=== PATIENT | female | born 1985 | race African-American/Black ===

== ENCOUNTER 2024-07-03 16:06 | Inpatient (IN) | payer MEDICAID, SELFPAY ==
[2024-07-03] VITALS (8 sets, daily range): BP systolic 110–127; BP diastolic 69–79; PULSE 93–117; RESP 16–24; TEMP 37.4–39.4; O2SAT 96–100; BMI 28.9
--- NOTE | ~2024-07-03 | CT_ITS ---
CLINICAL HISTORY: severe TAPIA CT head without contrast Comparison: None Findings: No intra-axial mass, midline shift, hydrocephalus, or acute hemorrhage. No significant atrophy-like change or white matter disease. There is no sinus or mastoid fluid. The orbits are unremarkable. No skull fracture. IMPRESSION: 1. No acute intracranial findings. This document has been electronically signed by: Sukhi Lehman MD on 07/03/2024 18:02:32
--- NOTE | 2024-07-03 16:41 | ED_ITS ---
HPI - Headache General Chief Complaint: Headache Stated Complaint: headache, fever warm to the touch, Time Seen by Provider: 07/03/24 16:29 Source: patient and EMS Mode of arrival: EMS Limitations: no limitations History of Present Illness ED Provider: Dr. Makenzie Little HPI Narrative: Patient comes to the emergency room complaining of a headache that started 6 days ago. Patient reports subjective fever. Patient also complaining of photophobia, and some neck pain especially on the right side of the neck. Patient has been taking [id number] medications such as Tylenol and Motrin. Patient states it is not helping much. To her knowledge, she has never been diagnosed with migraine headaches. Patient denies any URI or UTI symptoms Related Data Home Medications ?Medication ?Instructions ?Recorded ?Confirmed No Known Home Meds 11/04/22 Allergies Allergy/AdvReac Type Severity Reaction Status Date / Time No Known Allergies Allergy Verified 07/03/24 16:24 Review of Systems 2 Review of Systems: Constitutional : No Weight loss, No Fever, No Chills, No Night Sweats, patient complaining of fatigue and generalized malaise ENT/Mouth : No Hearing loss, No Ear Pain, No Nasal Congestion, No Sinus Pain, No Hoarseness, No sore throat, No Rhinorrhea, No Swallowing Difficulty Eyes: No Eye Pain, No Swelling, No Redness, No Foreign Body, No Discharge, No Vision Changes Cardiovascular : No Chest Pain, No SOB, No Dyspnea on Exertion, No Orthopnea, No Edema, No Palpitations Respiratory : No Cough, No Sputum, No Wheezing, No Smoke Exposure, No Dyspnea Gastrointestinal : No Nausea, No Vomiting, No Diarrhea, No Constipation, No abdominal Pain, No Hematochezia, No Melena Genitourinary : no irregular bleeding, No Dysuria, No Urinary Frequency, No Hematuria, No Urinary Incontinence, No Urgency, No Flank Pain, No Urinary Flow Changes, No Hesitancy Musculoskeletal : No joint pain, No Myalgias, No Joint Swelling Skin : No Skin Lesions, No rash Neuro : No Weakness, No Numbness, No Paresthesias, No Loss of Consciousness, No Dizziness, complaining of a headache for 6 days along with right-sided neck pain Psych : No Anxiety/Panic, No Depression, No SI/HI/AH/VH, No Social Issues, Heme/Lymph: No Bruising, No Bleeding,No Lymphadenopathy Endocrine : No Polyuria, No Polydipsia, No Temperature Intolerance ON LICENSE OF [facility] Social History Social History Patient Tobacco Use Status: Never used Tobacco Smoked in Last 30 Days: No Use of substances other than those prescribed or required for medical reasons: No Advance Directives: No Advance Directives Information Provided: No Physical Exam 2 Vital Signs: Vital Signs: Last Vital Signs Temp 101.3 F H 07/03/24 23:27 Pulse 112 H 07/03/24 23:27 Resp 24 H 07/03/24 23:27 BP 117/71 07/03/24 23:27 Pulse Ox 96 07/03/24 23:27 O2 Del Method Room Air 07/03/24 23:27 BMI result Body Mass Index 28.9 Const: Other: Appearance: Alert. Oriented X3. Patient looks uncomfortable Eyes: Pupils equal, round and reactive to light. ENT: Pharynx normal. Neck: Normal inspection. No lymphadenopathy. Pain to palpation on the right side of the neck posteriorly and lateral aspect of the right side as well. No pain on the left. Patient has full range of motion with flexion and extension CVS: Normal heart rate and rhythm. Pulses normal. Normal S1 and S2 Respiratory: No respiratory distress. Breath sounds normal. No Wheezing. No rales Abdomen: Soft and nontender. No rigidity. No distention. Skin: Skin warm and dry. Normal skin color. Normal skin turgor. Extremities: No lower extremity edema. No Lacerations. No Rash Neuro: Oriented X 3. No motor deficit. No sensory deficit. Moving all extremities. No slurred speech. CN 2 through 12 grossly intact Psych: calm, cooperative, normal affect Course Course Course Narrative: Receiving IV fluids, a dose of morphine, metoclopramide, diphenhydramine and p.o. cyclobenzaprine. All of patient's labs and imaging pending As possible the patient may be experiencing a migraine, however, if patient does not improve with symptomatic relief, may have to do a lumbar puncture to rule out meningitis Medications Administered Discontinued Medications Generic Name Dose Route Start Last Admin Trade Name Freq PRN Reason Stop Dose Admin Acetaminophen 975 mg 07/03/24 21:38 07/03/24 22:29 Acetaminophen 325 Mg Tablet PO 07/03/24 21:39 975 mg ONCE ONE Administration Ceftriaxone Sodium 1 gm 07/03/24 21:45 07/03/24 22:31 Ceftriaxone Sodium 1 Gm Vial IVPUSH 07/03/24 21:46 1 gm ONCE ONE Administration Cyclobenzaprine HCl 10 mg 07/03/24 16:40 07/03/24 17:04 Cyclobenzaprine Hcl 10 Mg Tablet PO 07/03/24 16:41 10 mg ONCE ONE Administration Dexamethasone Sodium Phosphate 6 mg 07/03/24 21:43 07/03/24 22:29 Dexamethasone Sod Phosphate 4 Mg/Ml Vial IVPUSH 07/03/24 21:44 6 mg ONCE ONE Administration Diphenhydramine HCl 25 mg 07/03/24 16:38 07/03/24 17:04 Diphenhydramine Hcl 50 Mg/Ml Vial IVPUSH 07/03/24 16:39 25 mg ONCE ONE Administration Hydromorphone HCl 1 mg 07/03/24 19:26 07/03/24 19:56 Hydromorphone Hcl 1 Mg/Ml Syringe IVPUSH 07/03/24 19:27 1 mg ONCE ONE Administration Protocol Hydromorphone HCl 0.5 mg 07/03/24 23:11 07/03/24 23:29 Hydromorphone Hcl 0.5 Mg/0.5 Ml Syringe IVPUSH 07/03/24 23:12 0.5 mg ONCE ONE Administration Protocol Sodium Chloride 1,000 mls @ 999 mls/hr 07/03/24 16:39 07/03/24 19:57 Ns IVCONT 07/03/24 17:39 Infused .Q1H1M ONE Infusion Vancomycin HCl 2,000 mg in 500 mls @ 250 mls/hr 07/03/24 21:45 07/03/24 23:54 Vancomycin/Ns IV 07/03/24 23:44 250 mls/hr ONCE ONE Administration Sodium Chloride 2,000 mls @ 999 mls/hr 07/03/24 21:48 07/03/24 23:52 Ns IVCONT 07/03/24 23:48 Infused .Q2H1M ONE Infusion Acyclovir Sodium 680 mg/ 113.6 mls @ 113.6 mls/hr 07/03/24 21:49 07/03/24 23:47 Sodium Chloride IV 07/03/24 22:48 Infused ONCE ONE Infusion Metoclopramide HCl 10 mg 07/03/24 16:38 07/03/24 17:08 Metoclopramide Hcl 10 Mg/2 Ml Vial IVPUSH 07/03/24 16:39 10 mg ONCE ONE Administration Morphine Sulfate 2 mg 07/03/24 17:49 07/03/24 17:54 Morphine Sulfate 2 Mg/Ml Cartridge IVPUSH 07/03/24 17:50 2 mg ONCE ONE Administration Protocol Ondansetron HCl 4 mg 07/03/24 19:26 07/03/24 19:56 Ondansetron Hcl 4 Mg/2 Ml Vial IVPUSH 07/03/24 19:27 4 mg ONCE ONE Administration Medical Decision Making Medical Decision Making [facility] Narrative: My interpretation of labs: Patient's hematology shows a hemoglobin of 8.3. We do not have any previous labs for comparison. Patient's chemistry shows no acute findings. CT scan of the head does not show any acute abnormality. with help of [employer] supervisor, I discussed the labs and CT findings with the patient. Patient states that she is still having 10/10 headache. I discussed with the patient that we need to proceed with a lumbar puncture. Patient agrees Also, patient states that she has normal menstrual periods, she has never been told that she has anemia. Patient denies any rectal bleeding or black stool. I discussed with the patient the risks versus benefits of a blood transfusion and the lumbar puncture. Patient is agreeable to proceed with both. Patient has signed both consents, procedural and blood transfusion Patient being given 1 dose of Dilaudid, states she is feeling better. Patient states that the headache significantly decreased PT INR within acceptable limits, serology negative for influenza, COVID or RSV Patient states that she is starting to feel a bit better after a dose of Dilaudid. We were able to obtain CSF fluid. CSF Sent to the lab. I did not obtain an opening pressure. The CSF fluid was draining very slow, drop by drop, unclear if we were going to be able to obtain enough CSF fluid As we were performing the lumbar puncture, I noted that the patient's skin feels warmer than the documented temperature. I asked the nurse to do a rectal temperature after the procedure, patient has a fever of 102. Patient being given more fluids, empirically treated with dexamethasone, ceftriaxone , vancomycin and acyclovir Patient's CSF labs are pending At this time, 22:58, patient's CSF labs returned: hazy, colorless, white blood cell count 149, RBCs 18, neutrophils 99, lymphocytes 1, glucose 54, CSF protein 145.8 Patient likely has viral meningitis. As mentioned above, patient has already been covered with both antibiotics and antiviral. I discussed the patient with Dr. Cintron, patient may admitted Lab Data 07/03/24 17:46 07/03/24 17:46 Labs: Lab Results 07/03/24 07/03/24 07/03/24 Range/Units 17:46 20:11 21:04 WBC 8.6 (4.8-10.8) X10*3/uL RBC 3.34 L (4.20-5.50) X10*6/uL Hgb 8.3 L (12.0-16.0) g/dl Hct 25.3 L (37.0-47.0) % MCV 75.7 L (80.0-98.0) fL MCH 24.9 L (27.0-33.0) pg MCHC 32.8 (31.0-35.0) g/dl RDW 14.8 (11.0-16.0) % Plt Count 118 L (160-400) X10*3/uL MPV 11.6 (9.4-12.3) fL Immature Gran % (Auto) 0.6 H (0.0-0.4) % Neut % (Auto) 81.9 H (45-73) % Lymph % (Auto) 9.6 L (20-40) % [place] % (Auto) 7.7 (2-11) % Eos % (Auto) 0.1 (0-4) % Baso % (Auto) 0.1 (0-2) % Lymph # (Auto) 0.8 L (1.2-4.9) X10*3/uL [place] # (Auto) 0.7 (0.1-1.2) X10*3/uL Eos # (Auto) 0.0 (0.0-0.4) X10*3/uL Baso # (Auto) 0.0 (0.0-0.2) X10*3/uL Abs Immat Gran (auto) 0.05 H (0.00-0.03) X10*3/uL Absolute Neuts (auto) 7.1 (2.0-8.3) x10*3/uL Absolute Nucleated RBC 0.000 (0.0-0.012) X10*3/uL Nucleated RBC % (auto) 0.0 (0.0-0.2) /100WBC PT 18.9 H (10.9-12.4) SEC INR 1.6 H (0.9-1.1) Sodium 139 (135-145) mmol/L Potassium 3.3 (3.3-5.1) mmol/L Chloride 108 (96-108) mmol/L Carbon Dioxide 22 (22-29) mmol/L Anion Gap 12 (12-20) BUN 7 L (9-16) mg/dL Creatinine 0.67 (0.5-1.4) mg/dL Estim Creat Clear Calc 124.7 Estimated GFR > 60 Random Glucose 105 (60-115) mg/dL Lactic Acid (0.5-2.0) mmol/L Calcium 8.0 L (8.4-10.2) mg/dL Total Bilirubin 0.9 (0.0-1.0) mg/dL Direct Bilirubin 0.4 (0.0-0.5) mg/dL AST 32 H (5-31) U/L ALT 29 (0-31) U/L Alkaline Phosphatase 112 (39-117) U/L Total Protein 6.8 (6.5-8.0) g/dL Albumin 2.8 L (3.5-5.0) g/dL CSF Tube Number 4 CSF Volume ML CSF Appearance CSF Color CSF WBC MM*3 CSF RBC MM*3 CSF Neutrophils % CSF Lymphocytes % CSF Appearance (b) CSF Glucose mg/dL CSF Total Protein (15-45) mg/dL CSF C.neoform/gat PCR (Not Detect.) CSF CMV DNA (PCR) (Not Detect.) CSF Enterovirus (PCR) (Not Detect.) CSF E. coli K1 (PCR) (Not Detect.) CSF H. influenzae (PCR) (Not Detect.) CSF HSV I (PCR) (Not Detect.) CSF HSV II (PCR) (Not Detect.) CSF HHV 6 (PCR) (Not Detect.) CSF L.monocytogenes PCR (Not Detect.) CSF N. meningitidis PCR (Not Detect.) CSF Parechovirus (PCR) (Not Detect.) CSF S. agalactiae (PCR) (Not Detect.) CSF S. pneumoniae (PCR) (Not Detect.) CSF VZV (PCR) (Not Detect.) Influenza Type A (PCR) NEGATIVE (Negative) Influenza Type B (PCR) NEGATIVE (Negative) RSV RNA Qual (PCR) NEGATIVE (Negative) SARS-CoV-2 RNA (RT-PCR) NEGATIVE (Negative) Blood Type A Positive Antibody Screen NEGATIVE Crossmatch See Detail 07/03/24 07/03/24 Range/Units 21:04 23:41 WBC (4.8-10.8) X10*3/uL RBC (4.20-5.50) X10*6/uL Hgb (12.0-16.0) g/dl Hct (37.0-47.0) % MCV (80.0-98.0) fL MCH (27.0-33.0) pg MCHC (31.0-35.0) g/dl RDW (11.0-16.0) % Plt Count (160-400) X10*3/uL MPV (9.4-12.3) fL Immature Gran % (Auto) (0.0-0.4) % Neut % (Auto) (45-73) % Lymph % (Auto) (20-40) % [place] % (Auto) (2-11) % Eos % (Auto) (0-4) % Baso % (Auto) (0-2) % Lymph # (Auto) (1.2-4.9) X10*3/uL [place] # (Auto) (0.1-1.2) X10*3/uL Eos # (Auto) (0.0-0.4) X10*3/uL Baso # (Auto) (0.0-0.2) X10*3/uL Abs Immat Gran (auto) (0.00-0.03) X10*3/uL Absolute Neuts (auto) (2.0-8.3) x10*3/uL Absolute Nucleated RBC (0.0-0.012) X10*3/uL Nucleated RBC % (auto) (0.0-0.2) /100WBC PT (10.9-12.4) SEC INR (0.9-1.1) Sodium (135-145) mmol/L Potassium (3.3-5.1) mmol/L Chloride (96-108) mmol/L Carbon Dioxide (22-29) mmol/L Anion Gap (12-20) BUN (9-16) mg/dL Creatinine (0.5-1.4) mg/dL Estim Creat Clear Calc Estimated GFR Random Glucose (60-115) mg/dL Lactic Acid 2.0 (0.5-2.0) mmol/L Calcium (8.4-10.2) mg/dL Total Bilirubin (0.0-1.0) mg/dL Direct Bilirubin (0.0-0.5) mg/dL AST (5-31) U/L ALT (0-31) U/L Alkaline Phosphatase (39-117) U/L Total Protein (6.5-8.0) g/dL Albumin (3.5-5.0) g/dL CSF Tube Number 3 CSF Volume 1.0 ML CSF Appearance HAZY CSF Color COLORLESS CSF WBC 149 H* MM*3 CSF RBC 18 MM*3 CSF Neutrophils 99 % CSF Lymphocytes 1 % CSF Appearance (b) Clear, Colorless CSF Glucose 54 mg/dL CSF Total Protein 145.8 H (15-45) mg/dL CSF C.neoform/gat PCR Not Detected (Not Detect.) CSF CMV DNA (PCR) Not Detected (Not Detect.) CSF Enterovirus (PCR) Not Detected (Not Detect.) CSF E. coli K1 (PCR) Not Detected (Not Detect.) CSF H. influenzae (PCR) Not Detected (Not Detect.) CSF HSV I (PCR) Not Detected (Not Detect.) CSF HSV II (PCR) Not Detected (Not Detect.) CSF HHV 6 (PCR) Not Detected (Not Detect.) CSF L.monocytogenes PCR Not Detected (Not Detect.) CSF N. meningitidis PCR Not Detected (Not Detect.) CSF Parechovirus (PCR) Not Detected (Not Detect.) CSF S. agalactiae (PCR) Not Detected (Not Detect.) CSF S. pneumoniae (PCR) Not Detected (Not Detect.) CSF VZV (PCR) Not Detected (Not Detect.) Influenza Type A (PCR) (Negative) Influenza Type B (PCR) (Negative) RSV RNA Qual (PCR) (Negative) SARS-CoV-2 RNA (RT-PCR) (Negative) Blood Type Antibody Screen Crossmatch Procedures Lumbar Puncture Time Out Performed: Yes Patient Position: upright Skin Prep: Povidone-Iodine 1% Local Anesthetic: lidocaine 1% Amount of anesthesia used (mL): 10 Spinal Needle Gauge: 22G Interspace Used: L4-L5 Fluid Initially Obtained: clear (A bit hazy) Complications: none Critical Care Time Critical Care Time Critical Care Time: Yes Total Critical Care Time: 75 Attestation: I have personally provided critical care time. Time includes review of lab data, radiology results, discussion with consultants, and monitoring for potential decompensation. Intervention performed as documented. Discharge Plan Discharge Prescriptions: No Action No Known Home Meds Print Language: [place]ian Creelvia
[2024-07-03] MEDS: Cyclobenzaprine HCl 10 MG TABLET PO (17:04)
[2024-07-03] MEDS: diphenhydrAMINE HCL 50 MG/ML VIAL 25 MG IVPUSH (17:04)
[2024-07-03] MEDS: 0.9 % Sodium Chloride 1,000 ML 999 ML IVCONT (17:06)
[2024-07-03] MEDS: Metoclopramide HCl 10 MG/2 ML VIAL IVPUSH (17:08)
--- NOTE | 2024-07-03 17:10 | PC.NURSE ---
pt is alert and oriented, skin appropriate for ethnicity, respirations even and unlabored, pt is Stateless Creole speaking, pt states since thursday having this terrible headache, pt denies hx of headaches, denies light and noise sensitivity, denies nausea, vs stable
--- OUTSIDE RECORDS SUMMARY | 2024-07-03 17:39 | XMS_ITS | Clinical Summary ---
Author Organization [employer] Address [address] [place] [address] 7 [place] [address] Care Team Providers Care Level Vial Grinder Name Role Phone Claudia Ferrara CARLA Primary Care Provide r Medications * This document contains information received from the source organization and may not represent a complete record from that organization. Blood Pressure Monitoring (Blood Pressure Kit) kit 1 each Use as directed. 10/06/2022 Active norethindrone (Micronor) 0.35 MG tabletIndication s:Encounter for Nexplanon removal Take 1 tablet (0.35 mg) by mouth Once per day. 28 tablet 11 05/03/2024 Active Active Problems Problem Noted Date Diagnosed Date Language barrier 06/06/2024 Overview (06/06/2024): Patient does not speak Kenyan as a primary language. Certified qual field manager was used for the duration of this visit which requires at least twice the time to assess history, discuss assessment and plan. Those with primary language is other than Kenyan, require additional support and expertise in order to access health care to combat these social determinants of health. This additional expertise, support, attention, and effort required to deliver quality health care must be recognized by our system. Encounter for control 04/27/2024 Encounter for Nexplanon removal 04/27/2024 Overview (04/27/2024): Nexplanon was removed without complications, fully intact, care instructions were given to the patient Elevated blood pressure read ing without diagnosis of hypertension 04/27/2024 Overview (04/27/2024): Blood pressure 156/102 today in office , No symptoms Patient reports no history of HTN (but had PEC in ) Discussed diet modifications with the patient and that she should follow up with her PCP within 3 months Situational stress 03/28/2024 Overview (06/06/2024): 06-06-24 patient also had visit with primary care [facility] 06-02-2024. Patient reports doing overall well, and communicating with mother and father in [place]. Denies any suicidal or homicidal ideations. Overall symptoms have been stable. Counseled on when to seek care sooner for mental health emergency and agreeable. Plan for follow-up in 4 weeks sooner as needed. 03-28-2024 follow-up visit for stress endorsed by patient during well-child check on 02-18-2024 Reports is related to being from father of children. Patient denies feeling depressed No suicidal or homicidal ideations Advised on strategies to help with stress [facility] follow-up in 4 weeks PCP follow-up in 2 months Counseled on when to seek care sooner Assessment & Plan (06/06/2024 10:02 AM EST): You indicate at visit today you are dong well overall, and have no thoughts of hurting, killing yourself or others. We discussed things to do to help decrease stress, such as spending time with family and doing things that bring you day[place], also getting involved with your community can be helpful. Follow all advice that was given by primary care behavioral health at visit 06-02-24 Follow-up with PCP in 1 months as scheduled, sooner as needed. We discussed for any thoughts of hurting, killing yourself or others, to seek immediate medical care by calling 911. Patient expressed understanding agreeable to plan. Assessment & Plan (03/28/2024 9:22 AM EST): You indicate at visit today you are stressed but has no depression, no thoughts of hurting, killing yourself or others. We discussed things to do to help decrease stress, such as spending time with family and doing things that bring you day[place], also getting involved with your community can be helpful. You are also agreeable to a visit with our behavioral health specialist, you will be contacted with appointment date and time. Also follow-up with PCP in 2 months sooner as needed. We discussed for any thoughts of hurting, killing yourself or others, to seek immediate medical care by calling 911. Patient expressed understanding agreeable to plan. History of pre-eclampsia 01/09/2024 Thrombocytopenia 10/09/2022 Overview (01/09/2024): Patient was thrombocytopenic with a platelet count of 80 on 10/06/2022. On admission to the hospital repeat CBC was collected and platelet count was 84. Number cytopenia most likely related to thrombocytopenia of and less likely ITP or help syndrome. Plan to continue monitoring platelet count during hospitalization and at 6-week follow-up. -Repeat CBC Encounters * This document contains information received from the source organization and may not represent a complete record from that organization. Date Type Department Care Team Description 06/06/2024 9:00 AM EST Telemedicine [address] [phone] Claudia Ferrara FNP Situational stress (Primary Dx); Language barrier 05/03/[address] [phone] Ngozi Centeno DO Contraception 05/02/2024 3:40 PM EST Office Visit [address] [phone] Ngozi Centeno, Thrombocytopenia (CMS/HCC) (Primary Dx); Irregular periods; Encounter for Nexplanon removal 04/29/[address] [phone] Claudia Ferrara FNP Headache 04/23/2024 Abstract [facility] [address] [place] [phone] Denice Pizarro CHW 04/11/2024 2:00 PM EST Office Visit [address] [phone] Charito Mccormick PA-C Encounter for Nexplanon removal (Primary Dx); Elevated blood pressure reading without diagnosis of hypertension 04/06/[address] [phone] Claudia Ferrara FNP Vaginal Bleeding from Last 3 Months Immunizations Name Administration Dates Next Due Pfizer Covid-19 Vaccine 12+ lan-sucrose (Bergman Cap) 09/24/2022,06/17/2022,05/20/2022, 0 22 Social History Tobacco Use Types Packs/Day Years Used Date Smoking Tobacco: Never Passive Smoke Exposure: Never Smokeless Tobacco: Never Tobacco Cessation:Counseling Given: Not Answered Alcohol Use Standard Drinks/Week Comments Never 0 (1 standard drink = 0.6 oz pur e alcohol) Housing Stability Answer Date Recorded What is your housing situation today? I have connorfeli garrett 01/27/[address] you li ve. Do you have problems with any of the following? None of the above 01/27/2024 Food Insecurity Answer Date Recorded Within the past 12 months, y ou worried that your food would run out before you got money to buy more: Sometimes True 2023 Within the past 12 months,th e food you bought just didn't last and you didn't have enough money to get more: Sometimes True 05/02/2024 Transportation Answer Date Recorded In the past 12 months, has l ack of transportation kept you from medical appts, meetings, work or from getting things needed for daily living? No 05/02/2024 Utilities Answer Date Recorded In the past 12 months, has t he electric, gas, oil or water company threatened to shut off services in your home? No 01/27/2024 Depression Answer Date Recorded Patient Health Questionnaire-2 Score 0 01/27/2024 Internet Access Answer Date Recorded Internet Access Q1 No 05/02/2024 Internet Access Q2 I do not want or need it 01/2024 Comments No Sex and Gender Information Value Date Recorded Sex Assigned at Female 10/29/2023 8:25 AM EDT Legal Sex Female 7:04 PM EDT Gender Identity Female 09/04/2023 7:04 PM EDT Sexual Orientation Straight 09/04/2023 7: 04 PM EDT Last Filed Vital Signs Vital Sign Reading Time Taken Comments Blood Pressure 126/85 05/02/2024 2:46 PM EST Pulse 69 05/02/2024 2:46 PM EST Temperature 36.7 ??C (98 ??F) 05/02/2024 2:46 PM EST Respiratory Rate 16 05/02/2024 2:46 PM EST Oxygen Saturation 98% 05/02/2024 2:46 PM EST Inhaled Oxygen Concentration - - Weight 76.7 kg (169 lb) 05/02/2024 2:46 PM EST Height 159.4 cm (5' 2.75 ) 04/11/2024 2:10 PM ES T Body Mass Index 30.18 04/11/2024 2:10 PM EST Plan of Treatment Upcoming Encounters Date Type Department Care Team (Late st Contact Info) Description 07/04/2024 9:20 AM EST Telemedicine [address] [phone] Claudia Ferrara FNP [address] [place] [phone] Health Maintenance Due Date Last Done Comments Alcohol/Substance Use Screening 1999 Family Planning (PISQ) 12/26/2002 DTaP/Tdap/Td Vaccines (1 - Tdap) 12/26/2006 Hepatitis B Vaccines (1 of 3 - 19+ 3-dose series) 12/26/2006 COVID-19 Vaccine ( season) 2024 09/24/2022, 06/17/2022, 05/20/2022, Additional history exists Influenza Vaccine (#1) 2024 Depression Screening 01/26/2025 01/27/2024, 01/27/20 24 SDOH Screening 05/02/2025 05/02/2024 Tobacco Screening 06/06/2025 06/06/2024 Cervical Cancer Screening 01/26/2029 HPV/Cotest 01/26/2029 01/27/2024 Pap Smear 01/26/2029 01/27/2024 Zoster Vaccines (1 of 2) 12/26/2037 RSV Patients and Patients Aged 60 years or older (1 - 1-dose 75+ series) 12/26/2062 Hepatitis C Screening Completed 10/06/2022 HIV Screening Completed 07/09/2023 HIB Vaccines Aged Out No longer eligi ble based on patient's age to complete this topic HPV Vaccines Aged Out No longer eligi ble based on patient's age to complete this topic Hepatitis A Vaccines Aged Out No long er eligible based on patient's age to complete this topic IPV Vaccines Aged Out No longer eligi ble based on patient's age to complete this topic Meningococcal Vaccine Aged Out No anyi amina eligible based on patient's age to complete this topic Pneumococcal Vaccine: Pediatrics (0 to 5 Years) and At-Risk Patients (6 to 49) Years) Aged Out No longer eligible based on patient's age to complete this topic RSV under 20 months Aged Out No longe r eligible based on patient's age to complete this topic Rotavirus Vaccines Aged Out No longer eligible based on patient's age to complete this topic Procedures Procedure Name Priority Date/Time Associated Diagnosis Comments POCT , URINE Routine 05/02/2024 2:49 PM EST Irregular periods BOOK EDITOR INSERTION/REMOVAL OF CONTRACEPTIVE CAPSULE Routine 04/11/2024 12:57 PM EST Encounter for Nexplanon removal IMAGE GUIDED PAP, HPV DETECTION W/REFLEX TO HPV GENOTYPE Routine 01/27/2024 2:12 PM EDT Cervical cancer screening HM HIV 1/2 ANTIGEN AND ANTIBODY Routine 07/09/2023 HM HEPATITIS C ANTIBODY Routine 10/06/2022 from Last 3 Months or Most Recently Relevant to Health Maintenance Results * POCT HCG Test (05/02/2024 2:49 PM EST) Preg Test, Ur Negative Negative, Indeterminate, None Detected, Invalid, Specimen unsatisfactory for evaluation, Weakly Positive QC Media Lot # [id number] Lot# Expiration Date [id number] Urine 05/02/2024 2:49 PM EST Ngozi Centeno DO POINT OF CARE TEST ENTER/EDIT OR DERABLES Final Result * Insertion/Removal of Contraceptive Capsule (04/11/2024 12:57 PM EST) Narrative Charito Mccormick PA-C - 04/11/2024 12:57 PM EST Charito Mccormick PA-C ? 04/27/2024 ??1:14 PM Insertion/Removal of Contraceptive Capsule Date/Time: 04/11/2024 12:57 PM Performed by: Charito Mccormick PA-C Authorized by: Charito Mccormick PA-C ?? Confirmed correct patient, procedure, site, and patient consented: Yes ?? Consent: ??Consent obtained: ??Written ??Consent given by: ??Patient ??Procedural risks and benefits discussed: Yes ?Patient questions answered: yes ?Patient agrees, verbalizes understanding, and wants to proceed: yes ?Educational handouts given: yes ?Instructions and paperwork completed: yes ?? [place] Protocol: ??Patient states understanding of procedure being performed: yes ?Relevant documents present and verified: yes ?Test results available and properly labeled: yes ?Imaging studies available: yes ?Required blood products, implants, devices, and special equipment available: yes ?Site marked: yes ?? Indication: ??Indication: presence of non-biodegradable drug delivery implant ?? Pre-procedure: ??Pre-procedure timeout performed: yes ?Local anesthetic: ??Lidocaine 1% ??The site was cleaned and prepped in a sterile fashion: yes ?? Procedure: ??Procedure: ??Removal ??Small stab incision was made in arm: yes ?Left/right: ??Left Charito Mccormick PA-C IN CLINIC/BEDSIDE ORDERA BLES Final Result * Routine Pap, Age 30+ (01/27/2024 2:12 PM EDT) Diagnosis [facility] 1 Comment: NEGATIVE FOR INTRAEPITHELIAL LESION OR MALIGNANCY. THE CYTOLOGY PROCESSING WAS PERFORMED AT THE [facility] LOCATED AT [address] [place] [phone]. Adequacy: [facility] 1 Comment: Satisfactory for evaluation. ??Endocervical and/or squamous metaplastic cells (endocervical component) are present. Clinician provided ICD-10: [facility] 2 Comment:Z12.4 Performed by: [facility] 1 Comment:Cleopatra Nunez, Cytot echnologist (ASCP) Cytology Comment . [facility] 1 Note: [facility] 2 Comment: The Pap smear is a screening test designed to aid in the detection of premalignant and malignant conditions of the uterine cervix. ??It is not a diagnostic procedure and should not be used as the sole means of detecting cervical cancer. ??Both false-positive and false-negative reports do occur. Test Methodology: [facility] 2 Comment: This liquid based ThinPrep(R) pap test was screened with the use of an image guided system. HPV Aptima Negative Negative [facility] 3 Comment: This nucleic acid amplification test detects fourteen high-risk HPV types (16,18,31,33,35,39,45,51,52,56,58,59,66,68) without differentiation. ThinPrep?? vial (Cervical cells) 01/27/2024 2:12 PM EDT 01/27/2024 Comment:CERVICAL Narrative [facility] 3 - 01/29/2024 10:05 PM EDT Performed at: ??01 - [facility] [address] ??[id number] Installation And Service Technician: Conner Rome MD, Phone: ??[phone] Performed at: ??02 - [facility] [address] ??[id number] Installation And Service Technician: Digna Olson MD, Phone: ??[phone] Performed at: ??03 - [facility] [address] ??[id number] Installation And Service Technician: Digna Olson MD, Phone: ??[phone] Specimen Comment: [id number] Specimen Comment: No. of containers..01 ThinPrep Vial [facility] LAB CYTOLOGY ORDERABLES Dennise l Result [facility] 3 [facility] 1 [facility] 2 * HM HIV 1/2 Antigen and Antibody (07/09/2023) HIV Ag/Ab Nonreactive Historical Provider HEALTH MAINTENANCE Final Result * HM Hepatitis C Antibody (10/06/2022) Hepatitis C Antibody Nonreactive Blood Historical Provider HEALTH MAINTENANCE Final Result from Last 3 Months or Most Recently Relevant to Health Maintenance Insurance C3 Care Teams Level Vial Grinder Relationship Specialty Start Date End Date Claudia Ferrara FNP [address] [place] [phone] PCP - General Family Medicine 11/20/21
--- NOTE | 2024-07-03 17:50 | PC.NURSE ---
pt reports not feeling any better pain still at 10/10
[2024-07-03] MEDS: Morphine Sulfate 2 MG/ML CARTRIDGE IVPUSH (17:54)
[2024-07-03 17:55] LABS: MANUAL DIFF FLAG NO
[2024-07-03 18:16] LABS: Alanine Aminotransferase 29 U/L (0-31); Albumin Level 2.8 g/dL (3.5-5.0); Alkaline Phosphatase 112 U/L (39-117); Anion Gap 12 (12-20); Aspartate Amino Transferase 32 U/L (5-31); Bilirubin Direct 0.4 mg/dL (0.0-0.5); Bilirubin Total 0.9 mg/dL (0.0-1.0); Blood Urea Nitrogen 7 mg/dL (9-16); Carbon Dioxide 22 mmol/L (22-29); Chloride 108 mmol/L (96-108); Creatinine Clr Calc Pharmacy 124.7; Estimated Glomerular Filt Rate > 60; Glucose Random 105 mg/dL (60-115); Potassium 3.3 mmol/L (3.3-5.1); Sodium 139 mmol/L (135-145); Total Protein 6.8 g/dL (6.5-8.0)
[2024-07-03 18:31] LABS: Basophils Percent Auto 0.1 % (0-2); Eosinophils Percent Auto 0.1 % (0-4); Hematocrit 25.3 % (37.0-47.0); Hemoglobin 8.3 g/dl (12.0-16.0); Imm Gran Abs Auto 0.05 X10*3/uL (0.00-0.03); Imm Gran Pct Auto 0.6 % (0.0-0.4); Lymphocytes Absolute Auto 0.8 X10*3/uL (1.2-4.9); Lymphocytes Percent Auto 9.6 % (20-40); Mean Corpuscular HGB Conc 32.8 g/dl (31.0-35.0); Mean Corpuscular Hemoglobin 24.9 pg (27.0-33.0); Mean Corpuscular Volume 75.7 fL (80.0-98.0); Mean Platelet Volume 11.6 fL (9.4-12.3); Monocytes Absolute Auto 0.7 X10*3/uL (0.1-1.2); Monocytes Percent Auto 7.7 % (2-11); Neutrophils Absolute Auto 7.1 x10*3/uL (2.0-8.3); Neutrophils Percent Auto 81.9 % (45-73); Platelet Count 118 X10*3/uL (160-400); Red Blood Count 3.34 X10*6/uL (4.20-5.50); Red Cell Distribution Width 14.8 % (11.0-16.0); White Blood Count 8.6 X10*3/uL (4.8-10.8)
[2024-07-03 19:11] LABS: Influenza A PCR NEGATIVE (Negative); Influenza B PCR NEGATIVE (Negative); Resp Syncy Virus RNA Qual PCR NEGATIVE (Negative); SARS COV2 PCR INHOUSE NEGATIVE (Negative)
[2024-07-03] MEDS: HYDROmorphone HCl 1 MG/ML SYRINGE IVPUSH (19:56)
[2024-07-03] MEDS: ondansetron HCL 4 MG/2 ML VIAL IVPUSH (19:56)
[2024-07-03 20:32] LABS: INTERNATIONAL NORM RATIO 1.6 (0.9-1.1); Prothrombin Time 18.9 SEC (10.9-12.4)
[2024-07-03 21:44] LABS: Glucose CSF 54 mg/dL; Total Protein CSF 145.8 mg/dL (15-45)
[2024-07-03 21:45] LABS: CSF Appearance Clear, Colorless; CSF Tube # 4
[2024-07-03] MEDS: 0.9 % Sodium Chloride 2,000 ML 999 ML IVCONT (22:16)
[2024-07-03] MEDS: dexAMETHasone sod phosphate 4 MG/ML VIAL 6 MG IVPUSH (22:29)
[2024-07-03] MEDS: Acetaminophen 325 MG TABLET 975 MG PO (22:29)
[2024-07-03] MEDS: Acyclovir Sodium 680 MG in 0.9 % Sodium Chloride 100 ML 113.6 MG IV (22:31)
[2024-07-03] MEDS: cefTRIAXone sodium 1 GM VIAL IVPUSH (22:31)
[2024-07-03 22:42] LABS: Cryptococcus neoformans/gattii Not Detected (Not Detect.); Enterovirus Not Detected (Not Detect.); Escherichia coli K1 Not Detected (Not Detect.); Haemophilus influenzae Not Detected (Not Detect.); Herpes simplex virus 1 Not Detected (Not Detect.); Herpes simplex virus 2 Not Detected (Not Detect.); Human herpesvirus 6 Not Detected (Not Detect.); Human parechovirus Not Detected (Not Detect.); Listeria monocytogenes Not Detected (Not Detect.); Neisseria meningitidis Not Detected (Not Detect.); Streptococcus agalactiae Not Detected (Not Detect.); Streptococcus pneumoniae Not Detected (Not Detect.); Varicella zoster virus Not Detected (Not Detect.)
[2024-07-03 22:51] LABS: Appearance CSF HAZY
[2024-07-03 22:52] LABS: CSF Tube # 3; Color CSF COLORLESS
[2024-07-03 22:54] LABS: Lymphocytes CSF 1 %; Neutrophils CSF 99 %; Red Blood Cell CSF 18 MM*3
[2024-07-03 22:55] LABS: White Blood Cell CSF 149 MM*3
[2024-07-03] MEDS: HYDROmorphone HCl 0.5 MG/0.5 ML SYRINGE IVPUSH (23:29)
[2024-07-03] MEDS: vancomycin/NS 2,000 MG/500 ML PLAST..BAG 250 MG IV (23:54)
--- NOTE | 2024-07-03 23:59 | P.HPHOSP_ITS ---
History of Present Illness Date of Service: 07/03/24 Attending physician on admission: Omer Cintron Chief Complaint: Headache, fever Patient is a 38-year-old female with no significant past medical history, who presented to the ED due to headache, neck pain and fever for the past week. She was sent from urgent care and EMS reported nonreactive pupils but was found to have reactive pupils here. Her neck pain is located on the right side, with photophobia and a 10/10 headache. Since receiving IV pain medication here she reports her headache as a 7/10. She denies any upper respiratory symptoms including cough, runny nose, congestion, shortness of breath or sore throat. She also denies any rash, abd pain, diarrhea, nausea, vomiting, hematochezia or urinary symptoms including pain, hematuria, dysuria, frequency or urgency. She denies heavy menses or any bleeding sources. History is difficult to obtain as the patient was uncomfortable and there is a language barrier although interpretation services were used. Review of Systems 2 Constitutional: Constitutional: Reports fever(s) and Reports headache(s) Eyes: Eyes: Reports photophobia ENT: Reports headache(s), Denies nasal congestion, Denies nasal discharge, Reports neck pain and Denies sore throat Cardiovascular: Cardiovascular: Denies chest pain, Denies rapid heart rate, Denies leg edema, Denies lightheadedness, Denies dyspnea and Denies dyspnea on exertion Respiratory: Respiratory: Denies chest congestion, Denies cough, Denies dyspnea, Denies dyspnea on exertion and Denies wheezing Gastrointestinal: Gastrointestinal: Denies abdominal pain, Denies melena, Denies hematochezia, Denies constipation, Denies diarrhea, Denies nausea and Denies vomiting Genitourinary: Genitourinary: Denies abnormal menses, Denies abnormal vaginal bleeding, Denies hematuria, Denies difficulty voiding, Denies dysuria and Denies urinary urgency Musculoskeletal: Musculoskeletal: Reports neck pain Integumentary/Breasts: Skin/Breast: Denies rash Neurologic: Denies confusion and Reports headache(s) Psychiatric: Psychiatric: Denies confusion Endocrine: Endocrine: Denies polydipsia and Denies polyuria Hematologic/Lymphatic: Hematologic/Lymphatic: Denies easy bleeding and Denies easy bruising Allergic/Immunologic: Allergic/Immunologic: Denies wheezing PMFSH Functional capacity: independent ambulation Social History Patient Tobacco Use Status: Never used Tobacco Smoked in Last 30 Days: No Use of substances other than those prescribed or required for medical reasons: No Advance Directives: No Advance Directives Information Provided: No Narrative: no smoking, etoh or drug use Meds Allergies Allergy/AdvReac Type Severity Reaction Status Date / Time No Known Allergies Allergy Verified 07/03/24 16:24 Active Medications: Current Medications Acetaminophen (Acetaminophen 325 Mg Tablet) 975 mg PO Q6H PRN PRN Reason: Pain, Mild 1-3,fever,headache Calcium Carbonate (Calcium Carbonate 750 Mg Tab.Chew) 750 mg PO Q4H PRN PRN Reason: Heartburn Hydromorphone HCl (Hydromorphone Hcl 1 Mg/Ml Syringe) 1 mg IVPUSH Q4H PRN; Protocol PRN Reason: Pain, Severe (Pain Scale 7-10) Acyclovir Sodium 680.6 mg/ (Sodium Chloride) 113.612 mls @ 113.612 mls/hr IV Q8H EDUIN Ibuprofen (Ibuprofen 600 Mg Tablet) 600 mg PO Q8H PRN PRN Reason: Fever >100.4 Magnesium Hydroxide (Milk Of Magnesia 30 Ml Oral.Susp) 30 ml PO DAILY PRN PRN Reason: Constipation Melatonin (Melatonin 3 Mg Tablet) 6 mg PO BEDTIME PRN PRN Reason: Insomnia Ondansetron HCl (Ondansetron Hcl 4 Mg/2 Ml Vial) 4 mg IVPUSH Q8H PRN PRN Reason: Nausea and Vomiting Oxycodone HCl (Oxycodone Hcl Immed Release 5 Mg Tablet) 5 mg PO Q6H PRN PRN Reason: Pain, Moderate(Pain Scale 4-6) Polyethylene Glycol (Polyethylene Glycol 3350 17 Gm Powd.Pack) 17 gm PO DAILY PRN PRN Reason: Constipation Sodium Chloride (0.9 % Sodium Chloride Flush 3 Ml Syringe) 3 ml IVFLUSH QSHIFT ON LICENSE OF [facility] Home Medications ?Medication ?Instructions ?Recorded ?Confirmed ?Last Taken ?Type No Known Home Meds 11/04/22 Unknown History Physical Exam 2 Vital Signs and Narrative: Vital Signs: Last Vital Signs Temp 101.3 F H 07/03/24 23:27 Pulse 112 H 07/03/24 23:27 Resp 24 H 07/03/24 23:27 BP 117/71 07/03/24 23:27 Pulse Ox 96 07/03/24 23:27 O2 Del Method Room Air 07/03/24 23:27 BMI result Body Mass Index 28.9 General: AOx3, very uncomfortable, groaning and does not open eyes the entire time Resp: CTA bilaterally CVS: S1, S2, RRR GI: +BS, NT, no distention Skin: Warm to touch, dry Neuro: EOMs intact, pupils equal in size, refuses pupillary reaction with light. ED note mentions PERRL. sensation and strength intact bilaterally. Extremities: No LE edema Psych: Appropriate affect Const: General: No confusion Orientation/consciousness: No confusion Eyes: Direct Ophthalmoscopy: photophobia Neuro: General: No confusion Results Labs 07/03/24 17:46 07/03/24 17:46 Labs: Laboratory Results - last 24 hr 07/03/24 07/03/24 07/03/24 17:46 20:11 21:04 MCV 75.7 L MCH 24.9 L MCHC 32.8 RDW 14.8 Plt Count 118 L MPV 11.6 Immature Gran % (Auto) 0.6 H Neut % (Auto) 81.9 H Lymph % (Auto) 9.6 L [place] % (Auto) 7.7 Eos % (Auto) 0.1 Baso % (Auto) 0.1 Lymph # (Auto) 0.8 L [place] # (Auto) 0.7 Eos # (Auto) 0.0 Baso # (Auto) 0.0 Abs Immat Gran (auto) 0.05 H Absolute Neuts (auto) 7.1 Absolute Nucleated RBC 0.000 Nucleated RBC % (auto) 0.0 PT 18.9 H INR 1.6 H Anion Gap 12 Estim Creat Clear Calc 124.7 Estimated GFR > 60 Random Glucose 105 Calcium 8.0 L Total Bilirubin 0.9 Direct Bilirubin 0.4 AST 32 H ALT 29 Alkaline Phosphatase 112 Total Protein 6.8 Albumin 2.8 L CSF Tube Number 4 CSF Volume CSF Appearance CSF Color CSF WBC CSF RBC CSF Neutrophils CSF Lymphocytes CSF Appearance (b) CSF Glucose CSF Total Protein CSF C.neoform/gat PCR CSF CMV DNA (PCR) CSF Enterovirus (PCR) CSF E. coli K1 (PCR) CSF H. influenzae (PCR) CSF HSV I (PCR) CSF HSV II (PCR) CSF HHV 6 (PCR) CSF L.monocytogenes PCR CSF N. meningitidis PCR CSF Parechovirus (PCR) CSF S. agalactiae (PCR) CSF S. pneumoniae (PCR) CSF VZV (PCR) Influenza Type A (PCR) NEGATIVE Influenza Type B (PCR) NEGATIVE RSV RNA Qual (PCR) NEGATIVE SARS-CoV-2 RNA (RT-PCR) NEGATIVE Blood Type A Positive Antibody Screen NEGATIVE Crossmatch See Detail 07/03/24 21:04 MCV MCH MCHC RDW Plt Count MPV Immature Gran % (Auto) Neut % (Auto) Lymph % (Auto) [place] % (Auto) Eos % (Auto) Baso % (Auto) Lymph # (Auto) [place] # (Auto) Eos # (Auto) Baso # (Auto) Abs Immat Gran (auto) Absolute Neuts (auto) Absolute Nucleated RBC Nucleated RBC % (auto) PT INR Anion Gap Estim Creat Clear Calc Estimated GFR Random Glucose Calcium Total Bilirubin Direct Bilirubin AST ALT Alkaline Phosphatase Total Protein Albumin CSF Tube Number 3 CSF Volume 1.0 CSF Appearance HAZY CSF Color COLORLESS CSF WBC 149 H* CSF RBC 18 CSF Neutrophils 99 CSF Lymphocytes 1 CSF Appearance (b) Clear, Colorless CSF Glucose 54 CSF Total Protein 145.8 H CSF C.neoform/gat PCR Not Detected CSF CMV DNA (PCR) Not Detected CSF Enterovirus (PCR) Not Detected CSF E. coli K1 (PCR) Not Detected CSF H. influenzae (PCR) Not Detected CSF HSV I (PCR) Not Detected CSF HSV II (PCR) Not Detected CSF HHV 6 (PCR) Not Detected CSF L.monocytogenes PCR Not Detected CSF N. meningitidis PCR Not Detected CSF Parechovirus (PCR) Not Detected CSF S. agalactiae (PCR) Not Detected CSF S. pneumoniae (PCR) Not Detected CSF VZV (PCR) Not Detected Influenza Type A (PCR) Influenza Type B (PCR) RSV RNA Qual (PCR) SARS-CoV-2 RNA (RT-PCR) Blood Type Antibody Screen Crossmatch Assessment and Plan (1) Sepsis: Status: Acute (2) Viral meningitis: Status: Acute (3) Microcytic anemia: Status: Acute (4) Thrombocytopenia: Status: Acute Plan Patient is a 38-year-old female with no significant past medical history, who presented to the ED due to headache, neck pain and fever for the past week. Workup in the ED significant for likely viral meningitis versus encephalitis. No altered mental status therefore meningitis white likely. COVID/flu/RSV negative. Strep negative. Head CT negative. She was also found to be anemic with a hemoglobin of 8.3, 1 unit PRBC transfused. No obvious bleeding sources. Patient is very uncomfortable therefore difficult to obtain accurate history from. Sepsis secondary to suspected viral meningitis - WBC 8.6, tachycardic and tachypneic, T-max 103 degrees F, lactic acid 2.0, blood cultures x2 pending - head CT negative - CSF with WBC 149, 99% neutrophils, protein 145.8, glucose normal, viral panel negative - started on ceftriaxone, vancomycin and acyclovir, continue - also given dexamethasone x1 dose, continue 10mg Q6H - ID consult - neuro checks Q4H - monitor Is and Os - contact precautions - monitor CBC and BMP microcytic anemia - hemoglobin 8.3, hematocrit 25.3, platelets 118 - given 1 unit PRBC - no obvious bleeding sources - iron panel pending - monitor CBC language:[place] Creole Full code VTE prophylaxis: Pneumoboots, anticoagulant contraindicated due to thrombocytopenia Patient with sepsis secondary to suspected viral meningitis, requiring admission for at least 2 midnights stay for IV abx, antivirals, monitoring and infectious disease consultation. Quality Stroke Does the patient have a stroke diagnosis?: No VTE Prior VTE?: No VTE Risk Level:: Medical - moderate - high VTE Device Contraindication: N/A - Device Ordered VTE Drug Contraindication: Treatment Not Indicated
[2024-07-04] VITALS (8 sets, daily range): BP systolic 115–156; BP diastolic 71–94; PULSE 81–104; RESP 16–26; TEMP 35.8–38; O2SAT 94–97
[2024-07-04] MEDS: 0.9 % Sodium Chloride Flush 3 ML SYRINGE IVFLUSH ×3 (00:33→16:06)
[2024-07-04 00:41] LABS: Iron < 7 mcg/dL (30-160); Percent Iron Saturation 5 % (15-50); Total Iron Binding Capacity 147 mcg/dL (228-428); Unsaturated Iron Binding 140 ug/dL
[2024-07-04 04:47] LABS: MANUAL DIFF FLAG NO
[2024-07-04 04:52] LABS: Basophils Percent Auto 0.2 % (0-2); Hemoglobin 9.6 g/dl (12.0-16.0); Imm Gran Abs Auto 0.09 X10*3/uL (0.00-0.03); Lymphocytes Absolute Auto 0.6 X10*3/uL (1.2-4.9); Lymphocytes Percent Auto 6.2 % (20-40); Mean Corpuscular HGB Conc 33.1 g/dl (31.0-35.0); Mean Corpuscular Hemoglobin 25.5 pg (27.0-33.0); Mean Corpuscular Volume 76.9 fL (80.0-98.0); Mean Platelet Volume 11.5 fL (9.4-12.3); Monocytes Absolute Auto 0.4 X10*3/uL (0.1-1.2); Monocytes Percent Auto 3.9 % (2-11); Neutrophils Absolute Auto 8.1 x10*3/uL (2.0-8.3); Neutrophils Percent Auto 88.7 % (45-73); Platelet Count 131 X10*3/uL (160-400); Red Blood Count 3.77 X10*6/uL (4.20-5.50); Red Cell Distribution Width 15.3 % (11.0-16.0); White Blood Count 9.2 X10*3/uL (4.8-10.8)
[2024-07-04 05:05] LABS: Anion Gap 13 (12-20); Blood Urea Nitrogen 7 mg/dL (9-16); Calcium 7.7 mg/dL (8.4-10.2); Carbon Dioxide 20 mmol/L (22-29); Chloride 112 mmol/L (96-108); Creatinine Clr Calc Pharmacy 128.5; Estimated Glomerular Filt Rate > 60; Glucose Random 151 mg/dL (60-115); Potassium 3.5 mmol/L (3.3-5.1); Sodium 141 mmol/L (135-145)
[2024-07-04] MEDS: dexAMETHasone sod phosphate 10 MG/ML VIAL IVPUSH ×4 (05:28→21:25)
[2024-07-04] MEDS: Acyclovir Sodium 680 MG in 0.9 % Sodium Chloride 100 ML 113.6 MG IV ×3 (05:29→21:25)
[2024-07-04] MEDS: Ibuprofen 600 MG TABLET PO (05:42)
[2024-07-04] MEDS: oxyCODONE HCl Immed Release 5 MG TABLET PO ×2 (05:42→16:05)
--- NOTE | 2024-07-04 10:12 | PHA.MEDREC ---
Addendum entered by Earle Ellison RPh 07/04/24 10:19: Med rec was reviewed by fer. Original Note: Pharmacy Consult ? Medication Reconciliation Pharmacy has completed the medication reconciliation. Spoke to patient through upsetting machine operator service to confirm med list. Patient states she isn't taking any medications except Tylenol but doesn't know what dose she takes.
[2024-07-04] MEDS: cefTRIAXone sodium 2 GM VIAL IVPUSH ×2 (10:57→20:55)
[2024-07-04] MEDS: vancomycin HCL 1,500 MG in 0.9 % Sodium Chloride 500 ML 333.33 MG IV ×2 (12:36→23:11)
--- NOTE | 2024-07-04 12:44 | MHC.CM.PN ---
with the interpertator pt explains thaT SHE LIVESS WITH HER 3 CHILDREN AGES 11,7 AND 18 MONTHS HER BROTHER IS CARING FOR HER CHILDREN ,PT HAD NO SER IES PRIOR TO ADMISISON AND [facility] DC PLAN EXPECTED TO BE HOME
--- NOTE | 2024-07-04 12:52 | P.PNIM_ITS ---
Subjective Subjective Date of Service: 07/04/24 Review of Systems Follow up headache, fever still feeling weak Physical Exam 2 Vital Signs: Vital Signs: Last Vital Signs Temp 97.2 F 07/04/24 12:42 Pulse 85 07/04/24 12:42 Resp 16 07/04/24 12:42 BP 137/85 07/04/24 12:42 Pulse Ox 96 07/04/24 12:42 O2 Del Method Room Air 07/04/24 12:42 BMI result Body Mass Index 28.9 Appearing in no acute distress lung sounds are clear to auscultation heart regular rate rhythm, clear S1, S2 positive bowel sounds, abdomen is soft, nontender neuro patient is alert x3, no focal deficits Objective Data Active Medications Acetaminophen (Acetaminophen 325 Mg Tablet) 975 mg PO Q6H PRN PRN Reason: Pain, Mild 1-3,fever,headache Calcium Carbonate (Calcium Carbonate 750 Mg Tab.Chew) 750 mg PO Q4H PRN PRN Reason: Heartburn Ceftriaxone Sodium (Ceftriaxone Sodium 2 Gm Vial) 2 gm IVPUSH Q12H [facility] Last Admin: 07/04/24 10:57 Dose: 2 gm Documented By: SELMA Dexamethasone Sodium Phosphate (Dexamethasone Sod Phosphate 10 Mg/Ml Vial) 10 mg IVPUSH Q6H [facility] Last Admin: 07/04/24 10:56 Dose: 10 mg Documented By: SELMA Hydromorphone HCl (Hydromorphone Hcl 1 Mg/Ml Syringe) 1 mg IVPUSH Q4H PRN; Protocol PRN Reason: Pain, Severe (Pain Scale 7-10) Acyclovir Sodium 680 mg/ (Sodium Chloride) 113.6 mls @ 113.6 mls/hr IV Q8H [facility] Last Infusion: 07/04/24 06:35 Dose: Infused Documented By: JUNITO Vancomycin HCl 1,500 mg/ (Sodium Chloride) 500 mls @ 333.333 mls/hr IV Q12H [facility] Last Admin: 07/04/24 12:36 Dose: 333.33 mls/hr Documented By: SARA Ibuprofen (Ibuprofen 600 Mg Tablet) 600 mg PO Q8H PRN PRN Reason: Fever >100.4 Last Admin: 07/04/24 05:42 Dose: 600 mg Documented By: JUNITO Magnesium Hydroxide (Milk Of Magnesia 30 Ml Oral.Susp) 30 ml PO DAILY PRN PRN Reason: Constipation Melatonin (Melatonin 3 Mg Tablet) 6 mg PO BEDTIME PRN PRN Reason: Insomnia Ondansetron HCl (Ondansetron Hcl 4 Mg/2 Ml Vial) 4 mg IVPUSH Q8H PRN PRN Reason: Nausea and Vomiting Oxycodone HCl (Oxycodone Hcl Immed Release 5 Mg Tablet) 5 mg PO Q6H PRN PRN Reason: Pain, Moderate(Pain Scale 4-6) Last Admin: 07/04/24 05:42 Dose: 5 mg Documented By: JUNITO Pharmacy Consult (Consult Rx Vancomycin Dosing) 1 each MISCELLANE DAILY PRN PRN Reason: Consult order Polyethylene Glycol (Polyethylene Glycol 3350 17 Gm Powd.Pack) 17 gm PO DAILY PRN PRN Reason: Constipation Sodium Chloride (0.9 % Sodium Chloride Flush 3 Ml Syringe) 3 ml IVFLUSH QSHIFT [facility] Last Admin: 07/04/24 10:56 Dose: 3 ml Documented By: SELMA Labs 07/04/24 04:05 07/04/24 04:13 Labs: Laboratory Results - last 24 hr 07/03/24 07/03/24 07/03/24 17:46 20:11 21:04 MCV 75.7 L MCH 24.9 L MCHC 32.8 RDW 14.8 Plt Count 118 L MPV 11.6 Immature Gran % (Auto) 0.6 H Neut % (Auto) 81.9 H Lymph % (Auto) 9.6 L Armstrong % (Auto) 7.7 Eos % (Auto) 0.1 Baso % (Auto) 0.1 Lymph # (Auto) 0.8 L Armstrong # (Auto) 0.7 Eos # (Auto) 0.0 Baso # (Auto) 0.0 Abs Immat Gran (auto) 0.05 H Absolute Neuts (auto) 7.1 Absolute Nucleated RBC 0.000 Nucleated RBC % (auto) 0.0 PT 18.9 H INR 1.6 H Anion Gap 12 Estim Creat Clear Calc 124.7 Estimated GFR > 60 Random Glucose 105 Lactic Acid Calcium 8.0 L Iron < 7 L TIBC 147 L % Saturation 5 L Unsat Iron Binding 140 Total Bilirubin 0.9 Direct Bilirubin 0.4 AST 32 H ALT 29 Alkaline Phosphatase 112 Total Protein 6.8 Albumin 2.8 L CSF Tube Number 4 CSF Volume CSF Appearance CSF Color CSF WBC CSF RBC CSF Neutrophils CSF Lymphocytes CSF Appearance (b) CSF Glucose CSF Total Protein CSF C.neoform/gat PCR CSF CMV DNA (PCR) CSF Enterovirus (PCR) CSF E. coli K1 (PCR) CSF H. influenzae (PCR) CSF HSV I (PCR) CSF HSV II (PCR) CSF HHV 6 (PCR) CSF L.monocytogenes PCR CSF N. meningitidis PCR CSF Parechovirus (PCR) CSF S. agalactiae (PCR) CSF S. pneumoniae (PCR) CSF VZV (PCR) Influenza Type A (PCR) NEGATIVE Influenza Type B (PCR) NEGATIVE RSV RNA Qual (PCR) NEGATIVE SARS-CoV-2 RNA (RT-PCR) NEGATIVE Blood Type A Positive Antibody Screen NEGATIVE Crossmatch See Detail 07/03/24 07/03/24 07/04/24 21:04 23:41 04:05 MCV 76.9 L MCH 25.5 L MCHC 33.1 RDW 15.3 Plt Count 131 L MPV 11.5 Immature Gran % (Auto) 1.0 H Neut % (Auto) 88.7 H Lymph % (Auto) 6.2 L Armstrong % (Auto) 3.9 Eos % (Auto) 0.0 Baso % (Auto) 0.2 Lymph # (Auto) 0.6 L Armstrong # (Auto) 0.4 Eos # (Auto) 0.0 Baso # (Auto) 0.0 Abs Immat Gran (auto) 0.09 H Absolute Neuts (auto) 8.1 Absolute Nucleated RBC 0.000 Nucleated RBC % (auto) 0.0 PT INR Anion Gap Estim Creat Clear Calc Estimated GFR Random Glucose Lactic Acid 2.0 Calcium Iron TIBC % Saturation Unsat Iron Binding Total Bilirubin Direct Bilirubin AST ALT Alkaline Phosphatase Total Protein Albumin CSF Tube Number 3 CSF Volume 1.0 CSF Appearance HAZY CSF Color COLORLESS CSF WBC 149 H* CSF RBC 18 CSF Neutrophils 99 CSF Lymphocytes 1 CSF Appearance (b) Clear, Colorless CSF Glucose 54 CSF Total Protein 145.8 H CSF C.neoform/gat PCR Not Detected CSF CMV DNA (PCR) Not Detected CSF Enterovirus (PCR) Not Detected CSF E. coli K1 (PCR) Not Detected CSF H. influenzae (PCR) Not Detected CSF HSV I (PCR) Not Detected CSF HSV II (PCR) Not Detected CSF HHV 6 (PCR) Not Detected CSF L.monocytogenes PCR Not Detected CSF N. meningitidis PCR Not Detected CSF Parechovirus (PCR) Not Detected CSF S. agalactiae (PCR) Not Detected CSF S. pneumoniae (PCR) Not Detected CSF VZV (PCR) Not Detected Influenza Type A (PCR) Influenza Type B (PCR) RSV RNA Qual (PCR) SARS-CoV-2 RNA (RT-PCR) Blood Type Antibody Screen Crossmatch 07/04/24 04:13 MCV MCH MCHC RDW Plt Count MPV Immature Gran % (Auto) Neut % (Auto) Lymph % (Auto) Armstrong % (Auto) Eos % (Auto) Baso % (Auto) Lymph # (Auto) Armstrong # (Auto) Eos # (Auto) Baso # (Auto) Abs Immat Gran (auto) Absolute Neuts (auto) Absolute Nucleated RBC Nucleated RBC % (auto) PT INR Anion Gap 13 Estim Creat Clear Calc 128.5 Estimated GFR > 60 Random Glucose 151 H Lactic Acid Calcium 7.7 L Iron TIBC % Saturation Unsat Iron Binding Total Bilirubin Direct Bilirubin AST ALT Alkaline Phosphatase Total Protein Albumin CSF Tube Number CSF Volume CSF Appearance CSF Color CSF WBC CSF RBC CSF Neutrophils CSF Lymphocytes CSF Appearance (b) CSF Glucose CSF Total Protein CSF C.neoform/gat PCR CSF CMV DNA (PCR) CSF Enterovirus (PCR) CSF E. coli K1 (PCR) CSF H. influenzae (PCR) CSF HSV I (PCR) CSF HSV II (PCR) CSF HHV 6 (PCR) CSF L.monocytogenes PCR CSF N. meningitidis PCR CSF Parechovirus (PCR) CSF S. agalactiae (PCR) CSF S. pneumoniae (PCR) CSF VZV (PCR) Influenza Type A (PCR) Influenza Type B (PCR) RSV RNA Qual (PCR) SARS-CoV-2 RNA (RT-PCR) Blood Type Antibody Screen Crossmatch Microbiology Microbiology Results: Microbiology 07/03/24 21:04 Gram Stain - Final Cerebrospinal Fluid CSF Examination - Final Fluid Description - Final CSF Culture - Preliminary No growth to date. Assessment and Plan (1) Viral meningitis: Status: Acute Plan Patient is a 38-year-old female with no significant past medical history, who presented to the ED due to headache, neck pain and fever for the past week. Workup in the ED significant for likely viral meningitis versus encephalitis. No altered mental status therefore meningitis white likely. COVID/flu/RSV negative. Strep negative. Head CT negative. She was also found to be anemic with a hemoglobin of 8.3, 1 unit PRBC transfused. No obvious bleeding sources. Patient is very uncomfortable therefore difficult to obtain accurate history from. Sepsis secondary to suspected viral meningitis WBC 8.6, tachycardic and tachypneic, T-max 103 degrees, lactic acid 2.0, blood cultures x2 pending head CT negative CSF with WBC 149, 99% neutrophils, protein 145.8, glucose normal, viral panel negative ceftriaxone, vancomycin and acyclovir dexamethasone continue 10mg Q6H ID consult neuro checks Q4H contact precautions monitor CBC and BMP Iron def anemia hemoglobin 8.3, hematocrit 25.3, platelets 118 s/p 1 unit PRBC Iron <7/TIBC 147/% 5 start iron infusion language:Valencia Ku, zambian Full code VTE prophylaxis: Pneumoboots, anticoagulant contraindicated due to thrombocytopenia Patient with sepsis secondary to suspected viral meningitis, requiring admission for at least 2 midnights stay for IV abx, antivirals, monitoring and infectious disease consultation. Quality Stroke Does the patient have a stroke diagnosis?: No VTE Prior VTE?: No VTE Risk Level:: Medical - moderate - high VTE Device Contraindication: N/A - Device Ordered VTE Drug Contraindication: Treatment Not Indicated
--- NOTE | 2024-07-04 14:38 | PC.NURSE ---
called pharmacy for iron IV med, will deliver
[2024-07-04] MEDS: Iron Sucrose Complex 200 MG/10 ML VIAL IVPUSH (15:06)
[2024-07-04] MEDS: ondansetron HCL 4 MG/2 ML VIAL IVPUSH (20:56)
[2024-07-04] MEDS: HYDROmorphone HCl 1 MG/ML SYRINGE IVPUSH (20:56)
[2024-07-04] MEDS: Fluconazole 150 MG TABLET PO (21:53)
[2024-07-05] VITALS (7 sets, daily range): BP systolic 144–166; BP diastolic 78–98; PULSE 63–83; RESP 16–20; TEMP 36–36.7; O2SAT 94–97; BMI 28.3
[2024-07-05] MEDS: ondansetron HCL 4 MG/2 ML VIAL IVPUSH (01:46)
[2024-07-05] MEDS: HYDROmorphone HCl 1 MG/ML SYRINGE IVPUSH ×2 (01:46→09:28)
[2024-07-05] MEDS: dexAMETHasone sod phosphate 10 MG/ML VIAL IVPUSH (04:46)
[2024-07-05] MEDS: Melatonin 3 MG TABLET 6 MG PO (04:51)
--- NOTE | 2024-07-05 04:55 | PC.NURSE ---
Notified MD of most recent pressure 162/102. Patient still complaining of headache. Pain 10/01. Requested melatonin. - given at this time.
[2024-07-05 06:18] LABS: Basophils Percent Auto 0.2 % (0-2); Hematocrit 31.6 % (37.0-47.0); Hemoglobin 10.8 g/dl (12.0-16.0); Imm Gran Abs Auto 0.09 X10*3/uL (0.00-0.03); Imm Gran Pct Auto 0.4 % (0.0-0.4); Lymphocytes Absolute Auto 1.1 X10*3/uL (1.2-4.9); Lymphocytes Percent Auto 5.6 % (20-40); MANUAL DIFF FLAG SCAN; Mean Corpuscular HGB Conc 34.2 g/dl (31.0-35.0); Mean Corpuscular Hemoglobin 25.5 pg (27.0-33.0); Mean Corpuscular Volume 74.7 fL (80.0-98.0); Mean Platelet Volume 11.2 fL (9.4-12.3); Monocytes Absolute Auto 0.5 X10*3/uL (0.1-1.2); Monocytes Percent Auto 2.4 % (2-11); Neutrophils Absolute Auto 18.6 x10*3/uL (2.0-8.3); Neutrophils Percent Auto 91.4 % (45-73); Platelet Count 147 X10*3/uL (160-400); Red Blood Count 4.23 X10*6/uL (4.20-5.50); Red Cell Distribution Width 15.1 % (11.0-16.0); SCAN SMEAR FLAG 1; White Blood Count 20.4 X10*3/uL (4.8-10.8)
[2024-07-05 06:34] LABS: Anion Gap 12 (12-20); Blood Urea Nitrogen 11 mg/dL (9-16); Calcium 8.5 mg/dL (8.4-10.2); Carbon Dioxide 23 mmol/L (22-29); Chloride 107 mmol/L (96-108); Creatinine Clr Calc Pharmacy 132.6; Estimated Glomerular Filt Rate > 60; Glucose Random 150 mg/dL (60-115); Potassium 3.4 mmol/L (3.3-5.1); Sodium 139 mmol/L (135-145)
[2024-07-05 06:36] LABS: SLIDE REVIEW VERIFIED
[2024-07-05 07:04] LABS: HIV AB/AG Nonreactive (Nonreactive); HIV Num 1 0.14 S/CO (0.00-0.99)
[2024-07-05] MEDS: 0.9 % Sodium Chloride Flush 3 ML SYRINGE IVFLUSH ×3 (09:27→21:43)
--- NOTE | 2024-07-05 10:48 | HO.PM.IMPN ---
Subjective Subjective Date of Service: 07/05/24 Review of Systems Follow up headache, fever still feeling weak Physical Exam Vital Signs: Vital Signs: Last Vital Signs Temp 97.5 F 07/05/24 08:00 Pulse 83 07/05/24 08:00 Resp 16 07/05/24 08:00 BP 162/89 H 07/05/24 08:00 Pulse Ox 96 07/05/24 08:00 O2 Del Method Room Air 07/05/24 08:00 BMI result Body Mass Index 28.3 Appearing in no acute distress lung sounds are clear to auscultation heart regular rate rhythm, clear S1, S2 positive bowel sounds, abdomen is soft, nontender neuro patient is alert x3, no focal deficits Objective Data Active Medications Acetaminophen (Acetaminophen 325 Mg Tablet) 975 mg PO Q6H PRN PRN Reason: Pain, Mild 1-3,fever,headache Calcium Carbonate (Calcium Carbonate 750 Mg Tab.Chew) 750 mg PO Q4H PRN PRN Reason: Heartburn Hydromorphone HCl (Hydromorphone Hcl 1 Mg/Ml Syringe) 1 mg IVPUSH Q4H PRN; Protocol PRN Reason: Pain, Severe (Pain Scale 7-10) Last Admin: 07/05/24 09:28 Dose: 1 mg Documented By: HUNTER Iron Sucrose (Iron Sucrose Complex 200 Mg/10 Ml Vial) 200 mg IVPUSH DAILY [facility] Last Admin: 07/04/24 15:06 Dose: 200 mg Documented By: SARA Ketorolac Tromethamine (Ketorolac Tromethamine 30 Mg/Ml Vial) 30 mg IVPUSH Q6H [facility] Magnesium Hydroxide (Milk Of Magnesia 30 Ml Oral.Susp) 30 ml PO DAILY PRN PRN Reason: Constipation Melatonin (Melatonin 3 Mg Tablet) 6 mg PO BEDTIME PRN PRN Reason: Insomnia Last Admin: 07/05/24 04:51 Dose: 6 mg Documented By: BRITANY Ondansetron HCl (Ondansetron Hcl 4 Mg/2 Ml Vial) 4 mg IVPUSH Q8H PRN PRN Reason: Nausea and Vomiting Last Admin: 07/04/24 20:56 Dose: 4 mg Documented By: BRITANY Oxycodone HCl (Oxycodone Hcl Immed Release 5 Mg Tablet) 5 mg PO Q6H PRN PRN Reason: Pain, Moderate(Pain Scale 4-6) Last Admin: 07/04/24 16:05 Dose: 5 mg Documented By: SARA Pharmacy Consult (Consult Rx Vancomycin Dosing) 1 each MISCELLANE DAILY PRN PRN Reason: Consult order Polyethylene Glycol (Polyethylene Glycol 3350 17 Gm Powd.Pack) 17 gm PO DAILY PRN PRN Reason: Constipation Sodium Chloride (0.9 % Sodium Chloride Flush 3 Ml Syringe) 3 ml IVFLUSH QSHIFT [facility] Last Admin: 07/05/24 09:27 Dose: 3 ml Documented By: HUNTER Labs 07/05/24 06:10 07/05/24 06:10 Labs: Laboratory Results - last 24 hr 07/05/24 06:10 MCV 74.7 L MCH 25.5 L MCHC 34.2 RDW 15.1 Plt Count 147 L MPV 11.2 Immature Gran % (Auto) 0.4 Neut % (Auto) 91.4 H Lymph % (Auto) 5.6 L Harlan % (Auto) 2.4 Eos % (Auto) 0.0 Baso % (Auto) 0.2 Lymph # (Auto) 1.1 L Harlan # (Auto) 0.5 Eos # (Auto) 0.0 Baso # (Auto) 0.0 Abs Immat Gran (auto) 0.09 H Absolute Neuts (auto) 18.6 H Absolute Nucleated RBC 0.000 Nucleated RBC % (auto) 0.0 Smear Tech's Comments VERIFIED Anion Gap 12 Estim Creat Clear Calc 132.6 Estimated GFR > 60 Random Glucose 150 H Calcium 8.5 D HIV 1&2 Ab/P24 Ag 4thGn Nonreactive Microbiology Microbiology Results: Microbiology 07/03/24 21:04 Gram Stain - Final Cerebrospinal Fluid CSF Examination - Final Fluid Description - Final CSF Culture - Preliminary No growth after 1 day 07/03/24 23:51 Blood Culture - Preliminary Blood - Venous No growth after 24 hours. 07/03/24 23:41 Blood Culture - Preliminary Blood - Venous No growth after 24 hours. Assessment and Plan (1) Viral meningitis: Status: Acute Plan Patient is a 38-year-old female with no significant past medical history, who presented to the ED due to headache, neck pain and fever for the past week. Workup in the ED significant for likely viral meningitis versus encephalitis. No altered mental status therefore meningitis white likely. COVID/flu/RSV negative. Strep negative. Head CT negative. She was also found to be anemic with a hemoglobin of 8.3, 1 unit PRBC transfused. No obvious bleeding sources. Patient is very uncomfortable therefore difficult to obtain accurate history from. Sepsis secondary to suspected viral meningitis. Sepsis resolved WBC 8.6, tachycardic and tachypneic, T-max 103 degrees, lactic acid 2.0, blood cultures x2 pending head CT negative CSF with WBC 149, 99% neutrophils, protein 145.8, glucose normal, viral panel negative Dexamethasone, ceftriaxone, vancomycin and acyclovir stopped as per ID still with headache and body aches, Toradol added ice packs Iron def anemia hemoglobin 8.3, hematocrit 25.3, platelets 118 s/p 1 unit PRBC Iron <7/TIBC 147/% 5 IV iron infusion x3 language:Belarusian Creole, swedish Full code VTE prophylaxis: Pneumoboots, anticoagulant contraindicated due to thrombocytopenia Patient with sepsis secondary to suspected viral meningitis, requiring admission for at least 2 midnights stay for IV abx, antivirals, monitoring and infectious disease consultation. Quality Stroke Does the patient have a stroke diagnosis?: No VTE Prior VTE?: No VTE Risk Level:: Medical - moderate - high VTE Device Contraindication: N/A - Device Ordered VTE Drug Contraindication: Treatment Not Indicated
[2024-07-05] MEDS: Iron Sucrose Complex 200 MG/10 ML VIAL IVPUSH (11:14)
[2024-07-05] MEDS: Ketorolac Tromethamine 30 MG/ML VIAL IVPUSH ×3 (11:14→21:41)
[2024-07-05] MEDS: oxyCODONE HCl Immed Release 5 MG TABLET PO (13:09)
--- NOTE | 2024-07-06 00:03 | W.PM.IDCN ---
History of Present Illness Data of Consult Service Date: 07/04/24 Requesting physician: Rita Bruno Primary Care Provider: None Physician HPI Reason for consult: headache She has frontal headache for six days. She has no fever or chills but had before admission. No one is ill at home. Review of Systems Review of Systems: Yes all other systems are reviewed and are negative [facility], [facility] Family History Family history: reviewed and not pertinent Social History Social History Household Members: Children Housing: Apartment Patient Tobacco Use Status: Never used Tobacco service: No Meds Allergies Allergy/AdvReac Type Severity Reaction Status Date / Time No Known Allergies Allergy Verified 07/03/24 16:24 Active Medications: Current Medications Acetaminophen (Acetaminophen 325 Mg Tablet) 975 mg PO Q6H PRN PRN Reason: Pain, Mild 1-3,fever,headache Calcium Carbonate (Calcium Carbonate 750 Mg Tab.Chew) 750 mg PO Q4H PRN PRN Reason: Heartburn Hydromorphone HCl (Hydromorphone Hcl 1 Mg/Ml Syringe) 1 mg IVPUSH Q4H PRN; Protocol PRN Reason: Pain, Severe (Pain Scale 7-10) Last Admin: 07/05/24 09:28 Dose: 1 mg Iron Sucrose (Iron Sucrose Complex 200 Mg/10 Ml Vial) 200 mg IVPUSH DAILY [facility] Last Admin: 07/05/24 11:14 Dose: 200 mg Ketorolac Tromethamine (Ketorolac Tromethamine 30 Mg/Ml Vial) 30 mg IVPUSH Q6H [facility] Last Admin: 07/05/24 21:41 Dose: 30 mg Magnesium Hydroxide (Milk Of Magnesia 30 Ml Oral.Susp) 30 ml PO DAILY PRN PRN Reason: Constipation Melatonin (Melatonin 3 Mg Tablet) 6 mg PO BEDTIME PRN PRN Reason: Insomnia Last Admin: 07/05/24 04:51 Dose: 6 mg Ondansetron HCl (Ondansetron Hcl 4 Mg/2 Ml Vial) 4 mg IVPUSH Q8H PRN PRN Reason: Nausea and Vomiting Last Admin: 07/04/24 20:56 Dose: 4 mg Oxycodone HCl (Oxycodone Hcl Immed Release 5 Mg Tablet) 5 mg PO Q6H PRN PRN Reason: Pain, Moderate(Pain Scale 4-6) Last Admin: 07/05/24 13:09 Dose: 5 mg Polyethylene Glycol (Polyethylene Glycol 3350 17 Gm Powd.Pack) 17 gm PO DAILY PRN PRN Reason: Constipation Sodium Chloride (0.9 % Sodium Chloride Flush 3 Ml Syringe) 3 ml IVFLUSH QSHIFT [facility] Last Admin: 07/05/24 21:43 Dose: 3 ml Home Medications ?Medication ?Instructions ?Recorded ?Confirmed ?Last Taken ?Type No Known Home Meds 11/04/22 07/04/24 Unknown History Physical Exam Vital Signs: Vital Signs: Last Vital Signs Temp 96.8 F 07/05/24 23:28 Pulse 80 07/05/24 23:28 Resp 16 07/05/24 23:28 BP 146/88 H 07/05/24 23:28 Pulse Ox 96 07/05/24 23:28 O2 Del Method Room Air 07/05/24 23:28 BMI result Body Mass Index 28.3 Const: General: cooperative HEENT: Head: Yes normal to inspection Face and sinus: Yes normal facial exam Mouth: Normal oral and palatal mucosa present Teeth and gingiva: dentition normal Eyes: General: appearance normal, both eyes and all related structures Pupils: Equal, round and reactive pupils present Resp: Effort & Inspection: normal respiratory effort Cardio: Rate: regular rate Rhythm: regular rhythm GI: Palpation (GI): Soft to palpation and nontender : General: Yes no CVA tenderness Back/Spine/Pelvis: Back: no CVA tenderness Skin: General skin exam: no rashes or lesions noted Neuro: General: moves all extremities Cranial nerves: Yes Equal, round and reactive pupils present Extrem: General: Yes normal to inspection Psych: Appearance: grossly normal Results Labs 07/05/24 06:10 07/05/24 06:10 Labs: Short CBC 07/05/24 Range/Units 06:10 WBC 20.4 H (4.8-10.8) X10*3/uL Hgb 10.8 L (12.0-16.0) g/dl Hct 31.6 L (37.0-47.0) % Plt Count 147 L (160-400) X10*3/uL BMP 07/05/24 06:10 Sodium 139 Potassium 3.4 Chloride 107 Carbon Dioxide 23 BUN 11 Creatinine 0.63 Calcium 8.5 D Microbiology Microbiology Results: Microbiology 07/03/24 21:04 Cerebrospinal Fluid Gram Stain - Final 07/03/24 21:04 Cerebrospinal Fluid CSF Examination - Final 07/03/24 21:04 Cerebrospinal Fluid Fluid Description - Final 07/03/24 21:04 Cerebrospinal Fluid CSF Culture - Preliminary No growth after 1 day 07/03/24 23:51 Blood - Venous Blood Culture - Preliminary No growth after 24 hours. 07/03/24 23:41 Blood - Venous Blood Culture - Preliminary No growth after 24 hours. Assessment and Plan (1) Sepsis: Status: Acute Plan She has 182 WBC in CSF but negative meninoencephalitis panel. Stop Acyclovir,CTX,Dexamethason and Vancomycin. Check HIV test and Tspot and RPR.
[2024-07-06 03:22] VITALS: BP 162/83; PULSE 82; RESP 16; TEMP 36.1; O2SAT 99
[2024-07-06 04:00] VITALS: RESP 20
[2024-07-06] MEDS: Ketorolac Tromethamine 30 MG/ML VIAL IVPUSH ×2 (05:01→10:28)
[2024-07-06 06:08] LABS: MANUAL DIFF FLAG NO
[2024-07-06 06:12] LABS: Basophils Percent Auto 0.1 % (0-2); Hematocrit 32.6 % (37.0-47.0); Imm Gran Abs Auto 0.22 X10*3/uL (0.00-0.03); Lymphocytes Absolute Auto 1.8 X10*3/uL (1.2-4.9); Lymphocytes Percent Auto 8.6 % (20-40); Mean Corpuscular HGB Conc 33.7 g/dl (31.0-35.0); Mean Corpuscular Hemoglobin 25.1 pg (27.0-33.0); Mean Corpuscular Volume 74.3 fL (80.0-98.0); Monocytes Absolute Auto 1.2 X10*3/uL (0.1-1.2); Monocytes Percent Auto 5.4 % (2-11); Neutrophils Percent Auto 84.9 % (45-73); Platelet Count 175 X10*3/uL (160-400); Red Blood Count 4.39 X10*6/uL (4.20-5.50); White Blood Count 21.3 X10*3/uL (4.8-10.8)
[2024-07-06 06:26] LABS: Anion Gap 12 (12-20); Blood Urea Nitrogen 17 mg/dL (9-16); Calcium 8.3 mg/dL (8.4-10.2); Carbon Dioxide 26 mmol/L (22-29); Chloride 104 mmol/L (96-108); Creatinine Clr Calc Pharmacy 129.1; Estimated Glomerular Filt Rate > 60; Glucose Random 105 mg/dL (60-115); Potassium 3.6 mmol/L (3.3-5.1); Sodium 138 mmol/L (135-145)
[2024-07-06 06:41] VITALS: BP 152/90; PULSE 82; RESP 16; TEMP 36.6; O2SAT 99
[2024-07-06] MEDS: 0.9 % Sodium Chloride Flush 3 ML SYRINGE IVFLUSH (09:24)
[2024-07-06] MEDS: Acetaminophen 325 MG TABLET 975 MG PO (09:30)
--- NOTE | 2024-07-06 09:46 | MHC.CM.PN ---
pt annette dtoday self care will be going home via [facility]
[2024-07-06] MEDS: Iron Sucrose Complex 200 MG/10 ML VIAL IVPUSH (10:32)
--- NOTE | 2024-07-06 10:50 | PM.DS ---
DS: Providers Provider Date of Service: 07/06/24 Date of admission: 07/03/24 23:50 Date of discharge: 07/06/24 Primary care physician: None Physician Consults: 07/03/24 23:49 Consult to Infectious Diseases Routine Consulting Provider: [facility] Reason for consultation: ?viral meningitis Has provider been notified: No DS: Diagnosis Discharge Diagnosis (1) Sepsis: Status: Acute DS: Summary Hospital Course Hospital Course: History and physical as per admitting provider. Patient is a 38-year-old female with no significant past medical history, who presented to the ED due to headache, neck pain and fever for the past week. She was sent from urgent care and EMS reported nonreactive pupils but was found to have reactive pupils here. Her neck pain is located on the right side, with photophobia and a 10/10 headache. Since receiving IV pain medication here she reports her headache as a 7/10. She denies any upper respiratory symptoms including cough, runny nose, congestion, shortness of breath or sore throat. She also denies any rash, abd pain, diarrhea, nausea, vomiting, hematochezia or urinary symptoms including pain, hematuria, dysuria, frequency or urgency. She denies heavy menses or any bleeding sources. History is difficult to obtain as the patient was uncomfortable and there is a language barrier although interpretation services were used. 38-year-old woman treated for viral sepsis secondary to viral meningitis. Had fever, tachycardia, tachypnea, lactic acid of 2. Head CT was negative for acute abnormality. CSF with WBCs of 149, 99 neutrophils, 145.8 protein, normal glucose and viral panel negative. Initially patient was started on dexamethasone, Rocephin, vancomycin and acyclovir. This was stopped after discussing with ID. Patient is still with headache but improved. Recommend using ice packs, we will send home with oxycodone and ibuprofen along with Prilosec. She was noted to have iron-deficiency anemia with iron of less than 7, TIBC 147,% 5. She received IV infusion x3 and will start on iron supplementation. She should follow up with the primary care provider for further management of this. Time Attestation Discharge Coordination Time (in mins): 40 Quality: Safe Use of Opioids Does Pt have an Active Cancer Diagnosis on the Problem List?: No Quality: Stroke Does the patient have a stroke diagnosis?: No Physical Exam Vital Signs: Vital Signs: Last Vital Signs Temp 98 F 07/06/24 06:41 Pulse 82 07/06/24 06:41 Resp 16 07/06/24 06:41 BP 152/90 H 07/06/24 06:41 Pulse Ox 99 07/06/24 06:41 O2 Del Method Room Air 07/06/24 06:41 BMI result Body Mass Index 28.3 Appearing in no acute distress head is normocephalic atraumatic eyes pupils are PERRLA sclera is anicteric mouth throat mucous membranes are intact and moist neck is supple no lymphadenopathy, no JVD noted lung sounds are clear to auscultation heart regular rate rhythm, clear S1, S2 positive bowel sounds, abdomen is soft, nontender neuro patient is alert x3, no focal deficits DS: Data Data Completed and Pending Labs on day of discharge: Laboratory Results - last 24 hr 07/05/24 07/06/24 10:34 05:34 WBC 21.3 H RBC 4.39 Hgb 11.0 L Hct 32.6 L MCV 74.3 L MCH 25.1 L MCHC 33.7 RDW 15.0 Plt Count 175 MPV 11.0 Immature Gran % (Auto) 1.0 H Neut % (Auto) 84.9 H Lymph % (Auto) 8.6 L [place] % (Auto) 5.4 Eos % (Auto) 0.0 Baso % (Auto) 0.1 Lymph # (Auto) 1.8 [place] # (Auto) 1.2 Eos # (Auto) 0.0 Baso # (Auto) 0.0 Abs Immat Gran (auto) 0.22 H Absolute Neuts (auto) 18.0 H Absolute Nucleated RBC 0.000 Nucleated RBC % (auto) 0.0 Sodium 138 Potassium 3.6 Chloride 104 Carbon Dioxide 26 Anion Gap 12 BUN 17 H Creatinine 0.64 Estim Creat Clear Calc 129.1 Estimated GFR > 60 Random Glucose 105 Calcium 8.3 L Random Vancomycin 12.0 L Preliminary micro results at discharge 07/03/24 21:04 CSF Culture - Preliminary Cerebrospinal Fluid No growth to date. 07/03/24 23:51 Blood Culture - Preliminary Blood - Venous No growth after 48 hours. 07/03/24 23:41 Blood Culture - Preliminary Blood - Venous No growth after 48 hours. Discharge Plan Discharge Anticipated Discharge Date/Time: 07/06/24 10:42 Patient Disposition: Home, Self-Care Discharge Diagnosis: Viral meningitis Iron-deficiency anemia Discharge Medications: New oxycodone 5 mg Tablet 5 mg PO Q6H PRN (Reason: Pain, Moderate(Pain Scale 4-6)) Qty: 30 0RF Rx Instructions: Partial Fill upon patient request. ibuprofen 800 mg tablet 800 mg PO TID PRN (Reason: pain) 10 Days Qty: 30 0RF ferrous sulfate 325 mg (65 mg iron) tablet 325 mg PO DAILY Qty: 30 0RF omeprazole magnesium [Prilosec OTC] 20 mg tablet,delayed release (DR/EC) 20 mg PO DAILY Qty: 30 0RF Discharge Orders: Discharge Order (Routine); Ordered 07/06/24 Ordered By: Rita Bruno Diet: Advance to usual diet Activity on Discharge: As tolerated Stand Alone Forms: Patient Portal Discharge page, Work/School Release Print Language: Bahraini Creole Care Plan Goals: Rest often, drink plenty of fluids Health Concerns: Viral meningitis Iron-deficiency anemia Plan of Treatment: Follow-up with primary care provider as needed Take all medications as prescribed Assessment: See discharge summary Patient Instructions: Viral Meningitis (DC)
[2024-07-06 11:18] VITALS: BP 129/80; PULSE 66; RESP 16; TEMP 36.7; O2SAT 100
[2024-07-08 17:57] LABS: TS Negative Control Passed; TS Panel A 1; TS Panel B 4; TS Positive Control Passed; TSpotTB Negative (Negative)
== END 2024-07-06 13:40 | disposition home or self-care (01) | DRG 720 ==
LOC: HO.ED 19:20 → HO.EDOVER 07-04 00:11 → HO.S3 07-05 07:19
PROVIDERS: Admitting Provider Physician Assistant; Emergency Provider Emergency Medicine; Visit Provider Nurse Practitioner Acute Care
DX: A41.89 Other specified sepsis (principal); D69.6 Thrombocytopenia, unspecified; A87.9 Viral meningitis, unspecified; Z20.822 Contact with and (suspected) exposure to COVID-19; D50.9 Iron deficiency anemia, unspecified
CPT/HCPCS: 0241U; 36415; 70450; 80048; 80076; 80202; 82945; 83540; 83605; 84157; 85025; 85610; 86481; 86850; 86900; 86901; 86923; 87015; 87040; 87070; 87205; 87389; 87483; 89051; 99285; J0133; J0696; J1100; J1171; J1200; J1756; J1885; J2270; J2405; J2765; J3370; J3371; P9016

== ENCOUNTER → 2024-07-03 16:38 | Outpatient (BNV) | payer OTHER, SELFPAY | PROVIDERS: Emergency Provider Emergency Medicine; Visit Provider Radiology Diagnostic Radiology | DX: R51.9 Headache, unspecified (principal) | CPT/HCPCS: 70450 ==

== ENCOUNTER → 2024-07-03 23:50 | Outpatient (BNV) | payer MEDICAID, SELFPAY | PROVIDERS: Admitting Provider Physician Assistant; Emergency Provider Emergency Medicine; Visit Provider Nurse Practitioner Acute Care | DX: A87.9 Viral meningitis, unspecified (principal) | CPT/HCPCS: 99232; 99239 ==

== ENCOUNTER → 2024-07-03 23:50 | Outpatient (BNV) | payer MEDICAID, SELFPAY | PROVIDERS: Admitting Provider Physician Assistant; Emergency Provider Emergency Medicine; Visit Provider Internal Medicine | DX: A41.9 Sepsis, unspecified organism (principal) | CPT/HCPCS: 99222 ==

== ENCOUNTER 2024-07-13 13:08 | Emergency (ER) | payer MEDICAID, SELFPAY ==
[2024-07-13 13:15] VITALS: BP 139/100; PULSE 92; O2SAT 99
[2024-07-13 13:18] VITALS: BP 142/93; PULSE 93; RESP 16; TEMP 37.5; O2SAT 100; BMI 28.3
--- NOTE | 2024-07-13 13:22 | ED.GENADULT ---
HPI - General Adult General Chief complaint: General Medical Stated complaint: BLURRED VISION,LEG PAIN PER EMS Time Seen by Provider: 07/13/24 13:16 Source: patient, EMS, RN notes reviewed and old records reviewed Mode of arrival: EMS History of Present Illness ED Provider: Maryann Casas PA-C HPI narrative: 38-year-old female American Creole speaking with past medical history viral sepsis secondary to viral meningitis discharged from our facility on 07/06/2024 presenting to the ED via EMS from urgent care complaining of bilateral eye pain/foreign body sensation, bilateral blurry vision, myalgias and generalized fatigue/weakness x 5 days. Denies fever, chills, headache, focal weakness, neck/back pain, CP/SOB, eye injury, known foreign body, glasses or contacts use Related Data Previous Rx's ?Medication ?Instructions ?Recorded ferrous sulfate 325 mg (65 mg 325 mg PO DAILY #30 tabs 07/06/24 iron) tablet ibuprofen 800 mg tablet 800 mg PO TID PRN pain 10 days #30 07/06/24 tabs omeprazole magnesium 20 mg 20 mg PO DAILY #30 tabs 07/06/24 tablet,delayed release (Prilosec OTC) oxycodone 5 mg tablet 5 mg PO Q6H PRN Pain, 07/06/24 Moderate(Pain Scale 4-6) #30 tabs naphazoline 0.025 %-pheniramine 2 drp ophthalmic (eye) QID PRN eye 07/13/24 0.3 % eye drops (Eye Allergy irritation 1 week #15 mL Relief (naphazoline-pheniramine)) Allergies Allergy/AdvReac Type Severity Reaction Status Date / Time No Known Allergies Allergy Verified 07/13/24 13:22 Review of Systems Review of Systems: Yes all other systems are reviewed and are negative Constitutional: Constitutional: Reports as per HPI Eyes: Eyes: Reports photophobia Neurologic: Denies Abnormal speech present PMFSH Past Medical History Attestation statement: The following information was validated with the patient. Source: old records reviewed Social History Social History Household Members: Children Housing: Apartment Patient Tobacco Use Status: Never used Tobacco Smoked in Last 30 Days: No Use of substances other than those prescribed or required for medical reasons: No Advance Directives: No Advance Directives Information Provided: Yes Do you have a plan to hurt others: No Plan service: No Physical Exam ED Vital Signs: Vital Signs - 24 hr 07/13/24 13:18 07/13/24 14:25 07/13/24 16:03 Temperature 99.5 F 98.3 F 98.1 F Pulse Rate 93 88 82 Respiratory Rate 16 24 H 19 Blood Pressure 142/93 H 140/88 H 133/83 Pulse Oximetry 100 99 100 Oxygen Delivery Method Room Air Room Air Room Air BMI result Body Mass Index 28.3 Const General: cooperative, healthy appearing and no acute distress Orientation/consciousness: patient oriented x3 Limitations: no limitations HENMT Head: Yes normal to inspection and Yes atraumatic Ears: hearing grossly normal bilaterally General nose exam: Normal external nose present Face and sinus: Yes normal facial exam Mouth: Normal oral and palatal mucosa present and no drooling Throat: Yes posterior oropharynx normal, Yes uvula midline, No uvula laterally displaced and No uvular edema Eyes Other: Eyes closed during most of evaluation General: appearance normal, both eyes and all related structures Alignment and Position: alignment normal Periorbital: periorbital findings normal Eyelids: Yes eyelids normal Conjunctivae: conjunctival abnormal bilateral conjunctival injection diffuse; without chemosis, without discharge and without subconjunctival hemorrhages Corneas: fluorescein used (Without uptake) Pupils: Equal, round and reactive pupils present EOM: EOMs intact bilaterally (With some discomfort) and no movement deficit Direct Ophthalmoscopy: normal light reflex and photophobia Neck Neck: Yes normal visual inspection, Yes no meningeal signs and No anterior neck swelling Resp Effort & Inspection: normal respiratory effort and no respiratory distress Auscultation: clear to auscultation bilaterally Cardio Rate: regular rate Heart sounds: S1 normal heart sound present and S2 normal heart sound present GI Inspection: Yes normal to inspection Palpation (GI): Soft to palpation, nontender, no guarding and not rigid Skin Rashes: no rashes Wounds: no wounds Neuro General: patient oriented x3, tone normal, moves all extremities, no meningeal signs, no focal motor deficits and CN's II-XI intact bilaterally Cranial nerves: Yes CN's II-XII intact bilaterally, Yes Equal, round and reactive pupils present, Yes Bilaterally intact EOM present and Yes Nystagmus not present Cognition (Neuro): normal cognition Speech: No Abnormal speech present Motor exam (neuro): 5/5 motor strength present throughout and no tremor noted Extrem General: Yes normal to inspection Course Course Course Narrative: -1606--no leukocytosis. H/H around patient's baseline. Labs otherwise reassuring -viral testing negative -bilateral IOP is WNL. Not consistent with acute glaucoma. Concern for viral conjunctivitis vs ?Uveitis. >> On re-evaluation patient reports symptomatic improvement, sitting up in bed with eyes open. No appreciable conjunctival injection or erythema anymore/at this time. Patient is ambulating in ED with steady gait. Feels comfortable for discharge home at this time. She is unsure if she has an insole presser to follow-up with, will refer her to Dr. Bryant. Also recommended close PCP follow-up. Denies headache at present. Nontoxic appearing. No meningeal signs. -visual acuity 20/10 right, left, and bilaterally Results discussed with patient including worrisome signs and symptoms and strict return precautions, and when to return to the emergency department. They verbalized understanding and feel safe for discharge at this time. Medications Administered Discontinued Medications Generic Name Dose Route Start Last Admin Trade Name Freq PRN Reason Stop Dose Admin Fluorescein Sodium 1 strip 07/13/24 13:36 07/13/24 13:58 Fluorescein Sodium Strip EYE-BOTH 07/13/24 13:37 1 strip ONCE ONE Administration Ketorolac Tromethamine 15 mg 07/13/24 13:36 07/13/24 13:58 Ketorolac Tromethamine 15 Mg/Ml Vial IVPUSH 07/13/24 13:37 15 mg ONCE ONE Administration Metoclopramide HCl 10 mg 07/13/24 13:36 07/13/24 13:58 Metoclopramide Hcl 10 Mg/2 Ml Vial IVPUSH 07/13/24 13:37 10 mg ONCE ONE Administration Tetracaine HCl 1 drop 07/13/24 13:36 07/13/24 13:58 Tetracaine Hcl/Pf 0.5% Oph Ree 4 Ml Drops EYE-BOTH 07/13/24 13:37 1 drop ONCE ONE Administration Medical Decision Making Medical Decision Making MDM Narrative: 38-year-old female American Creole speaking with past medical history viral sepsis secondary to viral meningitis discharged from our facility on 07/06/2024 presenting to the ED via EMS from urgent care complaining of bilateral eye pain/foreign body sensation, bilateral blurry vision, myalgias and generalized fatigue/weakness x 5 days. On exam low-grade temp 99.5 degrees, NAD, nontoxic appearing, physical exam as noted above with bilateral conjunctival injection without fluorescein uptake. No evidence of corneal abrasion/ulceration/globe rupture. EOMs intact with some discomfort. No focal neuro deficits. No meningeal signs or neck stiffness. Concern for migraine headache vs ? Uveitis vs viral illness. Low suspicion for acute meningitis/encephalitis, or acute spinal headache/post LP, or ICH/CVA at this time. Plan: EKG, Labs, viral testing, fluorescein staining, pain control, re-evaluate Please refer to course for remaining clinical decision making, interpretation of labs/imaging results, and discussions with consultants and/or family members. Differential Diagnosis Differential Diagnoses: The differential diagnosis associated with the presentation includes As above Admission/Observation Consideration of admission/observation: Escalation of care including admission/observation considered Lab Data MDM Lab Attestation statement: I reviewed the patient's lab results. 07/13/24 13:57 07/13/24 13:57 Labs: Lab Results 07/13/24 07/13/24 Range/Units 13:57 14:24 WBC 9.8 (4.8-10.8) X10*3/uL RBC 3.88 L (4.20-5.50) X10*6/uL Hgb 9.7 L (12.0-16.0) g/dl Hct 30.0 L (37.0-47.0) % MCV 77.3 L (80.0-98.0) fL MCH 25.0 L (27.0-33.0) pg MCHC 32.3 (31.0-35.0) g/dl RDW 15.8 (11.0-16.0) % Plt Count 218 (160-400) X10*3/uL MPV 10.4 (9.4-12.3) fL Immature Gran % (Auto) 0.6 H (0.0-0.4) % Neut % (Auto) 77.4 H (45-73) % Lymph % (Auto) 14.3 L (20-40) % [place] % (Auto) 6.4 (2-11) % Eos % (Auto) 1.1 (0-4) % Baso % (Auto) 0.2 (0-2) % Lymph # (Auto) 1.4 (1.2-4.9) X10*3/uL [place] # (Auto) 0.6 (0.1-1.2) X10*3/uL Eos # (Auto) 0.1 (0.0-0.4) X10*3/uL Baso # (Auto) 0.0 (0.0-0.2) X10*3/uL Abs Immat Gran (auto) 0.06 H (0.00-0.03) X10*3/uL Absolute Neuts (auto) 7.6 (2.0-8.3) x10*3/uL Absolute Nucleated RBC 0.000 (0.0-0.012) X10*3/uL Nucleated RBC % (auto) 0.0 (0.0-0.2) /100WBC PT 14.8 H D (10.9-12.4) SEC INR 1.3 H (0.9-1.1) Sodium 141 (135-145) mmol/L Potassium 4.0 (3.3-5.1) mmol/L Chloride 109 H (96-108) mmol/L Carbon Dioxide 26 (22-29) mmol/L Anion Gap 10 L (12-20) BUN 15 (9-16) mg/dL Creatinine 0.63 (0.5-1.4) mg/dL Estim Creat Clear Calc 131.3 Estimated GFR > 60 Random Glucose 99 (60-115) mg/dL Calcium 8.8 D (8.4-10.2) mg/dL Magnesium 1.9 (1.6-2.6) mg/dL Total Bilirubin 0.4 (0.0-1.0) mg/dL Direct Bilirubin 0.1 (0.0-0.5) mg/dL AST 26 (5-31) U/L ALT 32 H (0-31) U/L Alkaline Phosphatase 133 H (39-117) U/L Total Creatine Kinase 9 L (26-140) U/L Total Protein 7.7 (6.5-8.0) g/dL Albumin 3.0 L (3.5-5.0) g/dL Influenza Type A (PCR) NEGATIVE (Negative) Influenza Type B (PCR) NEGATIVE (Negative) RSV RNA Qual (PCR) NEGATIVE (Negative) SARS-CoV-2 RNA (RT-PCR) NEGATIVE (Negative) Radiology Impression Discussion of test interpretation with radiology: I have reviewed the radiologist's reading. Independent Historian Clinical information obtained from an independent historian. History obtained from or confirmed by: EMS External Record Review External record reviewed: Inpatient record, Office record, Outpatient record, Prior outpatient labs, Prior outpatient radiology, Primary care record and Outside ED record Tests considered The following testing was considered but not selected: As above Prescription Management I considered prescription management with: Pain Medication, Antiviral and Antibiotic Chronic Conditions Patient?s care impacted by: Other Social Determinants Patient?s care significantly limited by Social Determinants of Health including: Problems related to primary support group and Other Social Determinant of Health Discharge Plan Discharge Clinical Impression: Acute viral syndrome, Eye pain Patient Disposition: Home, Self-Care Instructions: Viral Syndrome (ED), Eye Pain (ED), Photophobia (ED) Additional Instructions: Your workup today was reassuring/unremarkable Please use eyedrops as prescribed YOU NEED TO FOLLOW-UP WITH EYE DOCTOR AND YOUR PRIMARY CARE DOCTOR If her symptoms persist or worsen, your pain becomes unbearable, you have any vision change or loss, weakness, you are unable to walk return to the ED immediately Continue taking previously prescribed medications Prescriptions: New Eye Allergy Relief 0.025-0.3 % drops 2 drp ophthalmic (eye) QID PRN (Reason: eye irritation) 7 Days Qty: 15 0RF No Action oxycodone 5 mg Tablet 5 mg PO Q6H PRN (Reason: Pain, Moderate(Pain Scale 4-6)) Qty: 30 0RF Rx Instructions: Partial Fill upon patient request. ibuprofen 800 mg tablet 800 mg PO TID PRN (Reason: pain) 10 Days Qty: 30 0RF ferrous sulfate 325 mg (65 mg iron) tablet 325 mg PO DAILY Qty: 30 0RF omeprazole magnesium [Prilosec OTC] 20 mg tablet,delayed release (DR/EC) 20 mg PO DAILY Qty: 30 0RF Referrals: [facility] [Primary Care Provider] - 3 days Juventino Bryant [Physician] - 2 days Print Language: Valencia Ku
--- NOTE | 2024-07-13 13:36 | ECG_ITS ---
Test Reason : BLURRY VISION Blood Pressure : */* mmHG Vent. Rate : 88 BPM Atrial Rate : 88 BPM P-R Int : 136 ms QRS Dur : 84 ms QT Int : 370 ms P-R-T Axes : 55 31 20 degrees QTcB Int : 447 ms Normal sinus rhythm Normal ECG No previous ECGs available Referred By: Maryann Casas Electronically Signed By: SELENA OBANDO
[2024-07-13] MEDS: Metoclopramide HCl 10 MG/2 ML VIAL IVPUSH (13:58)
[2024-07-13] MEDS: Fluorescein Sodium STRIP 1 STRIP EYE-BOTH (13:58)
[2024-07-13] MEDS: Tetracaine HCl/PF 0.5% Oph Sol 4 ML DROPS 1 DROP EYE-BOTH (13:58)
[2024-07-13] MEDS: Ketorolac Tromethamine 15 MG/ML VIAL IVPUSH (13:58)
[2024-07-13 14:06] LABS: MANUAL DIFF FLAG NO
[2024-07-13 14:08] LABS: Basophils Percent Auto 0.2 % (0-2); Eosinophils Absolute Auto 0.1 X10*3/uL (0.0-0.4); Eosinophils Percent Auto 1.1 % (0-4); Hemoglobin 9.7 g/dl (12.0-16.0); Imm Gran Abs Auto 0.06 X10*3/uL (0.00-0.03); Imm Gran Pct Auto 0.6 % (0.0-0.4); Lymphocytes Absolute Auto 1.4 X10*3/uL (1.2-4.9); Lymphocytes Percent Auto 14.3 % (20-40); Mean Corpuscular HGB Conc 32.3 g/dl (31.0-35.0); Mean Corpuscular Volume 77.3 fL (80.0-98.0); Mean Platelet Volume 10.4 fL (9.4-12.3); Monocytes Absolute Auto 0.6 X10*3/uL (0.1-1.2); Monocytes Percent Auto 6.4 % (2-11); Neutrophils Absolute Auto 7.6 x10*3/uL (2.0-8.3); Neutrophils Percent Auto 77.4 % (45-73); Platelet Count 218 X10*3/uL (160-400); Red Blood Count 3.88 X10*6/uL (4.20-5.50); Red Cell Distribution Width 15.8 % (11.0-16.0); White Blood Count 9.8 X10*3/uL (4.8-10.8)
[2024-07-13 14:13] LABS: INTERNATIONAL NORM RATIO 1.3 (0.9-1.1); Prothrombin Time 14.8 SEC (10.9-12.4)
[2024-07-13 14:25] VITALS: BP 140/88; PULSE 88; RESP 24; TEMP 36.8; O2SAT 99
[2024-07-13 14:30] LABS: Alanine Aminotransferase 32 U/L (0-31); Alkaline Phosphatase 133 U/L (39-117); Anion Gap 10 (12-20); Aspartate Amino Transferase 26 U/L (5-31); Bilirubin Direct 0.1 mg/dL (0.0-0.5); Bilirubin Total 0.4 mg/dL (0.0-1.0); Blood Urea Nitrogen 15 mg/dL (9-16); Calcium 8.8 mg/dL (8.4-10.2); Carbon Dioxide 26 mmol/L (22-29); Chloride 109 mmol/L (96-108); Creatinine Clr Calc Pharmacy 131.3; Estimated Glomerular Filt Rate > 60; Glucose Random 99 mg/dL (60-115); Magnesium 1.9 mg/dL (1.6-2.6); Sodium 141 mmol/L (135-145); Total Protein 7.7 g/dL (6.5-8.0)
--- OUTSIDE RECORDS SUMMARY | 2024-07-13 15:13 | XMS_ITS | Encounter Summary ---
Author Organization [employer] Address [address] [place] [address] [place] [address] Care Team Providers Care Personal Trainer Name Role Phone Claudia Ferrara Primary Care Provide r Reason for Visit * Reason Onset Date Comments Generalized Body Aches 07/11/2024 Hospital Follow-up 07/11/2024 Encounter Details Date Type Department Care Team ([facility] st Contact Info) Description 07/11/[address] [phone] Claudia Ferrara FNP [address] [place] [phone] Generalized Body Aches; Hospital Follow-up Social History Tobacco Use Types Packs/Day Years Used Date Smoking Tobacco: Never Passive Smoke Exposure: Never Smokeless Tobacco: Never Alcohol Use Standard Drinks/Week Comments Never 0 (1 standard drink = 0.6 oz pur e alcohol) Housing Stability Answer Date Recorded What is your housing situation today? I have connor garrett 01/27/[address] you [...] Orientation Straight 09/04/2023 7: 04 PM EDT documented as of this encounter Miscellaneous Notes * Telephone Encounter - Nery Gay RN - 07/12/2024 8:53 AM EST Call to Nena with [facility] drapery and upholstery measurer #[phone] She does not feel well, still with same symptoms as yesterday. She states that if she feels really bad she will go to ED and is agreeable to provider tele visit for today. States that her brother is at home with her. [facility] Call to [facility] Medical Records in attempt to obtain DC summary from 07/06/24. Spoke to [facility] who will fax this morning to [facility] team. * Telephone Encounter - Nery Gay RN - 07/11/2024 11:22 AM EST Call to [facility] for DC summary. There is no answer and no option to leave VM. Faxed face sheet with request for DC summary 06/30/24 be faxed to [facility] team. [facility] team, please follow up on 07/12/24 re: instruction to present to ED today. * Telephone Encounter - Kodak Marrero RN - 07/11/2024 10:42 AM EST Called pt using [id number] -pt was alert and oriented x 3, and speak in full sentences. Pt was calling to make follow up appt with PCP. pt reports she was recently admitted to [facility] in [facility] from 06/26 - 06/30 due to virus my brain that cause swelling. She was prescribed with ibuprofen, Ferrous iron supplement, oxycodone and omeprazole. Pt states she continue to have headache and insomnia after discharge. Pt states TAPIA radiates to the back of her neck, 12/01. Had one episodes of vomiting yesterday. New sx - feeling cramping on the upper and lower extremities. Denies fever, chills or dizziness. No improvement with medications. Advised pt to return to ED for further evaluation and will task PCP for follow up appt. Pt states she is currently home with her child but she will be able to call uber or taxi to go to ED. Advised if sx worsen or change to call ambulance 911 immediately. She verbalized understanding and agrees with plan. * Telephone Encounter - Bela Cedeño - 07/11/2024 10:14 AM EST head ache and body aches documented in this encounter Plan of Treatment Upcoming Encounters Date Type Department Care Team (Late st Contact Info) Description 08/01/2024 10:00 AM EDT Telemedicine [address] [phone] Claudia Ferrara FNP [address] [place] [phone] documented as of this encounter Visit Diagnoses Not on filedocumented in this encounter Care Teams Personal Trainer Relationship Specialty Start Date End Date Claudia Ferrara FNP [address] [place] [phone] PCP - General Family Medicine 11/20/21 documented as of this encounter
--- OUTSIDE RECORDS SUMMARY | 2024-07-13 15:13 | XMS_ITS | Encounter Summary ---
Author Organization [employer] Address [address] [place] [address] [place] [address] Care Team Providers Care Telecom Billing Analyst Name Role Phone Claudia Ferrara Primary Care Provide r Encounter Details Date Type Department Care Team (Late st Contact Info) Description 07/04/2024 9:[address] [phone] Claudia Ferrara FNP [address] [place] [phone] Patient left without being seen (Primary Dx) Social History Tobacco Use Types Packs/Day Years [...] PM EDT documented as of this encounter Progress Notes * CARLA Felipe - 07/04/2024 9:20 AM EST Patient ID: Nena Moses is a 38 y.o. female who presents for No chief complaint on file.. The patient's preferred language: Angolan. No data recorded Language of interpretation used throughout encounter: LL ID# [id number] Angolan Creole Patient reports on admission currently in a [facility] for fever and headache As pt on admission advised will reschedule this appt and pt agreeable Assessment/Plan [] Care Gaps reviewed and addressed in Care Gaps module. If patient or parent/guardian declined testing or treatment, this was documented in the Care Gaps module after risks, benefits, alternative treatments, and potential for less than optimal outcomes were discussed. [] Patient has upcoming appointment(s) that will satisfy open Care Gap(s) [] Release of information completed to retrieve records that will satisfy open Care Gap(s) No follow-ups on file. Data Unavailable Future Appointments Date Time Provider Department Center 07/13/2024 2:20 PM [facility] Subjective HPI Objective Physical Exam The patient left without being seen. documented in this encounter Plan of Treatment Upcoming Encounters Date Type Department Care Team (Late st Contact Info) Description 08/01/2024 10:00 AM EDT Telemedicine [address] [phone] Claudia Ferrara FNP [address] [place] [phone] documented as of this encounter Visit Diagnoses Diagnosis Patient left without being seen- Primary documented in this encounter Care Teams Telecom Billing Analyst Relationship Specialty Start Date End Date Claudia Ferrara FNP [address] [place] [phone] PCP - General Family Medicine 11/20/21 documented as of this encounter
--- OUTSIDE RECORDS SUMMARY | 2024-07-13 15:13 | XMS_ITS | Encounter Summary ---
Author Organization [email or web address] Address [address] [place] [address] [place] [address] Care Team Providers Care Earring Maker Name Role Phone LitoOlvinClaudia Villalta Primary Care Provide r Reason for Visit * Reason Comments viral meningitis Encounter Details Date Type Department Care Team ([facility] st Contact Info) Description 07/12/2024 11:00 AM EST [facility] Walk-in [address] [phone] Isabel Smith NP [address] [place] [phone] Viral meningitis (Primary Dx); Iron deficiency anemia, unspecified iron deficiency anemia type Social History Tobacco Use Types Packs/Day Years [...] as of this encounter Progress Notes * Isabel Smith, BONIFACIO - 07/12/2024 11:00 AM EST Subjective Patient ID: Nena Moses is a 38 y.o. female. 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 Per chart review - pt presented to [facility] 07/06/24 for fever, neck pain, TAPIA w/photophobia x 1 week, sent to ER from by ambulance. Admitted from 07/03-07/06 at [facility]. Treated for viral sepsis secondary to viral meningitis -- febrile, tachycardia, tachypnea, lactic acid 2. Head CT neg, CSF with WBC of 149, 99 neutrophils, normal glucose, viral panel neg. Initially started on IV vancomycin, dexamethasone, rocephin,acyclovir but stopped after consult with ID. Also noted to have LUCERO with iron <7, Tbic 147, received 3 iron infusions and started on iron suplementation. Discharged home with oxycodone as needed for TAPIA. Pt reports she continues with TAPIA since discharge from the hospital. Pt reports TAPIA is better than itwas while hospitalized. Rates pain 7/10, intermittent. TAPIA relieved by ibuprofen - taking 800 mg around 10 AM daily. TAPIA does return at night - has not tried any medication for this at night, did not know she could take ibuprofen more than once a day. She denies associated vision changes, numbness/weakness to extremities, dizziness, nausea, vomiting. She denies fevers. States she's not sure if she has been diagnosed with anemia before. She does get her period every month, lasts 5-6 days, goes through 2-3 pads/day. Denies blood in stool, diarrhea, constipation. The following portions of the chart were reviewed this encounter and updated as appropriate: Allergies Meds Med Hx Surg Hx Review of Systems Constitutional: Negative for activity change, appetite change, chills and fever. Eyes: Negative for photophobia and visual disturbance. Respiratory: Negative for cough, chest tightness, shortness of breath and wheezing. Cardiovascular: Negative for chest pain. Gastrointestinal: Negative for abdominal pain, diarrhea, nausea and vomiting. Musculoskeletal: Negative for neck pain and neck stiffness. Skin: Negative for rash. Neurological: Positive for headaches. Negative for dizziness, speech difficulty, weakness, light-headedness and numbness. Objective Physical Exam Procedures Assessment/Plan Diagnoses and all orders for this visit: Viral meningitis - ibuprofen 800 MG tablet; Take 1 tablet (800 mg) by mouth 3 times daily for 15 days. Iron deficiency anemia, unspecified iron deficiency anemia type - ferrous sulfate 325 (65 Fe) MG EC tablet; Take 1 tablet (325 mg) by mouth with breakfast. Do not crush, chew, or split. - CBC auto differential; Future -TAPIA improving and controlled with ibuprofen, recommended increasing to BID PRN at night if TAPIA reoccurs at night. No red flags associated with TAPIA. Advised should continue to improve over time. We reviewed ER precautions to include but not limited to: severe TAPIA, continuous n/v, vision changes, numbness/weakness to extremities, confusion, or any other severe concerning sx. -Pt with hx of LUCERO per chart review, pt received 3 iron infusions while hospitalized and started ondaily supplements. Refilled iron supplements, will recheck CBC in 2 weeks to ensure trending upward, if not consider further work up -- colonoscopy. -Requesting f/u in 2 weeks for recheck to ensure TAPIA resolved. documented in this encounter Plan of Treatment Upcoming Encounters Date Type Department Care Team (Late st Contact Info) Description 08/01/2024 10:00 AM EDT Telemedicine [address] [phone] Claudia Ferrara FNP [address] [place] [phone] Scheduled Orders Name Type Priority Associated Diagnoses Orde r Schedule CBC auto differential Lab Routine Iron deficiency anemia, unspecified iron deficiency anemia type Expected: 07/12/2024 (Approximate), Expires: 07/12/2025 documented as of this encounter Visit Diagnoses Diagnosis Viral meningitis- Primary Unspecified viral meningitis Iron deficiency anemia, unspecified iron deficiency anemia type documented in this encounter Care Teams Earring Maker Relationship Specialty Start Date End Date Claudia Ferrara FNP [address] [place] [phone] PCP - General Family Medicine 11/20/21 documented as of this encounter
--- OUTSIDE RECORDS SUMMARY | 2024-07-13 15:13 | XMS_ITS | Clinical Summary ---
Author Organization [employer] Address [address] [place] [address] 7 [place] [address] Care Team Providers Care Nuclear Operator Name Role Phone Claudia Ferrara CARLA Primary Care Provide r Allergies No known active allergies Medications * This document contains information received from the source organization and may not represent a complete record from that organization. Blood Pressure Monitoring (Blood Pressure Kit) kit 1 each Use as directed. 10/07/19 23 Active norethindrone (Micronor) 0.35 MG tabletIndicatio ns:Encounter for Nexplanon removal Take 1 tablet (0.35 mg) by mouth Once per day. 28 tablet 11 05/03/20 24 025 Active Additional Information Patient not taking.Reported on 07/12/2024 ferrous sulfate 325 (65 Fe) MG EC tabletIndicatio ns:Iron deficiency anemia, unspecified iron deficiency anemia type Take 1 tablet (325 mg) by mouth with breakfast. Do not crush, chew, or split. 90 tablet 1 07/12/19 25 026 Active ibuprofen 800 MG tabletIndicatio ns:Viral meningitis Take 1 tablet (800 mg) by mouth 3 times daily for 15 days. 45 tablet 07/12/19 25 025 Active ibuprofen 800 MG tablet Take 1 tablet (800 mg) by mouth 3 times daily for 15 days. 45 tablet 07/12/19 25 025 Discontinued ferrous sulfate 325 (65 Fe) MG EC tablet Take 1 tablet (325 mg) by mouth with breakfast. Do not crush, chew, or split. 90 tablet 1 07/12/19 25 025 Discontinued ferrous sulfate 325 (65 Fe) MG EC tabletIndicatio ns:Iron deficiency anemia, unspecified iron deficiency anemia type Take 1 tablet (325 mg) by mouth with breakfast. Do not crush, chew, or split. 90 tablet 1 07/12/19 25 025 Discontinued ibuprofen 800 MG tabletIndicatio ns:Viral meningitis Take 1 tablet (800 mg) by mouth 3 times daily for 15 days. 45 tablet 07/12/19 25 025 Discontinued Active Problems Problem Noted Date Diagnosed Date Language barrier 06/06/2024 Overview (06/06/2024): Patient does not speak Greenlandic as a primary language. Certified re dye hand was used for the duration of this visit which requires at least twice the time to assess history, discuss assessment and plan. Those with primary language is other than Greenlandic, require additional support and expertise in order [...] patient also had visit with primary care [facility] 06-02-2024. Patient reports doing overall well, [...] Advised on strategies to help with stress [facility] follow-up in 4 weeks PCP follow-up [...] organization. Date Type Department Care Team Description 07/12/2024 11:00 AM [facility] [address] [place] [phone] Isabel Smith NP Viral meningitis (Primary Dx); Iron deficiency anemia, unspecified iron deficiency anemia type 07/11/[address] [phone] Claudia Ferrara FNP Generalized Body Aches; Hospital Follow-up 07/04/2024 9:[address] [phone] Claudia Ferrara FNP Patient left without being seen (Primary Dx) 06/06/2024 9:[address] [phone] Claudia Ferrara FNP Situational stress (Primary Dx); Language barrier 05/03/[address] [phone] Ngozi Centeno, Contraception 05/02/2024 3:40 PM EST Office Visit [address] [phone] Ngozi Centeno, Thrombocytopenia (CMS/HCC) (Primary Dx); Irregular periods; Encounter for Nexplanon removal 04/29/[address] [phone] Claudia Ferrara FNP Headache 04/23/2024 [facility] Case Management [address] [place] [phone] Denice Pizarro, AVTAR from Last 3 Months Immunizations Name Administration [...] Info) Description 08/01/2024 10:00 AM EDT Telemedicine [address] [phone] Claudia Ferrara, CARLA [address] [place] [phone] Health Maintenance Due Date Last Done Comments Alcohol/Substance Use Screening 1999 Family Planning (PISQ) 12/26/2002 DTaP/Tdap/Td Vaccines (1 - Tdap) 12/26/2006 Hepatitis B Vaccines (1 of 3 - 19+ 3-dose series) 12/26/2006 COVID-19 Vaccine ( - 2023- season) 2024 09/24/2022, 06/17/2022, 05/20/2022, Additional history [...] Routine 05/02/2024 2:49 PM EST Irregular periods IMAGE GUIDED PAP, HPV DETECTION W/REFLEX TO [...] Media Lot # [id number] Lot# Expiration Date ,[id number] Urine 05/02/2024 2:49 PM EST us Ngozi Mweze DO POINT OF CARE TEST ENTER/EDIT OR DERABLES Final Result * Routine Pap, Age 30+ (01/27/2024 2:12 PM EDT) Diagnosis [facility] 1 Comment: NEGATIVE FOR INTRAEPITHELIAL LESION OR MALIGNANCY. THE CYTOLOGY PROCESSING WAS PERFORMED AT THE [facility] LOCATED AT [address] [place] [phone]. Adequacy: [facility] 1 Comment: Satisfactory for evaluation. [...] 10:05 PM EDT Performed at: ??01 - [facility] [address] ??[id number] [employer] Truck Driver: Conner Rome MD, Phone: ??[phone] Performed at: ??02 - [facility] [address] [place], [place] ??[id number] [employer] Driver: Digna Olson MD, Phone: ??[phone] Performed at: ??03 - [facility] [address] ??[id number] [employer] Driver: Digna Olson MD, Phone: ??[phone] Specimen Comment: [id number] Specimen Comment: No. of containers..01 ThinPrep Vial [facility] CYTOLOGY ORDERABLES Dennise [place] Result [facility] 3 [facility] 1 [facility] 2 * HM HIV 1/2 Antigen and Antibody (07/09/2023) HIV Ag/Ab Nonreactive Historical Provider HEALTH MAINTENANCE Final Result * HM Hepatitis C Antibody (10/06/2022) Hepatitis C Antibody Nonreactive Blood Historical Provider HEALTH MAINTENANCE Final Result from Last 3 Months or Most Recently Relevant to Health Maintenance Insurance C3 Care Teams Nuclear Operator Relationship Specialty Start Date End Date Claudia Ferrara FNP [address] [place] [phone] PCP - General Family Medicine 11/20/21
[2024-07-13 15:16] LABS: Influenza A PCR NEGATIVE (Negative); Influenza B PCR NEGATIVE (Negative); Resp Syncy Virus RNA Qual PCR NEGATIVE (Negative); SARS COV2 PCR INHOUSE NEGATIVE (Negative)
[2024-07-13 16:03] VITALS: BP 133/83; PULSE 82; RESP 19; TEMP 36.7; O2SAT 100
[2024-07-13 17:19] VITALS: BP 133/83; PULSE 79; RESP 22; TEMP 36.7; O2SAT 100
== END 2024-07-13 17:20 | disposition home or self-care (01) ==
PROVIDERS: Physician Assistant; Emergency Provider Emergency Medicine
DX: B34.9 Viral infection, unspecified (principal); H57.13 Ocular pain, bilateral; Z03.818 Encounter for observation for suspected exposure to other biological agents ruled out; Z79.899 Other long term (current) drug therapy
CPT/HCPCS: 0241U; 36415; 80048; 80076; 82550; 83735; 85025; 85610; 93005; 96374; 96375; 99284; J1885; J2765

== ENCOUNTER → 2024-07-13 13:36 | Outpatient (BNV) | payer MEDICAID, SELFPAY | PROVIDERS: Emergency Provider Emergency Medicine; Visit Provider Internal Medicine | DX: H53.8 Other visual disturbances (principal) | CPT/HCPCS: 93010 ==

== ENCOUNTER 2024-09-16 21:31 | Emergency (ER) | payer MEDICAID, SELFPAY ==
[2024-09-16 21:41] VITALS: BP 118/62; PULSE 90; O2SAT 99
[2024-09-16 22:02] VITALS: BP 132/81; PULSE 84; RESP 20; TEMP 36.9; O2SAT 100; BMI 29.9
--- OUTSIDE RECORDS SUMMARY | 2024-09-16 22:23 | XMS_ITS | Encounter Summary ---
Author Organization [employer] Address [address] [place] [address] 7 [place] [address] Care Team Providers Care Freight Associate Name Role Phone MikeltaylorClaudia Villalta Primary Care Provide r Encounter Details Date Type Department Care Team (Late st Contact Info) Description 09/13/2024 Orders Only [address] [phone] Harrison Montano Other headache syndrome; Iron deficiency anemia, unspecified iron deficiency anemia [...] PM EDT documented as of this encounter Plan of Treatment Upcoming Encounters Date Type Department Care Team (Late st Contact Info) Description 12/20/2024 1:20 PM EDT Office Visit [address] [phone] Claudia Ferrara FNP [address] [place] [phone] documented as of this encounter Visit Diagnoses Diagnosis Other headache syndrome Iron deficiency anemia, unspecified iron deficiency anemia type documented in this encounter Care Teams Freight Associate Relationship Specialty Start Date End Date Claudia Ferrara FNP [address] [place] [phone] PCP - General Family Medicine 11/20/21 documented as of this encounter
--- OUTSIDE RECORDS SUMMARY | 2024-09-16 22:23 | XMS_ITS | Clinical Summary ---
Author Organization [employer] Address [address] [place] [address] [address] [place] [address] Care Team Providers Care Inspector Returned Materials Name Role Phone Claudia Ferrara CARLA Primary Care Provide r Allergies No known active allergies Medications * This document contains information received from the source organization and may not represent a complete record from that organization. Blood Pressure Monitoring (Blood Pressure Kit) kit 1 each Use as directed. 10/07/19 23 Active norethindrone (Micronor) 0.35 MG tabletIndicati ons:Encounter for Nexplanon removal Take 1 tablet (0.35 mg) by mouth Once per day. 28 tablet 11 05/03/20 24 025 Active Additional Information Patient not taking.Reported on 07/12/2024 ibuprofen 800 MG tabletIndicati ons:Other headache syndrome Take 1 tablet (800 mg) by mouth 3 times daily. For headaches, take with food 60 tablet 1 09/14/19 25 025 Active ferrous sulfate 325 (65 Fe) MG EC tabletIndicati ons:Iron deficiency anemia, unspecified iron deficiency anemia type Take 1 tablet (325 mg) by mouth with breakfast. Do not crush, chew, or split. 90 tablet 2 09/14/19 25 026 Active ferrous sulfate 325 (65 Fe) MG EC tabletIndicati ons:Iron deficiency anemia, unspecified iron deficiency anemia type Take 1 tablet (325 mg) by mouth with breakfast. Do not crush, chew, or split. 90 tablet 3 07/20/19 25 025 Discontinued(R eorder (will not trigger notification to Pharmacy)) ibuprofen 800 MG tabletIndicati ons:Other headache syndrome Take 1 tablet (800 mg) by mouth 3 times daily. For headaches, take with food 60 tablet 2 08/02/19 25 025 Discontinued(R eorder (will not trigger notification to Pharmacy)) Active Problems Problem Noted Date Diagnosed Date Other headache syndrome 08/01/2024 Overview (08/01/2024): 08-01-24 history of viral meningitis (recent admission 07-03-24 thorugh 07-06-24). Iron deficiency anemia (07-03-24 through 07-06-24 received 3 iron infusion), We discussed anemia can also give you headaches. It is important to take your medication as prescribed. Ibuprofen also prescribed to be taken with food. Counseled on when to seek care sooner for any worsening of symptoms. Assessment & Plan (08/01/2024 4:55 PM EDT): We discussed anemia, ulcerative behaviors, please take the ferrous sulfate to help with the anemia. You may also take ibuprofen with food for headaches Rest Stay hydrated Exercise as best as able For any worsening of symptoms or any new symptoms contact us sooner Patient verbalized understanding agreeable to plan History of viral meningitis 07/20/2024 Overview (07/20/2024): 07-20-24 visit today patient speaking in clear sentences, in a strong voice. Requesting for an extension of return to work letter. Upon hospital discharge, patient stated excuse note indicated to return to work after 07-21-2024. Patient requesting for extension as stated was on medication omeprazole and ibuprofen. Of note is patient not taking ferrous sulfate. Advised patient may return to work while taking omeprazole and ibuprofen. Counseled on when to seek care sooner for any reoccurrence of symptoms, any new symptoms or any concerns. Counseled on importance of completing blood work ordered that has not been completed. Lab work not completed from 07-12-24. Reports will be able to do labs on Thursday Agreeable for Ferrous sulfate to be sent to [facility] Excuse note return to work on Thursday07-25-2024. ---Admission 07-03-2024 through Discharged 07-06-2024. For headache, neck pain and fever at [facility]. Admitting diagnosis Viral Meningitis and Iron Deficinecy Anemia. ---Treated for viral sepsis secondary to viral meningitis -- febrile, tachycardia, tachypnea, lactic acid 2. Head CT neg, CSF with WBC of 149, 99 neutrophils, normal glucose, viral panel neg. Initially started on IV vancomycin, dexamethasone, rocephin, acyclovir but stopped after consult with ID. Also noted to have LUCERO with iron <7, Tbic 147, received 3 iron infusions and started on iron suplementation. Discharged home with oxycodone as needed for TAPIA. Assessment & Plan (07/20/2024 6:03 PM EST): Return to work note to return to work 07-25-2024, will be mailed to you. You may also pick it up when you come in for blood work on Thursday. We discussed for any worsening of symptoms or any new symptoms, you may seek immediate medical care to closest emergency department. Patient verbalized understanding agreeable to plan. Iron deficiency anemia 07/20/2024 Overview (08/01/2024): 08-01-24 at visit today, advised on the importance of taking ferrous sulfate daily. Also counseled on eating a diet rich in iron. Advised to eat a diet rich in iron. Iron rich foods include Meat and poultry, fortified cereal, beans, spinach and green leafy vegetables, raisins and dried fruit good, egss, green peas, tuna, tofu. Follow-up with PCP in 3 months and as needed. 07-28-24 CBC (was ordered 05-02-24) Red Blood Cell Count 4.20 - 5.40 K/mm3 3.83 Low Hemoglobin 12.0 - 16.0 gm/dL 9.5 Low Hematocrit 37.0 - 47.0 % 30.8 Low 07-20-24 visit today patient speaking in clear sentences, in a strong voice. ---Admission 07-03-2024 through Discharged 07-06-2024. For headache, neck pain and fever at [facility]. Admitting diagnosis Viral Meningitis and Iron Deficinecy Anemia. Also noted to have LUCERO with iron <7, Tbic 147, received 3 iron infusions and started on iron suplementation. Currently not taking ferrous sulfate, as reports was expensive at her pharmacy with a co-pay of $50. Advised can send to [facility] pharmacy and patient agreeable, as reports will be coming in for her blood work this Thursday. Counseled on importance of completing blood work ordered, that has not been completed. Lab work not completed from 07-12-24. Reports will be able to do labs on Thursday Agreeable for Ferrous sulfate to be sent to [facility] Excuse note return to work on Thursday07-25-2024. Advised for any worsening of symptoms or new symptoms to contact us sooner and patient agreeable. Assessment & Plan (08/01/2024 4:51 PM EDT): We discussed the importance of picking up ferrous sulfate from the pharmacy, and taking it daily. We discussed anemia, also like to have headaches. It is important to take your medication as prescribed. Also eat a diet that is rich in iron. Iron rich foods include Meat and poultry, fortified cereal, beans, spinach and green leafy vegetables, raisins and dried fruit good, egss, green peas, tuna, tofu. You indicate you will come to the lab this Thursday to complete the blood work We discussed for any worsening of symptoms or any new symptoms, seek immediate medical care to closest emergency department. Patient verbalized understanding agreeable to plan. Assessment & Plan (07/20/2024 6:08 PM EST): We discussed the importance of completing blood work ordered from July 12, 2024. You indicate you will come to the lab this Thursday to complete the blood work You also stated would like ferrous sulfate sent to the pharmacy in this clinic, due to cost arterial at the pharmacy. Excuse note also generated to be mailed to you, you may also pick it up when you come to the clinic on Thursday. We discussed for any worsening of symptoms or any new symptoms, seek immediate medical care to closest emergency department. Patient verbalized understanding agreeable to plan. Language barrier 06/06/2024 Overview (06/06/2024): Patient does not speak Togolese as a primary language. Certified mission worker was used for the duration of this visit which requires at least twice the time to assess history, discuss assessment and plan. Those with primary language is other than Togolese, require additional support and expertise in order [...] patient also had visit with primary care [facility] 06-02-2024. Patient reports doing overall well, [...] Advised on strategies to help with stress IB follow-up in 4 weeks PCP follow-up in [...] organization. Date Type Department Care Team Description 09/13/2024 Orders Only [address] [phone] Harrison Montano Other headache syndrome; Iron deficiency anemia, unspecified iron deficiency anemia type 09/13/[address] [phone] Claudia Ferrara FNP Medication Question 09/08/[address] [place] [phone] Adfloridatesim-Leo Villaltaa, SEWER REPAIRER Vaginal Discharge 09/05/[address] [phone] Adwetewa-Leo Villaltaa, SEWER REPAIRER Vaginal Discharge 08/15/[address] [phone] Adwetewa-PawanLeo edmonda, SEWER REPAIRER Medication Question 08/05/2024 Population Health Risk Score [facility] () [address] [phone] Provider, Population Health Generic 08/01/2024 10:00 AM EDT Telemedicine [address] [phone] ViktoriateLeo Hendrixa, SEWER REPAIRER Other iron deficiency anemia (Primary Dx); Encounter to discuss test results; Language barrier; Dietary counseling; Exercise counseling; Other headache syndrome 07/19/[address] [phone] ViktoriateLeo Hendrixa, SEWER REPAIRER 07/19/[address] [phone] ViktoriatewaLeo Sheldona, SEWER REPAIRER Iron deficiency anemia, unspecified iron deficiency anemia type; Viral meningitis 07/12/2024 11:00 AM EST Telemedicine [facility] [address] [place] [phone] Isabel Smith NP Viral meningitis (Primary Dx); Iron deficiency anemia, unspecified iron deficiency anemia type 07/11/[address] [phone] Claudia Ferrara FNP Generalized Body Aches; Hospital Follow-up 07/04/2024 9:20 AM EST Telemedicine [address] [phone] Claudia Ferrara FNP Patient left without being seen (Primary Dx) from Last 3 Months Immunizations Name Administration [...] Description 12/20/2024 1:20 PM EDT Office Visit [facility] [address] [phone] Claudia Ferrara FNP [address] [place] [phone] Health Maintenance Due Date Last Done Comments Alcohol/Substance Use Screening 1999 Family Planning (PISQ) 12/26/2002 DTaP/Tdap/Td Vaccines (1 - Tdap) 12/26/2006 Hepatitis B Vaccines (1 of 3 - 19+ 3-dose series) 12/26/2006 COVID-19 Vaccine ( season) 2024 09/24/2022, 06/17/2022, 05/20/2022, Additional history exists Influenza Vaccine (#1) 2024 Depression Screening 01/26/2025 01/27/2024, 01/27/20 SDOH Screening 05/02/2025 05/02/2024 Tobacco Screening 08/01/2025 08/01/2024 Cervical Cancer Screening 01/26/2029 HPV/Cotest 01/26/2029 01/27/2024 [...] Procedure Name Priority Date/Time Associated Diagnosis Comments COMPREHENSIVE METABOLIC PANEL Routine 07/28/2024 10:28 AM EST Thrombocytopenia (CMS/HCC) CBC WITH AUTO DIFFERENTIAL Routine 07/28/2024 10:28 AM EST Thrombocytopenia (CMS/HCC) SARS COV2/INFLUENZA A/B AND RSV RNA QL NAAT Routine 07/13/2024 2:24 PM EST Bacterial vaginosis IMAGE GUIDED PAP, HPV DETECTION W/REFLEX TO HPV GENOTYPE Routine 01/27/2024 2:12 PM EDT Cervical cancer screening HM HIV 1/2 ANTIGEN AND ANTIBODY Routine 07/09/2023 HM HEPATITIS C ANTIBODY Routine 10/06/2022 from Last 3 Months or Most Recently Relevant to Health Maintenance Results * (ABNORMAL) CBC auto differential (07/28/2024 10:28 AM EST) White Blood Cell Count 5.8 4.3 - 10.3 K/mm3 [facility] 1 Red Blood Cell Count 3.83(L) 4.20 - 5.40 K/mm3 [facility] 1 Hemoglobin 9.5(L) 12.0 - 16.0 gm/dL [facility] 1 Hematocrit 30.8(L) 37.0 - 47.0 % [facility] 1 MCV 80(L) 83 - 101 fL [facility] 1 MCH 24.8(L) 27.0 - 34.0 pg [facility] 1 MCHC 30.8(L) 31.5 - 36.0 g/dL [facility] 1 RDW 16.3(H) 11.7 - 15.4 % [facility] 1 Platelet Count 200 140 - 400 K/mm3 [facility] 1 Neutrophils 68 Not Estab. % [facility] 1 Lymphocytes 18 Not Estab. % [facility] 1 Monocytes 12 Not Estab. % [facility] 1 Eosinophils 2 Not Estab. % [facility] 1 Basophils 0 Not Estab. % [facility] 1 Absolute Neutrophils 3.9 1.4 - 7.0 x10E3/uL [facility] 1 Absolute Lymphocytes 1.0 0.7 - 3.1 x10E3/uL [facility] 1 Absolute Monocytes 0.7 0.1 - 0.9 x10E3/uL [facility] 1 Absolute Eosinophils 0.1 0.0 - 0.4 x10E3/uL [facility] 1 Absolute Basophils 0.0 0.0 - 0.2 x10E3/uL [facility] 1 Immature Granulocytes 0 Not Estab. % [facility] 1 Immature Grans (Abs) 0.0 0.0 - 0.1 x10E3/uL [facility] 1 Blood Venous blood specimen / Unknown 07/28/2024 10:28 AM EST 07/28/2024 Narrative [facility] 1 - 07/28/2024 2:05 PM EST Performed at: ??01 - [facility] [address] ??[id number] Video Control Engineer: Nica Dao MD, Phone: ??[phone] us Deann Miller MD LAB BLOOD ORDERABLES Fin al Result [facility] 1 * (ABNORMAL) Comprehensive Metabolic Panel (07/28/2024 10:28 AM EST) Glucose 93 70 - 99 mg/dL [facility] 1 Urea Nitrogen (BUN) 13 6 - 20 mg/dL [facility] 1 Creatinine, Serum 0.5(L) 0.7 - 1.3 mg/dL [facility] 1 eGFR 125 >59 mL/min/1.7 3 [facility] 1 BUN/Creatinine Ratio 26(H) 9 - 23 [facility] 1 Sodium 139 135 - 145 mEq/L [facility] 1 Potassium 4.3 3.6 - 5.0 mEq/L [facility] 1 Chloride 104 101 - 111 mEq/L [facility] 1 Anion Gap 8.0(L) 10.0 - 18.0 mmol/L [facility] 1 Carbon Dioxide 27 21 - 31 mmol/L [facility] 1 Calcium 8.6 8.4 - 10.5 mg/dL [facility] 1 Protein, Total 7.2 6.4 - 8.9 g/dL [facility] 1 Albumin 3.6 3.5 - 5.0 g/dL [facility] 1 Globulin 3.6 1.5 - 4.5 g/dL [facility] 1 Bilirubin, Total 0.6 0.3 - 1.2 mg/dL [facility] 1 Alkaline Phosphatase 94 30 - 115 IU/L [facility] 1 AST 9(L) 10 - 42 IU/L [facility] 1 ALT 8(L) 10 - 40 IU/L [facility] 1 Blood Venous blood specimen / Unknown 07/28/2024 10:28 AM EST 07/28/2024 Narrative [facility] 1 - 07/28/2024 2:05 PM EST Performed at: ??01 - [facility] [address] ??[id number] Video Control Engineer: Nica Dao MD, Phone: ??[phone] us Deann Miller MD LAB BLOOD ORDERABLES Fin al Result [facility] 1 * SARS-CoV-2 RNA, Influenza A/B, and RSV RNA, Ql NAAT (07/13/2024 2:24 PM EST) Pathologist [facility] Influenza A PCR NEGATIVE Negative [facility] Influenza B PCR NEGATIVE Negative [facility] Resp Syncy Virus RNA Qual PCR NEGATIVE Negative [facility] SARS COV2 PCR NEGATIVE Negative [facility] Comment:All test results mus t be correlated with clinical findings.Negative results do not preclude SARS-CoV2, influenza Avirus, influenza B virus and/or RSV infectionand should not be used as the sole basis for treatment orother patient management decisions. Negative results must becombined with clinical observations, patient history, andepidemiological information.This test has not been evaluated for monitoring treatment ofinfection.This test has been authorized by the FDA under an EmergencyUse Authorization (EUA) for use by authorized laboratories.Testing performed on the [employer]Xpert utilizingreal-time RT-PCR.All SARS CoV2 and positive influenza A/B results arereported to [facility]. 07/13/2024 2:24 PM EST 07/13/2024 2:27 PM EST us Generic External Data Provider LAB MICROBIOLOGY - GENERAL ORDERABLES Final Result [facility] [address] [place] [phone] * Routine Pap, Age 30+ (01/27/2024 2:12 PM EDT) Diagnosis [facility] 1 Comment: NEGATIVE FOR INTRAEPITHELIAL LESION OR MALIGNANCY. THE CYTOLOGY PROCESSING WAS PERFORMED AT THE [facility] LOCATED AT [address] [place] [phone]. Adequacy: [facility] 1 Comment: Satisfactory for evaluation. [...] 10:05 PM EDT Performed at: ??01 - [facility] [address] ??[id number] Video Control Engineer: Conner Rome MD, Phone: ??[phone] Performed at: ??02 - [facility] [address] ??[id number] Video Control Engineer: Digna Olson MD, Phone: ??[phone] Performed at: ??03 - [facility] [address] ??[id number] Video Control Engineer: Digna Olson MD, Phone: ??[phone] Specimen Comment: [id number] Specimen Comment: No. of containers..01 ThinPrep Vial Em Guillen [facility] LAB CYTOLOGY ORDERABLES Dennise l Result [facility] 3 [facility] * HM HIV 1/2 Antigen and Antibody (07/09/2023) HIV Ag/Ab Nonreactive Historical Provider HEALTH MAINTENANCE Final Result * HM Hepatitis C Antibody (10/06/2022) Hepatitis C Antibody Nonreactive Blood Historical Provider HEALTH MAINTENANCE Final Result from Last 3 Months or Most Recently Relevant to Health Maintenance Insurance [facility] C3 Care Teams Inspector Returned Materials Relationship Specialty Start Date End Date Claudia Ferrara FNP [address] [place] [phone] PCP - General Family Medicine 11/20/21
--- NOTE | 2024-09-16 23:14 | ED_ITS ---
HPI - Headache General Chief Complaint: Headache Stated Complaint: severe headache photophobia, language barrier Time Seen by Provider: 09/16/24 23:07 Source: patient Mode of arrival: EMS Limitations: no limitations History of Present Illness ED Provider: HPI Narrative: Patient with no history of migraine headache complaining of headache for last 3 days . Noted to have low-grade fever when she came to ER also had slight nausea no vomiting patient has been having light sensitivity for last 2 months has seen the touch up carver patient was here in 07/19 for similar headache spinal tap was done which shows leukocytosis but meningitis screening was negative and was discharged home on NSAIDs. Patient denied any neck stiffness no disorientation patient does have chronic iron-deficiency anemia not taking her medication patient's [place] no family history of migraine Related Data Previous Rx's ?Medication ?Instructions ?Recorded ferrous sulfate 325 mg (65 mg 325 mg PO DAILY #30 tabs 07/06/24 iron) tablet ibuprofen 800 mg tablet 800 mg PO TID PRN pain 10 days #30 07/06/24 tabs omeprazole magnesium 20 mg 20 mg PO DAILY #30 tabs 07/06/24 tablet,delayed release (Prilosec OTC) oxycodone 5 mg tablet 5 mg PO Q6H PRN Pain, 07/06/24 Moderate(Pain Scale 4-6) #30 tabs naphazoline 0.025 %-pheniramine 2 drp ophthalmic (eye) QID PRN eye 07/13/24 0.3 % eye drops (Eye Allergy irritation 1 week #15 mL Relief (naphazoline-pheniramine)) betlqmhbnh-jxjakrddbdcom-flmchcra 1 tab PO Q6H PRN haeadace #20 tabs 09/17/24 50 mg-325 mg-40 mg tablet ferrous sulfate 325 mg (65 mg 325 mg PO DAILY #90 tabs 09/17/24 iron) tablet Allergies Allergy/AdvReac Type Severity Reaction Status Date / Time No Known Allergies Allergy Verified 09/16/24 22:03 Review of Systems 2 Review of Systems: Yes all other systems are reviewed and are negative [facility] Social History Social History Household Members: Children Housing: Apartment Patient Tobacco Use Status: Never used Tobacco Advance Directives: No Advance Directives Information Provided: No service: No Physical Exam 2 Vital Signs: Vital Signs: Last Vital Signs Temp 98.3 F 09/17/24 04:17 Pulse 85 09/17/24 04:17 Resp 16 09/17/24 04:17 BP 147/84 H 09/17/24 04:17 Pulse Ox 99 09/17/24 04:17 O2 Del Method Room Air 09/17/24 04:17 BMI result Body Mass Index 29.9 Appearance: Alert. Oriented X3. No acute distress. Eyes: PERRLA, No Nystagmus++ light sensitive Kernig signs negative patient ambulate ENT: Pharynx normal. Oral Mucosa moist no temporal artery tenderness Neck: Normal inspection. Neck supple. CVS: Normal heart rate and rhythm. Pulses normal. Respiratory: No respiratory distress. Equal air entry bilateral, no wheezing/rales/rhonchi Abdomen: Soft and nontender. Bowel sounds are present, no mass palpable, no CVA tenderness Skin: Skin warm and dry. Normal skin color. Normal skin turgor. Extremities: No lower extremity edema. No calf tenderness Neuro: Oriented X 3. No motor deficit. No sensory deficit.No cerebellar signs , cranial nerves II-XII intact Medications Administered Discontinued Medications Generic Name Dose Route Start Last Admin Trade Name Freq PRN Reason Stop Dose Admin Acetaminophen/Butalbital/Caffeine 1 tab 09/17/24 04:13 09/17/24 04:19 Butalb/Acetamin/Caff 50/325/40 Tablet PO 09/17/24 04:14 1 tab ONCE ONE Administration Sodium Chloride 1,000 mls @ 999 mls/hr 09/17/24 01:37 09/17/24 04:17 Ns IV 09/17/24 02:37 Infused .Q1H1M ONE Infusion Ketorolac Tromethamine 30 mg 09/17/24 01:38 09/17/24 01:57 Ketorolac Tromethamine 30 Mg/Ml Vial IVPUSH 09/17/24 01:39 30 mg ONCE ONE Administration Sumatriptan Succinate 6 mg 09/17/24 01:01 09/17/24 01:10 Sumatriptan Succinate 6 Mg/0.5 Ml Vial SUBCUT 09/17/24 01:02 6 mg ONCE ONE Administration Medical Decision Making Medical Decision Making MDM Narrative: Patient with headache with light sensitivity previous spinal tap was negative 2 months ago although has lymphocytosis. Patient felt much better after Toradol spinal tap was tried multiple times patient not cooperative unable to get the fluid patient has refused to continue to have procedure patient is unlikely to have meningitis 655 am patient is feeling much better at this time denies any significant headache will prescribe Fioricet ambulatory in the ED Differential Diagnosis Differential Diagnoses: The differential diagnosis associated with the presentation includes Migraine headache/tension headache/meningitis Lab Data MDM Lab Attestation statement: I reviewed the patient's lab results. 09/16/24 23:11 09/16/24 23:11 Labs: Lab Results 09/16/24 09/16/24 09/16/24 Range/Units 23:11 23:13 23:25 WBC 7.3 (4.8-10.8) X10*3/uL RBC 3.04 L D (4.20-5.50) X10*6/uL Hgb 7.5 L D (12.0-16.0) g/dl Hct 23.5 L D (37.0-47.0) % MCV 77.3 L (80.0-98.0) fL MCH 24.7 L (27.0-33.0) pg MCHC 31.9 (31.0-35.0) g/dl RDW 17.3 H (11.0-16.0) % Plt Count 232 (160-400) X10*3/uL MPV 9.5 (9.4-12.3) fL Immature Gran % (Auto) 0.3 (0.0-0.4) % Neut % (Auto) 67.6 (45-73) % Lymph % (Auto) 22.4 (20-40) % Mccracken % (Auto) 8.7 (2-11) % Eos % (Auto) 0.7 (0-4) % Baso % (Auto) 0.3 (0-2) % Lymph # (Auto) 1.6 (1.2-4.9) X10*3/uL [place] # (Auto) 0.6 (0.1-1.2) X10*3/uL Eos # (Auto) 0.1 (0.0-0.4) X10*3/uL Baso # (Auto) 0.0 (0.0-0.2) X10*3/uL Abs Immat Gran (auto) 0.02 (0.00-0.03) X10*3/uL Absolute Neuts (auto) 4.9 (2.0-8.3) x10*3/uL Absolute Nucleated RBC 0.000 (0.0-0.012) X10*3/uL Nucleated RBC % (auto) 0.0 (0.0-0.2) /100WBC ESR 127 H (0-20) MM/HR Sodium 137 (135-145) mmol/L Potassium 3.8 (3.3-5.1) mmol/L Chloride 106 (96-108) mmol/L Carbon Dioxide 24 (22-29) mmol/L Anion Gap 11 L (12-20) BUN 9 (9-16) mg/dL Creatinine 0.64 (0.5-1.4) mg/dL Estim Creat Clear Calc 114.6 Estimated GFR > 60 Random Glucose 109 (60-115) mg/dL Calcium 8.8 (8.4-10.2) mg/dL Total Bilirubin 0.5 (0.0-1.0) mg/dL AST 20 (5-31) U/L ALT 16 (0-31) U/L Alkaline Phosphatase 111 (39-117) U/L C-Reactive Protein 11.32 H (< or = 0.50) mg/dL Total Protein 7.9 (6.5-8.0) g/dL Albumin 3.0 L (3.5-5.0) g/dL Urine Color Yellow Urine Appearance Clear Urine pH 7.5 (5.0-9.0) Ur Specific [place] <= 1.005 (1.005-1.025) Urine Protein Negative (Neg-Trace) mg/dL Urine Glucose (UA) Negative (Negative) mg/dL Urine Ketones Negative (Negative) mg/dL Urine Blood Negative (Negative) Urine Nitrite Negative (Negative) Ur Leukocyte Esterase Moderate (2+) H (Negative) Urine RBC 0-2 (0-2) /HPF Urine WBC 0-5 (0-5) /HPF Ur Squamous Epith Cells 0-2 (0-2) /HPF Urine Bacteria None Seen (None Seen) Hyaline Casts 3-5 (0-2) /LPF Urine Yeast Present Influenza Type A (PCR) NEGATIVE (Negative) Influenza Type B (PCR) NEGATIVE (Negative) RSV RNA Qual (PCR) NEGATIVE (Negative) SARS-CoV-2 RNA (RT-PCR) NEGATIVE (Negative) Discharge Plan Discharge Clinical Impression: Migraine, Iron deficiency anemia Patient Disposition: Home, Self-Care Instructions: Migraine Headache (ED), Iron Rich Diet (ED), Iron Deficiency Anemia (ED) Additional Instructions: Take medication for headache as prescribed Take your iron pill Report to the ER if worsening of the headache/high fever Follow with your PCP Prescriptions: New wwzkmjqdnc-dmohlucreogve-sdhw 50-325-40 mg tablet 1 tab PO Q6H PRN (Reason: haeadace) Qty: 20 0RF ferrous sulfate 325 mg (65 mg iron) tablet 325 mg PO DAILY Qty: 90 3RF No Action Eye Allergy Relief 0.025-0.3 % drops 2 drp ophthalmic (eye) QID PRN (Reason: eye irritation) 7 Days Qty: 15 0RF oxycodone 5 mg Tablet 5 mg PO Q6H PRN (Reason: Pain, Moderate(Pain Scale 4-6)) Qty: 30 0RF Rx Instructions: Partial Fill upon patient request. ibuprofen 800 mg tablet 800 mg PO TID PRN (Reason: pain) 10 Days Qty: 30 0RF ferrous sulfate 325 mg (65 mg iron) tablet 325 mg PO DAILY Qty: 30 0RF omeprazole magnesium [Prilosec OTC] 20 mg tablet,delayed release (DR/EC) 20 mg PO DAILY Qty: 30 0RF Print Language: Unable To Collect
[2024-09-16 23:17] VITALS: BP 133/75; PULSE 80; RESP 17; TEMP 37.9; O2SAT 100
[2024-09-16 23:17] LABS: MANUAL DIFF FLAG NO
[2024-09-16 23:18] LABS: Basophils Percent Auto 0.3 % (0-2); Eosinophils Absolute Auto 0.1 X10*3/uL (0.0-0.4); Eosinophils Percent Auto 0.7 % (0-4); Hematocrit 23.5 % (37.0-47.0); Hemoglobin 7.5 g/dl (12.0-16.0); Imm Gran Abs Auto 0.02 X10*3/uL (0.00-0.03); Imm Gran Pct Auto 0.3 % (0.0-0.4); Lymphocytes Absolute Auto 1.6 X10*3/uL (1.2-4.9); Lymphocytes Percent Auto 22.4 % (20-40); Mean Corpuscular HGB Conc 31.9 g/dl (31.0-35.0); Mean Corpuscular Hemoglobin 24.7 pg (27.0-33.0); Mean Corpuscular Volume 77.3 fL (80.0-98.0); Mean Platelet Volume 9.5 fL (9.4-12.3); Monocytes Absolute Auto 0.6 X10*3/uL (0.1-1.2); Monocytes Percent Auto 8.7 % (2-11); Neutrophils Absolute Auto 4.9 x10*3/uL (2.0-8.3); Neutrophils Percent Auto 67.6 % (45-73); Platelet Count 232 X10*3/uL (160-400); Red Blood Count 3.04 X10*6/uL (4.20-5.50); Red Cell Distribution Width 17.3 % (11.0-16.0); White Blood Count 7.3 X10*3/uL (4.8-10.8)
[2024-09-16 23:19] LABS: Appearance Urine Clear; Color Urine Yellow; Glucose Urine UA Negative (Negative); Leukocyte Esterase Urine Moderate (2+) (Negative); Nitrite Urine Negative (Negative); PH 7.5 (5.0-9.0); Specific Gravity - Urine <= 1.005 (1.005-1.025); UMIC TRIGGER UACC YES; Urine Blood Negative (Negative); Urine Ketones Negative (Negative); Urine Protein Negative (Neg-Trace)
[2024-09-16 23:30] LABS: Bacteria Urine None Seen (None Seen); RBC Urine 0-2 /HPF (0-2); Squamous Epithelial Cell Urine 0-2 /HPF (0-2); UACC Culture Trigger YES; WBC Urine 0-5 /HPF (0-5)
[2024-09-16 23:31] LABS: Alanine Aminotransferase 16 U/L (0-31); Alkaline Phosphatase 111 U/L (39-117); Anion Gap 11 (12-20); Aspartate Amino Transferase 20 U/L (5-31); Bilirubin Total 0.5 mg/dL (0.0-1.0); Blood Urea Nitrogen 9 mg/dL (9-16); Calcium 8.8 mg/dL (8.4-10.2); Carbon Dioxide 24 mmol/L (22-29); Chloride 106 mmol/L (96-108); Creatinine Clr Calc Pharmacy 114.6; Estimated Glomerular Filt Rate > 60; Glucose Random 109 mg/dL (60-115); Potassium 3.8 mmol/L (3.3-5.1); Sodium 137 mmol/L (135-145); Total Protein 7.9 g/dL (6.5-8.0)
[2024-09-17 00:05] LABS: Influenza A PCR NEGATIVE (Negative); Influenza B PCR NEGATIVE (Negative); Resp Syncy Virus RNA Qual PCR NEGATIVE (Negative); SARS COV2 PCR INHOUSE NEGATIVE (Negative)
[2024-09-17 00:55] LABS: C Reactive Protein 11.32 mg/dL (< or = 0.50)
[2024-09-17] MEDS: SUMAtriptan succinate 6 MG/0.5 ML VIAL SUBCUT (01:10)
[2024-09-17 01:27] VITALS: BP 171/80; PULSE 91; RESP 20; TEMP 37.6; O2SAT 100
[2024-09-17 01:30] LABS: Erythrocyte Sedimentation Rate 127 MM/HR (0-20)
[2024-09-17] MEDS: 0.9 % Sodium Chloride 1,000 ML 999 ML IV (01:57)
[2024-09-17] MEDS: Ketorolac Tromethamine 30 MG/ML VIAL IVPUSH (01:57)
[2024-09-17 04:17] VITALS: BP 147/84; PULSE 85; RESP 16; TEMP 36.8; O2SAT 99
[2024-09-17] MEDS: Butalb/Acetamin/Caff 50/325/40 TABLET 1 TAB PO (04:19)
[2024-09-17 07:11] VITALS: BP 111/63; PULSE 74; RESP 18; TEMP 36.1; O2SAT 99
[2024-09-17 07:12] VITALS: BP 111/63; PULSE 74; RESP 18; TEMP 36.1; O2SAT 99
== END 2024-09-17 07:12 | disposition home or self-care (01) ==
PROVIDERS: Emergency Provider Internal Medicine
DX: G43.909 Migraine, unspecified, not intractable, without status migrainosus (principal); D50.9 Iron deficiency anemia, unspecified; R11.2 Nausea with vomiting, unspecified; Z03.818 Encounter for observation for suspected exposure to other biological agents ruled out; Z79.899 Other long term (current) drug therapy
CPT/HCPCS: 0241U; 36415; 80053; 81001; 85025; 85652; 86140; 87086; 96361; 96372; 96374; 99284; J1885; J3030

== ENCOUNTER 2025-02-25 08:09 | Emergency (ER) | payer MEDICAID, SELFPAY ==
--- OUTSIDE RECORDS SUMMARY | 2025-02-20 08:15 | XMS_ITS | Encounter Summary ---
Author Organization [facility] Address [address] [place] [address] Care Team Providers Care Barrel Racer Name Role Phone Diana Moses MD Primary Care Provider [phone] Reason for Visit * Episode Based Medications (Routine) - Authorized Specialty Diagnoses / Procedures Referred By Contac t Referred To Contact Diagnoses Iron deficiency anemia, unspecified iron deficiency anemia type Dolores Marrero MD PhD [address] [place] [address] Phone: tel: fax: Dolores Marrero MD PhD [address] [place] [address] Phone: tel: fax: Referral ID Status Reason Start Date Expiration Date V isits Requested Visits Authorized [id number] Authorized 02/06/2025 08/08/2026 6 6 Encounter Details Date Type Department Care Team (Late st Contact Info) Description 02/20/2025 8:15 AM EDT Infusion [facility] [address] [place] [address] Radha Landeros RN Iron deficiency anemia, unspecified iron deficiency anemia type (Primary Dx) Social History Tobacco Use Types Packs/Day Years Used Date Smoking Tobacco: Never Housing Stability Answer Date Recorded Please joshua the areas for wh ich the patient would like information or assistance: Housing;Transportation;Employment ;Material Needs;Education;Childcare;Budget Strain;Social Support;Legal Assistance;Food;Utilities;Stress 10/09/2022 Unable to Pay for Housing in the Last Year Not on file 10/09/2022 Last EPDS Total Score Not on file 10/09/2022 Unstable Housing in the Last Year Not on file 10/09/2022 Comments No Sex and Gender Information Value Date Recorded Sex Assigned at Not on file Legal Sex Female 1:23 PM EDT Gender Identity Not on file Sexual Orientation Not on file documented as of this encounter Last Filed Vital Signs Vital Sign Reading Time Taken Comments Blood Pressure 128/84 02/20/2025 8:19 AM EDT Pulse 70 02/20/2025 8:19 AM EDT Temperature 36.8 C (98.3 F) 02/20/2025 8:19 AM EDT Respiratory Rate - - Oxygen Saturation 100% 02/20/2025 8:19 AM EDT Inhaled Oxygen Concentration - - Weight 70.8 kg (156 lb 1.4 oz) 02/20/2025 8:17 A M EDT Height - - Body Mass Index 28.54 02/02/2025 12:12 PM EDT documented in this encounter Patient Instructions * Attachments The following attachments cannot be sent through Care Everywhere. * Iron Dextran Complex, ADULT (Creole) documented in this encounter Nursing Notes * Radha Menjivar RN - 02/20/2025 8:15 AM EDT Pt presents for iron dextran. Utilized ipad denture model maker - luxembourger creole - to communicate with pt. Reviewed medication and infusion information, verbalized understanding. PIV placed w/ +blood return. Test dose administered as ordered and monitored x30 mins. Tolerated well w/ no adverse effects noted. Full dose administered as ordered. Tolerated well w/ no adverse effects noted. PIV removed. AVS provided. D/c ambulatory. documented in this encounter Plan of Treatment Upcoming Encounters Date Type Department Care Team (Late st Contact Info) Description 03/07/2025 8:40 AM EDT Lab [facility] Draw Site [address] [place] [address] 03/07/2025 9:40 AM EDT Follow-Up [facility] [address] [place] [address] Tamela Adrian NP [address] [place] [address] 10/30/2025 1:45 PM EDT Office Visit [facility] [address] [place] [address] Erin Slater MD [address] [place] [address] documented as of this encounter Visit Diagnoses Diagnosis Iron deficiency anemia, unspecified iron deficiency anemia type- Primary documented in this encounter Administered Medications Inactive Administered Medications - up to 3 most recent administrations Medication Order MAR Action Action Date Dose Rate Site iron dextran complex (INFED) 25 mg in 0.9% NaCl 55.5 mL IVPB 25 mg, intravenous, at 222 mL/hr, Administer over 15 Minutes, Once, On Thu02/20/25 at 0900, 1 dose, If no reaction in 30 minutes then proceed with Iron Dextran Full Dose.Indications:Iron deficiency anemia, unspecified iron deficiency anemia type New Bag/Syringe 02/20/2025 8:57 AM EDT 25 mg 222 mL/hr iron dextran complex (INFED) 975 mg in 0.9% NaCl 294.5 mL IVPB 975 mg, intravenous, at 295 mL/hr, Administer over 1 Hours, Once, On Thu02/20/25 at 0945, 1 doseIndications:Iron deficiency anemia, unspecified iron deficiency anemia type New Bag/Syringe 02/20/2025 9:45 AM EDT 975 mg 295 mL/hr sodium chloride 0.9% (NS) premix infusion intravenous, at 20 mL/hr, Continuous PRN, KVO, Starting on Thu02/20/25 at 0815, Until Thu02/20/25 at 1310Indications:Iron deficiency anemia, unspecified iron deficiency anemia type New Bag/Syringe 02/20/2025 8:56 AM EDT 20 mL/hr documented in this encounter Care Teams Barrel Racer Relationship Specialty Start Date End Date Diana Moses MD PCP - General Family Medicine 10/12/22 documented as of this encounter
[2025-02-25] VITALS (14 sets, daily range): BP systolic 117–172; BP diastolic 76–108; PULSE 70–87; RESP 12–98; TEMP 36.6–37.1; O2SAT 98–100; BMI 23.8
--- NOTE | ~2025-02-25 | US_ITS ---
CLINICAL HISTORY: vainal bleeding and pegnancy OB Ultrasound less than 14 weeks Comparison: None Findings: On transabdominal ultrasound, there is a single intrauterine gestational sac. The uterus measures 15.2 cm in length and is retroflexed. No free fluid in the pelvis. No adnexal masses demonstrated. Endovaginal ultrasound was performed for more detailed evaluation of the gestational sac contents and adnexa There is a single intrauterine gestational sac containing a single pole. Cardiac activity not identified. No motion. The intrauterine sac is near the lower uterine segment. By crown-rump length of 2.2 cm, EGA by today's ultrasound: 8 weeks 6 days. YESSY by today's ultrasound: 10/01/2025 LMP not available The ovaries demonstrated a probable corpus luteal cyst on the right measuring 2.0 cm. Normal sonographic appearance left ovary. No adnexal masses or significant free fluid. Impression: 1. Single intrauterine gestation estimated at 8 weeks 6 days by today's ultrasound criteria. No heart tones. Findings consistent with a failed early intrauterine . 2. Clinical menstrual age not available. This document has been electronically signed by: Raj Morrison MD on 02/25/2025 14:22:12
--- OUTSIDE RECORDS SUMMARY | 2025-02-25 08:52 | XMS_ITS | Clinical Summary ---
Author Organization [facility] Address [address] [place] [address] Care Team Providers Care Medical Device Sales Name Role Phone Diana Moses MD Primary Care Provider [phone] Allergies No known active allergies Medications Vitamin 27 mg iron- 0.8 mg tablet SMARTSI Tablet(s) By Mouth Daily 09/30/2022 Active Heartburn Relief, famotidine, 10 mg tablet SMARTSI Tablet(s) By Mouth Daily PRN 09/30/2022 Active blood pressure test kit-large kit See admin instructions . 10/06/2022 Active acetaminophen (TYLENOL) 325 mg tablet Take 2 tablets (650 mg total) by mouth every 4 hours as needed for pain. 28 tablet 10/12/2022 Active ibuprofen (MOTRIN) 600 mg tablet Take 1 tablet (600 mg total) by mouth every 6 hours as needed for pain. 28 tablet 10/12/2022 Active ascorbic acid 500 mg tablet SMARTSI Tablet(s) By Mouth Daily 12/21/2024 Active ferrous sulfate 325 mg (65 mg iron) EC tablet Take 325 mg by mouth daily. 12/20/2024 Active Active Problems Problem Noted Date Diagnosed Date LUCERO (iron deficiency anemia) 02/03/2025 Anemia 02/03/2025 care following vaginal delivery 10/09 Thrombocytopenia 10/09/2022 Overview (10/09/2022): Patient was thrombocytopenic with a platelet count of 80 on 10/06/2022. On admission to the hospital repeat CBC was collected and platelet count was 84. Number cytopenia most likely related to thrombocytopenia of and less likely ITP or help syndrome. Plan to continue monitoring platelet count during hospitalization and at 6-week follow-up. -Repeat CBC Resolved Problems Problem Noted Date Diagnosed Date Resolved Date Normal labor 10/09/2022 10/09/2022 Encounters Date Type Department Care Team Description 02/20/2025 8:15 AM EDT Infusion [facility] In[facility] [address] [place] [address] Radha Landeros RN Iron deficiency anemia, unspecified iron deficiency anemia type (Primary Dx) 02/09/2025 Results Follow-Up [facility] Cancer [facility] [address] [place] [address] [address] [place] [address] Tamela Adrian NP 02/07/2025 Patient Outreach [facility] [address] [place] [address] [address] [place] [address] Jada Hsu RN 02/07/2025 Telephone [facility] [address] [place] [address] Telephone Intake, Staff 02/03/2025 Orders Only [facility] BMT [facility] [address] [place] [phone] Melany Baxter NP Iron deficiency anemia, unspecified iron deficiency anemia type (Primary Dx) 02/02/2025 1:00 PM EDT Office Visit [facility] [address] [place] [phone] Melany Baxter NP Anemia, unspecified type (Primary Dx); Hx of viral meningitis; Bad headache 12/23/2024 Telephone [facility] [address] [place] [address] [address] [place] [address] Telephone Intake, Staff PAC Appt Request - New 12/23/2024 Community Orders [facility] EpicCare Link [address] [place] [address] Claudia Ferrara NP Iron deficiency anemia, unspecified iron deficiency anemia type (Primary Dx) from Last 3 Months Social History Tobacco Use Types Packs/Day Years Used Date Smoking Tobacco: Never Tobacco Cessation:Counseling Given: Not Answered Housing Stability Answer Date Recorded Please joshua [...] on file Sexual Orientation Not on file Last Filed Vital Signs Vital Sign Reading Time Taken Comments Blood Pressure 128/84 02/20/2025 8:19 AM EDT Pulse 70 02/20/2025 8:19 AM EDT Temperature 36.8 C (98.3 F) 02/20/2025 8:19 AM EDT Respiratory Rate 17 02/02/2025 12:12 PM EDT Oxygen Saturation 100% 02/20/2025 8:19 AM EDT Inhaled Oxygen Concentration - - Weight 70.8 kg (156 lb 1.4 oz) 02/20/2025 8:17 A M EDT Height 157.5 cm (5' 2.01 ) 02/02/2025 12:12 PM E DT Body Mass Index 28.54 02/02/2025 12:12 PM EDT Plan of Treatment Upcoming Encounters Date Type Department Care Team (Late st Contact Info) Description 03/07/2025 8:40 AM EDT Lab [facility] ACC Draw Site Fifth Floor [address] [place] [address] 03/07/2025 9:40 AM EDT Follow-Up [facility] [address] [place] [address] Tamela Adrian, [place] [address] [place] [address] 10/30/2025 1:45 PM EDT Office Visit [facility] Neurology [facility] [address] [place] [address] [phone] Erin Slater MD [address] [place] [address] [place] [address] Health Maintenance Due Date Last Done Comments HPV and Pap Smear 1987 Varicella Vaccines (1 of 2 - 13+ 2-dose series) 12/26/2000 Hepatitis B Vaccines (1 of 3 - 19+ 3-dose series) 12/26/2006 DTaP,Tdap,and Td Vaccines (1 - Tdap) 12/26/2009 Alcohol/Substance Use Screening 05/25/2024 Depression Screening and Follow-Up 05/25/2024 Social Drivers of Health Annual Screening 05/25/2024 COVID-19 Vaccine (2024- season) 2025 09/24/2022, 06/17/2022, 05/20/2022, Additional history exists Influenza Vaccine (#1) 2025 Cervical Cancer Screening 01/26/2027 Pap Smear 01/26/2027 01/27/2024 Diabetes Screening 02/03/2028 02/02/2025, 0 10/10/2022, 10/09/2022 RSV Vaccine (60+ years old and patients) (1 - 1-dose 75+ series) 12/26/2062 HIV Screening Completed 10/09/2022 Hepatitis C Screening Completed 10/09/2022 Pneumococcal Vaccine: Pediatric (0-5 Years) and At-Risk Patients (6-50 Years) Aged Out No longer eligible based on patient's age to complete this topic Procedures * Due to [place] state law, this organization might not be sharing negative HIV tests. Procedure Name Priority Date/Time Associated Diagnosis Comments FOLATE Routine 02/02/2025 1:35 PM EDT Anemia, unspecified type VITAMIN B12 Routine 02/02/2025 1:35 PM EDT Anemia, unspecified type FERRITIN Routine 02/02/2025 1:35 PM EDT Anemia, unspecified type IRON SATURATION Routine 02/02/2025 1:35 PM EDT Anemia, unspecified type PROTEIN ELECTROPHORESIS W/REFLEX TO IMMUNOFIXATION, SERUM Routine 02/02/2025 1:35 PM EDT Anemia, unspecified type DONIS SPECIFIC ANTIBODY Routine 02/02/2025 1:35 PM EDT Anemia, unspecified type SEDIMENTATION RATE, AUTOMATED Routine 02/02/2025 1:35 PM EDT Anemia, unspecified type C-REACTIVE PROTEIN STAT 02/02/2025 1: 35 PM EDT Anemia, unspecified type CELIAC DISEASE DIAGNOSITC PANEL Routine 02/02/2025 1:35 PM EDT Anemia, unspecified type COMPREHENSIVE METABOLIC PANEL STAT 02/02/2025 1:35 PM EDT Anemia, unspecified type DIRECT ANTIGLOBULIN TEST Routine 02/02/2025 1:35 PM EDT Anemia, unspecified type RETICULOCYTES Routine 02/02/2025 1:35 PM EDT Anemia, unspecified type HAPTOGLOBIN Routine 02/02/2025 1:35 PM EDT Anemia, unspecified type VITAMIN B12 Routine 02/02/2025 1:35 PM EDT Anemia, unspecified type IRON, TIBC AND FERRITIN PANEL (5616) Routine 02/02/2025 1:35 PM EDT Anemia, unspecified type CBC AUTO DIFFERENTIAL STAT 02/02/2025 1:35 PM EDT Anemia, unspecified type HEMOGLOBIN ELECTROPHORESIS Routine 02/02/2025 1:35 PM EDT Anemia, unspecified type LAB - SCANNED 01/17/2025 HEPATITIS C ANTIBODY W/REFLEX TO HCV RNA, QUANTITATIVE PCR STAT 10/09/2022 8:00 AM EDT from Last 3 Months or Most Recently Relevant to Health Maintenance Results * Due to [place] state law, this organization might not be sharing negative HIV tests. * (ABNORMAL) Celiac Diagnostic Panel w/Gliadin, All Ages (Includes: IgA, tTG IgA/IgG and Giadin IgA/IgG) (02/02/2025 1:35 PM EDT) Tissue Transglutaminase Ab, IgG <1.0 U/mL 02/09/2025 4:30 PM EDT [email or web address] Comment: Value Interpretation ----- <15.0 Antibody not detected > or = 15.0 Antibody detected Tissue Transglutaminase Ab, IgA <1.0 U/mL 02/09/2025 4:30 PM EDT [facility] Comment: Value Interpretation ----- <15.0 Antibody not detected > or = 15.0 Antibody detected Gliadin Ab IgA <1.0 U/mL 02/09/2025 4:30 PM EDT [facility] Comment: Value Interpretation ----- <15.0 Antibody not detected > or = 15.0 Antibody detected Gliadin Ab IgG <1.0 U/mL 02/09/2025 4:30 PM EDT [facility] Comment: Value Interpretation ----- <15.0 Antibody not detected > or = 15.0 Antibody detected Immunoglobulin A 534(H) 47 - 310 mg/dL 02/09/2025 4:30 PM EDT [email or web address] [facility] Blood Structure of peripheral vein / Unknown Venipuncture / Unknown 02/02/2025 1:35 PM EDT 02/02/2025 2:03 PM EDT [facility] - 02/09/2025 4:30 PM EDT [facility] Received Date: Melany Renu Kluck [employer] LAB BLOOD ORDERABLES Final Result [facility] [address] [facility] [address], [place] [address], [place] [phone] [facility] [address] [facility] 3rd Floor, [place] [address], [place] [phone] * (ABNORMAL) Protein Electrophoresis w/Reflex to Immunofixation, Serum (02/02/2025 1:35 PM EDT) Pathologist [facility] Protein, Total 7.8 6.1 - 8.1 g/dL 02/03/2025 9:28 PM EDT [facility] Albumin 3.0(L) 3.8 - 4.8 g/dL 02/03/2025 9:28 PM EDT [facility] Alpha 1 Globulin 0.4(H) 0.2 - 0.3 g/dL 02/03/2025 9:28 PM EDT [facility] Alpha 2 Globulin 1.0(H) 0.5 - 0.9 g/dL 02/03/2025 9:28 PM EDT [facility] Beta 1 Globulin 0.4 0.4 - 0.6 g/dL 02/03/2025 9:28 PM EDT [facility] Beta 2 Globulin 0.7(H) 0.2 - 0.5 g/dL 02/03/2025 9:28 PM EDT [facility] Gamma Globulin 2.4(H) 0.8 - 1.7 g/dL 02/03/2025 9:28 PM EDT [facility] Interpretation See Comments 02/03/2025 9:28 PM EDT [facility] Comment: Consistent with a chronic inflammatory pattern Blood Structure of peripheral vein / Unknown Venipuncture / Unknown 02/02/2025 1:35 PM EDT 02/02/2025 2:04 PM EDT Narrative [facility] - 02/03/2025 9:28 PM EDT [facility] Received Date: Melany Baxter BAKESHOP CLE[employer]ER LAB BLOOD ORDERABLES Final Result [facility] [address] [facility] [address], [place] [address], [place] [phone] [facility] [address] [facility] 3rd Floor, [place] [address], [place] [phone] * (ABNORMAL) Iron Saturation (02/02/2025 1:35 PM EDT) Iron Saturation 11(L) 20 - 50 % 2:49 PM EDT [facility] Iron 23(L) 30 - 160 ug/dL 02/02/2025 2:49 PM EDT [facility] Transferrin 169(L) 200 - 360 mg/dL 02/02/2025 2:49 PM EDT [facility] Total Iron Binding Capacity 211(L) 255 - 450 ug/dL 02/02/2025 2:49 PM EDT [facility] Blood Structure of peripheral vein / Unknown Venipuncture / Unknown 02/02/2025 1:35 PM EDT 02/02/2025 2:04 PM EDT Melany Baxter NP LAB BLOOD ORDERABLES Final Result [facility] [address] [place] [address], [place] * (ABNORMAL) CBC Auto Differential (Once) (02/02/2025 1:35 PM EDT) WBC 6.9 3.8 - 10.8 10*3/uL 02/02/2025 2:11 PM EDT [facility] RBC 3.24(L) 3.80 - 5.10 10*6/uL 02/02/2025 2:11 PM EDT [facility] Hemoglobin 7.8(L) 11.7 - 15.5 g/dL 02/02/2025 2:11 PM EDT [facility] Hematocrit 25.2(L) 35.0 - 45.0 % 02/02/2025 2:11 PM EDT [facility] MCV 77.8(L) 80.0 - 100.0 fL 02/02/2025 2:11 PM EDT [facility] MCH 24.1(L) 27.0 - 33.0 pg 02/02/2025 2:11 PM EDT [facility] MCHC 31.0(L) 32.0 - 36.0 g/dL 02/02/2025 2:11 PM EDT [facility] RDW 16.3(H) 11.0 - 15.0 % 02/02/2025 2:11 PM EDT [facility] Platelets 232 140 - 400 10*3/uL 02/02/2025 2:11 PM EDT [facility] MPV 10.9 7.5 - 12.5 fL 02/02/2025 2:11 PM EDT [facility] Neutrophil % 65.6 % 02/02/2025 2:11 PM EDT [facility] Immature Grans % 0.3 0.0 - 0.9 % 02/02/2025 2:11 PM EDT [facility] Lymphocyte % 24.6 % 02/02/2025 2:11 PM EDT [facility] Monocyte % 8.4 % 02/02/2025 2:11 PM EDT [facility] Eosinophil % 1.0 % 02/02/2025 2:11 PM EDT [facility] Basophil % 0.1 % 02/02/2025 2:11 PM EDT [facility] Neutrophil # 4.53 1.50 - 7.80 10*3/uL 02/02/2025 2:11 PM EDT [facility] Immature Grans # <0.03 <=0.03 10*3/uL 02/02/2025 2:11 PM EDT [facility] Lymphocyte # 1.70 0.85 - 3.90 10*3/uL 02/02/2025 2:11 PM EDT [facility] Monocyte # 0.60 0.20 - 0.95 10*3/uL 02/02/2025 2:11 PM EDT [facility] Eosinophil # 0.10 0.02 - 0.50 10*3/uL 02/02/2025 2:11 PM EDT [facility] Basophil # <0.03 0.00 - 0.20 10*3/uL 02/02/2025 2:11 PM EDT [facility] nRBC % 0.0 /100 WBCs 02/02/2025 2:11 PM EDT [facility] nRBC # <0.01 <0.01 10*3/uL 02/02/2025 2:11 PM EDT [facility] Total Neutrophil #, Preliminary 4.53 1.50 - 7.80 10*3/uL 02/02/2025 2:11 PM EDT [facility] Blood Structure of peripheral vein / Unknown Venipuncture / Unknown 02/02/2025 1:35 PM EDT 02/02/2025 1:56 PM EDT Melany Baxter [employer] LAB BLOOD ORDERABLES Final Result [facility] [address] [place] [address], [place] * (ABNORMAL) Hemoglobin Electrophoresis (02/02/2025 1:35 PM EDT) Red Blood Cell Count 3.34(L) 3.80 - 5.10 Mill/uL 02/05/2025 4:55 AM EDT [facility] ([facility]) Hemoglobin 8.1(L) 11.7 - 15.5 g/dL 02/05/2025 4:55 AM EDT [facility] Comment: Hematocrit Hematocrit 27.1(L) 35.0 - 45.0 % 02/05/2025 4:55 AM EDT [facility] MCV 81.1 80.0 - 100.0 fL 02/05/2025 4:55 AM EDT [facility] ([facility]) MCH 24.3(L) 27.0 - 33.0 pg 02/05/2025 4:55 AM EDT [facility]) RDW 16.1(H) 11.0 - 15.0 % 02/05/2025 4:55 AM EDT [facility] Hemoglobin A 97.4 >96.0 % 02/05/2025 4:55 AM EDT [facility] Hemoglobin F 0.0 <2.0 % 02/05/2025 4:55 AM EDT [facility] Hemoglobin A2 2.6 2.0 - 3.2 % 02/05/2025 4:55 AM EDT [facility] ([facility] Hemoglobinopath Interpretation See Comments 02/05/2025 4:55 AM EDT [facility] Comment: NORMAL PATTERN LOW MCV/MCH, R/O IRON DEFICIENCY ANEMIA There is a normal pattern of hemoglobins and normal levels of Hb A2 and Hb F are present. No variant hemoglobins are observed. This is consistent with A/A phenotype. However, since the patient has anemia and low MCV/MCH, studies to exclude iron deficiency are recommended. If iron deficiency is excluded, the patient could have an alpha-thalassemic trait, or (less likely) beta-thalassemia trait. Rare variant hemoglobins have no separation from hemoglobin A by capillary zone electrophoresis (CZE) or high-performance liquid chromatography (HPLC). If clinically indicated, Thalassemia and Hemoglobinopathy [place] ([place] [address]) should be considered. Blood Structure of peripheral vein / Unknown Venipuncture / Unknown 02/02/2025 1:35 PM EDT 02/02/2025 1:56 PM EDT Narrative [facility] ([facility] - 02/05/2025 4:55 AM EDT [facility] Received Date:[id number] Melany Baxter [employer] LAB BLOOD ORDERABLES Final Result [facility]) [address] [place], [place] , [place] * (ABNORMAL) Sedimentation Rate (02/02/2025 1:35 PM EDT) Sed Rate 86(H) <20 mm/Hr mm/Hr 02/02/2025 2:10 PM EDT [facility] Blood Structure of peripheral vein / Unknown Venipuncture / Unknown 02/02/2025 1:35 PM EDT 02/02/2025 1:56 PM EDT Melany Baxter [employer]ER LAB BLOOD ORDERABLES Final Result Performing Organization Address [facility] Co de Phone Number [facility] [address] [place] [address], [place] * Reticulocytes (02/02/2025 1:35 PM EDT) Pathologist [facility] Retic % 1.5 0.5 - 1.6 % 02/02/2025 2:11 PM EDT [facility] Retic # 0.05 0.02 - 0.08 10*6/uL 02/02/2025 2:11 PM EDT [facility] Blood Structure of peripheral vein / Unknown Venipuncture / Unknown 02/02/2025 1:35 PM EDT 02/02/2025 1:56 PM EDT Melany Baxter [employer]ER LAB BLOOD ORDERABLES Final Result Performing Organization Address [facility]/ZIP Co de Phone Number [facility] [address] [place] [address], [place] * Direct Antiglobulin Test (02/02/2025 1:35 PM EDT) Pathologist [facility] Direct Antiglobulin Test Negative 02/02/2025 2:50 PM EDT [facility] Blood Structure of peripheral vein / Unknown Venipuncture / Unknown 02/02/2025 1:35 PM EDT 02/02/2025 2:31 PM EDT Melany Baxter NP LAB BLOOD BANK TEST ORDERAB LES Final Result Performing Organization Address [facility]/ZIP Co de Phone Number [facility] [address] [place] [address], * (ABNORMAL) C-Reactive Protein (02/02/2025 1:35 PM EDT) Pathologist [facility] C Reactive Protein 39.6(H) <=9.9 mg/L 02/02/2025 2:49 PM EDT [facility] Blood Structure of peripheral vein / Unknown Venipuncture / Unknown 02/02/2025 1:35 PM EDT 02/02/2025 2:04 PM EDT Melany Baxter [employer]ER LAB BLOOD ORDERABLES Final Result Performing Organization Address City/[facility]/ZIP Co de Phone Number [facility] [address] [place] [address], * DONIS Specific Antibody w/Reflex to [place] (02/02/2025 1:35 PM EDT) Pathologist [facility] DONIS Screen, Immunoassay NEGATIVE NEGATIVE 02/03/2025 3:36 PM EDT [facility] Comment: A negative DONIS Multiplex indicates the absence of detectable antibodies to component analytes consisting of double stranded DNA (dsDNA), chromatin, ribonucleoprotein (BI SOLUTIONS ARCHITECT), Francois/BI SOLUTIONS ARCHITECT (Sm/BI SOLUTIONS ARCHITECT), Francois (Sm), SS-A, SS-B, Linda-1, centromere B, Scl-70 and ribosomal P. A negative result should be interpreted in the context of the clinical and laboratory findings and does not rule out autoimmune disease characterized by other autoantibody specificities such as rheumatoid arthritis, autoimmune hepatitis, primary biliary cirrhosis, autoimmune thyroiditis, Beaverhead's disease, pernicious anemia, autoimmune neuropathies, vasculitis, celiac disease, and bullous disease. For additional information, please refer to http://education.Pet [employer] Quotes/faq/BSP323 (This link is being provided for informational/ educational purposes only.) Blood Structure of peripheral vein / Unknown Venipuncture / Unknown 02/02/2025 1:35 PM EDT 02/02/2025 2:04 PM EDT Narrative [facility] - 02/03/2025 3:36 PM EDT [facility] Received Date:[id number] Melany Baxter NP LAB BLOOD ORDERABLES Final Result Performing Organization Address City/[facility]/ZIP Co de Phone Number [facility] [address], [place] [address], [place] [phone] [facility] [address], [place] [address], [place] [phone] * (ABNORMAL) Haptoglobin (02/02/2025 1:35 PM EDT) Haptoglobin 287(H) 43 - 212 mg/dL 02/02/2025 8:23 PM EDT [facility] Blood Structure of peripheral vein / Unknown Venipuncture / Unknown 02/02/2025 1:35 PM EDT 02/02/2025 2:04 PM EDT Narrative [facility] - 02/02/2025 8:23 PM EDT [facility] Received Date:[id number] Melany Baxter [employer] CLE[employer]ER LAB BLOOD ORDERABLES Final Result [facility] [address], [place] [address], [place] [phone] [facility] [address], [place] [address], [place] [phone] * Folate (02/02/2025 1:35 PM EDT) Folate 20.6 4.8 - 24.2 ng/mL 02/02/2025 3:21 PM EDT [facility] Blood Structure of peripheral vein / Unknown Venipuncture / Unknown 02/02/2025 1:35 PM EDT 02/02/2025 2:04 PM EDT Melany Baxter NP LAB BLOOD ORDERABLES Final Result Performing Organization Address City/[facility]/ZIP Co de Phone Number [facility] [address] [place] [phone], [place] * (ABNORMAL) Ferritin (02/02/2025 1:35 PM EDT) Ferritin 318.0(H) 11.0 - 306.0 ng/mL 02/02/2025 2:53 PM EDT [facility] Blood Structure of peripheral vein / Unknown Venipuncture / Unknown 02/02/2025 1:35 PM EDT 02/02/2025 2:04 PM EDT Melany Baxter NP LAB BLOOD ORDERABLES Final Result Performing Organization Address [facility]/ZIP Co de Phone Number [facility] [address] [place] [address], [place] * Vitamin B12 (02/02/2025 1:35 PM EDT) Vitamin B12 755 232 - 1,245 pg/mL 02/02/2025 2:53 PM EDT [facility] Blood Structure of peripheral vein / Unknown Venipuncture / Unknown 02/02/2025 1:35 PM EDT 02/02/2025 2:04 PM EDT Melany Baxter NP LAB BLOOD ORDERABLES Final Result Performing Organization Address City/[facility]/ZIP Co de Phone Number [facility]ENTERSo[facility] [address] [place] [address], [place] * (ABNORMAL) Comprehensive Metabolic Panel (Once) (02/02/2025 1:35 PM EDT) NA 133(L) 135 - 145 mmol/L 02/02/2025 2:49 PM EDT [facility] K 3.8 3.5 - 5.3 mmol/L 02/02/2025 2:49 PM EDT [facility] Cl 102 98 - 107 mmol/L 02/02/2025 2:49 PM EDT [facility] CO2 20(L) 22 - 32 mmol/L 02/02/2025 2:49 PM EDT [facility] Anion Gap 11 5 - 15 02/02/2025 2:49 PM EDT [facility] Glucose 92 65 - 99 mg/dL 02/02/2025 2:49 PM EDT [facility] Creatinine 0.53 0.50 - 1.20 mg/dL 02/02/2025 2:49 PM EDT [facility] Calcium 9.0 8.6 - 10.5 mg/dL 02/02/2025 2:49 PM EDT [facility] Total Protein 8.5(H) 6.0 - 8.0 g/dL 02/02/2025 2:49 PM EDT [facility] Albumin 3.3(L) 3.5 - 5.2 g/dL 02/02/2025 2:49 PM EDT [facility] Bilirubin, Total 0.5 0.2 - 1.2 mg/dL 02/02/2025 2:49 PM EDT [facility] Alkaline Phosphatase 123 35 - 129 U/L 02/02/2025 2:49 PM EDT [facility] AST 16 10 - 40 U/L 02/02/2025 2:49 PM EDT [facility] ALT 20 10 - 40 U/L 02/02/2025 2:49 PM EDT [facility] BUN 9 7 - 23 mg/dL 02/02/2025 2:49 PM EDT [facility] LAB[facility] eGFR >90 >=60 mL/min/1. 73m2 02/02/2025 2:49 PM EDT [facility] Comment:The estimated glomer ular filtration rate (eGFR) is calculated using a new formula developed by the NKF-ASN task force to eliminate race-based correction factors. The new formula uses serum/plasma creatinine, age, and gender to determine eGFR. A value below 60mls/min might indicate kidney disease and will be flagged. For additional information, see Mullen et al, Am J Kidney Dis. 2021;79(2):268- 288, A Unifying Approach for GFR estimation: Recommendations of the NKF-ASN Task Force on Reassessing the Inclusion of Race in Diagnosing Kidney Disease . Globulin, Total 5.2(H) 2.1 - 4.2 g/dL 02/02/2025 2:49 PM EDT [facility] A/G Ratio 0.6(L) 1.5 - 3.0 02/02/2025 2:49 PM EDT [facility] Blood Structure of peripheral vein / Unknown Venipuncture / Unknown 02/02/2025 1:35 PM EDT 02/02/2025 2:04 PM EDT us Melany Baxter LAB BLOOD ORDERABLES Final Result [facility] [address] [place] [address], * LAB - SCANNED (01/17/2025) us Onbase Scan [facility] LAB HISTORICAL RESULTS Final Result * Hepatitis C Antibody w/Reflex to HCV RNA, Quantitative PCR (10/09/2022 8:00 AM EDT) Hepatitis C Antibody NON-REACT POWER NON-REACT POWER 10/10/2022 12:13 AM EDT [facility] Signal To Cut-Off 0.05 <1.00 10/10/2022 12:13 AM EDT [facility] Comment: HCV antibody was non-reactive. There is no laboratory evidence of HCV infection. In most cases, no further action is required. However, if recent HCV exposure is suspected, a test for HCV RNA (test code 11654) is suggested. For additional information please refer to http://education.RealtyAPX/faq/AJR22b1 (This link is being provided for informational/ educational purposes only.) Blood Structure of peripheral vein / Unknown Venipuncture / Unknown 10/09/2022 8:00 AM EDT 10/09/2022 8:04 AM EDT [facility] KAPIL MCGHEE - 10/10/2022 12:13 AM EDT [facility] Received Date:[id number] Joni Tate DO LAB BLOOD ORDERABLES Final R esult KAPIL MCGHEE [address] [facility] [address]rd [address], [place] [address], [facility] [address] [facility] 3[address], [place] [address], from Last 3 Months or Most Recently Relevant to Health Maintenance [place] [place] [address] Advance Directives * Full Code (Latest Code Status on File) Date Activated Date Inactivated Comments 10/09/2022 9:07 AM 10/12/2022 5:50 PM Care Teams Medical Device Sales Relationship Specialty Start Date End Date Diana Moses MD PCP - General Family Medicine 10/12/22
--- OUTSIDE RECORDS SUMMARY | 2025-02-25 08:52 | XMS_ITS | Clinical Summary ---
Author Organization [employer] Address [address] [place] [address] 7 [place] [address] Care Team Providers Care Laundry Routeman Name Role Phone Claudia Ferrara CARLA Primary [...] Once per day. 28 tablet 11 05/03/2024 05/03/20 25 Active ferrous sulfate 325 (65 Fe) MG EC tabletIndication s:Iron deficiency anemia, unspecified iron deficiency anemia type Take 1 tablet (325 mg) by mouth with breakfast. Do not crush, chew, or split. 90 tablet 2 12/20/2024 12/21/19 26 Active Multiple Vitamin (multivitamin) tabletIndication s:Other headache syndrome Take 1 tablet by mouth Once per day. 90 tablet 3 12/20/2024 12/21/19 26 Active ascorbic acid (Vitamin C) 500 MG tabletIndication s:Iron deficiency anemia, unspecified iron deficiency anemia type Take 1 tablet (500 mg) by mouth Once per day. 90 tablet 3 12/21/2024 12/22/19 26 Active acetaminophen (Tylenol Extra Strength) 500 MG tabletIndication s:Other headache syndrome Take 1 tablet (500 mg) by mouth every 6 (six) hours if needed for mild pain. 60 tablet 2 12/20/2024 02/19/20 25 Active Problems Problem Noted Date Diagnosed Date Transportation insecurity 12/20/2024 Overview (12/21/2024): 12-20-24 Message sent to [facility] to help with PT one transportation needs. Other headache syndrome 08/01/2024 Overview (02/02/2025): 02-02-25 Hematology notes reviewed and neurology referral placed: Assessment & Plan 1. Anemia 2. Iron deficiency - Blood work from July 2024 indicated anemia and low iron levels. - Repeat tests in November 2024 showed no improvement in hemoglobin or red blood cell counts; ferritin was elevated but she had a low sat, low concentration and elevated TIBC which suggests inflammatory increase in ferritin, likely overt iron deficiency present. - Anemia Unlikely primary cause of headaches but may be exacerbating them - Comprehensive blood work today to assess iron levels and other potential causes of anemia (hemolysis, abnormal proteins, nutrient deficiencies) - Check inflammatory markers to rule out inflammatory conditions - Consider iron infusions if additional iron is needed - Call pt with floral designer salesperson to review lab results and next steps 3. Headaches 4. 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 - Inform primary care provider about recommendation for timely care in neurology. If pt can be seen faster locally, as this is a drive for her, appropriate to seek care closer as well 12-20-24 This is the importance of taking medications as prescribed for management of anemia as headache could be a result of anemia. May take Tylenol as needed for headaches. Eat healthy nutritious meals. 08-01-24 history of viral meningitis (recent admission 07-03-24 thorugh 07-06-24). Iron deficiency anemia (07-03-24 through 07-06-24 received 3 iron infusion), We discussed anemia can also give you headaches. It is important to take your medication as prescribed. Ibuprofen also prescribed to be taken with food. Counseled on when to seek care sooner for any worsening of symptoms. Assessment & Plan (12/21/2024 9:48 AM EDT): We discussed anemia, can also result in headaches,please take the ferrous sulfate to help with the anemia. You may also take Tylenol for headaches Rest Stay hydrated Exercise as best as able For any worsening of symptoms or any new symptoms contact us sooner Patient verbalized understanding agreeable to plan Assessment & Plan (08/01/2024 4:55 PM EDT): [...] for Ferrous sulfate to be sent to [facility] Excuse note return to work on Thursday07-25-2024. ---Admission 07-03-2024 through Discharged 07-06-2024. For headache, neck pain and fever at [facility]. Admitting diagnosis Viral Meningitis and Iron [...] to plan. Iron deficiency anemia 07/20/2024 Overview (02/21/2025): 02-20-25 Iron Infusion with Hematology 02-02-25 Hematology notes reviewed: Assessment & Plan 1. Anemia 2. Iron deficiency - Blood work from July 2024 indicated anemia and low iron levels. - Repeat tests in November 2024 showed no improvement in hemoglobin or red blood cell counts; ferritin was elevated but she had a low sat, low concentration and elevated TIBC which suggests inflammatory increase in ferritin, likely overt iron deficiency present. - Anemia Unlikely primary cause of headaches but may be exacerbating them - Comprehensive blood work today to assess iron levels and other potential causes of anemia (hemolysis, abnormal proteins, nutrient deficiencies) - Check inflammatory markers to rule out inflammatory conditions - Consider iron infusions if additional iron is needed - Call pt with floral designer salesperson to review lab results and next steps 3. Headaches 4. 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 - Inform primary care provider about recommendation for timely care in neurology. If pt can be seen faster locally, as this is a drive for her, appropriate to seek care closer as well 12-20-24 Patient is well-appearing, nontoxic looking and in no apparent distress. Reports taking ferrous sulfate as prescribed. Advised to complete labs ordered in July and agreeable. Advised on the importance of eating healthy nutritious meals rich in iron. (Labs ordered from July completed today and no significant improvement noted, Hematology referral placed. Message sent for patient to be notified of referral) 08-01-24 at visit today, advised on the [...] For headache, neck pain and fever at [facility]. Admitting diagnosis Viral Meningitis and Iron Deficinecy Anemia. Also noted to have LUCERO with iron <7, Tbic 147, received 3 iron infusions and started on iron suplementation. Currently not taking ferrous sulfate, as reports was expensive at her pharmacy with a co-pay of $50. Advised can send to [facility] pharmacy and patient agreeable, as reports will be coming in for her blood work this Thursday. Counseled on importance of completing blood work ordered, that has not been completed. Lab work not completed from 07-12-24. Reports will be able to do labs on Thursday Agreeable for Ferrous sulfate to be sent to [facility] Excuse note return to work on Thursday07-25-2024. Advised for any worsening of symptoms or new symptoms to contact us sooner and patient agreeable. Assessment & Plan (12/21/2024 9:46 AM EDT): We discussed the importance of picking up ferrous sulfate from the pharmacy, and taking it daily. We discussed anemia, can also give you headaches. It is important to take your medication as prescribed. Also eat a diet that is rich in iron. Iron rich foods include Meat and poultry, fortified cereal, beans, spinach and green leafy vegetables, raisins and dried fruit good, egss, green peas, tuna, tofu. Complete lab work ordered from July We discussed for any worsening of symptoms or any new symptoms, seek immediate medical care to closest emergency department. Patient verbalized understanding agreeable to plan. Assessment & Plan (08/01/2024 4:51 PM EDT): [...] 06/06/2024 Overview (06/06/2024): Patient does not speak Slovak as a primary language. Certified floral designer salesperson was used for the duration of this visit which requires at least twice the time to assess history, discuss assessment and plan. Those with primary language is other than Slovak, require additional support and expertise in order [...] patient also had visit with primary care [facility] 06-02-2024. Patient reports doing overall well, and [...] and at 6-week follow-up. -Repeat CBC Encounters Date Type Department Care Team Description 02/17/[address] [phone] Claudia Ferrara FNP Appointment Confirmation 02/17/[address] [phone] Diana Moses MD 02/02/2025 Orders Only [address] [phone] Claudia Ferrara FNP Other headache syndrome (Primary Dx); History of viral meningitis 12/29/2024 Orders Only [address] [phone] Claudia Ferrara FNP Other iron deficiency anemia (Primary Dx) 12/28/2024 Telephone [facility] Business Office [address] [place] [phone] Claudia Ferrara FNP Referral 12/21/2024 Results Follow-Up [address] [phone] Claudia Ferrara FNP Iron, TIBC And Ferritin Panel, CBC auto differential 12/20/2024 1:20 PM EDT Office Visit [address] [phone] Claudia Ferrara FNP Iron deficiency anemia, unspecified iron deficiency anemia type (Primary Dx); Language barrier; Other headache syndrome; Other constipation; Transportation insecurity 12/20/2024 8:30 AM EDT Telemedicine [facility] Case Management [address] [place] [phone] Fatuma Novoa CHW Transportation insecurity (Primary Dx) 12/19/[address] [phone] Claudia Ferrara FNP from Last 3 Months Immunizations Immunization Administration Dates Next Due Pfizer Covid-19 Vaccine 12+ lan-sucrose (Bergman Cap) 09/24/2022,06/17/2022,05/20/2022,2021 Social History Tobacco Use Types Packs/Day Years Used Date Smoking Tobacco: Never Passive Smoke Exposure: Never Smokeless Tobacco: Never Tobacco Cessation:Counseling Given: Not Answered Alcohol Use Standard Drinks/Week Comments Never 0 (1 standard drink = 0.6 oz pur e alcohol) Alcohol Answer Date Recorded Q1: How often do you have a drink containing alc ohol? 1 12/20/2024 Q2: How many drinks containi ng alcohol do you have on a typical day when you are drinking? 0 12/20/2024 Q3: How often do you have six or more drinks on one occasion? 1 12/20/2024 Housing Stability Answer Date Recorded What is [...] want or need it 01/2024 Comments No Intention Date Recorded No desire to become (finding) 0 12/20/2024 Sex and Gender Information Value Date Recorded Sex Assigned at Female 10/29/2023 8:25 AM EDT Legal Sex Female 7:04 PM EDT Gender Identity Female 09/04/2023 7:04 PM EDT Sexual Orientation Straight 09/04/2023 7: 04 PM EDT Last Filed Vital Signs Vital Sign Reading Time Taken Comments Blood Pressure 112/79 12/20/2024 1:12 PM EDT Pulse 78 12/20/2024 1:12 PM EDT Temperature 37.2 C (98.9 F) 12/20/2024 1:12 PM EDT Respiratory Rate 16 12/20/2024 1:12 PM EDT Oxygen Saturation 100% 12/20/2024 1:12 PM EDT Inhaled Oxygen Concentration - - Weight 70.4 kg (155 lb 3.3 oz) 12/20/2024 1:12 P M EDT Height 159.5 cm (5' 2.8 ) 12/20/2024 1:12 PM EDT Body Mass Index 27.67 12/20/2024 1:12 PM EDT Plan of Treatment Upcoming Encounters Date Type Department Care Team (Regan st Contact Info) Description 04/14/2025 10:00 AM EST Office Visit [address] [phone] Claudia Ferrara FNP [address] [place] [phone] Health Maintenance Due Date Last Done Comments Disability Screening 1987 HPV Vaccines (1 - 3-dose series) 12/26/2002 DTaP/Tdap/Td Vaccines (1 - Tdap) 12/26/2006 Hepatitis B Vaccines (1 of 3 - 19+ 3-dose series) 12/26/2006 COVID-19 Vaccine ( season) 2025 09/24/2022, 06/17/2022, 05/20/2022, Additional history exists Influenza Vaccine (#1) 2025 Depression Screening 01/26/2025 01/27/2024, 01/27/20 SDOH Screening 05/02/2025 05/02/2024 Alcohol/Substance Use Screening 12/20/2025 12/20/2024 Family Planning (PISQ) 12/20/2025 12/20/2024 Tobacco Screening 12/20/2025 12/20/2024 Cervical Cancer Screening 01/26/2029 HPV/Cotest 01/26/2029 01/27/2024 [...] patient's age to complete this topic Meningococcal B Vaccine Aged Out No l onger eligible based on patient's age to complete this topic Meningococcal Vaccine Aged Out No anyi amina eligible based on patient's age to complete this topic Pneumococcal Vaccine: Pediatrics (0 to 5 Years) and At-Risk Patients (6 to 49) Years Aged Out No longer eligible based on patient's age to complete this topic RSV under 20 months Aged Out No longe r eligible based on patient's age to complete this topic Rotavirus Vaccines Aged Out No longer eligible based on patient's age to complete this topic Procedures Procedure Name Priority Date/Time Associated Diagnosis Comments AMB REFERRAL TO HEMATOLOGY Urgent 02/03/2025 Iron deficiency anemia, unspecified iron deficiency anemia type CBC WITH AUTO DIFFERENTIAL Routine 12/20/2024 2:03 PM EDT Other iron deficiency anemia IRON, TIBC AND FERRITIN PANEL Routine 12/20/2024 2:03 PM EDT Other iron deficiency anemia IMAGE GUIDED PAP, HPV DETECTION W/REFLEX TO HPV GENOTYPE Routine 01/27/2024 2:12 PM EDT Cervical cancer screening HM HIV 1/2 ANTIGEN AND ANTIBODY Routine 07/09/2023 HM HEPATITIS C ANTIBODY Routine 10/06/2022 from Last 3 Months or Most Recently Relevant to Health Maintenance Results * Referral to Hematology (02/03/2025) Claudia Ferrara [employer] OUTPATIENT REFERRAL O RDERABLES Final Result * (ABNORMAL) Iron, TIBC And Ferritin Panel (12/20/2024 2:03 PM EDT) Iron Binding Capacity 214(L) 250 - 450 ug/dL [facility] 1 UIBC 193 131 - 425 ug/dL [facility] Iron, Total 21(L) 45 - 182 ug/dL [facility] % Saturation 10(L) 15 - 55 % [facility] 1 Ferritin 296(H) 15 - 150 ng/mL [facility] 2 Blood 12/20/2024 2:03 PM EDT 12/20/2024 Narrative Resulting Agency Comment Performed at: - [facility] [address] [id number] Network Operations Analyst: Nica Dao MD, Phone: [phone] Performed at: 02 - [facility] [address] [id number] Network Operations Analyst: Digna Olson MD, Phone: [phone] Claudia AGUIRRE LAB BLOOD ORDERABLES Final Result [facility] * (ABNORMAL) CBC auto differential (12/20/2024 2:03 PM EDT) White Blood Cell Count 5.6 4.3 - 10.3 K/mm3 [facility] 1 Red Blood Cell Count 3.56(L) 4.20 - 5.40 K/mm3 [facility] 1 Hemoglobin 8.7(L) 12.0 - 16.0 gm/dL [facility] 1 Hematocrit 28.3(L) 37.0 - 47.0 % [facility] 1 MCV 80(L) 83 - 101 fL [facility] 1 MCH 24.4(L) 27.0 - 34.0 pg [facility] 1 MCHC 30.7(L) 31.5 - 36.0 g/dL [facility] 1 RDW 16.5(H) 11.7 - 15.4 % [facility] 1 Platelet Count 255 140 - 400 K/mm3 [facility] 1 Neutrophils 54 Not Estab. % [facility] 1 Lymphocytes 36 Not Estab. % [facility] 1 Monocytes 8 Not Estab. % [facility] 1 Eosinophils 1 Not Estab. % [facility] 1 Basophils 1 Not Estab. % [facility] 1 Absolute Neutrophils 3.0 1.4 - 7.0 x10E3/uL [facility] 1 Absolute Lymphocytes 2.0 0.7 - 3.1 x10E3/uL [facility] 1 Absolute Monocytes 0.4 0.1 - 0.9 x10E3/uL [facility] 1 Absolute Eosinophils 0.1 0.0 - 0.4 x10E3/uL [facility] 1 Absolute Basophils 0.0 0.0 - 0.2 x10E3/uL [facility] 1 Immature Granulocytes 0 Not Estab. % [facility] 1 Immature Grans (Abs) 0.0 0.0 - 0.1 x10E3/uL [facility] 1 Blood Venous blood specimen / Unknown 12/20/2024 2:03 PM EDT 12/20/2024 Narrative Resulting Agency Comment Performed at: 01 - [facility] [id number] Network Operations Analyst: Nica Dao MD, Phone: [phone] Claudia Ferrara JEW[employer]ATER LAB BLOOD ORDERABLES Final Result [facility] * Routine Pap, Age 30+ (01/27/2024 2:12 PM EDT) Diagnosis [facility] 1 Comment: NEGATIVE FOR INTRAEPITHELIAL LESION OR MALIGNANCY. THE CYTOLOGY PROCESSING WAS PERFORMED AT THE [facility] LOCATED AT [address] [place] [phone]. Adequacy: [facility] 1 Comment: Satisfactory for evaluation. Endocervical and/or squamous metaplastic cells (endocervical component) are present. Clinician provided ICD-10: [facility] 2 Comment:Z12.4 Performed by: [facility] Comment:Cleopatra Nunez, Cytot echnologist (ASCP) Cytology Comment . [facility] 1 Note: [facility] 2 Comment: The Pap smear is a screening test designed to aid in the detection of premalignant and malignant conditions of the uterine cervix. It is not a diagnostic procedure and should not be used as the sole means of detecting cervical cancer. Both false-positive and false-negative reports do occur. Test Methodology: [facility] 2 Comment: This liquid based ThinPrep(R) pap test was screened with the use of an image guided system. HPV Aptima Negative Negative [facility] 3 Comment: This nucleic acid amplification test detects fourteen high-risk HPV types (16,18,31,33,35,39,45,51,52,56,58,59,66,68) without differentiation. ThinPrep vial (Cervical cells) 01/27/2024 2:12 PM EDT 01/27/2024 Comment:CERVICAL Narrative [facility] 3 - 01/29/2024 10:05 PM EDT Performed at: - [facility] [place] [facility] [address] [id number] Network Operations Analyst: Conner Rome MD, Phone: [phone] Performed at: 02 - [facility] [place] [address] [place], [place] [id number] Network Operations Analyst: Dinga Olson MD, Phone: [phone] Performed at: 03 - [facility] [place] [address] [place], [place] [id number] Network Operations Analyst: Digna Olson MD, Phone: [phone] Specimen Comment: [id number] Specimen Comment: No. of containers..01 ThinPrep Vial [facility] LAB CYTOLOGY ORDERABLES Dennise l Result [facility] 3 [facility] * HIV 1/2 Antigen and Antibody (07/09/2023) HIV Ag/Ab Nonreactive Historical Provider HEALTH MAINTENANCE Final Result * Hepatitis C Antibody (10/06/2022) Hepatitis C Antibody Nonreactive Blood Historical Provider HEALTH MAINTENANCE Final Result from Last 3 Months or Most Recently Relevant to Health Maintenance Insurance [facility] C3 Care Teams Laundry Routeman Relationship Specialty Start Date End Date Claudia Ferrara FNP [address] [place] [phone] PCP - General Family Medicine 11/20/21
--- OUTSIDE RECORDS SUMMARY | 2025-02-25 08:52 | XMS_ITS | Encounter Summary ---
Author Organization [email or web address] Address [address] [place] [address] [place] [address] Care Team Providers Care Parlor Chaperone Name Role Phone Claudia Ferrara Primary Care Provide r Encounter Details Date Type Department Care Team (Latest Contact Info) Description 12/21/2024 Results Follow-Up [address] [phone] Claudia Ferrara FNP [address] [place] [phone] Iron, TIBC And Ferritin Panel, CBC auto differential Social History Tobacco Use Types Packs/Day Years [...] Care Team (Late st Contact Info) Description 04/14/2025 10:00 AM EST Office Visit [address] [phone] Claudia Ferrara FNP [address] [place] [phone] documented as of this encounter Visit Diagnoses Not on filedocumented in this encounter Care Teams Parlor Chaperone Relationship Specialty Start Date End Date Claudia Ferrara FNP [address] [place] [phone] PCP - General Family Medicine 11/20/21 documented as of this encounter
--- OUTSIDE RECORDS SUMMARY | 2025-02-25 08:52 | XMS_ITS | Encounter Summary ---
Author Organization [facility] Address [address] [place] [address] Care Team Providers Care Fowl Blood Tester Name Role Phone Diana Moses MD Primary Care Provider [phone] Reason for Referral * Consultation (Urgent) - Pending Review Specialty Diagnoses / Procedures Referred By Aparna liu Referred To Contact Oncology Diagnoses Iron deficiency anemia, unspecified iron deficiency anemia type Claudia Ferrara NP [address] [place] [phone] Phone: tel: fax: [facility] [address] [place] [address] Phone: tel: fax: Referral ID Status Reason Start Date Expiration Date Visits Requested Visits Authorized [id number] Pending Review Specialty Services Required 12/23/2024 01/23/2026 6 6 Encounter Details Date Type Department Care Team (Late st Contact Info) Description 12/23/2024 Community Orders [facility] Link [address] [place] [address] Claudia Ferrara NP [address] [place] [address] Iron deficiency anemia, unspecified iron deficiency anemia [...] on file documented as of this encounter Plan of Treatment Upcoming Encounters Date Type Department Care Team (Late st Contact Info) Description 03/07/2025 8:40 AM EDT Lab [facility] Fifth Floor [address] [place] [address] 03/07/2025 9:40 AM EDT Follow-Up [facility] [address] [place] [address] Tamela Adrian NP [address] [place] [phone] 10/30/2025 1:45 PM EDT Office Visit [facility] [address] [place] [phone] Erin Slater MD [address] [place] [address] Scheduled Referrals Name Type Priority Associated Diagnoses Orde r Schedule Ambulatory referral to Hematology / Oncology Outpatient Referral Routine Iron deficiency anemia, unspecified iron deficiency anemia type Expected: 12/23/2024, Expires: 01/23/2026 documented as of this encounter Visit Diagnoses Diagnosis Iron deficiency anemia, unspecified iron deficiency anemia type- Primary documented in this encounter Care Teams Fowl Blood Tester Relationship Specialty Start Date End Date Diana Moses MD PCP - General Family Medicine 10/12/22 documented as of this encounter
--- OUTSIDE RECORDS SUMMARY | 2025-02-25 08:52 | XMS_ITS ---
Author Name [facility] Organization Unknown Care Team Organization Name Specialty Phone Email Start Date End Da te [facility] Cleopatra Hannah Primary Care 11/27/2022 4
--- OUTSIDE RECORDS SUMMARY | 2025-02-25 08:52 | XMS_ITS | Encounter Summary ---
Author Organization [facility] Address [address] [place], [place] [id number] Care Team Providers Care Aircraft Delivery Checker Name Role Phone Diana Moses MD Primary Care Provider [phone]- [phone] Encounter Details Date Type Department Care Team (Late Contact Info) Description 02/09/2025 Results Follow-Up [facility] 5th Floor [address] [place] [address] Tamela Adrian, BONIFACIO [address] [place] [address] Social History Tobacco Use Types Packs/Day Years [...] Info) Description 03/07/2025 8:40 AM EDT Lab [facility] ACC Draw Site Fifth Floor [address] [place] [address] 03/07/2025 9:40 AM EDT Follow-Up [facility] BMT Clinic [address] [place] [id number] Tamela Adrian NP [address] [place] [phone] 10/30/2025 1:45 PM EDT Office Visit [facility] [address] [place] [phone] Erin Slater MD [address] [place] [id number] documented as of this encounter Visit Diagnoses Not on filedocumented in this encounter Care Teams Aircraft Delivery Checker Relationship Specialty Start Date End Date Diana Moses MD PCP - General Family Medicine 10/12/22 documented as of this encounter
--- OUTSIDE RECORDS SUMMARY | 2025-02-25 08:52 | XMS_ITS | Encounter Summary ---
Author Organization [facility] Address [address] [place] [address] Care Team Providers Care Machine Sole Leveler Name Role Phone Diana Moses MD Primary Care Provider [phone]- [phone] Encounter Details Date Type Department Care Team (Late Contact Info) Description 02/07/2025 Telephone [facility] [address] [place] [phone] Telephone Intake, Staff Social History Tobacco Use Types Packs/Day Years [...] on file documented as of this encounter Miscellaneous Notes * Telephone Encounter - Geraldine Grimes - 02/07/2025 2:44 PM EDT Called pt and LVM to reschedule current appt to [facility] Garcia. Also need current working cell telephone number documented in this encounter Plan of Treatment Upcoming Encounters Date Type Department Care Team (Late st Contact Info) Description 03/07/2025 8:40 AM EDT Lab [facility] ACC Draw Site Fifth Floor [address] [place] [address] 03/07/2025 9:40 AM EDT Follow-Up [facility] BMT Clinic [address] [place] [address] Tamela Adrian, BONIFACIO [address] [place] [address] 10/30/2025 1:45 PM EDT Office Visit [facility] Building Neurology Clinic [address] [place] [phone] Erin Slater MD [address] [place] [phone] documented as of this encounter Visit Diagnoses Not on filedocumented in this encounter Care Teams Machine Sole Leveler Relationship Specialty Start Date End Date Diana Moses MD PCP - General Family Medicine 10/12/22 documented as of this encounter
[2025-02-25 09:07] LABS: MANUAL DIFF FLAG NO
[2025-02-25 09:14] LABS: Hematocrit 24.5 % (37.0-47.0); Hemoglobin 7.9 g/dl (12.0-16.0); Imm Gran Abs Auto 0.02 X10*3/uL (0.00-0.03); Imm Gran Pct Auto 0.2 % (0.0-0.4); Lymphocytes Absolute Auto 1.8 X10*3/uL (1.2-4.9); Mean Corpuscular HGB Conc 32.2 g/dl (31.0-35.0); Mean Corpuscular Hemoglobin 24.9 pg (27.0-33.0); Mean Corpuscular Volume 77.3 fL (80.0-98.0); NRBC Abs Auto 0.000 X10*3/uL (0.0-0.012); NRBC Pct Auto 0.0 /100WBC (0.0-0.2); Platelet Count 244 X10*3/uL (160-400); Red Blood Count 3.17 X10*6/uL (4.20-5.50); White Blood Count 8.4 X10*3/uL (4.8-10.8)
[2025-02-25 09:29] LABS: Alanine Aminotransferase 13 U/L (0-31); Albumin Level 3.3 g/dL (3.5-5.0); Alkaline Phosphatase 152 U/L (39-117); Anion Gap 12 (12-20); Aspartate Amino Transferase 32 U/L (5-31); Blood Urea Nitrogen 6 mg/dL (9-16); Calcium 8.9 mg/dL (8.4-10.2); Carbon Dioxide 21 mmol/L (22-29); Chloride 107 mmol/L (96-108); Creatinine Clr Calc Pharmacy 117.1; Estimated Glomerular Filt Rate > 60; Potassium 4.7 mmol/L (3.3-5.1); Sodium 135 mmol/L (135-145); Total Protein 8.5 g/dL (6.5-8.0)
--- NOTE | 2025-02-25 10:11 | PC.NURSE ---
Patient consented to rectal eval to be performed by provider , this RN in room during exam
--- NOTE | 2025-02-25 10:38 | ED.HA ---
HPI - Headache General Chief Complaint: Headache Stated Complaint: headache Time Seen by Provider: 02/25/25 08:53 Source: patient Mode of arrival: ambulatory Limitations: no limitations History of Present Illness ED Provider: SANG Bravo Related Data Previous Rx's ?Medication ?Instructions ?Recorded ferrous sulfate 325 mg (65 mg 325 mg PO DAILY #30 tabs 07/06/24 iron) tablet ibuprofen 800 mg tablet 800 mg PO TID PRN pain 10 days #30 07/06/24 tabs omeprazole magnesium 20 mg 20 mg PO DAILY #30 tabs 07/06/24 tablet,delayed release (Prilosec OTC) oxycodone 5 mg tablet 5 mg PO Q6H PRN Pain, 07/06/24 Moderate(Pain Scale 4-6) #30 tabs naphazoline 0.025 %-pheniramine 2 drp ophthalmic (eye) QID PRN eye 07/13/24 0.3 % eye drops (Eye Allergy irritation 1 week #15 mL Relief (naphazoline-pheniramine)) hrvwbcfutu-maclzmongqhfj-nttmauaz 1 tab PO Q6H PRN haeadace #20 tabs 09/17/24 50 mg-325 mg-40 mg tablet ferrous sulfate 325 mg (65 mg 325 mg PO DAILY #90 tabs 09/17/24 iron) tablet misoprostol 200 mcg tablet 800 mcg (4 x 200 mcg) vaginal ONCE 02/25/25 (Cytotec) #4 tabs Allergies Allergy/AdvReac Type Severity Reaction Status Date / Time No Known Allergies Allergy Verified 02/25/25 08:41 Review of Systems Review of Systems: Yes all other systems are reviewed and are negative PMFSH Past Medical History Attestation statement: The following information was validated with the patient. Source: old records reviewed and nursing notes reviewed Social History Social History Household Members: Children Housing: Apartment Patient Tobacco Use Status: Never used Tobacco Smoked in Last 30 Days: No Use of substances other than those prescribed or required for medical reasons: No Advance Directives: No Advance Directives Information Provided: Yes service: No Physical Exam Exam: Exam: Appearance: Alert.? Oriented X3.? No acute distress.? Head: Normocephalic, atraumatic, no step-offs or deformities Eyes: Pupils equal, round and reactive to light.? Neck: Normal inspection.? Neck supple.? CVS: Normal heart rate and rhythm.? Pulses normal.? Respiratory: No respiratory distress.? Breath sounds normal.? Abdomen: Soft and nontender.? Skin: Skin warm and dry.? Normal skin color.? Normal skin turgor.? Extremities: No lower extremity edema.? No calf ttp. 5/5 strength to bilateral upper and lower extremities Back: No midline tenderness, no C-spine tenderness, full range of motion, no CVA tenderness bilaterally Neuro: Oriented X 3.? No motor deficit.? No sensory deficit. CN 2-12 intact Vital Signs: Vital Signs: Last Vital Signs Temp 98.6 F 02/25/25 23:41 Pulse 80 02/25/25 23:41 Resp 20 02/25/25 23:41 BP 128/79 02/25/25 23:41 Pulse Ox 99 02/25/25 17:11 O2 Del Method Room Air 02/25/25 18:10 BMI result Body Mass Index 23.8 vss Course Reevaluation(s) Reevaluation #1: Patient's CBC with a microcytic anemia I did speak to her and she does tell me she is on her menses. Chemistry with no acute findings needing intervention. Patient's rectal exam was done at the bedside with nurse Loulou as transformation manager, patient gave verbal consent, no bright red blood per rectum. Patient's urine clean no infection however she is noted to have a urine positive which prompted me to add a beta hCG which results at 8230. Still complaining of significant headache will discontinue Toradol and give Tylenol, Benadryl and Reglan. She tells me she is currently bleeding vaginally ordered ultrasound pelvic transvaginal Time: 11:45 Reevaluation #2: Patient reports that her pain in her head has been improving ever since she got the Reglan, Benadryl and Tylenol. I did do a pelvic exam with consent, nurse Lashell at the bedside. Cervical os appears slightly opened, moderate amount of bleeding noted. Dark maroon blood. No clots. Ultrasound did result which shows a single intrauterine gestation estimated at 8 weeks 6 days however no heart tones. Findings consistent with a failed early intrauterine . I did reach out to OBGYN doctor Derrick will see patient and determine tx option/plan Time: 15:32 Reevaluation #3: Patient's iron studies resulted it appears as though she has a low iron, low TIBC and microcytic anemia noted. Verbal and written consent obtained for blood transfusion. Dr. Derrick DORANTES also went over this with patient. Time: 15:37 Additional Reevaluation(s): Pending repeat CBC sign out to Dr. Frank Medications Administered Discontinued Medications Generic Name Dose Route Start Last Admin Trade Name Ashlee PRN Reason Stop Dose Admin Acetaminophen 650 mg 02/25/25 11:06 02/25/25 12:22 Acetaminophen 325 Mg Tablet PO 02/25/25 11:07 650 mg ONCE ONE Administration Acetaminophen 650 mg 02/25/25 20:25 02/25/25 20:29 Acetaminophen 325 Mg Tablet PO 02/25/25 20:26 650 mg ONCE ONE Administration Acetaminophen/Butalbital/Caffeine 1 tab 02/25/25 23:34 02/25/25 23:39 Butalb/Acetamin/Caff 50/325/40 Tablet PO 02/25/25 23:35 1 tab ONCE ONE Administration Diphenhydramine HCl 50 mg 02/25/25 10:38 02/25/25 11:42 Diphenhydramine Hcl 50 Mg/Ml Vial IVPUSH 02/25/25 10:39 50 mg ONCE ONE Administration Ketorolac Tromethamine 30 mg 02/25/25 15:42 02/25/25 16:39 Ketorolac Tromethamine 15 Mg/Ml Vial IVPUSH 02/25/25 15:43 Not Given ONCE ONE Ketorolac Tromethamine 30 mg 02/25/25 16:30 02/25/25 17:14 Ketorolac Tromethamine 15 Mg/Ml Vial IVPUSH 02/25/25 16:31 30 mg ONCE ONE Administration Metoclopramide HCl 10 mg 02/25/25 10:38 02/25/25 11:41 Metoclopramide Hcl 10 Mg/2 Ml Vial IVPUSH 02/25/25 10:39 10 mg ONCE ONE Administration Medical Decision Making Medical Decision Making [facility] Narrative: 1041 39 year old female presents w/ headache, fatigue,malaise X 3 weeks. PE benign NIHSS-0 Hx and pe concerning for migranes vs viral illness. Unlikley meningitis, encephalitis. Patient does report vaginal bleeding, she tells me this is her. However will rule out . Plan labs, imaging Patient is signed out to me pending blood transfusion. Accordingly patient embryo product does not have a heartbeat. Concern for miscarriage. They will plan to treat her with misoprostol. Dr. Meza the ANNEALING OPERATOR doctor has evaluated kyrie at bedside. At the time of my evaluation patient appears to be doing well. On her second bag of blood transfusion. Patient will be signed out to oncoming provider pending CBC recheck after transfusion. I received sign-out from my colleague Dr. Frank -after 2 units of blood, patient's hemoglobin improved to 10.2. -Medications has been sent to pt's pharmacy Differential Diagnosis Differential Diagnoses: The differential diagnosis associated with the presentation includes (Hx and pe concerning for migranes vs viral illness. Unlikley meningitis, encephalitis. Patient does report vaginal bleeding, she tells me this is her. However will rule out .) Admission/Observation Consideration of admission/observation: Escalation of care including admission/observation considered Consult Healthcare Provider Management of the patient was discussed with: Convention Manager () Lab Data [facility] Lab Attestation statement: I reviewed the patient's lab results. 02/26/25 00:09 02/25/25 09:03 Labs: Lab Results 02/25/25 02/25/25 02/25/25 Range/Units 09:03 10:20 10:24 WBC 8.4 (4.8-10.8) X10*3/uL RBC 3.17 L (4.20-5.50) X10*6/uL Hgb 7.9 L (12.0-16.0) g/dl Hct 24.5 L (37.0-47.0) % MCV 77.3 L (80.0-98.0) fL MCH 24.9 L (27.0-33.0) pg MCHC 32.2 (31.0-35.0) g/dl RDW 16.0 (11.0-16.0) % Plt Count 244 (160-400) X10*3/uL MPV 10.5 (9.4-12.3) fL Immature Gran % (Auto) 0.2 (0.0-0.4) % Neut % (Auto) 70.8 (45-73) % Lymph % (Auto) 21.2 (20-40) % [place] % (Auto) 6.4 (2-11) % Eos % (Auto) 1.2 (0-4) % Baso % (Auto) 0.2 (0-2) % Lymph # (Auto) 1.8 (1.2-4.9) X10*3/uL [place] # (Auto) 0.5 (0.1-1.2) X10*3/uL Eos # (Auto) 0.1 (0.0-0.4) X10*3/uL Baso # (Auto) 0.0 (0.0-0.2) X10*3/uL Abs Immat Gran (auto) 0.02 (0.00-0.03) X10*3/uL Absolute Neuts (auto) 6.0 (2.0-8.3) x10*3/uL Absolute Nucleated RBC 0.000 (0.0-0.012) X10*3/uL Nucleated RBC % (auto) 0.0 (0.0-0.2) /100WBC Sodium 135 (135-145) mmol/L Potassium 4.7 D (3.3-5.1) mmol/L Chloride 107 (96-108) mmol/L Carbon Dioxide 21 L (22-29) mmol/L Anion Gap 12 (12-20) BUN 6 L (9-16) mg/dL Creatinine 0.52 (0.5-1.4) mg/dL Estim Creat Clear Calc 117.1 Estimated GFR > 60 Random Glucose 87 (60-115) mg/dL Calcium 8.9 (8.4-10.2) mg/dL Iron 122 (30-160) mcg/dL TIBC 218 L (228-428) mcg/dL % Saturation 56 H (15-50) % Unsat Iron Binding 96 ug/dL Total Bilirubin 0.2 (0.0-1.0) mg/dL AST 32 H (5-31) U/L ALT 13 (0-31) U/L Alkaline Phosphatase 152 H (39-117) U/L Total Protein 8.5 H (6.5-8.0) g/dL Albumin 3.3 L (3.5-5.0) g/dL Beta HCG, Quant 8230 mIU/mL Urine Color Yellow Urine Appearance Clear Urine pH 6.5 (5.0-9.0) Ur Specific [place] 1.010 (1.005-1.025) Urine Protein Negative (Neg-Trace) mg/dL Urine Glucose (UA) Negative (Negative) mg/dL Urine Ketones Negative (Negative) mg/dL Urine Blood Moderate (2+) H (Negative) Urine Nitrite Negative (Negative) Ur Leukocyte Esterase Negative (Negative) Urine RBC 3-5 H (0-2) /HPF Urine WBC 0-5 (0-5) /HPF Ur Squamous Epith Cells 0-2 (0-2) /HPF Urine Bacteria None Seen (None Seen) Hyaline Casts 0-2 (0-2) /LPF Urine Test POSITIVE H (NEGATIVE) Stool Occult Blood NEGATIVE (NEGATIVE) Blood Type Antibody Screen Crossmatch 02/25/25 02/25/25 02/26/25 Range/Units 14:08 15:26 00:09 WBC 7.9 8.5 (4.8-10.8) X10*3/uL RBC 3.09 L 3.84 L D (4.20-5.50) X10*6/uL Hgb 7.8 L 10.2 L D (12.0-16.0) g/dl Hct 23.6 L 30.1 L D (37.0-47.0) % MCV 76.4 L 78.4 L (80.0-98.0) fL MCH 25.2 L 26.6 L (27.0-33.0) pg MCHC 33.1 33.9 (31.0-35.0) g/dl RDW 16.3 H 15.9 (11.0-16.0) % Plt Count 257 243 (160-400) X10*3/uL MPV 11.0 10.2 (9.4-12.3) fL Immature Gran % (Auto) 0.4 0.4 (0.0-0.4) % Neut % (Auto) 64.0 66.9 (45-73) % Lymph % (Auto) 26.8 25.3 (20-40) % [place] % (Auto) 6.6 5.4 (2-11) % Eos % (Auto) 1.8 1.8 (0-4) % Baso % (Auto) 0.4 0.2 (0-2) % Lymph # (Auto) 2.1 2.2 (1.2-4.9) X10*3/uL [place] # (Auto) 0.5 0.5 (0.1-1.2) X10*3/uL Eos # (Auto) 0.1 0.2 (0.0-0.4) X10*3/uL Baso # (Auto) 0.0 0.0 (0.0-0.2) X10*3/uL Abs Immat Gran (auto) 0.03 0.03 (0.00-0.03) X10*3/uL Absolute Neuts (auto) 5.1 5.7 (2.0-8.3) x10*3/uL Absolute Nucleated RBC 0.000 0.000 (0.0-0.012) X10*3/uL Nucleated RBC % (auto) 0.0 0.0 (0.0-0.2) /100WBC Sodium (135-145) mmol/L Potassium (3.3-5.1) mmol/L Chloride (96-108) mmol/L Carbon Dioxide (22-29) mmol/L Anion Gap (12-20) BUN (9-16) mg/dL Creatinine (0.5-1.4) mg/dL Estim Creat Clear Calc Estimated GFR Random Glucose (60-115) mg/dL Calcium (8.4-10.2) mg/dL Iron (30-160) mcg/dL TIBC (228-428) mcg/dL % Saturation (15-50) % Unsat Iron Binding ug/dL Total Bilirubin (0.0-1.0) mg/dL AST (5-31) U/L ALT (0-31) U/L Alkaline Phosphatase (39-117) U/L Total Protein (6.5-8.0) g/dL Albumin (3.5-5.0) g/dL Beta HCG, Quant mIU/mL Urine Color Urine Appearance Urine pH (5.0-9.0) Ur Specific [place] (1.005-1.025) Urine Protein (Neg-Trace) mg/dL Urine Glucose (UA) (Negative) mg/dL Urine Ketones (Negative) mg/dL Urine Blood (Negative) Urine Nitrite (Negative) Ur Leukocyte Esterase (Negative) Urine RBC (0-2) /HPF Urine WBC (0-5) /HPF Ur Squamous Epith Cells (0-2) /HPF Urine Bacteria (None Seen) Hyaline Casts (0-2) /LPF Urine Test (NEGATIVE) Stool Occult Blood (NEGATIVE) Blood Type A Positive A Positive Antibody Screen NEGATIVE Crossmatch See Detail Independent Interpretation I performed an independent interpretation of an: Ultrasound Interpretation: Impression: 1. Single intrauterine gestation estimated at 8 weeks 6 days by today's ultrasound criteria. No heart tones. Findings consistent with a failed early intrauterine . 2. Clinical menstrual age not available. Radiology Impression Discussion of test interpretation with radiology: I have reviewed the radiologist's reading. External Record Review External record reviewed: Inpatient record, Office record, Outpatient record, Prior outpatient labs, Prior outpatient radiology, Primary care record and Outside ED record Chronic Conditions Patient?s care impacted by: Other (Anemia ) Social Determinants Patient?s care significantly limited by Social Determinants of Health including: Inadequate housing, Low income, Alcoholism and drug addiction in family, Problems related to primary support group, Unemployment, Problems related to employment and Other Social Determinant of Health Patient currently living at a longterm Critical Care Time Critical Care Time Critical Care Time: Yes Total Critical Care Time: 45 Attestation: I attest to this time spent taking care of the patient, obtaining history, physical, reviewing labs, imaging, treatment of patients condition +/- specialist/hospitalist consult +/- procedure Discharge Plan Discharge Clinical Impression: Headache, Miscarriage Patient Disposition: Home, Self-Care Additional Instructions: Take your medications as prescribed. If you were prescribed antibiotics today, it is important that you take your medication to their entirety, do not skip any doses, do not finish them early. Follow-up with your primary care provider this week. Return to the emergency department with new or worsening symptoms. Such as fevers, chills, chest pain, shortness of breath, nausea, vomiting, dizziness, headache, vision changes, lethargy In case of emergency call 911 Take Mifepristone tablet tomorrow at 6:00 am 24 hours later take 800 mcg of misoprotol vaginally You can expect cramping and bleeding for 4-5 hours. You should be better after noon on Thursday. If significant bleeding occurs > 2 pads per hour you need to seek medical treatment immediately Prescriptions: New misoprostol [Cytotec] 200 mcg tablet 800 mcg vaginal ONCE Qty: 4 0RF Rx Instructions: Use four tabs vaginally 24 hours after mifepristone No Action Eye Allergy Relief 0.025-0.3 % drops 2 drp ophthalmic (eye) QID PRN (Reason: eye irritation) 7 Days Qty: 15 0RF wxegsmppzx-vhvjckfjgwdke-szbd 50-325-40 mg tablet 1 tab PO Q6H PRN (Reason: haeadace) Qty: 20 0RF ferrous sulfate 325 mg (65 mg iron) tablet 325 mg PO DAILY Qty: 90 3RF oxycodone 5 mg Tablet 5 mg PO Q6H PRN (Reason: Pain, Moderate(Pain Scale 4-6)) Qty: 30 0RF Rx Instructions: Partial Fill upon patient request. ibuprofen 800 mg tablet 800 mg PO TID PRN (Reason: pain) 10 Days Qty: 30 0RF ferrous sulfate 325 mg (65 mg iron) tablet 325 mg PO DAILY Qty: 30 0RF omeprazole magnesium [Prilosec OTC] 20 mg tablet,delayed release (DR/EC) 20 mg PO DAILY Qty: 30 0RF Referrals: Physician,None [Primary Care Provider, Medical] Print Language: Citizen [place]
[2025-02-25 10:42] LABS: OBS1 NEGATIVE (NEGATIVE)
[2025-02-25 10:43] LABS: OBS Int Ctl Valid YES
[2025-02-25 10:44] LABS: UPreg QC Valid YES
[2025-02-25 10:49] LABS: Appearance Urine Clear; Glucose Urine UA Negative (Negative); PH 6.5 (5.0-9.0); Specific Gravity - Urine 1.010 (1.005-1.025); UMIC TRIGGER UACC YES
--- NOTE | 2025-02-25 14:49 | P.CONOB_ITS ---
MERCHANDISE COMPLAINT ADJUSTER - CN: HPI Data of Consult Consult date: 02/25/25 Primary Care Provider: None Physician Consult Narrative Narrative: I was consulted on Dapmony Josué is a 39 year old female presenting to the emergency room complaining of headache and feeling tired. The patient gives history pelvic cramping mild spotting/bleeding over the last few days no history of vaginal bleeding changing 1-2 pads a day. LMP unknown The patient gives history of chronic anemia in the emergency room H&H in 09/16 was In the ER the following workup was done: H&H 7.9/24.5 HCG 8230 Blood type A positive Pelvic ultrasound showed the following: Impression: 1. Single intrauterine gestation estimated at 8 weeks 6 days by today's ultrasound criteria. No heart tones. Findings consistent with a failed early intrauterine . 2. Clinical menstrual age not available. cc:: CC: OB [facility] Social History Social History Household Members: Children Housing: Apartment Patient Tobacco Use Status: Never used Tobacco Smoked in Last 30 Days: No Use of substances other than those prescribed or required for medical reasons: No Advance Directives: No Advance Directives Information Provided: Yes service: No Meds Allergies Allergy/AdvReac Type Severity Reaction Status Date / Time No Known Allergies Allergy Verified 02/25/25 08:41 MERCHANDISE COMPLAINT ADJUSTER Physical Exam Vitals Vital signs: Temp Pulse Resp BP Pulse Ox O2 Del Method 98.7 F 70 13 139/83 99 Room Air 02/25/25 10:20 02/25/25 10:20 02/25/25 10:20 02/25/25 10:20 02/25/25 10:20 02/25/25 10:20 BMI result Body Mass Index 23.8 Female Genitalia (Pelvic) Bladder/Urethra: Normal meatus Vulva: No lesions Vagina: Nontender Cervix: Grossly normal Adnexa/Parametria: Adnexal Tenderness: None, Adnexal Mass: None, Parametrial Tenderness: None and Parametrial Mass: None Additional Comments: No cervical motion tenderness no uterine adnexal tenderness Minimal blood per vagina No vaginal bleeding MERCHANDISE COMPLAINT ADJUSTER - Results Labs 02/25/25 09:03 02/25/25 09:03 Labs: Short CBC 02/25/25 Range/Units 09:03 WBC 8.4 (4.8-10.8) X10*3/uL Hgb 7.9 L (12.0-16.0) g/dl Hct 24.5 L (37.0-47.0) % Plt Count 244 (160-400) X10*3/uL BMP 02/25/25 09:03 Sodium 135 Potassium 4.7 D Chloride 107 Carbon Dioxide 21 L BUN 6 L Creatinine 0.52 Calcium 8.9 Liver Function 02/25/25 Range/Units 09:03 Total Bilirubin 0.2 (0.0-1.0) mg/dL AST 32 H (5-31) U/L ALT 13 (0-31) U/L Alkaline Phosphatase 152 H (39-117) U/L Albumin 3.3 L (3.5-5.0) g/dL Urine 02/25/25 Range/Units 10:20 Urine Color Yellow Urine Appearance Clear Urine pH 6.5 (5.0-9.0) Ur Specific [place] 1.010 (1.005-1.025) Urine Protein Negative (Neg-Trace) mg/dL Urine Glucose (UA) Negative (Negative) mg/dL Urine Test POSITIVE H (NEGATIVE) Assessment and Plan (1) Missed : Status: Acute Discussed with the patient options of treatment including expectant management, medical versus surgical options. Explained to the patient that compared to uterine aspiration, medication takes longer to complete, requires more active patient participation, and the process occurs outside of a clinical setting. The uterine aspiration procedure, on the other hand, is slightly more effective, takes place in one visit, and allows for direct assessment of tissue by the clinician. The patient chose to proceed with Misoprostol/Mifepristone. I discussed with her the risk of uterine rupture with Misoprostol, as well as the potential development of congenital abnormalities associated with Misoprostol, including but not limited to scalp or skull defects, cranial nerve palsies (Moebius syndrome), and limb deficiencies (e.g., equinovarus). After choosing medical termination of , I reviewed the steps of the procedure with the patient, and she confirmed her willingness and ability to complete each step. instructions were given to the patient to start with mifepristone 200 mg p.o. followed by 4 tablets of 200 mcg misoprostol for a total of 800 mcg vaginally after 24 hours. Comprehensive counseling about the expected experience, symptoms, recovery, and the possibility of needing a surgical procedure if medication is unsuccessful was provided. Instructions given to patient to call or go to emergency room in case of heavy or persistent vaginal bleeding more than 4 hours after misoprostol intake, pelvic pain, fever of 100.4 to schedule a 2 week follow-up appointment in the office. The patient verbalized understanding signed the agreement. Communication was with online finishing room operator service Bentley Schmidt #[id number] (2) Anemia: Status: Acute Although the patient is not having vaginal bleeding and anemia seems to be chronic in nature since H&H in 09/16 was 1.5/23.5 but since the patient is having a missed and will undergo medical termination of with a small possibility for incomplete leading to suction D&C with possible blood loss, recommended transfuse with 2 units of packed RBC prior to discharge (3) Headache: Status: Acute Plan Will defer the management of the headache to the emergency room team
[2025-02-25 15:12] LABS: Iron 122 mcg/dL (30-160); Percent Iron Saturation 56 % (15-50); Total Iron Binding Capacity 218 mcg/dL (228-428); Unsaturated Iron Binding 96 ug/dL
--- NOTE | 2025-02-25 15:38 | PC.NURSE ---
Dr. Meza at bedside to perform pelvic exam and cervical/vaginal swabs. Using washer engineer Ganga Schmidt ID # [id number] Dr. Meza reviewed options with patient
[2025-02-25 15:46] LABS: MANUAL DIFF FLAG NO
[2025-02-25 15:47] LABS: Hematocrit 23.6 % (37.0-47.0); Hemoglobin 7.8 g/dl (12.0-16.0); Imm Gran Abs Auto 0.03 X10*3/uL (0.00-0.03); Imm Gran Pct Auto 0.4 % (0.0-0.4); Lymphocytes Absolute Auto 2.1 X10*3/uL (1.2-4.9); Mean Corpuscular HGB Conc 33.1 g/dl (31.0-35.0); Mean Corpuscular Hemoglobin 25.2 pg (27.0-33.0); Mean Corpuscular Volume 76.4 fL (80.0-98.0); NRBC Abs Auto 0.000 X10*3/uL (0.0-0.012); NRBC Pct Auto 0.0 /100WBC (0.0-0.2); Platelet Count 257 X10*3/uL (160-400); Red Blood Count 3.09 X10*6/uL (4.20-5.50); White Blood Count 7.9 X10*3/uL (4.8-10.8)
--- NOTE | 2025-02-25 16:30 | PC.NURSE ---
PA/ Dr. Meza extensively reviewed use of mifepristone use with patient. Patient provided with 1 tablet of 200mg pifepristone to take at 6am on 02/26/25 , patient verbalizes she understands how and when to take.
--- NOTE | 2025-02-25 17:31 | PC.NURSE ---
Vaginal specimen collected by
--- NOTE | 2025-02-25 18:11 | PC.NURSE ---
Pt reports headache pain is gone following toradol. Currently tolerating blood transfusion well.
[2025-02-25] MEDS: Butalb/Acetamin/Caff 50/325/40 TABLET 1 TAB PO (23:39)
--- NOTE | 2025-02-25 23:42 | MHC.EDTECH ---
Per RN @2340, Per Provider to draw the labs 30 minuets S/P blood transfusion.
[2025-02-26 00:14] LABS: Hematocrit 30.1 % (37.0-47.0); Hemoglobin 10.2 g/dl (12.0-16.0); Imm Gran Abs Auto 0.03 X10*3/uL (0.00-0.03); Imm Gran Pct Auto 0.4 % (0.0-0.4); Lymphocytes Absolute Auto 2.2 X10*3/uL (1.2-4.9); MANUAL DIFF FLAG NO; Mean Corpuscular HGB Conc 33.9 g/dl (31.0-35.0); Mean Corpuscular Hemoglobin 26.6 pg (27.0-33.0); Mean Corpuscular Volume 78.4 fL (80.0-98.0); NRBC Abs Auto 0.000 X10*3/uL (0.0-0.012); NRBC Pct Auto 0.0 /100WBC (0.0-0.2); Platelet Count 243 X10*3/uL (160-400); Red Blood Count 3.84 X10*6/uL (4.20-5.50); White Blood Count 8.5 X10*3/uL (4.8-10.8)
[2025-02-26 00:52] VITALS: BP 128/79; PULSE 80; RESP 20; TEMP 37
[2025-02-26 01:49] LABS: CT PCR NOT DETECTED (Not Detect.); NG PCR NOT DETECTED (Not Detect.)
== END 2025-02-26 01:26 | disposition home or self-care (01) ==
PROVIDERS: Emergency Medicine; Physician Assistant; Emergency Provider Emergency Medicine
DX: O03.9 Complete or unspecified spontaneous abortion without complication (principal); R51.9 Headache, unspecified; D64.9 Anemia, unspecified
CPT/HCPCS: 36415; 76801; 76817; 80053; 81001; 81025; 82272; 83540; 84702; 85025; 86850; 86900; 86901; 86923; 87491; 87591; 96374; 96375; 99285; J1200; J1885; J2765; P9016

== ENCOUNTER → 2025-02-25 08:48 | Outpatient (BNV) | payer MEDICAID, SELFPAY | PROVIDERS: Emergency Provider Emergency Medicine; Visit Provider Obstetrics & Gynecology | DX: O02.1 Missed abortion (principal); D64.9 Anemia, unspecified; R51.9 Headache, unspecified | CPT/HCPCS: 99283 ==

== ENCOUNTER → 2025-02-25 11:25 | Outpatient (BNV) | payer MEDICAID, SELFPAY | PROVIDERS: Emergency Provider Emergency Medicine; Visit Provider Radiology Diagnostic Radiology | DX: O20.0 Threatened abortion (principal); Z3A.08 8 weeks gestation of pregnancy | CPT/HCPCS: 76801; 76817 ==

== ENCOUNTER 2025-03-24 14:06 | Outpatient (AMB) | payer MEDICAID, SELFPAY ==
--- NOTE | 2025-03-24 14:15 | MHC.OFFVIS ---
Vital Signs 03/24/25 14:21 Height 5 ft 3 in Weight 167 lb BMI 29.6 BP 110/70 Intake Visit Reasons: ER follow up Pediatrics Teacher Required: Yes Pediatrics Teacher Language: Outbound Sales Professional Services: Pediatrics Teacher Present (in person) Pediatrics Teacher Name: Cheyenne GARCIA Information Interpreted: non-clinical & clinical Accompanied by: Self / Same As Patient Allergies No Known Allergies Allergy (Verified 03/24/25 14:23) HPI Comments Details: Presenting for follow-up ER visit on 02/25/2025 where the patient was diagnose with chronic anemia and a missed . After discussing different options of treatment, the patient elected to proceed with medical termination of with misoprostol and mifepristone which was prescribed after which the patient had passage of blood clots and tissues and bleeding with cramping subsided few days after since then the patient has been doing well with no pelvic pain and/or cramping. In addition the patient was diagnose with chronic anemia, her H&H was 7.8/23.6, after 2 units of blood transfusion went up to 10.2/30.1 The patient is a norethindrone 0.35 mg p.o. q.d. [facility] Medical History Migraine Social History Household Members: Children Housing: Apartment Alcohol intake: never Patient Tobacco Use Status: Never used Tobacco service: No Current occupational status: unemployed Sexual orientation: Straight/Heterosexual Gender identity: Female Female Reproductive History Menstrual control method: pills Total pregnancies: 4 Full term: 3 Number of Living Children: 3 Ab spontaneous: 1 Review of Systems Const All systems reviewed & are unremarkable except as noted in HPI and below Reports as per HPI and Reports no additional complaints GI Reports no additional complaints Reports no additional complaints Physical Exam General: Yes no CVA tenderness External Female Exam: normal external appearance and normal appearance of the urethra Speculum Exam - Vagina: normal appearance of the vagina, normal palpation, no lesions and no masses Speculum Exam - Cervix: normal appearance of the cervix, normal palpation, no lesions, no masses and nontender Bimanual exam- vagina & uterus: normal bimanual exam, normal palpation, uterine size normal, normal palpation, uterine shape normal, No Cervical tenderness present and non-tender Bimanual Exam- Adnexa, other: normal adnexae Back/Spine/Pelvis Back: no CVA tenderness Assessment & Plan Assessment & Plan (1) Missed : Comment: Status post medical termination Code(s): O02.1 - Missed Category: Medical Plan: Will order hCG quantitative if not 0 will repeat hCG quantitative and follow it down to 0 (2) Anemia: Code(s): D64.9 - Anemia, unspecified Category: Medical Plan: Will order CBC (3) Family planning: Code(s): Z30.09 - Encounter for other general counseling and advice on contraception Category: Social Hx Plan: Discussed with the patient the different options of control including control pills/Nuvaring, DMPA, different types of IUD ?s ( cu vs progesterone) , sterilization. All the pros, cons, risks and benefits of each were discussed with the patient. The patient decided to go ahead with Mirena IUD, so a more detailed discussion was carried on including mechanism of action, risks (infection, uterine perforation, failure with ectopic , septic AB, ovarian cyst and pelvic pain, increased breast cancer risk and others) benefits (efficient contraceptive method, others), GC/CG were taken and the patient was asked to call day one of next cycle for IUD insertion. Orders: Orders HCG Quantitative Today O02.1 - Missed Complete Blood Count no Diff Today D64.9 - Anemia, unspecified Coding Level of Care Code Est Pt Level 3 (35708) Diagnoses Missed O02.1 Anemia D64.9 Family planning Z30.09
[2025-03-24 14:21] VITALS: BP 110/70; BMI 29.6
--- OUTSIDE RECORDS SUMMARY | 2025-03-24 14:54 | XMS_ITS | Encounter Summary ---
Author Organization [employer] Address [address] [place] [address] [place] [address] Care Team Providers Care Iron Guardrail Installer Name Role Phone Claudia Ferrara CARLA Primary Care Provide r Encounter Details Date Type Department Care Team ([facility] Contact Info) Description 03/15/[address] [facility] ([place], [place] Primary Care [address] [place] [phone] Zoya Matthews MD [address] [place] [phone] Social History Tobacco Use Types Packs/Day Years [...] encounter Miscellaneous Notes * Telephone Encounter - Erin Weiss - 03/15/2025 3:14 PM EDT COOK ISLANDER: Bailee please advise pt referral order for MRI Brain has been scheduled for 03/20/25 at 8:50pm at [facility] [address] [place] [address]. Patient must call to pre register prior to apt at [phone] option 1 Thank you documented in this encounter Plan of Treatment Upcoming Encounters Date Type Department Care Team (Late st Contact Info) Description 04/14/2025 10:00 AM EST Office Visit [facility] ([place], [place] Primary Care [address] [place] [phone] Claudia Ferrara FNP [address] [place] [phone] documented as of this encounter Visit Diagnoses Not on filedocumented in this encounter Care Teams Iron Guardrail Installer Relationship Specialty Start Date End Date Claudia Ferrara FNP [address] [place] [phone] PCP - General Family Medicine 11/20/21 documented as of this encounter
--- OUTSIDE RECORDS SUMMARY | 2025-03-24 14:54 | XMS_ITS | Encounter Summary ---
Author Organization [facility] Address [address] [place] [address] Care Team Providers Care Craft Manager Name Role Phone Diana Moses MD Primary Care Provider [phone]- [phone] Encounter Details Date Type Department Care Team (Late Contact Info) Description 02/09/2025 Results Follow-Up [facility] 5th Floor [address] [place] [address] Tamela Adrian, BONIFACIO [address] [place], [place] [phone] Social History Tobacco Use Types Packs/Day Years [...] Value Date Recorded Sex Assigned at Female 03/02/2025 5:01 PM EDT Legal Sex Female 1:23 PM EDT Gender Identity Female 03/02/2025 5:01 PM EDT Sexual Orientation Not on file documented as of this encounter Plan of Treatment Upcoming Encounters Date Type Department Care Team (Late Contact Info) Description 06/07/2025 8:30 AM EST Lab [facility] ACC Draw Site Fifth Floor [address] [place] [address] 06/07/2025 9:30 AM EST Follow-Up [facility] [address] [place] [address] Melany Baxter NP [address] [place] [address] 10/30/2025 1:45 PM EDT Office Visit [facility] Neurology Clinic [address] [place] [address] Erin Slater MD [address] [place] [phone] documented as of this encounter Visit Diagnoses Not on filedocumented in this encounter Care Teams Craft Manager Relationship Specialty Start Date End Date Diana Moses MD PCP - General Family Medicine 10/12/22 documented as of this encounter
--- OUTSIDE RECORDS SUMMARY | 2025-03-24 14:54 | XMS_ITS | Encounter Summary ---
Author Organization [employer] Address [address] [facility] 7t [place] [address] Care Team Providers Care Rib Chopper Name Role Phone Claudia Ferrara CARLA Primary Care Provide r Encounter Details Date Type Department Care Team ([facility] Contact Info) Description 03/22/2025 Telephone [facility] [place] [address] [place] [phone] Frances Steve RN Social History Tobacco Use Types Packs/Day Years [...] encounter Miscellaneous Notes * Telephone Encounter - Frances Steve RN - 03/22/2025 1:37 PM EDT Returning call. [place] Ku [place] [id number] from [employer]. Name/ verified. Patient reports she has been experiencing vaginal bleeding since 12/23 after having a miscarriage. Patient reports she started OCP on 03/10 and she takes the medication every day. She has used 2 sanitary pads in the last 12 hours. Offered same day appointment for today, but patient declined. [place] . Patient states that she prefer to wait to see her PCP on 04/14/25. Clientadded : I did not remember that appointment . Patient was advised to call the clinic back for anyquestions, concerns or to book an appointment. Client expressed agreement with plan and declined additional questions. documented in this encounter Plan of Treatment Upcoming Encounters Date Type Department Care Team (Late st Contact Info) Description 04/14/2025 10:00 AM EST Office Visit [facility] Primary Care [address] [place] [phone] Claudia Ferrara FNP [address] [place] [phone] documented as of this encounter Visit Diagnoses Not on filedocumented in this encounter Care Teams Rib Chopper Relationship Specialty Start Date End Date Claudia Ferrara FNP [address] [place] [phone] PCP - General Family Medicine 11/20/21 documented as of this encounter
--- OUTSIDE RECORDS SUMMARY | 2025-03-24 14:54 | XMS_ITS | Encounter Summary ---
Author Organization [employer] Address [address] [place] [address] 7 [place] [address] Care Team Providers Care Combination Welder Apprentice Name Role Phone Claudia Ferrara CARLA Primary Care Provide r Encounter Details Date Type Department Care Team ([facility] Contact Info) Description 03/24/2025 Results Follow-Up [facility] Primary Care [address] [place] [phone] Zoya Matthews MD [address] [place] [phone] MR Brain w/o Contrast Social History Tobacco Use Types Packs/Day Years [...] Description 04/14/2025 10:00 AM EST Office Visit [facility] Primary Care [address] [place] [phone] Claudia Ferrara FNP [address] [place] [phone] documented as of this encounter Visit Diagnoses Not on filedocumented in this encounter Care Teams Combination Welder Apprentice Relationship Specialty Start Date End Date Claudia Ferrara FNP [address] [place] [phone] PCP - General Family Medicine 11/20/21 documented as of this encounter
--- OUTSIDE RECORDS SUMMARY | 2025-03-24 14:54 | XMS_ITS | Encounter Summary ---
Author Organization [facility] Address [address] [place] [address] Care Team Providers Care Music Engraver Name Role Phone Diana Moses MD Primary Care Provider [phone]- [phone] Reason for Referral * Consultation (Urgent) - Pending Review Specialty Diagnoses / Procedures Referred By Aparna liu Referred To Contact Oncology Diagnoses Iron deficiency anemia, unspecified iron deficiency anemia type Claudia Ferrara NP [address] [place] [phone] Phone: tel: fax: [facility] 5th Floor [address] [place] [phone] Phone: tel: fax: Referral ID Status Reason Start Date Expiration Date Visits Requested Visits Authorized [id number] Pending Review Specialty Services Required 12/23/2024 01/23/2026 6 6 Encounter Details Date Type Department Care Team (Late st Contact Info) Description 12/23/2024 Community Orders [facility] EpicCare Link [address] [place] [address] Claudia Ferrara NP [address] [place] [phone] Iron deficiency anemia, unspecified iron deficiency [...] Care Team (Late st Contact Info) Description 06/07/2025 8:30 AM EST Lab [facility] Draw Site Fifth Floor [address] [place] [address] 06/07/2025 9:30 AM EST Follow-Up [facility] Clinic [address] [place] [address] Melany Baxter NP [address] [place] [address] 10/30/2025 1:45 PM EDT Office Visit [facility] Neurology Clinic [address] [place] [phone] Erin Slater MD [address] [place] [address] [place] [address] Scheduled Referrals Name Type Priority Associated Diagnoses Orde r Schedule Ambulatory referral to Hematology / Oncology Outpatient Referral Routine Iron deficiency anemia, unspecified iron deficiency anemia type Expected: 12/23/2024, Expires: 01/23/2026 documented as of this encounter Visit Diagnoses Diagnosis Iron deficiency anemia, unspecified iron deficiency anemia type- Primary documented in this encounter Care Teams Music Engraver Relationship Specialty Start Date End Date Diana Moses MD PCP - General Family Medicine 10/12/22 documented as of this encounter
--- OUTSIDE RECORDS SUMMARY | 2025-03-24 14:54 | XMS_ITS | Encounter Summary ---
Author Organization [employer] Address [address] [place] [address] [place] [address] Care Team Providers Care Circular Saw Edge Fuser Name Role Phone Claudia Ferrara Primary Care Provide r Reason for Visit * Reason Onset Date Comments Nurse Triage 03/22/2025 Encounter Details Date Type Department Care Team ([facility] Contact Info) Description 03/22/2025 Telephone [facility] Primary Care [address] [place] [phone] Claudia Ferrara FNP [address] [place] [phone] Nurse Triage Social History Tobacco Use Types Packs/Day Years [...] encounter Miscellaneous Notes * Telephone Encounter - Priscilla Aguiar MA - 03/22/2025 1:26 PM EDT patient called with concern about bleeding that has been ongoing since 12/23 and has not stopped. The amount is moderate--she only fills one or two pads--but it is not heavy. There is no pain, no clots, no fever, but there is a foul odor. documented in this encounter Plan of Treatment Upcoming Encounters Date Type Department Care Team (Late st Contact Info) Description 04/14/2025 10:00 AM EST Office Visit [facility] Primary Care [address] [place] [phone] Claudia Ferrara FNP [address] [place] [phone] documented as of this encounter Visit Diagnoses Not on filedocumented in this encounter Care Teams Circular Saw Edge Fuser Relationship Specialty Start Date End Date Claudia Ferrara FNP [address] [place] [phone] PCP - General Family Medicine 11/20/21 documented as of this encounter
--- OUTSIDE RECORDS SUMMARY | 2025-03-24 14:54 | XMS_ITS | Clinical Summary ---
Author Organization [facility] Address [address] [place] [address] Care Team Providers Care Chief Station Engineer Name Role Phone Diana Moses MD Primary Care Provider [phone] Allergies No known active allergies Medications Vitamin 27 mg iron- 0.8 mg tablet SMARTSI Tablet(s) By Mouth Daily 10/01/19 23 Active Heartburn Relief, famotidine, 10 mg tablet SMARTSI Tablet(s) By Mouth Daily PRN 10/01/19 23 Active blood pressure test kit-large kit See admin instructions. 10/07/19 23 Active acetaminophen (TYLENOL) 325 mg tablet Take 2 tablets (650 mg total) by mouth every 4 hours as needed for pain. 28 tablet 10/13/19 23 Active ibuprofen (MOTRIN) 600 mg tablet Take 1 tablet (600 mg total) by mouth every 6 hours as needed for pain. 28 tablet 10/13/19 23 Active Additional Information Patient not taking.Reported on 03/07/2025 ascorbic acid 500 mg tablet SMARTSI Tablet(s) By Mouth Daily 12/22/19 25 Active ferrous sulfate 325 mg (65 mg iron) EC tablet Take 325 mg by mouth daily. 12/21/19 25 026 Active senna (SENOKOT) 8.6 mg tabletIndication s:Iron deficiency anemia, unspecified iron deficiency anemia type,Other constipation Take 1 tablet (8.6 mg total) by mouth once a day. 30 tablet 03/07/20 25 025 Active bisacodyL (DULCOLAX) 10 mg suppository Insert 1 suppository (10 mg total) into the rectum once for 1 dose. 1 suppository 03/07/20 25 025 Active Problems Problem Noted Date Diagnosed Date [...] Encounters Date Type Department Care Team Description 03/07/2025 11:00 AM EDT Infusion [facility] [address] [place] [address] 03/07/2025 9:40 AM EDT Follow-Up [facility] [address] [place] [address] Tamela Adrian, BONIFACIO Iron deficiency anemia, unspecified iron deficiency anemia type (Primary Dx); Other constipation; Hx of viral meningitis; Bad headache 03/07/2025 8:40 AM EDT Lab [facility] ACC Draw Site Fifth Floor [address] [place] [address] Iron deficiency anemia, unspecified iron deficiency anemia type 03/02/2025 4:57 PM EDT - 03/02/2025 9:51 PM EDT Emergency [facility] Emergency Department [address] [place] [address] Discharge Disposition: Left Without Being Seen (07) 02/20/2025 8:15 AM EDT Infusion [facility] Infusion Clinic [address] [place] [address] Radha Landeros RN Iron deficiency anemia, unspecified iron deficiency anemia type (Primary Dx) 02/09/2025 Results Follow-Up [facility] Cancer [facility] 5th Floor [address] [place] [address] Tamela Adrian NP 02/07/2025 Patient Outreach [facility] Cancer [facility] 5th Floor [address] [place] [address] Jada Hsu RN 02/07/2025 Telephone [facility] Neurology Clinic [address] [place] [address] Telephone Intake, Staff 02/03/2025 Orders Only [facility] BMT [address] [address] Melany Baxter NP Iron deficiency anemia, unspecified iron deficiency anemia type (Primary Dx) 02/02/2025 1:00 PM EDT Office Visit [facility] BMT [address] [address] Melany Baxter NP Anemia, unspecified type (Primary Dx); Hx of viral meningitis; Bad headache 12/23/2024 Telephone [facility] Cancer [facility] [address] [place] [address] [address] [place] [address] Telephone Intake, Staff PAC Appt Request - New 12/23/2024 Community Orders [facility] EpicCare Link [address] [place] [address] Claudia Ferrara NP Iron deficiency anemia, unspecified [...] Last Year Not on file 10/09/2022 Comments Unknown Sex and Gender Information Value Date Recorded Sex Assigned at Female 03/02/2025 5:01 PM EDT Legal Sex Female 1:23 PM EDT Gender Identity Female 03/02/2025 5:01 PM EDT Sexual Orientation Not on file Last Filed Vital Signs Vital Sign Reading Time Taken Comments Blood Pressure 99/68 03/07/2025 9:25 AM EDT Pulse 79 03/07/2025 9:25 AM EDT Temperature 36.6 C (97.9 F) 03/07/2025 9:25 AM EDT Respiratory Rate 16 03/07/2025 9:25 AM EDT Oxygen Saturation 98% 03/07/2025 9:25 AM EDT Inhaled Oxygen Concentration - - Weight 70.4 kg (155 lb 3.3 oz) 03/07/2025 9:25 A M EDT Height 157.5 cm (5' 2.01 ) 02/02/2025 12:12 PM E DT Body Mass Index 28.38 02/02/2025 12:12 PM EDT Plan of Treatment Upcoming Encounters Date Type Department Care Team (Late st Contact Info) Description 06/07/2025 8:30 AM EST Lab [facility] ACC Draw Site Fifth Floor [address] [place] [address] 06/07/2025 9:30 AM EST Follow-Up [facility] [address] [place] [address] Melany Baxter NP [address] [place] [address] 10/30/2025 1:45 PM EDT Office Visit [facility] Neurology [facility] [address] [place] [address] Erin Slater MD [address] [facility] [place] [address] Health Maintenance Due Date Last Done Comments HPV and Pap Smear 1987 Varicella Vaccines (1 of 2 - 13+ 2-dose series) 12/26/2000 Hepatitis B Vaccines (1 of 3 - 19+ 3-dose series) 12/26/2006 DTaP,Tdap,and Td Vaccines (1 - Tdap) 12/26/2009 Alcohol/Substance Use Screening 05/25/2024 Depression Screening and Follow-Up 05/25/2024 Instilling Values of Health Annual Screening 05/25/2024 COVID-19 Vaccine (5 - 2024- season) 2025 09/24/2022, 06/17/2022, 05/20/2022, Additional history exists Influenza Vaccine (#1) 2025 Cervical Cancer Screening 01/26/2027 Pap Smear 01/26/2027 01/27/2024 Diabetes Screening 03/02/2028 03/02/2025, 0 02/02/2025, 10/10/2022, Additional history exists RSV Vaccine (60+ years old and patients) (1 - 1-dose 75+ series) 12/26/2062 HIV Screening Completed 10/09/2022 Hepatitis C Screening Completed 10/09/2022 Pneumococcal Vaccine: Pediatric (0-5 Years) and At-Risk Patients (6-50 Years) Aged Out No longer eligible based on patient's age to complete this topic Procedures * Due to [place] state law, this organization might not be sharing negative HIV tests. Procedure Name Priority Date/Time Associated Diagnosis Comments SMEAR REVIEW STAT 03/07/2025 8:59 AM EDT Iron deficiency anemia, unspecified iron deficiency anemia type FERRITIN Routine 03/07/2025 8:59 AM EDT Iron deficiency anemia, unspecified iron deficiency anemia type IRON SATURATION Routine 03/07/2025 8:59 AM EDT Iron deficiency anemia, unspecified iron deficiency anemia type CBC AUTO DIFFERENTIAL STAT 03/07/2025 8:59 AM EDT Iron deficiency anemia, unspecified iron deficiency anemia type IRON, TIBC AND FERRITIN PANEL (5616) Routine 03/07/2025 8:59 AM EDT Iron deficiency anemia, unspecified iron deficiency anemia type HCG, QUANTITATIVE, STAT Add-on 03/02/2025 5:20 PM EDT BLOOD BANK HOLD TUBE Routine 03/02/2025 5:20 PM EDT RAINBOW DRAW Routine 03/02/2025 5:20 PM EDT BASIC METABOLIC PANEL STAT 03/02/2025 5:20 PM EDT CBC AUTO DIFFERENTIAL STAT 03/02/2025 5:20 PM EDT FOLATE Routine 02/02/2025 1:35 PM EDT Anemia, [...] to Health Maintenance Results * Due to [place] state law, this organization might not be sharing negative HIV tests. * (ABNORMAL) Smear Review (03/07/2025 8:59 AM EDT) Platelet Estimate Adequate Adequate 03/07/2025 9:48 AM EDT [facility] RBC Morphology Present(A) Normal, No clinically significant RBC morphology present (ICSH guidelines, 2015). 03/07/2025 9:48 AM EDT [facility] Anisocytosis 2+(A) Not Present 03/07/2025 9:48 AM EDT [facility] Blood Structure of peripheral vein / Unknown Venipuncture / Unknown 03/07/2025 8:59 AM EDT 03/07/2025 9:10 AM EDT Melany Baxter NP LAB BLOOD ORDERABLES Final Result [facility] [address] [place] [address], * (ABNORMAL) Iron Saturation (03/07/2025 8:59 AM EDT) Only the most recent of2 resultswithin the time period is included. Pathologist [facility] Iron Saturation 19(L) 20 - 50 % 9:56 AM EDT [facility] Iron 36 30 - 160 ug/dL 03/07/2025 9:56 AM EDT [facility] LAB[facility] Transferrin 153(L) 200 - 360 mg/dL 03/07/2025 9:56 AM EDT [facility] [employer] CL[facility]ICAL [facility]OLOGY LABORATORY Total Iron Binding Capacity 191(L) 255 - 450 ug/dL 03/07/2025 9:56 AM EDT [facility] Blood Structure of peripheral vein / Unknown Venipuncture / Unknown 03/07/2025 8:59 AM EDT 03/07/2025 9:13 AM EDT Melany Baxter MANAGER LIFE LAB BLOOD ORDERABLES Final Result [facility] LABORATORY [address] [place] [address], * (ABNORMAL) CBC Auto Differential (Once) (03/07/2025 8:59 AM EDT) Only the most recent of3 resultswithin the time period is included. Pathologist [facility] WBC 8.6 3.8 - 10.8 10*3/uL 03/07/2025 9:48 AM EDT [facility] RBC 4.12 3.80 - 5.10 10*6/uL 03/07/2025 9:48 AM EDT [facility] [employer] CLINICAL PATHOLOGY LABORATORY Hemoglobin 10.7(L) 11.7 - 15.5 g/dL 03/07/2025 9:48 AM EDT [facility] [employer] CLINICAL PATHOLOGY LABORATORY Hematocrit 33.5(L) 35.0 - 45.0 % 03/07/2025 9:48 AM EDT [facility] MCV 81.3 80.0 - 100.0 fL 03/07/2025 9:48 AM EDT [facility] MCH 26.0(L) 27.0 - 33.0 pg 03/07/2025 9:48 AM EDT [facility] MCHC 31.9(L) 32.0 - 36.0 g/dL 03/07/2025 9:48 AM EDT [facility] RDW 16.7(H) 11.0 - 15.0 % 03/07/2025 9:48 AM EDT [facility] Platelets 259 140 - 400 10*3/uL 03/07/2025 9:48 AM EDT [facility] MPV 10.7 7.5 - 12.5 fL 03/07/2025 9:48 AM EDT [facility] Neutrophil % 68.6 % 03/07/2025 9:48 AM EDT [facility] Immature Grans % 0.2 0.0 - 0.9 % 03/07/2025 9:48 AM EDT [facility] Lymphocyte % 20.4 % 03/07/2025 9:48 AM EDT [facility] Monocyte % 9.3 % 03/07/2025 9:48 AM EDT [facility] Eosinophil % 1.2 % 03/07/2025 9:48 AM EDT [facility] Basophil % 0.3 % 03/07/2025 9:48 AM EDT [facility] Neutrophil # 5.91 1.50 - 7.80 10*3/uL 03/07/2025 9:48 AM EDT [facility] Immature Grans # <0.03 <=0.03 10*3/uL 03/07/2025 9:48 AM EDT [facility] [employer] CLINICAL PATHOLOGY LABORATORY Lymphocyte # 1.80 0.85 - 3.90 10*3/uL 03/07/2025 9:48 AM EDT [facility] CLINICAL PATHOLOGY LABORATORY Monocyte # 0.80 0.20 - 0.95 10*3/uL 03/07/2025 9:48 AM EDT [facility] CL[facility] PATHOLOGY LABORATORY Eosinophil # 0.10 0.02 - 0.50 10*3/uL 03/07/2025 9:48 AM EDT [facility] CL[facility]ICAL PATHOLOGY LABORATORY Basophil # <0.03 0.00 - 0.20 10*3/uL 03/07/2025 9:48 AM EDT [facility] PATHOLOG[facility] LAB[facility] nRBC % 0.0 /100 WBCs 03/07/2025 9:48 AM EDT [facility] PATHOLOG[facility] LAB[facility] nRBC # <0.01 <0.01 10*3/uL 03/07/2025 9:48 AM EDT [facility] PATHOLOG[facility] LAB[facility]AT[facility] Total Neutrophil #, Preliminary 5.91 1.50 - 7.80 10*3/uL 03/07/2025 9:48 AM EDT [facility] [employer] CLINICAL PATHOLOGY LABORATORY Comment:This ANC is prelimin fatoumata and may change. It is based on a white cell differential from an automated cell counter, and has not been reviewed microscopically for the presence of abnormal cells. Blood Structure of peripheral vein / Unknown Venipuncture / Unknown 03/07/2025 8:59 AM EDT 03/07/2025 9:10 AM EDT us Melany Baxter NP LAB BLOOD ORDERABLES Final Result [facility] [employer] CL[facility]ICAL PATHOLOGY LABORATORY [address] [place] [address], * (ABNORMAL) Ferritin (03/07/2025 8:59 AM EDT) Only the most recent of2 resultswithin the time period is included. Ferritin 1,557.0(H) 11.0 - 306.0 ng/mL 03/07/2025 9:56 AM EDT [facility] CL[facility]ICAL PATHOLOGY LABORATORY Blood Structure of peripheral vein / Unknown Venipuncture / Unknown 03/07/2025 8:59 AM EDT 03/07/2025 9:13 AM EDT Melany Baxter NP LAB BLOOD ORDERABLES Final Result Performing Organization Address City/[facility]/ZIP Co de Phone Number [facility] CLINICAL PATHOLOGY LABORATORY [address] [place] [address], * Blood Bank Hold Tube (03/02/2025 5:20 PM EDT) Extra Tube Hold for add-ons. [facility] 03/02/2025 10:05 PM EDT [facility] Comment:Auto resulted. Blood Structure of peripheral vein / Unknown Venipuncture / Unknown 03/02/2025 5:20 PM EDT 03/02/2025 5:28 PM EDT Protocol Mem Treatment MD LAB BLOOD BANK TEST OR DERABLES Final Result Performing Organization Address [facility] Co de Phone Number [facility] [address] [phone] * (ABNORMAL) hCG, Quantitative, (03/02/2025 5:20 PM EDT) HCG Quantitative 2,854.0(H ) <=4.9 mIU/mL 03/02/2025 6:16 PM EDT [facility] CLINICAL PATHOLOGY LABORATORY Comment: hCG >= 5.0 mIU/mL is generally indicative of . Post menopausal ref range < 8.2 mIU/mL Medical Billing And Coding Specialist hCG ranges during normal . Approximate Gestational age Approximate hCG range (Post conception weeks) mIU/mL 3 5.4-72 4 10.2-708 5 217-8,245 6 152-32,177 7 4,059-153,767 8 31,366-149,094 9 59,109-135,901 10 44,186-170,409 12 27,107-201,615 Blood Structure of peripheral vein / Unknown Venipuncture / Unknown 03/02/2025 5:20 PM EDT 03/02/2025 5:26 PM EDT us Protocol Mem Treatment LAB BLOOD ORDERABLES F inal Result [facility] CL[facility]ICAL PATHOLOGY LABORATORY [address] [place] [address], * (ABNORMAL) Basic Metabolic Panel (03/02/2025 5:20 PM EDT) NA 135 135 - 145 mmol/L 03/02/2025 6:16 PM EDT [facility] PATHOLOG[facility] LAB[facility] K 4.0 3.5 - 5.3 mmol/L 03/02/2025 6:16 PM EDT [facility] LAB[facility] Cl 103 97 - 110 mmol/L 03/02/2025 6:16 PM EDT [facility] LAB[facility] CO2 21(L) 22 - 32 mmol/L 03/02/2025 6:16 PM EDT [facility] LAB[facility] BUN 10 7 - 23 mg/dL 03/02/2025 6:16 PM EDT [facility] PATHOLOGY LABORATORY Creatinine 0.51 0.50 - 1.20 mg/dL 03/02/2025 6:16 PM EDT [facility] PATHOLOGY LABORATORY Glucose 116(H) 65 - 99 mg/dL 03/02/2025 6:16 PM EDT [facility] CL[facility] PATHOLOG[facility] LAB[facility] Calcium 8.8 8.6 - 10.5 mg/dL 03/02/2025 6:16 PM EDT [facility] PATH[facility] LAB[facility] Anion Gap 11 5 - 15 03/02/2025 6:16 PM EDT [facility] PATHOLOGY LABOR[facility] eGFR >90 >=60 mL/min/1. 73m2 03/02/2025 6:16 PM EDT [facility] PATH[facility] LAB[facility] Comment:The estimated glomer ular filtration rate (eGFR) is calculated using a new formula developed by the NKF-ASN task force to eliminate race-based correction factors. The new formula uses serum/plasma creatinine, age, and gender to determine eGFR. A value below 60mls/min might indicate kidney disease and will be flagged. For additional information, see Paz castillo al, Am J Kidney Dis. 2021;79(2):268- 288, A Unifying Approach for GFR estimation: Recommendations of the NKF-ASN Task Force on Reassessing the Inclusion of Race in Diagnosing Kidney Disease . Blood Structure of peripheral vein / Unknown Venipuncture / Unknown 03/02/2025 5:20 PM EDT 03/02/2025 5:26 PM EDT us Protocol Mem Treatment LAB BLOOD ORDERABLES F inal Result [facility] PATHOLOG[facility] LABORATORY [address] [place] [address], * (ABNORMAL) Celiac Diagnostic Panel w/Gliadin, All Ages (Includes: IgA, tTG IgA/IgG and Giadin IgA/IgG) (02/02/2025 1:35 PM EDT) Tissue Transglutaminase Ab, IgG <1.0 U/mL 02/09/2025 4:30 PM EDT [facility] Comment: Value Interpretation ----- <15.0 Antibody not detected > or = 15.0 Antibody detected Tissue Transglutaminase Ab, IgA <1.0 U/mL 02/09/2025 4:30 PM EDT [facility] Comment: Value Interpretation ----- <15.0 Antibody not detected > or = 15.0 Antibody detected Gliadin Ab IgA <1.0 U/mL 02/09/2025 4:30 PM EDT [facility] Comment: Value Interpretation ----- <15.0 Antibody not detected > or = 15.0 Antibody detected Gliadin Ab IgG <1.0 U/mL 02/09/2025 4:30 PM EDT [facility] Comment: Value Interpretation ----- <15.0 Antibody not detected > or = 15.0 Antibody detected Immunoglobulin A 534(H) 47 - 310 mg/dL 02/09/2025 4:30 PM EDT [facility] Blood Structure of peripheral vein / Unknown Venipuncture / Unknown 02/02/2025 1:35 PM EDT 02/02/2025 2:03 PM EDT Narrative [facility] - 02/09/2025 4:30 PM EDT [facility] Received Date: Melany Baxter NP LAB BLOOD ORDERABLES Final Result [facility] [address] [facility] 3rd Floor, [place] [address], [facility] [address], [place] [address], * (ABNORMAL) Protein Electrophoresis w/Reflex to Immunofixation, Serum (02/02/2025 1:35 PM EDT) Protein, Total 7.8 6.1 - 8.1 g/dL 02/03/2025 9:28 PM EDT [facility] Albumin 3.0(L) 3.8 - 4.8 g/dL 02/03/2025 9:28 PM EDT [facility] Alpha 1 Globulin 0.4(H) 0.2 - 0.3 g/dL 02/03/2025 9:28 PM EDT [facility] Alpha 2 Globulin 1.0(H) 0.5 - 0.9 g/dL 02/03/2025 9:28 PM EDT [facility] Beta 1 Globulin 0.4 0.4 - 0.6 g/dL 02/03/2025 9:28 PM EDT [facility] Beta 2 Globulin 0.7(H) 0.2 - 0.5 g/dL 02/03/2025 9:28 PM EDT [facility] Gamma Globulin 2.4(H) 0.8 - 1.7 g/dL 02/03/2025 9:28 PM EDT [facility] Interpretation See Comments 02/03/2025 9:28 PM EDT [facility] Comment: Consistent with a chronic inflammatory pattern Blood Structure of peripheral vein / Unknown Venipuncture / Unknown 02/02/2025 1:35 PM EDT 02/02/2025 2:04 PM EDT Narrative [facility] - 02/03/2025 9:28 PM EDT [facility] Received Date: Melany Baxter NP LAB BLOOD ORDERABLES Final Result [facility] [address] [facility] 3rd Floor, [place] [address], [place] [phone] [facility] [address] [facility] 3rd Floor, [place] [address], * (ABNORMAL) Hemoglobin Electrophoresis (02/02/2025 1:35 PM EDT) [facility] Red Blood Cell Count 3.34(L) 3.80 - 5.10 Mill/uL 02/05/2025 4:55 AM EDT [facility] ([facility] Hemoglobin 8.1(L) 11.7 - 15.5 g/dL 02/05/2025 4:55 AM EDT [facility] Comment: Hematocrit Hematocrit 27.1(L) 35.0 - 45.0 % 02/05/2025 4:55 AM EDT [facility] MCV 81.1 80.0 - 100.0 fL 02/05/2025 4:55 AM EDT [facility] ([facility]) MCH 24.3(L) 27.0 - 33.0 pg 02/05/2025 4:55 AM EDT [facility] ([facility]) RDW 16.1(H) 11.0 - 15.0 % 02/05/2025 4:55 AM EDT [facility] Hemoglobin A 97.4 >96.0 % 02/05/2025 4:55 AM EDT [facility] ([facility]) Hemoglobin F 0.0 <2.0 % 02/05/2025 4:55 AM EDT [facility] ([facility]) Hemoglobin A2 2.6 2.0 - 3.2 % 02/05/2025 4:55 AM EDT [facility] ([facility]) Hemoglobinopath Interpretation See Comments 02/05/2025 4:55 AM EDT [facility] Comment: NORMAL PATTERN LOW MCV/MCH, R/O IRON [...] clinically indicated, Thalassemia and Hemoglobinopathy [place] ([place] [address]) should be considered. Blood Structure of peripheral vein / Unknown Venipuncture / Unknown 02/02/2025 1:35 PM EDT 02/02/2025 1:56 PM EDT Narrative [facility]) - 02/05/2025 4:55 AM EDT [facility] Received Date: us Melany Baxter NP LAB BLOOD ORDERABLES Final Result [facility]) [address] [place], [place] , [place] * (ABNORMAL) Sedimentation Rate (02/02/2025 1:35 PM EDT) Sed Rate 86(H) <20 mm/Hr mm/Hr 02/02/2025 2:10 PM EDT [facility] [employer] CLINICAL PATHOLOGY LABORATORY Blood Structure of peripheral vein / Unknown Venipuncture / Unknown 02/02/2025 1:35 PM EDT 02/02/2025 1:56 PM EDT Melany Baxter MANAGER LIFE LAB BLOOD ORDERABLES Final Result [facility] CLINICAL PATHOLOGY LABORATORY [address] [place] [address], * Reticulocytes (02/02/2025 1:35 PM EDT) Pathologist [facility] Retic % 1.5 0.5 - 1.6 % 02/02/2025 2:11 PM EDT [facility] Retic # 0.05 0.02 - 0.08 10*6/uL 02/02/2025 2:11 PM EDT [facility] CLINICAL PATHOLOG[facility] LABORATORY Blood Structure of peripheral vein / Unknown Venipuncture / Unknown 02/02/2025 1:35 PM EDT 02/02/2025 1:56 PM EDT Melany Baxter NP LAB BLOOD ORDERABLES Final Result Performing Organization Address City/[facility]/ZIP Co de Phone Number [facility] CLINICAL PATHOLOGY LABORATORY [address] [place] [address], * Direct Antiglobulin Test (02/02/2025 1:35 PM EDT) Pathologist [facility] Direct Antiglobulin Test Negative 02/02/2025 2:50 PM EDT [facility]LO[facility]ANK INFCE Blood Structure of peripheral vein / Unknown Venipuncture / Unknown 02/02/2025 1:35 PM EDT 02/02/2025 2:31 PM EDT Melany Baxter MANAGER LIFE LAB BLOOD BANK TEST ORDERAB LES Final Result [facility] [address] [place] [address], * (ABNORMAL) C-Reactive Protein (02/02/2025 1:35 PM EDT) Pathologist [facility] C Reactive Protein 39.6(H) <=9.9 mg/L 02/02/2025 2:49 PM EDT [facility] Blood Structure of peripheral vein / Unknown Venipuncture / Unknown 02/02/2025 1:35 PM EDT 02/02/2025 2:04 PM EDT Melany Baxter MANAGER LIFE LAB BLOOD ORDERABLES Final Result Performing Organization Address City/[facility]/ZIP Co de Phone Number [facility] CL[facility] PATH[facility] LABORATORY [address] [place] [address], [place] * DONIS Specific Antibody w/Reflex to Graves (02/02/2025 1:35 PM EDT) DONIS Screen, Immunoassay NEGATIVE NEGATIVE 02/03/2025 3:36 PM EDT [facility] Comment: A negative DONIS Multiplex indicates the absence of detectable antibodies to component analytes consisting of double stranded DNA (dsDNA), chromatin, ribonucleoprotein (REFINERY OPERATOR HEL[employer] CRUDE UNIT), Francois/REFINERY OPERATOR HEL[employer]UDE UNIT (Sm/REFINERY OPERATOR HEL[employer] CRUDE UNIT), Francois (Sm), SS-A, SS-B, Linda-1, centromere B, Scl-70 and ribosomal P. A negative result should be interpreted in the context of the clinical and laboratory findings and does not rule out autoimmune disease characterized by other autoantibody specificities such as rheumatoid arthritis, autoimmune hepatitis, primary biliary cirrhosis, autoimmune thyroiditis, Henri's disease, pernicious anemia, autoimmune neuropathies, vasculitis, celiac disease, and bullous disease. For additional information, please refer to http://[email or web address]/faq/[email or web address] (This link is being provided for informational/ educational purposes only.) Blood Structure of peripheral vein / Unknown Venipuncture / Unknown 02/02/2025 1:35 PM EDT 02/02/2025 2:04 PM EDT Narrative [facility] - 02/03/2025 3:36 PM EDT [facility] Received Date:[id number] Melany Baxter NP LAB BLOOD ORDERABLES Final Result [facility] [address] [place] [address] 3rd Floor, [place] [address], [place] [phone] [facility] [address] [facility] 3rd Floor, [place] [address], [place] [phone] * (ABNORMAL) Haptoglobin (02/02/2025 1:35 PM EDT) Haptoglobin 287(H) 43 - 212 mg/dL 02/02/2025 8:23 PM EDT [facility] Blood Structure of peripheral vein / Unknown Venipuncture / Unknown 02/02/2025 1:35 PM EDT 02/02/2025 2:04 PM EDT Narrative [facility] - 02/02/2025 8:23 PM EDT [facility] Received Date:[id number] Melany Baxter NP LAB BLOOD ORDERABLES Final Result [facility] [address] [facility] [address] [facility], [place] [address], [place] [phone] [employer] [facility] [address], [place] [address], [place] [phone] * Folate (02/02/2025 1:35 PM EDT) Pathologist [facility] Folate 20.6 4.8 - 24.2 ng/mL 02/02/2025 3:21 PM EDT [facility] Blood Structure of peripheral vein / Unknown Venipuncture / Unknown 02/02/2025 1:35 PM EDT 02/02/2025 2:04 PM EDT us Melany Baxter MANAGER LIFE LAB BLOOD ORDERABLES Final Result [facility] [address] [place] [address], [place] * Vitamin B12 (02/02/2025 1:35 PM EDT) Vitamin B12 755 232 - 1,245 pg/mL 02/02/2025 2:53 PM EDT [facility] Blood Structure of peripheral vein / Unknown Venipuncture / Unknown 02/02/2025 1:35 PM EDT 02/02/2025 2:04 PM EDT us Melany Baxter MANAGER LIFE LAB BLOOD ORDERABLES Final Result [facility] [address] [place] [address], * (ABNORMAL) Comprehensive Metabolic Panel (Once) (02/02/2025 1:35 PM EDT) NA 133(L) 135 - 145 mmol/L 02/02/2025 2:49 PM EDT [facility] K 3.8 3.5 - 5.3 mmol/L 02/02/2025 2:49 PM EDT [facility] Cl 102 98 - 107 mmol/L 02/02/2025 2:49 PM EDT [facility] CO2 20(L) 22 - 32 mmol/L 02/02/2025 2:49 PM EDT [facility] Anion Gap 11 5 - 15 02/02/2025 2:49 PM EDT [facility] Glucose 92 65 - 99 mg/dL 02/02/2025 2:49 PM EDT [facility] Creatinine 0.53 0.50 - 1.20 mg/dL 02/02/2025 2:49 PM EDT [facility] Calcium 9.0 8.6 - 10.5 mg/dL 02/02/2025 2:49 PM EDT [facility] Total Protein 8.5(H) 6.0 - 8.0 g/dL 02/02/2025 2:49 PM EDT [facility] Albumin 3.3(L) 3.5 - 5.2 g/dL 02/02/2025 2:49 PM EDT [facility] Bilirubin, Total 0.5 0.2 - 1.2 mg/dL 02/02/2025 2:49 PM EDT [facility] Alkaline Phosphatase 123 35 - 129 U/L 02/02/2025 2:49 PM EDT [facility] AST 16 10 - 40 U/L 02/02/2025 2:49 PM EDT [facility] ALT 20 10 - 40 U/L 02/02/2025 2:49 PM EDT [facility] BUN 9 7 - 23 mg/dL 02/02/2025 2:49 PM EDT [facility] eGFR >90 >=60 mL/min/1. 73m2 02/02/2025 2:49 PM EDT [facility] Comment:The estimated glomer ular [...] - 4.2 g/dL 02/02/2025 2:49 PM EDT [facility] A/G Ratio 0.6(L) 1.5 - 3.0 02/02/2025 2:49 PM EDT [facility] Blood Structure of peripheral vein / Unknown Venipuncture / Unknown 02/02/2025 1:35 PM EDT 02/02/2025 2:04 PM EDT Melany Baxter NP LAB BLOOD ORDERABLES Final Result [facility] [address] [place] [address], [place] * LAB - SCANNED (01/17/2025) us Onbase Scan [facility] LAB HISTORICAL RESULTS Final Result * Hepatitis C Antibody w/Reflex to HCV RNA, Quantitative PCR (10/09/2022 8:00 AM EDT) Hepatitis C Antibody NON-REACT POWER NON-REACT POWER 10/10/2022 12:13 AM EDT [facility] Signal To Cut-Off 0.05 <1.00 10/10/2022 12:13 AM EDT [facility] Comment: HCV antibody was non-reactive. There is no laboratory evidence of HCV infection. In most cases, no further action is required. However, if recent HCV exposure is suspected, a test for HCV RNA (test code 68836) is suggested. For additional information please refer to http://education.[employer]/faq/BFM80p2 (This link is being provided for informational/ educational purposes only.) Blood Structure of peripheral vein / Unknown Venipuncture / Unknown 10/09/2022 8:00 AM EDT 10/09/2022 8:04 AM EDT Narrative [facility] - 10/10/2022 12:13 AM EDT [facility] Received Date: us Joni Tate DO LAB BLOOD ORDERABLES Final R esult [facility] [address] [facility] 3rd Floor, [place] [address], [facility] [address] [facility] 3rd Floor, [place] [address], from Last 3 Months or Most Recently Relevant [place] [id number] [facility] Advance Directives * Full Code (Latest Code Status on File) Date Activated Date Inactivated Comments 10/09/2022 9:07 AM 10/12/2022 5:50 PM Care Teams Chief Station Engineer Relationship Specialty Start Date End Date Diana Moses MD PCP - General Family Medicine 10/12/22
--- OUTSIDE RECORDS SUMMARY | 2025-03-24 14:54 | XMS_ITS | Clinical Summary ---
Author Organization [employer] Address [address] [facility] 7 [place] [address] Care Team Providers Care Services Account Manager Name Role Phone Claudia Ferrara CARLA Primary Care Provide r Allergies No known active allergies Medications * This document contains information received from the source organization and may not represent a complete record from that organization. Blood Pressure Monitoring (Blood Pressure Kit) kit 1 each Use as directed. 10/07/19 23 Active ferrous sulfate 325 (65 Fe) MG EC tabletIndications: Iron deficiency anemia, unspecified iron deficiency anemia type Take 1 tablet (325 mg) by mouth with breakfast. Do not crush, chew, or split. 90 tablet 2 12/21/19 25 026 Active Multiple Vitamin (multivitamin) tabletIndications: Other headache syndrome Take 1 tablet by mouth Once per day. 90 tablet 3 12/21/19 25 026 Active ascorbic acid (Vitamin C) 500 MG tabletIndications: Iron deficiency anemia, unspecified iron deficiency anemia type Take 1 tablet (500 mg) by mouth Once per day. 90 tablet 3 12/22/19 25 026 Active Drospirenone (Slynd) 4 MG tablet Take 1 tablet by mouth Once per day. 84 tablet 3 03/02/20 25 Active ibuprofen 200 MG tabletIndications: Chronic nonintractable headache, unspecified headache type Take 2 tablets (400 mg) by mouth every 6 (six) hours if needed for headaches, fever or moderate pain. 240 tablet 3 03/08/20 25 Active SUMAtriptan (Imitrex) 100 MG tabletIndications: Migraine-cluster headache syndrome Take 1 tablet (100 mg) by mouth 1 (one) time if needed for migraine (ok to take another dose 2 hours later if no improvement . MAXIMUM: 2 doses per day). 30 tablet 03/15/20 25 Active norethindrone (Micronor) 0.35 MG tabletIndications: Encounter for Nexplanon removal Take 1 tablet (0.35 mg) by mouth Once per day. 28 tablet 11 05/03/20 24 025 Discontinued metroNIDAZOLE (Flagyl) 500 MG tablet Take 1 tablet (500 mg) by mouth 2 times daily for 7 days. 14 tablet 03/06/20 25 025 Active Problems Problem Noted Date Diagnosed Date Transportation insecurity 12/20/2024 Overview (12/21/2024): 12-20-24 Message sent to [facility] to help with PT one transportation needs. Other headache syndrome 08/01/2024 Overview (03/24/2025): 02-02-25 Hematology notes reviewed and neurology referral [...] iron is needed - Call pt with pipe blanks cut off saw operator to review lab results and next steps [...] care sooner for any worsening of symptoms. 03/16/25 -- negative brain MRI Assessment & Plan (12/21/2024 9:48 AM EDT): [...] for Ferrous sulfate to be sent to [facility] Excuse note return to work on Thursday07-25-2024. ---Admission 07-03-2024 through Discharged 07-06-2024. For headache, neck pain and fever at [facility]. Admitting diagnosis Viral Meningitis and Iron [...] iron is needed - Call pt with pipe blanks cut off saw operator to review lab results and next steps [...] For headache, neck pain and fever at [facility]. Admitting diagnosis Viral Meningitis and Iron Deficinecy Anemia. Also noted to have LUCERO with iron <7, Tbic 147, received 3 iron infusions and started on iron suplementation. Currently not taking ferrous sulfate, as reports was expensive at her pharmacy with a co-pay of $50. Advised can send to [facility] pharmacy and patient agreeable, as reports will be coming in for her blood work this Thursday. Counseled on importance of completing blood work ordered, that has not been completed. Lab work not completed from 07-12-24. Reports will be able to do labs on Thursday Agreeable for Ferrous sulfate to be sent to [facility] Excuse note return to work on Thursday07-25-2024. [...] 06/06/2024 Overview (06/06/2024): Patient does not speak Trinidadian as a primary language. Certified pipe blanks cut off saw operator was used for the duration of this visit which requires at least twice the time to assess history, discuss assessment and plan. Those with primary language is other than Trinidadian, require additional support and expertise in order [...] patient also had visit with primary care IB 06-02-2024. Patient reports doing overall well, and [...] Advised on strategies to help with stress [facility] follow-up in 4 weeks PCP follow-up in [...] Encounters Date Type Department Care Team Description 03/24/2025 Results Follow-Up [facility] Primary Care [address] [place] [phone] Zoya Matthews MD MR Brain w/o Contrast 03/22/2025 [facility] [address] [place] [phone] Frances Steve RN 03/22/2025 [place] [address] Claudia Ferrara FNP Nurse Triage 03/15/2025 3:40 [place] [address] Zoya Matthews MD Migraine-cluster headache syndrome (Primary Dx); Language barrier affecting health care 03/15/2025 [place] [phone] Zoya Matthews MD 03/08/2025 3:40 PM EDT [place] [phone] Zoya Matthews MD Chronic nonintractable headache, unspecified headache type (Primary Dx); Language barrier affecting health care; Early loss 03/06/2025 [place] [address] Jennifer Wright FNP Vaginitis Plus (VG+) With Cherelle (Six Species), NuSwab 03/02/2025 3:00 PM EDT Routine [address] [phone] Jennifer Wright FNP Worst headache of life (Primary Dx); Miscarriage; Oral contraception initial prescription; Iron deficiency anemia, unspecified iron deficiency anemia type 03/01/[address] [phone] Claudia Ferrara FNP Pt reporting whe went to the ER 02/25; Hospital Follow-up 02/17/[address] [phone] Claudia Ferrara FNP Appointment Confirmation 02/17/[address] [phone] Diana Moses MD 02/02/2025 Orders Only [address] [phone] Claudia Ferrara FNP Other headache syndrome (Primary Dx); History of viral meningitis 12/29/2024 Orders Only [address] [phone] Claudia Ferrara FNP Other iron deficiency anemia (Primary Dx) 12/28/2024 Telephone [facility] Business Office [address] [place] [phone] Claudia Ferrara FNP Referral from Last 3 Months Immunizations Immunization Administration [...] Sign Reading Time Taken Comments Blood Pressure 117/79 03/02/2025 1:00 PM EDT Pulse 74 03/02/2025 1:00 PM EDT Temperature 36.7 C (98 F) 03/02/2025 1:00 PM EDT Respiratory Rate 16 03/02/2025 1:00 PM EDT Oxygen Saturation 96% 03/02/2025 1:00 PM EDT Inhaled Oxygen Concentration - - Weight 71 kg (156 lb 8.4 oz) 03/02/2025 1:00 PM EDT Height 159.5 cm (5' 2.8 ) 12/20/2024 1:12 PM EDT Body Mass Index 27.91 12/20/2024 1:12 PM EDT Plan of Treatment Upcoming Encounters Date Type Department Care Team (Late st Contact Info) Description 04/14/2025 10:00 AM EST Office Visit [facility] Primary Care [address] [place] [phone] Claudia Ferrara, CARLA [address] [place] [phone] Health Maintenance Due Date Last Done [...] Procedure Name Priority Date/Time Associated Diagnosis Comments MR BRAIN WO CONTRAST Urgent 03/16/2025 Chronic nonintractable headache, unspecified headache type VAGINITIS PLUS (VG+) WITH CHERELLE (SIX SPECIES), NUSWAB Routine 03/02/2025 12:00 AM EDT Miscarriage AMB REFERRAL TO HEMATOLOGY Urgent 02/03/2025 Iron deficiency anemia, unspecified iron deficiency anemia type IMAGE GUIDED PAP, HPV DETECTION W/REFLEX TO HPV GENOTYPE Routine 01/27/2024 2:12 PM EDT Cervical cancer screening HM HIV 1/2 ANTIGEN AND ANTIBODY Routine 07/09/2023 HM HEPATITIS C ANTIBODY Routine 10/06/2022 from Last 3 Months or Most Recently Relevant to Health Maintenance Results * MR Brain w/o Contrast (03/16/2025) Anatomical Region Laterality Modality Brain Magnetic Resonan ce Zoya Matthews MD [facility] [place] PROCEDURES Edited Result - Final * (ABNORMAL) Vaginitis Plus (VG+) With Cherelle (Six Species), NuSwab (03/02/2025 12:00 AM EDT) Atopobium vaginae High - 2(A) Score [facility] [place] BVAB 2 High - 2(A) Score [facility] [place] Megasphaera 1 High - 2(A) Score [facility] [place] Comment: Calculate total score by adding the 3 individual bacterial vaginosis (BV) marker scores together. Total score is interpreted as follows: Total score 0-1: Indicates the absence of BV. Total score 2: Indeterminate for BV. Additional clinical data should be evaluated to establish a diagnosis. Total score 3-6: Indicates the presence of BV. Cherelle albicans, LINDY Negative Negative [facility] [place] Cherelle glabrata, LINDY Negative Negative [facility] [place] C parapsilosis/trop icalis Negative Negative [facility] [place] Comment:This assay does not differentiate C. tropicalis and C. parapsilosis. Cherelle lusitaniae, LINDY Negative Negative [facility] [place] Cherelle krusei, LINDY Negative Negative [facility] [place] Trich vag by LINDY Negative Negative [facility] [place] Chlamydia trachomatis, LINDY Negative Negative [facility] [place] Neisseria gonorrhoeae, LINDY Negative Negative [facility] [place] Swab (Vaginal Swab) 03/02/2025 03/02/2025 Comment:Vaginal Swab Delay r e Narrative [facility] - 03/04/2025 8:05 PM EDT Test(s) 974729- Atopobium vaginae; 495510- BVAB 2; 327316- Megasphaera 1 was developed and its performance characteristics determined by [facility]. It has not been cleared or approved by the Food and Drug Administration. Test(s) 432002-Buazedv albicans, LINDY; 455627-Wqzyatm glabrata, LINDY; 734572-F parapsilosis/tropicalis; 036784-Xecuqhw lusitaniae, LINDY; 072133-Wamucgb krusei, LINDY was developed and its performance characteristics determined by [facility]. It has not been cleared or approved by the Food and Drug Administration. Resulting Agency Comment Performed at: [address] [id number] Patient Resource Coordinator: Digna Olson MD, Phone: [phone] Jennifer Wright [facility] LAB CYTOLOGY ORDERA BLES Final Result [facility] [address] [phone] * Referral to Hematology (02/03/2025) Claudia Ferrara [facility] OUTPATIENT REFERRAL O RDERABLES Final Result * Routine Pap, Age 30+ (01/27/2024 2:12 PM EDT) Diagnosis [facility] Comment: NEGATIVE FOR INTRAEPITHELIAL LESION OR MALIGNANCY. THE CYTOLOGY PROCESSING WAS PERFORMED AT THE [facility] LOCATED AT [address] [place] [phone]. Adequacy: [facility] Comment: Satisfactory for evaluation. [...] 01/29/2024 10:05 PM EDT Performed at: - [facility] [address] [id number] Patient Resource Coordinator: Conner Rome MD, Phone: [phone] Performed at: 02 - [facility] [address] [id number] Patient Resource Coordinator: Digna Olson MD, Phone: [phone] Performed at: 03 - [facility] [id number] Patient Resource Coordinator: Digna Olson MD, Phone: [phone] Specimen Comment: [id number] Specimen Comment: No. of containers..01 ThinPrep Vial [facility] LAB CYTOLOGY ORDERABLES Dennise l Result [facility] * HIV 1/2 Antigen and Antibody (07/09/2023) HIV Ag/Ab Nonreactive us Historical Provider HEALTH MAINTENANCE Final Result * HM Hepatitis C Antibody (10/06/2022) Hepatitis C Antibody Nonreactive Blood us Historical Provider HEALTH MAINTENANCE Final Result from Last 3 Months or Most Recently Relevant to Health Maintenance Insurance [employer] Care Teams Services Account Manager Relationship Specialty Start Date End Date Claudia Ferrara FNP [address] [place] [phone] PCP - General Family Medicine 11/20/21
== END 2025-03-24 15:29 | disposition home or self-care (01) ==
LOC: HO.HWS 14:07
PROVIDERS: Visit Provider Obstetrics & Gynecology
DX: O02.1 Missed abortion (principal); D64.9 Anemia, unspecified; Z30.09 Encounter for other general counseling and advice on contraception
CPT/HCPCS: 99213

== ENCOUNTER 2025-03-24 14:06 | Outpatient (REF) | payer MEDICAID, SELFPAY ==
[2025-03-24 15:36] LABS: Hematocrit 32.0 % (37.0-47.0); Hemoglobin 10.0 g/dl (12.0-16.0); Mean Corpuscular HGB Conc 31.3 g/dl (31.0-35.0); Mean Corpuscular Hemoglobin 26.0 pg (27.0-33.0); Mean Corpuscular Volume 83.1 fL (80.0-98.0); NRBC Abs Auto 0.000 X10*3/uL (0.0-0.012); NRBC Pct Auto 0.0 /100WBC (0.0-0.2); Platelet Count 224 X10*3/uL (160-400); Red Blood Count 3.85 X10*6/uL (4.20-5.50); White Blood Count 7.1 X10*3/uL (4.8-10.8)
[2025-03-25 12:58] LABS: CT PCR NOT DETECTED (Not Detect.); NG PCR NOT DETECTED (Not Detect.)
== END 2025-03-24 14:07 | disposition home or self-care (01) ==
LOC: HO.LAB 14:06
PROVIDERS: Visit Provider Obstetrics & Gynecology
DX: Z30.09 Encounter for other general counseling and advice on contraception (principal); O02.1 Missed abortion; D64.9 Anemia, unspecified; Z20.2 Contact with and (suspected) exposure to infections with a predominantly sexual mode of transmission
CPT/HCPCS: 36415; 84702; 85027; 87491; 87591; 99212

== ENCOUNTER 2025-03-28 15:17 | Outpatient (REF) | payer MEDICAID, SELFPAY ==
--- OUTSIDE RECORDS SUMMARY | 2025-03-28 18:09 | XMS_ITS | Clinical Summary ---
Author Organization [employer] Address [address] [facility] 7 [place] [address] Care Team Providers Care Caramel Maker Name Role Phone Claudia Ferrara CARLA Primary [...] iron is needed - Call pt with master of ceremonies to review lab results and next steps [...] for Ferrous sulfate to be sent to [facility] Excuse note return to work on Thursday07-25-2024. ---Admission 07-03-2024 through Discharged 07-06-2024. For headache, neck pain and fever at [facility]. Admitting diagnosis Viral Meningitis and Iron [...] iron is needed - Call pt with master of ceremonies to review lab results and next steps [...] For headache, neck pain and fever at [facility]. Admitting diagnosis Viral Meningitis and Iron Deficinecy Anemia. Also noted to have LUCERO with iron <7, Tbic 147, received 3 iron infusions and started on iron suplementation. Currently not taking ferrous sulfate, as reports was expensive at her pharmacy with a co-pay of $50. Advised can send to [facility] pharmacy and patient agreeable, as reports will be coming in for her blood work this Thursday. Counseled on importance of completing blood work ordered, that has not been completed. Lab work not completed from 07-12-24. Reports will be able to do labs on Thursday Agreeable for Ferrous sulfate to be sent to [facility] Excuse note return to work on [...] 06/06/2024 Overview (06/06/2024): Patient does not speak Jordanian as a primary language. Certified master of ceremonies was used for the duration of this visit which requires at least twice the time to assess history, discuss assessment and plan. Those with primary language is other than Jordanian, require additional support and expertise in order [...] Advised on strategies to help with stress [facility] follow-up in 4 weeks PCP follow-up [...] Department Care Team Description 03/24/2025 Results Follow-Up [facility] [address] [place] [phone] Zoya Matthews MD MR Brain w/o Contrast 03/22/2025 [facility] [address] [place] [phone] Frances Steve RN 03/22/2025 [place] [phone] Claudia Ferrara FNP Nurse Triage 03/15/2025 3:40 [place] [phone] Zoya Matthews MD Migraine-cluster headache syndrome (Primary Dx); Language barrier affecting health care 03/15/2025 [place] [phone] Zoya Matthews MD 03/08/2025 3:40 PM EDT [place] [phone] Zoya Matthews MD Chronic nonintractable headache, unspecified headache type (Primary Dx); Language barrier affecting health care; Early loss 03/06/2025 [place] [phone] Jennifer Wright FNP Vaginitis Plus (VG+) With Cherelle (Six Species), NuSwab 03/02/2025 3:00 PM EDT Routine [address] [phone] Jennifer Wright FNP Worst headache of life (Primary Dx); Miscarriage; Oral contraception initial prescription; Iron deficiency anemia, unspecified iron deficiency anemia type 03/01/[address] [phone] Claudia Ferrara FNP Pt reporting whe went to the ER 02/25; Hospital Follow-up 02/17/[address] [phone] Claudia Ferrara FNP Appointment Confirmation 02/17/[address] [phone] Diana Moses MD 02/02/2025 Orders Only [address] [phone] Claudia Ferrara FNP Other headache syndrome (Primary Dx); History of viral meningitis 12/29/2024 Orders Only [address] [phone] Claudia Ferrara FNP Other iron deficiency anemia (Primary Dx) 12/28/2024 Telephone [facility] [address] [place] [phone] Claudia Ferrara FNP Referral from Last 3 [...] Description 04/14/2025 10:00 AM EST Office Visit [facility] [address] [place] [phone] Claudia Ferrara, CARLA [address] [place] [phone] Health Maintenance Due Date Last Done [...] Brain Magnetic Resonan ce Zoya Matthews MD [facility] MRI PROCEDURES Edited Result - Final * (ABNORMAL) Vaginitis Plus (VG+) With Cherelle (Six Species), NuSwab (03/02/2025 12:00 AM EDT) Atopobium vaginae High - 2(A) Score [facility] BVAB 2 High - 2(A) Score [facility] Megasphaera 1 High - 2(A) Score [facility] [place] Comment: Calculate total score by adding the 3 individual bacterial vaginosis (BV) marker scores together. Total score is interpreted as follows: Total score 0-1: Indicates the absence of BV. Total score 2: Indeterminate for BV. Additional clinical data should be evaluated to establish a diagnosis. Total score 3-6: Indicates the presence of BV. Cherelle albicans, LINDY Negative Negative [facility] Cherelle glabrata, LINDY Negative Negative [facility] C parapsilosis/trop icalis Negative Negative [facility] Comment:This assay does not differentiate C. tropicalis and C. parapsilosis. Cherelle lusitaniae, LINDY Negative Negative [facility] Cherelle krusei, LINDY Negative Negative [facility] Trich vag by LINDY Negative Negative [facility] [place] Chlamydia trachomatis, LINDY Negative Negative [facility] Neisseria gonorrhoeae, LINDY Negative Negative [facility] Swab (Vaginal Swab) 03/02/2025 03/02/2025 Comment:Vaginal Swab Delay r e Narrative [facility] 1 - 03/04/2025 8:05 PM EDT Test(s) 407585- Atopobium vaginae; 186136- BVAB 2; 240077- Megasphaera 1 was developed and its performance characteristics determined by [facility]. It has not been cleared or approved by the Food and Drug Administration. Test(s) 758335-Apijqqe albicans, LINDY; 642170-Wqthcao glabrata, LINDY; 540267-Y parapsilosis/tropicalis; 477764-Ncdbiys lusitaniae, LINDY; 319947-Bisvxgy krusei, LINDY was developed and its performance characteristics determined by [facility]. It has not been cleared or approved by the Food and Drug Administration. Resulting Agency Comment Performed at: [address] [id number] Wheel And Caster Repairer: Digna Olson MD, Phone: [phone] Jennifer Wirght [facility] LAB CYTOLOGY ORDERA BLES Final Result [facility] [address] [phone] * Referral to Hematology (02/03/2025) Claudia Ferrara [facility] OUTPATIENT REFERRAL O RDERABLES Final Result * Routine Pap, Age 30+ (01/27/2024 2:12 PM EDT) Diagnosis [facility] Comment: NEGATIVE FOR INTRAEPITHELIAL LESION OR MALIGNANCY. THE CYTOLOGY PROCESSING WAS PERFORMED AT THE [facility] LOCATED AT [address] [place] [phone]. Adequacy: [facility] Comment: Satisfactory for evaluation. [...] 01/29/2024 10:05 PM EDT Performed at: - [facility] [address] [id number] Wheel And Caster Repairer: Conner Rome MD, Phone: [phone] Performed at: 02 - [facility] [address] [id number] Wheel And Caster Repairer: Digna Olson MD, Phone: [phone] Performed at: 03 - [facility] [id number] Wheel And Caster Repairer: Digna Olson MD, Phone: [phone] Specimen Comment: [id number] Specimen Comment: No. of containers..01 ThinPrep Vial [facility] LAB CYTOLOGY ORDERABLES Dennise l Result [facility] * HIV 1/2 Antigen and Antibody (07/09/2023) HIV Ag/Ab Nonreactive us Historical Provider HEALTH MAINTENANCE Final Result * HM Hepatitis C Antibody (10/06/2022) Hepatitis C Antibody Nonreactive Blood us Historical Provider HEALTH MAINTENANCE Final Result from Last 3 Months or Most Recently Relevant to Health Maintenance Insurance [employer] Care Teams Caramel Maker Relationship Specialty Start Date End Date Claudia Ferrara FNP [address] [place] [phone] PCP - General Family Medicine 11/20/21
--- OUTSIDE RECORDS SUMMARY | 2025-03-28 18:09 | XMS_ITS | Encounter Summary ---
Author Organization [facility] Address [address] [place] [address] Care Team Providers Care Engineering Tech Name Role Phone Diana Moses MD Primary Care Provider [phone]- [phone] Reason for Referral * Consultation (Urgent) - Pending Review Specialty Diagnoses / Procedures Referred By Aparna liu Referred To Contact Oncology Diagnoses Iron deficiency anemia, unspecified iron deficiency anemia type Claudia Ferrara NP [address] [place] [phone] Phone: tel: fax: [facility] 5th Floor [address] [place] [address] Phone: tel: fax: Referral ID Status Reason Start Date Expiration Date Visits Requested Visits Authorized [id number] Pending Review Specialty Services Required 12/23/2024 01/23/2026 6 6 Encounter Details Date Type Department Care Team (Late st Contact Info) Description 12/23/2024 Community Orders [facility] EpicCare Link [address] [place] [address] Claudia Ferrara NP [address] [place] [phone] Iron deficiency anemia, unspecified iron deficiency [...] Info) Description 06/07/2025 8:30 AM EST Lab [facility] Draw Site Fifth Floor [address] [place] [address] 06/07/2025 9:30 AM EST Follow-Up [facility] [address] [place] [address] Melany Baxter NP [address] [place] [address] 10/30/2025 1:45 PM EDT Office Visit [facility] [address] [place] [phone] Erin Slater MD [address] [place] [address] [place] [address] Scheduled Referrals Name Type Priority Associated Diagnoses Orde r Schedule Ambulatory referral to Hematology / Oncology Outpatient Referral Routine Iron deficiency anemia, unspecified iron deficiency anemia type Expected: 12/23/2024, Expires: 01/23/2026 documented as of this encounter Visit Diagnoses Diagnosis Iron deficiency anemia, unspecified iron deficiency anemia type- Primary documented in this encounter Care Teams Engineering Tech Relationship Specialty Start Date End Date Diana Moses MD PCP - General Family Medicine 10/12/22 documented as of this encounter
--- OUTSIDE RECORDS SUMMARY | 2025-03-28 18:09 | XMS_ITS | Encounter Summary ---
Author Organization [employer] Address [address] [place] [address] [place] [address] Care Team Providers Care Granular Operator Name Role Phone Claudia Ferrara CARLA Primary Care Provide r Encounter Details Date Type Department Care Team ([facility] Contact Info) Description 03/15/2025 Telephone [facility] [address] [place] [phone] Zoya Matthews MD [address] [place] [phone] Social History Tobacco Use Types Packs/Day [...] Erin Weiss - 03/15/2025 3:14 PM EDT GERMAN: Bailee please advise pt referral order for MRI Brain has been scheduled for 03/20/25 at 8:50pm at [facility] [address] [facility] [place] [address]. Patient must call to pre register prior to apt at [phone] option 1 Thank you documented in this encounter Plan of Treatment Upcoming Encounters Date Type Department Care Team (Late st Contact Info) Description 04/14/2025 10:00 AM EST Office Visit [facility] [address] [place] [phone] Claudia Ferrara FNP [address] [place] [phone] documented as of this encounter Visit Diagnoses Not on filedocumented in this encounter Care Teams Granular Operator Relationship Specialty Start Date End Date Claudia Ferrara FNP [address] [place] [phone] PCP - General Family Medicine 11/20/21 documented as of this encounter
--- OUTSIDE RECORDS SUMMARY | 2025-03-28 18:09 | XMS_ITS | Encounter Summary ---
Author Organization [employer] Address [address] [place] [address] 7 [place] [address] Care Team Providers Care Silk Finisher Name Role Phone Claudia Ferrara CARLA Primary Care Provide r Encounter Details Date Type Department Care Team ([facility] Contact Info) Description 03/24/2025 Results Follow-Up [facility] [address] [place] [phone] Zoya Matthews MD [address] [place] [phone] MR Brain w/o Contrast Social History [...] Description 04/14/2025 10:00 AM EST Office Visit [facility] [address] [place] [phone] Claudia Ferrara FNP [address] [place] [phone] documented as of this encounter Visit Diagnoses Not on filedocumented in this encounter Care Teams Silk Finisher Relationship Specialty Start Date End Date Claudia Ferrara FNP [address] [place] [phone] PCP - General Family Medicine 11/20/21 documented as of this encounter
--- OUTSIDE RECORDS SUMMARY | 2025-03-28 18:09 | XMS_ITS | Encounter Summary ---
Author Organization [facility] Address [address] [place] [address] Care Team Providers Care Gasoline Engine Assembler Name Role Phone Diana Moses MD Primary Care Provider [phone]- [phone] Encounter Details Date Type Department Care Team (Late Contact Info) Description 02/09/2025 Results Follow-Up [facility] 5th Floor [address] [place] [address] Tamela Adrian, BONIFACIO [address] [place], [place] [phone] Social History Tobacco Use Types Packs/Day Years [...] Info) Description 06/07/2025 8:30 AM EST Lab [facility] Draw Site Fifth Floor [address] [place] [address] 06/07/2025 9:30 AM EST Follow-Up [facility] [address] [place] [address] Melany Baxter NP [address] [place] [address] 10/30/2025 1:45 PM EDT Office Visit [facility] [address] [place] [address] Erin Slater MD [address] [place] [phone] documented as of this encounter Visit Diagnoses Not on filedocumented in this encounter Care Teams Gasoline Engine Assembler Relationship Specialty Start Date End Date Diana Moses MD PCP - General Family Medicine 10/12/22 documented as of this encounter
--- OUTSIDE RECORDS SUMMARY | 2025-03-28 18:09 | XMS_ITS | Clinical Summary ---
Author Organization [facility] Address [address] [place] [address] Care Team Providers Care Public Address System Installer Name Role Phone Diana Moses MD Primary Care Provider [phone]- [phone] Allergies No known active allergies Medications Vitamin [...] Team Description 03/07/2025 11:00 AM EDT Infusion [facility] [address] [place] [address] 03/07/2025 9:40 AM EDT Follow-Up [facility] [address] [place] [address] Tamela Adrian, BONIFACIO Iron deficiency anemia, unspecified iron deficiency anemia type (Primary Dx); Other constipation; Hx of viral meningitis; Bad headache 03/07/2025 8:40 AM EDT Lab [facility] ACC Draw Site Fifth Floor [address] [place] [address] Iron deficiency anemia, unspecified iron deficiency anemia type 03/02/2025 4:57 PM EDT - 03/02/2025 9:51 PM EDT Emergency [facility] Emergency Department [address] [place] [address] Discharge Disposition: Left Without Being Seen (07) 02/20/2025 8:15 AM EDT Infusion [facility] Infusion Clinic [address] [place] [address] Radha Landeros RN Iron deficiency anemia, unspecified iron deficiency anemia type (Primary Dx) 02/09/2025 Results Follow-Up [facility] South 5th Floor [address] [place] [address] Tamela Adrian NP 02/07/2025 Patient Outreach [facility] 5th Floor [address] [place] [address] Jada Hsu RN 02/07/2025 Telephone [facility] [address] [place] [address] Telephone Intake, Staff 02/03/2025 Orders Only [facility] [address] [place] [address] Melany Baxter NP Iron deficiency anemia, unspecified iron deficiency anemia type (Primary Dx) 02/02/2025 1:00 PM EDT Office Visit [facility] [address] [place] [address] Melany Baxter NP Anemia, unspecified type (Primary Dx); Hx of viral meningitis; Bad headache from Last 3 Months Social History Tobacco [...] Info) Description 06/07/2025 8:30 AM EST Lab [facility] ACC Draw Site Fifth Floor [address] [place] [address] 06/07/2025 9:30 AM EST Follow-Up [facility] [address] [place] [address] Melany Baxter NP [address] [place] [address] 10/30/2025 1:45 PM EDT Office Visit [facility] Neurology Clinic [address] [place] [address] Erin Slater MD [address] [place] [address] Health Maintenance Due Date Last Done Comments HPV and Pap Smear 1987 Varicella Vaccines (1 of 2 - 13+ 2-dose series) 12/26/2000 Hepatitis B Vaccines (1 of 3 - 19+ 3-dose series) 12/26/2006 DTaP,Tdap,and Td Vaccines (1 - Tdap) 12/26/2009 Alcohol/Substance Use Screening 05/25/2024 Depression Screening and Follow-Up 05/25/2024 Social Drivers of Health Annual Screening 05/25/2024 COVID-19 Vaccine ( season) 2025 09/24/2022, 06/17/2022, 05/20/2022, Additional history exists Influenza Vaccine (#1) 2025 Cervical Cancer Screening 01/26/2027 Pap Smear 01/26/2027 01/27/2024 Diabetes Screening 03/02/2028 03/02/2025, 0 02/02/2025, 10/10/2022, Additional history exists HIV Screening Completed 10/09/2022 Hepatitis C Screening Completed 10/09/2022 Pneumococcal Vaccine: Pediatric (0-5 Years) and At-Risk Patients (6-50 Years) Aged Out No longer eligible based on patient's age to complete this topic Procedures * Due to [place] state law, this organization might not be [...] to Health Maintenance Results * Due to [place] state law, this organization might not be sharing negative HIV tests. * (ABNORMAL) Smear Review (03/07/2025 8:59 AM EDT) Platelet Estimate Adequate Adequate 03/07/2025 9:48 AM EDT [facility] RBC Morphology Present(A) Normal, No clinically significant RBC morphology present (ICSH guidelines, 2015). 03/07/2025 9:48 AM EDT [facility] Anisocytosis 2+(A) Not Present 03/07/2025 9:48 AM EDT [facility] [facility] Blood Structure of peripheral vein / Unknown Venipuncture / Unknown 03/07/2025 8:59 AM EDT 03/07/2025 9:10 AM EDT us Melany Baxter NP LAB BLOOD ORDERABLES Final Result [facility] [address] [place] [address], * (ABNORMAL) Iron Saturation (03/07/2025 8:59 AM EDT) Only the most recent of2 resultswithin the time period is included. Iron Saturation 19(L) 20 - 50 % 9:56 AM EDT [facility] Iron 36 30 - 160 ug/dL 03/07/2025 9:56 AM EDT [facility] Transferrin 153(L) 200 - 360 mg/dL 03/07/2025 9:56 AM EDT [facility] Total Iron Binding Capacity 191(L) 255 - 450 ug/dL 03/07/2025 9:56 AM EDT [facility] [facility] Blood Structure of peripheral vein / Unknown Venipuncture / Unknown 03/07/2025 8:59 AM EDT 03/07/2025 9:13 AM EDT us Melany Baxter PRODUCTION ASSOCIATE LAB BLOOD ORDERABLES Final Result [facility] [facility]ORY [address] [place] [address], * (ABNORMAL) CBC Auto Differential (Once) (03/07/2025 8:59 AM EDT) Only the most recent of3 resultswithin the time period is included. WBC 8.6 3.8 - 10.8 10*3/uL 03/07/2025 9:48 AM EDT [facility] [employer] [facility] RBC 4.12 3.80 - 5.10 10*6/uL 03/07/2025 9:48 AM EDT [facility] [employer] [facility] Hemoglobin 10.7(L) 11.7 - 15.5 g/dL 03/07/2025 9:48 AM EDT [facility] [employer] [facility] Hematocrit 33.5(L) 35.0 - 45.0 % 03/07/2025 9:48 AM EDT [facility] [employer] [facility] MCV 81.3 80.0 - 100.0 fL 03/07/2025 9:48 AM EDT [facility] [employer] [facility] MCH 26.0(L) 27.0 - 33.0 pg 03/07/2025 9:48 AM EDT [facility] [facility] MCHC 31.9(L) 32.0 - 36.0 g/dL 03/07/2025 9:48 AM EDT [facility] RDW 16.7(H) 11.0 - 15.0 % 03/07/2025 9:48 AM EDT [facility] Platelets 259 140 - 400 10*3/uL 03/07/2025 9:48 AM EDT [facility] MPV 10.7 7.5 - 12.5 fL 03/07/2025 9:48 AM EDT [facility] Neutrophil % 68.6 % 03/07/2025 9:48 AM EDT [facility] Immature Grans % 0.2 0.0 - 0.9 % 03/07/2025 9:48 AM EDT [facility] Lymphocyte % 20.4 % 03/07/2025 9:48 AM EDT [facility] Monocyte % 9.3 % 03/07/2025 9:48 AM EDT [facility] Eosinophil % 1.2 % 03/07/2025 9:48 AM EDT [facility] Basophil % 0.3 % 03/07/2025 9:48 AM EDT [facility] Neutrophil # 5.91 1.50 - 7.80 10*3/uL 03/07/2025 9:48 AM EDT [facility] Immature Grans # <0.03 <=0.03 10*3/uL 03/07/2025 9:48 AM EDT [facility] Lymphocyte # 1.80 0.85 - 3.90 10*3/uL 03/07/2025 9:48 AM EDT [facility] Monocyte # 0.80 0.20 - 0.95 10*3/uL 03/07/2025 9:48 AM EDT [facility] Eosinophil # 0.10 0.02 - 0.50 10*3/uL 03/07/2025 9:48 AM EDT [facility] Basophil # <0.03 0.00 - 0.20 10*3/uL 03/07/2025 9:48 AM EDT [facility] nRBC % 0.0 /100 WBCs 03/07/2025 9:48 AM EDT [facility] nRBC # <0.01 <0.01 10*3/uL 03/07/2025 9:48 AM EDT [facility] Total Neutrophil #, Preliminary 5.91 1.50 - 7.80 10*3/uL 03/07/2025 9:48 AM EDT [facility] Comment:This ANC is prelimin [...] BLOOD ORDERABLES Final Result Performing Organization Address City/[facility]/ZIP Co de Phone Number [facility] [address] [place] [address], * (ABNORMAL) Ferritin (03/07/2025 8:59 AM EDT) Only the most recent of2 resultswithin the time period is included. Ferritin 1,557.0(H) 11.0 - 306.0 ng/mL 03/07/2025 9:56 AM EDT [facility] Blood Structure of peripheral vein / Unknown Venipuncture / Unknown 03/07/2025 8:59 AM EDT 03/07/2025 9:13 AM EDT Melany Baxter PRODUCTION ASSOCIATE LAB BLOOD ORDERABLES Final Result [facility] [address] [place] [address], [place] * Blood Bank Hold Tube (03/02/2025 5:20 PM EDT) Extra Tube Hold for add-ons. [place] [facility] 03/02/2025 10:05 PM EDT [facility] Comment:Auto resulted. Blood Structure of peripheral vein / Unknown Venipuncture / Unknown 03/02/2025 5:20 PM EDT 03/02/2025 5:28 PM EDT Protocol [facility] LAB BLOOD BANK TEST OR DERABLES Final Result Performing Organization Address [facility]/ZIP Co de Phone Number [facility] BLOOD [facility] [address] [place] [address], * (ABNORMAL) hCG, Quantitative, (03/02/2025 5:20 PM EDT) HCG Quantitative 2,854.0(H ) <=4.9 mIU/mL 03/02/2025 6:16 PM EDT [facility] Comment: hCG >= 5.0 mIU/mL is generally indicative of . Post menopausal ref range < 8.2 mIU/mL Checkroom Attendant hCG ranges during normal . Approximate Gestational age Approximate hCG range (Post conception weeks) mIU/mL 3 5.4-72 4 10.2-708 5 217-8,245 6 152-32,177 7 4,059-153,767 8 31,366-149,094 9 59,109-135,901 10 44,186-170,409 12 27,107-201,615 Blood Structure of peripheral vein / Unknown Venipuncture / Unknown 03/02/2025 5:20 PM EDT 03/02/2025 5:26 PM EDT Protocol [facility] LAB BLOOD ORDERABLES F inal Result Performing Organization Address City/[facility]/ZIP Co de Phone Number [facility] [address] [place] [address], [place] * (ABNORMAL) Basic Metabolic Panel (03/02/2025 5:20 PM EDT) NA 135 135 - 145 mmol/L 03/02/2025 6:16 PM EDT [facility] K 4.0 3.5 - 5.3 mmol/L 03/02/2025 6:16 PM EDT [facility] Cl 103 97 - 110 mmol/L 03/02/2025 6:16 PM EDT [facility] CO2 21(L) 22 - 32 mmol/L 03/02/2025 6:16 PM EDT [facility] BUN 10 7 - 23 mg/dL 03/02/2025 6:16 PM EDT [facility] Creatinine 0.51 0.50 - 1.20 mg/dL 03/02/2025 6:16 PM EDT [facility] Glucose 116(H) 65 - 99 mg/dL 03/02/2025 6:16 PM EDT [facility] Calcium 8.8 8.6 - 10.5 mg/dL 03/02/2025 6:16 PM EDT [facility] Anion Gap 11 5 - 15 03/02/2025 6:16 PM EDT [facility] eGFR >90 >=60 mL/min/1. 73m2 03/02/2025 6:16 PM EDT [facility] Comment:The estimated glomer [...] 5:26 PM EDT us Protocol Mem Treatment MD LAB BLOOD ORDERABLES F inal Result [facility] [address] [place] [address], [place] * (ABNORMAL) Celiac Diagnostic Panel w/Gliadin, All Ages (Includes: IgA, tTG IgA/IgG and Giadin IgA/IgG) (02/02/2025 1:35 PM EDT) Tissue Transglutaminase Ab, IgG <1.0 U/mL 02/09/2025 4:30 PM EDT [facility] Comment: Value Interpretation ----- <15.0 Antibody not detected > or = 15.0 Antibody detected Tissue Transglutaminase Ab, IgA <1.0 U/mL 02/09/2025 4:30 PM EDT [employer] [facility] Comment: Value Interpretation ----- <15.0 Antibody not detected > or = 15.0 Antibody detected Gliadin Ab IgA <1.0 U/mL 02/09/2025 4:30 PM EDT [employer] [facility] Comment: Value Interpretation ----- <15.0 Antibody not detected > or = 15.0 Antibody detected Gliadin Ab IgG <1.0 U/mL 02/09/2025 4:30 PM EDT [facility] [employer] [facility] Comment: Value Interpretation ----- <15.0 Antibody not detected > or = 15.0 Antibody detected Immunoglobulin A 534(H) 47 - 310 mg/dL 02/09/2025 4:30 PM EDT [facility] [employer] [facility] Blood Structure of peripheral vein / Unknown Venipuncture / Unknown 02/02/2025 1:35 PM EDT 02/02/2025 2:03 PM EDT [facility] 02/09/2025 4:30 PM EDT [facility] Received Date:[id number] Melany Baxter NP LAB BLOOD ORDERABLES Final Result [facility] [address] [facility] 3rd Floor, [place] [address], [place] [phone] [employer] [facility] [address] [facility] 3rd Floor, [place] [address], [place] [phone] * (ABNORMAL) Protein Electrophoresis w/Reflex to Immunofixation, Serum (02/02/2025 1:35 PM EDT) Pathologist [facility] Protein, Total 7.8 6.1 - 8.1 g/dL 02/03/2025 9:28 PM EDT [employer] Albumin 3.0(L) 3.8 - 4.8 g/dL 02/03/2025 9:28 PM EDT [employer] [facility] Alpha 1 Globulin 0.4(H) 0.2 - 0.3 g/dL 02/03/2025 9:28 PM EDT [employer] [facility] Alpha 2 Globulin 1.0(H) 0.5 - 0.9 g/dL 02/03/2025 9:28 PM EDT [employer] [facility] Beta 1 Globulin 0.4 0.4 - 0.6 g/dL 02/03/2025 9:28 PM EDT [facility] Beta 2 Globulin 0.7(H) 0.2 - 0.5 g/dL 02/03/2025 9:28 PM EDT [employer] Gamma Globulin 2.4(H) 0.8 - 1.7 g/dL 02/03/2025 9:28 PM EDT [employer] Interpretation See Comments 02/03/2025 9:28 PM EDT [employer] [facility] Comment: Consistent with a chronic inflammatory pattern Blood Structure of peripheral vein / Unknown Venipuncture / Unknown 02/02/2025 1:35 PM EDT 02/02/2025 2:04 PM EDT Rowan [facility] MCGHEE - 02/03/2025 9:28 PM EDT [facility] Received Date: Melany Renu Baxter PRODUCTION ASSOCIATE LAB BLOOD ORDERABLES Final Result [facility] [address], [place] [address], [place] [phone] [employer] [facility] [address], [place] [address], [place] [phone] * (ABNORMAL) Hemoglobin Electrophoresis (02/02/2025 1:35 PM EDT) [facility] Red Blood Cell Count 3.34(L) 3.80 - 5.10 Mill/uL 02/05/2025 4:55 AM EDT [facility] (DEAL) Hemoglobin 8.1(L) 11.7 - 15.5 g/dL 02/05/2025 [...] clinically indicated, Thalassemia and Hemoglobinopathy Comprehensive ([place] [address]) should be considered. Blood Structure of peripheral vein / Unknown Venipuncture / Unknown 02/02/2025 1:35 PM EDT 02/02/2025 1:56 PM EDT Narrative [facility] KamDEAL) - 02/05/2025 4:55 AM EDT [facility] Received Date: Melany Baxter NP LAB BLOOD ORDERABLES Final Result Performing Organization Address City/[facility]/ZIP Co de Phone Number [facility]OW[facility] (DEAL) [address] [place], [place] , [place] * (ABNORMAL) Sedimentation Rate (02/02/2025 1:35 PM EDT) Sed Rate 86(H) <20 mm/Hr mm/Hr 02/02/2025 2:10 PM EDT [facility] Blood Structure of peripheral vein / Unknown Venipuncture / Unknown 02/02/2025 1:35 PM EDT 02/02/2025 1:56 PM EDT Melany Baxter PRODUCTION ASSOCIATE LAB BLOOD ORDERABLES Final Result [facility] [address] [place] [address], [place] * Reticulocytes (02/02/2025 1:35 PM EDT) Retic % 1.5 0.5 - 1.6 % 02/02/2025 2:11 PM EDT [facility] [employer] [facility] Retic # 0.05 0.02 - 0.08 10*6/uL 02/02/2025 2:11 PM EDT [facility] Blood Structure of peripheral vein / Unknown Venipuncture / Unknown 02/02/2025 1:35 PM EDT 02/02/2025 1:56 PM EDT Melany Baxter PRODUCTION ASSOCIATE LAB BLOOD ORDERABLES Final Result [facility] [address] [place] [address], [place] * Direct Antiglobulin Test (02/02/2025 1:35 PM EDT) Direct Antiglobulin Test Negative 02/02/2025 2:50 PM EDT [facility] Blood Structure of peripheral vein / Unknown Venipuncture / Unknown 02/02/2025 1:35 PM EDT 02/02/2025 2:31 PM EDT Melany Baxter NP LAB BLOOD BANK TEST ORDERAB LES Final Result Performing Organization Address City/[facility]/ZIP Co de Phone Number [facility] [address] [place] [address], * (ABNORMAL) C-Reactive Protein (02/02/2025 1:35 PM EDT) C Reactive Protein 39.6(H) <=9.9 mg/L 02/02/2025 2:49 PM EDT [facility] Blood Structure of peripheral vein / Unknown Venipuncture / Unknown 02/02/2025 1:35 PM EDT 02/02/2025 2:04 PM EDT Melany Baxter NP LAB BLOOD ORDERABLES Final Result Performing Organization Address City/[facility]/ZIP Co de Phone Number [facility] [address] [place] [address], [place] * DONIS Specific Antibody w/Reflex to [place] (02/02/2025 1:35 PM EDT) Pathologist [facility] DONIS Screen, Immunoassay NEGATIVE NEGATIVE 02/03/2025 3:36 PM EDT [employer] [employer] [facility] Comment: A negative DONIS Multiplex indicates the absence of detectable antibodies to component analytes consisting of double stranded DNA (dsDNA), chromatin, ribonucleoprotein (TECHNICAL COMMUNICATOR), Francois/TECHNICAL COMMUNICATOR (Sm/TECHNICAL COMMUNICATOR), Francois (Sm), SS-A, SS-B, Linda-1, centromere B, Scl-70 and ribosomal P. A negative result should be interpreted in the context of the clinical and laboratory findings and does not rule out autoimmune disease characterized by other autoantibody specificities such as rheumatoid arthritis, autoimmune hepatitis, primary biliary cirrhosis, autoimmune thyroiditis, [place]'s disease, pernicious anemia, autoimmune neuropathies, vasculitis, celiac disease, and bullous disease. For additional information, please refer to http://Miew.iPerceptions/faq/QFC025 (This link is being provided for informational/ educational purposes only.) Blood Structure of peripheral vein / Unknown Venipuncture / Unknown 02/02/2025 1:35 PM EDT 02/02/2025 2:04 PM EDT Narrative [facility] M[facility] - 02/03/2025 3:36 PM EDT [facility] Received Date: Melany Baxter NP LAB BLOOD ORDERABLES Final Result [facility] [address] [facility] [address]rd [address], [place] [address], [employer] [facility] [address] [facility] 3rd [address], [place] [address], [place] [phone] * (ABNORMAL) Haptoglobin (02/02/2025 1:35 PM EDT) Pathologist [facility] Haptoglobin 287(H) 43 - 212 mg/dL 02/02/2025 8:23 PM EDT [facility] [employer] [facility] Blood Structure of peripheral vein / Unknown Venipuncture / Unknown 02/02/2025 1:35 PM EDT 02/02/2025 2:04 PM EDT Narrative [facility] - 02/02/2025 8:23 PM EDT [facility] Received Date:[id number] Melany Baxter PRODUCTION ASSOCIATE LAB BLOOD ORDERABLES Final Result [facility] [address] [facility] [address]rd [address], [place] [address], [place] [phone] [employer] [facility] [address] [facility] 3rd Floor, [place] [address], [place] [phone] * Folate (02/02/2025 1:35 PM EDT) Folate 20.6 4.8 - 24.2 ng/mL 02/02/2025 3:21 PM EDT [facility] Blood Structure of peripheral vein / Unknown Venipuncture / Unknown 02/02/2025 1:35 PM EDT 02/02/2025 2:04 PM EDT Melany Baxter PRODUCTION ASSOCIATE LAB BLOOD ORDERABLES Final Result Performing Organization Address City/[facility]/ZIP Co de Phone Number [facility] [address] [place] [address], [place] * Vitamin B12 (02/02/2025 1:35 PM EDT) Vitamin B12 755 232 - 1,245 pg/mL 02/02/2025 2:53 PM EDT [facility] Blood Structure of peripheral vein / Unknown Venipuncture / Unknown 02/02/2025 1:35 PM EDT 02/02/2025 2:04 PM EDT Melany Baxter PRODUCTION ASSOCIATE LAB BLOOD ORDERABLES Final Result [employer] [facility] [address] [place] [address], [place] * (ABNORMAL) Comprehensive Metabolic Panel (Once) (02/02/2025 1:35 PM EDT) NA 133(L) 135 - 145 mmol/L 02/02/2025 2:49 PM EDT [facility] K 3.8 3.5 - 5.3 mmol/L 02/02/2025 2:49 PM EDT [facility] Cl 102 98 - 107 mmol/L 02/02/2025 2:49 PM EDT [facility] CO2 20(L) 22 - 32 mmol/L 02/02/2025 2:49 PM EDT [facility] Anion Gap 11 5 - 15 02/02/2025 2:49 PM EDT [facility] Glucose 92 65 - 99 mg/dL 02/02/2025 2:49 PM EDT [facility] Creatinine 0.53 0.50 - 1.20 mg/dL 02/02/2025 2:49 PM EDT [facility] Calcium 9.0 8.6 - 10.5 mg/dL 02/02/2025 2:49 PM EDT [facility] Total Protein 8.5(H) 6.0 - 8.0 g/dL 02/02/2025 2:49 PM EDT [facility] Albumin 3.3(L) 3.5 - 5.2 g/dL 02/02/2025 2:49 PM EDT [facility] Bilirubin, Total 0.5 0.2 - 1.2 mg/dL 02/02/2025 2:49 PM EDT [facility] Alkaline Phosphatase 123 35 - 129 U/L 02/02/2025 2:49 PM EDT [facility] AST 16 10 - 40 U/L 02/02/2025 2:49 PM EDT [facility] ALT 20 10 - 40 U/L 02/02/2025 2:49 PM EDT [facility] [employer] [facility] LAB[facility] BUN 9 7 - 23 mg/dL 02/02/2025 2:49 PM EDT [facility] PATHOLOG[facility] LAB[facility] eGFR >90 >=60 mL/min/1. 73m2 02/02/2025 2:49 PM EDT [facility] [employer] [facility] Comment:The estimated glomer ular [...] - 4.2 g/dL 02/02/2025 2:49 PM EDT [facility] A/G Ratio 0.6(L) 1.5 - 3.0 02/02/2025 2:49 PM EDT [facility] [facility] Blood Structure of peripheral vein / Unknown Venipuncture / Unknown 02/02/2025 1:35 PM EDT 02/02/2025 2:04 PM EDT Melany Baxter LAB BLOOD ORDERABLES Final Result [facility] [employer] [facility] LAB[facility]ORY [address] [place] [address], * LAB - SCANNED (01/17/2025) us Onbase Scan [facility] LAB HISTORICAL RESULTS Final Result * Hepatitis C Antibody w/Reflex to HCV RNA, Quantitative PCR (10/09/2022 8:00 AM EDT) Hepatitis C Antibody NON-REACT POWER NON-REACT POWER 10/10/2022 12:13 AM EDT [email or web address] Signal To Cut-Off 0.05 <1.00 10/10/2022 12:13 AM EDT [email or web address] Comment: HCV antibody was non-reactive. There is no laboratory evidence of HCV infection. In most cases, no further action is required. However, if recent HCV exposure is suspected, a test for HCV RNA (test code 17299) is suggested. For additional information please refer to http://education.[employer]/faq/TLZ62g2 (This link is being provided for informational/ educational purposes only.) Blood Structure of peripheral vein / Unknown Venipuncture / Unknown 10/09/2022 8:00 AM EDT 10/09/2022 8:04 AM EDT [facility] KAPIL MCGHEE - 10/10/2022 12:13 AM EDT [facility] Received Date:[id number] Joni Tate DO LAB BLOOD ORDERABLES Final R esult [facility] [address] [facility] [address], [place] [address], [employer] [facility] [address] [facility] 3rd [address], [place] [address], from Last 3 Months or Most Recently Relevant to Health Maintenance Insurance [employer] [facility] Advance Directives * Full Code (Latest Code Status on File) Date Activated Date Inactivated Comments 10/09/2022 9:07 AM 10/12/2022 5:50 PM Care Teams Public Address System Installer Relationship Specialty Start Date End Date Diana Moses MD PCP - General Family Medicine 10/12/22
== END 2025-03-28 15:18 | disposition home or self-care (01) ==
LOC: HO.LAB 15:17
PROVIDERS: Visit Provider Obstetrics & Gynecology
DX: O02.1 Missed abortion (principal)
CPT/HCPCS: 36415; 84702

== ENCOUNTER 2025-04-11 10:24 | Outpatient (REF) | payer MEDICAID, SELFPAY | END 2025-04-11 10:25 | disposition home or self-care (01) | LOC: HO.LAB 10:24 | PROVIDERS: Visit Provider Obstetrics & Gynecology | DX: O02.1 Missed abortion (principal) | CPT/HCPCS: 36415; 84702 ==

== ENCOUNTER 2025-04-13 12:16 | Outpatient (REF) | payer MEDICAID, SELFPAY ==
--- NOTE | ~2025-04-13 | US_ITS ---
EXAMINATION: US PELVIS TRANSABDOMINAL AND TRANSVAGINAL HISTORY: N93.9 - Abnormal uterine and vaginal bleeding, unspecified COMPARISON: There are no prior studies available for comparison. TECHNIQUE: Transabdominal and endovaginal real-time 2D lopez-scale ultrasound was performed. FINDINGS: Uterus: The uterus is normal in size, measuring 9.4 x 5.2 x 7.5 cm. Myometrium has a normal echotexture. No fibroids are identified. Endometrium: The endometrial stripe measured up to 2.0 cm at the start of the examination and 2.7 cm at the end of the examination. This may represent motion of blood products. Internal vascularity is also noted. Given the history of a recent , retained products of conception is not excluded. Right ovary: The right ovary measures 4.1 x 1.5 x 1.8 cm. There is a complex hypoechoic area measuring 2.1 x 1.8 x 1.6 cm. Left ovary: The left ovary measures 4.4 x 2.0 x 1.8 cm. The left ovary is normal in size and echotexture. Pelvic fluid: There is a small amount of free fluid in the pelvis. US/US pelvic and transvaginal IMPRESSION: Thickened endometrial stripe which changed appearance over the course of the examination and demonstrate internal vascularity. Findings may represent motion of blood products or retained products of conception (previous 02/2025). Electronically signed by: Mason Mota MD 04/13/2025 01:37 PM [facility]
[2025-04-13 13:24] LABS: Hematocrit 29.2 % (37.0-47.0); Hemoglobin 9.4 g/dl (12.0-16.0); Mean Corpuscular HGB Conc 32.2 g/dl (31.0-35.0); Mean Corpuscular Hemoglobin 26.5 pg (27.0-33.0); Mean Corpuscular Volume 82.3 fL (80.0-98.0); NRBC Abs Auto 0.000 X10*3/uL (0.0-0.012); NRBC Pct Auto 0.0 /100WBC (0.0-0.2); Platelet Count 183 X10*3/uL (160-400); Red Blood Count 3.55 X10*6/uL (4.20-5.50); White Blood Count 8.2 X10*3/uL (4.8-10.8)
--- NOTE | 2025-04-14 08:00 | HO.ANESPROP2 ---
Documented by User: Maryann Gaines NP 04/14/25 08:03 HPI - Anesthesia Eval Consult details Narrative: 39 yr old female for D&C hysteroscopy Prescribed medical termination of early Feb 2025; HCG down to 12 on 04/13/25 Anemia 2/2 vaginal bleeding: H/H 9.4/29.2 on 04/13/25 PMFSH Active Problems Active Problems: All Active Problems (Updated 04/13/25 @ 13:56 by Bakari Meza MD) Retained products of conception after induced termination of (Acute) Abnormal uterine bleeding (AUB) (Acute) Family planning (Acute) Anemia (Acute) Missed (Acute) Upper respiratory tract infection (Acute) Past Medical History Medical History (Updated 04/13/25 @ 13:56 by Bakari Meza MD) Migraine Surgical History Surgical History (Updated 04/14/25 @ 13:51 by Shanda Branch RN) No pertinent past surgical history Social History Social History Household Members: Children Housing: Apartment Alcohol intake: never Patient Tobacco Use Status: Never used Tobacco service: No Current occupational status: unemployed Sexual orientation: Straight/Heterosexual Gender identity: Female Meds Allergies Allergy/AdvReac Type Severity Reaction Status Date / Time No Known Allergies Allergy Verified 04/13/25 13:50 Home Medications ?Medication ?Instructions ?Recorded ?Confirmed ?Last Taken ?Type ascorbic acid (vitamin C) 500 mg 500 mg PO DAILY 03/24/25 Unknown History tablet (Vitamin C) norethindrone (contraceptive) 0.35 0.35 mg PO DAILY 03/24/25 Unknown History mg tablet Exam Pertinent Lab Results Pertinent Lab Results: Laboratory Tests 04/13/25 13:12 WBC 8.2 RBC 3.55 L Hgb 9.4 L Hct 29.2 L MCV 82.3 MCH 26.5 L MCHC 32.2 RDW 15.9 Plt Count 183 MPV 10.5 Absolute Nucleated RBC 0.000 Nucleated RBC % (auto) 0.0 Documented by User: Gurmeet Allen MD 04/14/25 15:21 [facility] Past Medical History Medical History (Updated 04/13/25 @ 13:56 by Bakari Meza MD) Migraine Functional capacity: independent ambulation Family History Family history of problems with anesthesia: No Surgical History Surgical History (Updated 04/14/25 @ 13:51 by Shanda Branch, RN) No pertinent past surgical history History of Problems with Anesthesia: No Social History Social History Household Members: Children Housing: Apartment Alcohol intake: never Patient Tobacco Use Status: Never used Tobacco service: No Current occupational status: unemployed Sexual orientation: Straight/Heterosexual Gender identity: Female Meds Allergies Allergy/AdvReac Type Severity Reaction Status Date / Time No Known Allergies Allergy Verified 04/13/25 13:50 Home Medications ?Medication ?Instructions ?Recorded ?Confirmed ?Last Taken ?Type ascorbic acid (vitamin C) 500 mg 500 mg PO DAILY 03/24/25 Unknown History tablet (Vitamin C) norethindrone (contraceptive) 0.35 0.35 mg PO DAILY 03/24/25 Unknown History mg tablet Exam Exam Date and Time: 04/14/25 Airway Mallampati Class: Patient Non-Cooperative TM Dist: >3cm Neck ROM: Full Loose/Missing/Broken Teeth: Yes Heart: rrr Lungs: ctab vesicular Assessment and Plan Assessment Anesthesia Assessment: Anesthesia Plan Discussed and Chart Reviewed Final Anesthetic Review Family History of Problems with Anesthesia: No History of Problems with Anesthesia: No NPO: Yes ASA Class: II Final Preanesthetic Review: No Changes in Pt Med Stat, Meds/Allgs Chart Reviewed, Consent Obtained/Reviewed and Anes Risks/Benef Reviewed Patient Risk: Low Procedure Risk: Low Anesthetic Plan Anesthetic Plan: GA Disposition: Standard PACU
== END 2025-04-13 12:17 | disposition home or self-care (01) ==
LOC: HO.US 12:16
PROVIDERS: Visit Provider Obstetrics & Gynecology
DX: Z01.818 Encounter for other preprocedural examination (principal); O07.4 Failed attempted termination of pregnancy without complication; N93.9 Abnormal uterine and vaginal bleeding, unspecified; D64.9 Anemia, unspecified
CPT/HCPCS: 36415; 76830; 76856; 85027; 99212

== ENCOUNTER → 2025-04-13 12:31 | Outpatient (BNV) | payer MEDICAID, SELFPAY | PROVIDERS: Visit Provider Radiology Diagnostic Radiology | DX: N93.9 Abnormal uterine and vaginal bleeding, unspecified (principal) | CPT/HCPCS: 76830; 76856 ==

== ENCOUNTER 2025-04-13 13:16 | Outpatient (AMB) | payer MEDICAID, SELFPAY ==
[2025-04-13 13:49] VITALS: BMI 29.6
--- NOTE | 2025-04-13 13:49 | MHC.OFFVIS ---
Vital Signs 04/13/25 13:49 Height 5 ft 3 in Weight 167 lb BMI 29.6 Intake Visit Reasons: vaginal bleeding Cattle Manager Required: Yes Cattle Manager Language: Manager Pulmonary Services: Cattle Manager Present (in person) Cattle Manager Name: Cheyenne GARCIA Information Interpreted: non-clinical & clinical Commercial Pest Control Technician: Commercial Pest Control Technician Present (Cheyenne GARCIA) Accompanied by: Self / Same As Patient Allergies No Known Allergies Allergy (Verified 04/13/25 13:50) Is last menstrual period known: Yes Last menstrual period: 03/22/20 Post menopausal: No Patient : No Do you need a note to return to daycare/school/sports/work: Yes (for surgery on thursday) HPI Comments Details: Presenting complaining of continuous vaginal bleeding. The patient was seen in the emergency room on 02/23/2025 The patient gives history of chronic anemia in the emergency room H&H in 09/16 In the ER the following workup was done: H&H 7.9/24.5 HCG 8230 Blood type A positive Pelvic ultrasound showed the following: Impression: 1. Single intrauterine gestation estimated at 8 weeks 6 days by today's ultrasound criteria. No heart tones. Findings consistent with a failed early intrauterine . 2. Clinical menstrual age not available. The patient was prescribed medical termination of , her bleeding improved for while and the patient started having recurrence of her vaginal bleeding associated with pelvic cramping and passage of blood clot HCG on 04/11 was 12 Pelvic ultrasound done today showed the following: Uterus: The uterus is normal in size, measuring 9.4 x 5.2 x 7.5 cm. Myometrium has a normal echotexture. No fibroids are identified. Endometrium: The endometrial stripe measured up to 2.0 cm at the start of the examination and 2.7 cm at the end of the examination. This may represent motion of blood products. Internal vascularity is also noted. Given the history of a recent , retained products of conception is not excluded. Right ovary: The right ovary measures 4.1 x 1.5 x 1.8 cm. There is a complex hypoechoic area measuring 2.1 x 1.8 x 1.6 cm. Left ovary: The left ovary measures 4.4 x 2.0 x 1.8 cm. The left ovary is normal in size and echotexture. Pelvic fluid: There is a small amount of free fluid in the pelvis. US/US pelvic and transvaginal IMPRESSION: Thickened endometrial stripe which changed appearance over the course of the examination and demonstrate internal vascularity. Findings may represent motion of blood products or retained products of conception (previous 02/2025) 03/24 H&H up from the emergency room levels, today's repeat H&H was 9.4/29.2 PFSH Medical History Migraine Social History Household Members: Children Housing: Apartment Alcohol intake: never Patient Tobacco Use Status: Never used Tobacco service: No Current occupational status: unemployed Sexual orientation: Straight/Heterosexual Gender identity: Female Female Reproductive History Menstrual Date of last menstrual period: 03/22/20 Total pregnancies: 2 Full term: 2 Review of Systems Card Reports as per HPI and Reports no additional complaints Resp Reports as per HPI and Reports no additional complaints GI Reports as per HPI and Reports no additional complaints Reports as per HPI Physical Exam Vital Signs: BMI result Body Mass Index 29.6 Const General: cooperative, healthy appearing and comfortable Resp Effort & Inspection: normal respiratory effort Auscultation: clear to auscultation bilaterally Percussion: percussion normal Cardio Palpation: normal PMI Rate: regular rate Rhythm: regular rhythm Heart sounds: no murmurs and no rubs Peripheral pulses: Peripheral pulses 2+ throughout GI Inspection: Yes normal to inspection Palpation (GI): Soft to palpation, nontender, no guarding, not rigid and No hepatosplenomegaly present Percussion: Yes normal to percussion Auscultation: normal bowel sounds Rectal Exam - Female: deferred Assessment & Plan Assessment & Plan (1) Retained products of conception after induced termination of : Code(s): O07.4 - Failed attempted termination of without complication Category: Medical Plan: Discussed with the patient the clinical situation with heavy bleeding and cramping and the result of the ultrasound showing possible retained follow-up of conception, the options of the treatment discussed with the patient including medical treatment , suction D&C, all pros, cons, risks and benefits were discussed with the patient and the patient the decided to go ahead with Suction D&C. so a more detailed discussion about the procedure was carried on with the patient including the technique, risks including but not limited to : bleeding, infection, uterine perforation, injury to blood vessels, bowels, ureters, bladder, possible need for blood transfusion with all its risks ( HIV, Hep b or C, anaphylaxis reactions), possible need for laparoscopy, laparotomy, or hysterectomy, possible , thromboembolic events, possibility of a negative impact on future fertility because of scar tissue development inside the uterus; alternatives of this option were discussed with the patient including but not limited to, medical termination of or doing nothing. The patient decided to go ahead with Suction D&C and signed the consent. All questions answered, the patient verbalized understanding and agreed with the plan. Doxycycline 200 mg p.o. preop to be given to the patient. Ultrasound will be notified. Type and screen shay be sent. Instructions given the patient to schedule a 2 week postoperative appointment. This note was generated with a voice recognition program. Some errors may have been overlooked during the review of this note. Sometimes these errors may affect the content or meaning of a given sentence. Orders: Orders US pelvic and transvaginal Today N93.9 - Abnormal uterine and vaginal bleeding, unspecified Coding Level of Care Code Est Pt Level 3 (90291) Diagnoses Retained products of conception after induced termination of O07.4
--- OUTSIDE RECORDS SUMMARY | 2025-04-13 18:47 | XMS_ITS | Clinical Summary ---
Author Organization [employer] Address [address] [place] [address] Care Team Providers Care Manager Order Name Role Phone Claudia Ferrara CARLA Primary Care Provide r Allergies No known active allergies Medications * This document contains information received from the source organization and may not represent a complete record from that organization. Blood Pressure Monitoring (Blood Pressure Kit) kit 1 each Use as directed. 10/07/19 23 Active Multiple Vitamin (multivitamin) tabletIndications :Other headache syndrome Take 1 tablet by mouth Once per day. 90 tablet 3 12/21/19 25 2025 Active Drospirenone (Slynd) 4 MG tablet Take 1 tablet by mouth Once per day. 84 tablet 3 03/02/20 25 Active ibuprofen 200 MG tabletIndications :Chronic nonintractable headache, unspecified headache type Take 2 tablets (400 mg) by mouth every 6 (six) hours if needed for headaches, fever or moderate pain. 240 tablet 3 03/08/20 25 Active naproxen (Naprosyn) 500 MG tabletIndications :Menorrhagia with irregular cycle Take 1 tablet (500 mg) by mouth with breakfast and with evening meal. 60 tablet 1 04/03/20 25 2025 Active ascorbic acid (Vitamin C) 500 MG tabletIndications :Iron deficiency anemia, unspecified iron deficiency anemia type,Encounter for medication refill Take 1 tablet (500 mg) by mouth Once per day. 90 tablet 3 04/03/20 25 2025 Active ferrous sulfate 325 (65 Fe) MG EC tabletIndications :Iron deficiency anemia, unspecified iron deficiency anemia type,Encounter for medication refill Take 1 tablet (325 mg) by mouth with breakfast. Do not crush, chew, or split. 90 tablet 2 04/03/20 25 2025 Active SUMAtriptan (Imitrex) 100 MG tabletIndications :Encounter for medication refill,Migraine-c luster headache syndrome Take 1 tablet (100 mg) by mouth 1 (one) time if needed for migraine (ok to take another dose 2 hours later if no improvement. MAXIMUM: 2 doses per day). 30 tablet 04/03/20 Active estrogens, conjugated, (Premarin) 0.3 MG tabletIndications :Irregular menstrual bleeding Take 1 tablet (0.3 mg) by mouth Once per day. Take daily for 21 days then do not take for 7 days. 21 tablet 04/05/20 25 2024 Active ferrous sulfate 325 (65 Fe) MG EC tabletIndications :Iron deficiency anemia, unspecified iron deficiency anemia type Take 1 tablet (325 mg) by mouth with breakfast. Do not crush, chew, or split. 90 tablet 2 12/21/19 25 2024 Discontinued(R eorder (will not trigger notification to Pharmacy)) ascorbic acid (Vitamin C) 500 MG tabletIndications :Iron deficiency anemia, unspecified iron deficiency anemia type Take 1 tablet (500 mg) by mouth Once per day. 90 tablet 3 12/22/19 25 2024 Discontinued(R eorder (will not trigger notification to Pharmacy)) SUMAtriptan (Imitrex) 100 MG tabletIndications :Migraine-cluster headache syndrome Take 1 tablet (100 mg) by mouth 1 (one) time if needed for migraine (ok to take another dose 2 hours later if no improvement. MAXIMUM: 2 doses per day). 30 tablet 03/15/20 25 2024 Discontinued(R eorder (will not trigger notification to [...] iron is needed - Call pt with director apparel to review lab results and next steps [...] for Ferrous sulfate to be sent to [facility] Excuse note return to work on Thursday07-25-2024. ---Admission 07-03-2024 through Discharged 07-06-2024. For headache, neck pain and fever at [facility]. Admitting diagnosis Viral Meningitis and Iron Deficinecy [...] iron is needed - Call pt with director apparel to review lab results and next steps [...] For headache, neck pain and fever at [facility]. Admitting diagnosis Viral Meningitis and Iron Deficinecy Anemia. Also noted to have LUCERO with iron <7, Tbic 147, received 3 iron infusions and started on iron suplementation. Currently not taking ferrous sulfate, as reports was expensive at her pharmacy with a co-pay of $50. Advised can send to [facility] pharmacy and patient agreeable, as reports will be coming in for her blood work this Thursday. Counseled on importance of completing blood work ordered, that has not been completed. Lab work not completed from 07-12-24. Reports will be able to do labs on Thursday Agreeable for Ferrous sulfate to be sent to [facility] Excuse note return to work on [...] 06/06/2024 Overview (06/06/2024): Patient does not speak Swazi as a primary language. Certified director apparel was used for the duration of this visit which requires at least twice the time to assess history, discuss assessment and plan. Those with primary language is other than Swazi, require additional support and expertise in order [...] patient also had visit with primary care [facility] 06-02-2024. Patient reports doing overall well, and [...] Advised on strategies to help with stress [facility] follow-up in 4 weeks PCP follow-up in [...] Encounters Date Type Department Care Team Description 04/07/2025 Telephone [facility] [address] [place] [phone] Claudia Ferrara FNP Letter for School/Work 04/05/2025 Results Follow-Up [address] [phone] Alice Stevens NP CBC auto differential, Iron, TIBC And Ferritin Panel, Folate, Serum, Additional followed-up results: 2 04/03/2025 4:00 PM EST Office Visit [address] [phone] Alice Stevens NP Menorrhagia with irregular cycle (Primary Dx); Encounter for screening for diabetes mellitus; Iron deficiency anemia, unspecified iron deficiency anemia type; Encounter for medication refill; Nonintractable headache, unspecified chronicity pattern, unspecified headache type; Migraine-cluster headache syndrome 03/24/2025 Results Follow-Up [facility] [address] [place] [phone] Zoya Matthews MD MR Brain w/o Contrast 03/22/2025 [facility] [address] [place], [place] [phone] Frances Steve RN 03/22/2025 [place] [address] Claudia Ferrara FNP Nurse Triage 03/15/2025 3:40 [place] [phone] Zoya Matthews MD Migraine-cluster headache syndrome (Primary Dx); Language barrier affecting health care 03/15/2025 [place] [phone] Zoya Matthews MD 03/08/2025 3:40 [place] [address] Zoya Matthews MD Chronic nonintractable headache, unspecified headache type (Primary Dx); Language barrier affecting health care; Early loss 03/06/2025 [place] [phone] Jennifer Wright FNP Vaginitis Plus (VG+) With Cherelle (Six Species), NuSwab 03/02/2025 3:00 PM EDT Routine [address] [phone] Jennifer Wright FNP Worst headache of life (Primary Dx); Miscarriage; Oral contraception initial prescription; Iron deficiency anemia, unspecified iron deficiency anemia type 03/01/[address] [phone] Claudia Ferrara FNP Pt reporting whe went to the ER 02/25; Hospital Follow-up 02/17/[address] [phone] Claudia Ferrara FNP Appointment Confirmation 02/17/[address] [phone] Diana Moses MD 02/02/2025 Orders Only [address] [phone] Claudia Ferrara FNP Other headache syndrome (Primary Dx); History of viral meningitis from Last 3 Months Immunizations Immunization Administration [...] Sign Reading Time Taken Comments Blood Pressure 126/78 04/03/2025 4:33 PM EST Pulse 76 04/03/2025 4:33 PM EST Temperature 37 C (98.6 F) 04/03/2025 4:33 PM EST Respiratory Rate 18 04/03/2025 4:33 PM EST Oxygen Saturation 97% 04/03/2025 4:33 PM EST Inhaled Oxygen Concentration - - Weight 72.3 kg (159 lb 6.4 oz) 04/03/2025 4:33 P M EST Height 159.5 cm (5' 2.8 ) 12/20/2024 1:12 PM EDT Body Mass Index 28.42 12/20/2024 1:12 PM EDT Plan of Treatment Health Maintenance Due Date Last Done Comments Disability Screening 1985 HPV Vaccines (1 - 3-dose series) 12/26/2002 DTaP/Tdap/Td Vaccines (1 - Tdap) 12/26/2006 Hepatitis B Vaccines (1 of 3 - 19+ 3-dose series) 12/26/2006 COVID-19 Vaccine (5 - season) 2025 09/24/2022, 06/17/2022, 05/20/2022, Additional history exists Influenza Vaccine (#1) 2025 Depression Screening 01/26/2025 01/27/2024, 01/27/20 24 SDOH Screening 05/02/2025 05/02/2024 Alcohol/Substance Use Screening 12/20/2025 12/20/2024 Family Planning (PISQ) 12/20/2025 12/20/2024 Tobacco Screening 04/03/2026 04/03/2025 Cervical Cancer Screening 01/26/2029 HPV/Cotest 01/26/2029 01/27/2024 [...] Procedure Name Priority Date/Time Associated Diagnosis Comments HUMAN CHORIONIC GONADOTROPIN (HCG),BETA SUBUNIT, QUANT Routine 04/03/2025 5:32 PM EST Menorrhagia with irregular cycle HEMOGLOBIN A1C Routine 04/03/2025 5:32 PM EST Encounter for screening for diabetes mellitus FOLATE, SERUM Routine 04/03/2025 5:32 PM EST Menorrhagia with irregular cycle IRON, TIBC AND FERRITIN PANEL Routine 04/03/2025 5:32 PM EST Menorrhagia with irregular cycle CBC WITH AUTO DIFFERENTIAL Routine 04/03/2025 5:32 PM EST Menorrhagia with irregular cycle MR BRAIN WO CONTRAST Urgent 03/16/2025 Chronic [...] Relevant to Health Maintenance Results * (ABNORMAL) Human Chorionic Gonadotropin (hCG), Beta Subunit, Quantitative (04/03/2025 5:32 PM EST) hCG,Beta Subunit,Qnt,Se rum 13.2(H) 0.0 - 5.0 mIU/mL [facility] Comment: Test Interpretation: Negative: <5 Gestation Age: 0.2-1 w 5- 50 1-2 w 50- 500 2-3 w 100- 5000 3-4 w 500- 10,000 4-5 w 1,000- 50,000 5-6 w 10,000- 100,000 6-8 w 15,000- 200,000 2-3 mo 10,000- 100,000 Blood Venous blood specimen / Unknown 04/03/2025 5:32 PM EST 04/03/2025 Narrative Resulting Agency Comment Performed at: - [address] [id number] Mosaic Technician: Parris Rome MD, Phone: [phone] us Alice Stevens NP LAB BLOOD ORDERABLES Final R esult [facility] [address] [phone] * (ABNORMAL) Iron, TIBC And Ferritin Panel (04/03/2025 5:32 PM EST) [facility] Iron Binding Capacity 176(L) 250 - 450 ug/dL [facility] UIBC 151 131 - 425 ug/dL [facility] Iron, Total 25(L) 27 - 159 ug/dL [facility] % Saturation 14(L) 15 - 55 % [facility] Ferritin 659(H) 15 - 150 ng/mL [facility] Blood Venous blood specimen / Unknown 04/03/2025 5:32 PM EST 04/03/2025 Narrative Resulting Agency Comment Performed at: - [address] [id number] Mosaic Technician: Digna Olson MD, Phone: [phone] us Alice Stevens NP LAB BLOOD ORDERABLES Final R esult [facility] 1 [facility] [address] [place] [address] * (ABNORMAL) CBC auto differential (04/03/2025 5:32 PM EST) [facility] White Blood Cell Count 7.3 3.9 - 11.0 x10(3)/mcL [facility] Red Blood Cell Count 3.59(L) 3.70 - 5.10 million/mc L [facility] Hemoglobin 9.3(L) 11.5 - 12.5 g/dL [facility] Hematocrit 30.3(L) 34.0 - 44.0 % [facility] MCV 84 80 - 100 fL [facility] MCH 26(L) 27 - 33 pg [facility] MCHC 31 31 - 36 g/dL [facility] RDW [facility] Comment:RDW-SD 51 N Platelet Count 173 150 - 450 x10(3)/mcL [facility] Comment:MPV 12.6 fL 7.0-11.0 H Neutrophils 58 42 - 76 % [facility] Lymphocytes 31 27 - 47 % [facility] Monocytes 8 4 - 13 % [facility] Eosinophils 2 0 - 7 % [facility] Basophils 0 0 - 3 % [facility] Absolute Neutrophils 4.2 1.8 - 7.0 x10(3)/mcL [facility] Absolute Lymphocytes 2.3 1.1 - 5.9 x10(3)/mcL [facility] Absolute Monocytes 0.6 0.1 - 0.8 x10(3)/[facility] Absolute Eosinophils 0.16 0.00 - 0.40 x10(3)/[facility] Absolute Basophils 0.03 0.00 - 0.20 x10(3)/[facility] Immature Granulocytes 0 % [facility] Immature Grans (Abs) 0 10(3)/uL [facility] NRBC 0 % [facility] Comment:NRBC Auto Abs 0.00 x10(3)/mcL N Blood Venous blood specimen / Unknown 04/03/2025 5:32 PM EST 04/03/2025 Narrative Resulting Agency Comment Performed at: [address] [id number] Mosaic Technician: Parris Rome MD, Phone: [phone] us Alice Stevens NP LAB BLOOD ORDERABLES Final R esult [facility] [address] [phone] * Hemoglobin A1c (Diabetes screening) (04/03/2025 5:32 PM EST) Pathologist [facility] Hemoglobin A1c 5.4 4.8 - 5.9 % [facility] Comment: Diabetic Adult: <7.0% Healthy Adult: 4.8-5.9% est Av Glu(eAG) 108 mg/dL N Blood Venous blood specimen / Unknown 04/03/2025 5:32 PM EST 04/03/2025 Narrative Resulting Agency Comment Performed at: 01 - [address] [id number] Mosaic Technician: Parris Rome MD, Phone: [phone] Alice Lopezsma STULL INSTALLER LAB BLOOD ORDERABLES Final R esult Performing Organization Address [facility] Co de Phone Number [facility] [address] [phone] * Folate, Serum (04/03/2025 5:32 PM EST) Folate, Serum 16.2 >3.0 ng/mL [facility] Comment: A serum folate concentration of less than 3.1 ng/mL is considered to represent clinical deficiency. Blood Venous blood specimen / Unknown 04/03/2025 5:32 PM EST 04/03/2025 Narrative Resulting Agency Comment Performed at: - [address] [id number] Mosaic Technician: Digna Olson MD, Phone: [phone] Alice Stevens NP LAB BLOOD ORDERABLES Final R esult Performing Organization Address [facility] Co de Phone Number [facility] 1 [facility] [address] [place] [address] * MR Brain w/o Contrast (03/16/2025) Anatomical Region Laterality Modality Brain Magnetic Resonan ce Zoya Matthews MD IMG MRI PROCEDURES Edited Result - Final * (ABNORMAL) Vaginitis Plus (VG+) With Cherelle (Six Species), NuSwab (03/02/2025 12:00 AM EDT) Pathologist [facility] Atopobium vaginae High - 2(A) Score [facility] BVAB 2 High - 2(A) Score [facility] Megasphaera 1 High - 2(A) Score [facility] Comment: Calculate total score by adding the 3 individual bacterial vaginosis (BV) marker scores together. Total score is interpreted as follows: Total score 0-1: Indicates the absence of BV. Total score 2: Indeterminate for BV. Additional clinical data should be evaluated to establish a diagnosis. Total score 3-6: Indicates the presence of BV. Cherelle albicans, LINDY Negative Negative [facility] Cherelle glabrata, LINDY Negative Negative [facility] C parapsilosis/trop icalis Negative Negative [facility] Comment:This assay does not differentiate C. tropicalis and C. parapsilosis. Cherelle lusitaniae, LINDY Negative Negative [facility] Cherelle krusei, LINDY Negative Negative [facility] Trich vag by LINDY Negative Negative [facility] Chlamydia trachomatis, LINDY Negative Negative [facility] Neisseria gonorrhoeae, LINDY Negative Negative [facility] Swab (Vaginal Swab) 03/02/2025 03/02/2025 Comment:Vaginal Swab Delay r e Narrative [facility] 1 - 03/04/2025 8:05 PM EDT Test(s) 176918- Atopobium vaginae; 742669- BVAB 2; 753006- Megasphaera 1 was developed and its performance characteristics determined by [facility]. It has not been cleared or approved by the Food and Drug Administration. Test(s) 475552-Lwjvkrl albicans, LINDY; 623149-Xajrzbs glabrata, LINDY; 129905-Z parapsilosis/tropicalis; 703201-Nhyvbsu lusitaniae, LINDY; 213211-Rrxntxi krusei, LINDY was developed and its performance characteristics determined by [facility]. It has not been cleared or approved by the Food and Drug Administration. Resulting Agency Comment Performed at: 01 - [address] [id number] Mosaic Technician: Digna Olson MD, Phone: [phone] Jennifer Wright [facility] LAB CYTOLOGY ORDERA BLES Final Result [facility] 1 [facility] [address] [place] [address] * Referral to Hematology (02/03/2025) Claudia Ferrara [facility]CH MENDER OUTPATIENT REFERRAL O RDERABLES Final Result * Routine Pap, Age 30+ (01/27/2024 2:12 PM EDT) Diagnosis [facility] 1 Comment: NEGATIVE FOR INTRAEPITHELIAL LESION OR MALIGNANCY. THE CYTOLOGY PROCESSING WAS PERFORMED AT THE [facility] FAC[facility] LOCATED AT [address] [place] [phone]. Adequacy: [facility] 1 Comment: Satisfactory for evaluation. [...] and false-negative reports do occur. Test Methodology: [facility] Comment: This liquid based ThinPrep(R) pap test was screened with the use of an image guided system. HPV Aptima Negative Negative [facility] 3 Comment: This nucleic acid amplification test detects fourteen high-risk HPV types (16,18,31,33,35,39,45,51,52,56,58,59,66,68) without differentiation. ThinPrep vial (Cervical cells) 01/27/2024 2:12 PM EDT 01/27/2024 Comment:CERVICAL Narrative [facility] 3 - 01/29/2024 10:05 PM EDT Performed at: 01 - [facility] Histo Cyto [address] [id number] Mosaic Technician: Conner Rome MD, Phone: [phone] Performed at: 02 - [facility] [id number] Mosaic Technician: Digna Olson MD, Phone: [phone] Performed at: 03 - [address] [id number] Mosaic Technician: Digna Olson MD, Phone: [phone] Specimen Comment: [id number] Specimen Comment: No. of containers..01 ThinPrep Vial Em Guillen [facility] LAB CYTOLOGY ORDERABLES Dennise l Result [facility] 3 [facility] * HIV 1/2 Antigen and Antibody (07/09/2023) HIV Ag/Ab Nonreactive Historical Provider HEALTH MAINTENANCE Final Result * Hepatitis C Antibody (10/06/2022) Hepatitis C Antibody Nonreactive Blood Historical Provider HEALTH MAINTENANCE Final Result from Last 3 Months or Most Recently Relevant to Health Maintenance [place] [address] [place] [address] C3 Care Teams Manager Order Relationship Specialty Start Date End Date Claudia Ferrara FNP [address] [place] [phone] PCP - General Family Medicine 11/20/21
--- OUTSIDE RECORDS SUMMARY | 2025-04-13 18:47 | XMS_ITS | Encounter Summary ---
Author Organization [employer] Address [address] [place] [address] [place] [address] Care Team Providers Care Barrel Assembler Name Role Phone LevonOriana Claudia CARLA Primary Care Provide r Encounter Details Date Type Department Care Team ([facility] Contact Info) Description 04/05/2025 Results Follow-Up [facility] Walk-in [address] [phone] Alice Stevens NP [address] [place] [phone] CBC auto differential, Iron, TIBC And Ferritin Panel, Folate, Serum, Additional followed-up results: 2 Social History Tobacco Use Types Packs/Day Years [...] as of this encounter Plan of Treatment Not on file documented as of this encounter Visit Diagnoses Diagnosis Irregular menstrual bleeding- Primary Irregular menstrual cycle documented in this encounter Care Teams Barrel Assembler Relationship Specialty Start Date End Date Claudia Ferrara FNP [address] [place] [phone] PCP - General Family Medicine 11/20/21 documented as of this encounter
--- OUTSIDE RECORDS SUMMARY | 2025-04-13 18:47 | XMS_ITS | Encounter Summary ---
Author Organization [employer] Address [address] [place] [address] 7 [place] [address] Care Team Providers Care Dinkey Driver Name Role Phone Claudia Ferrara CARLA Primary Care Provide r Encounter Details Date Type Department Care Team ([facility] Contact Info) Description 03/24/2025 Results Follow-Up [facility] Primary Care [address] [place] [phone] Zoya Matthews MD [address] [place] [phone] MR Brain w/o Contrast Social History [...] on filedocumented in this encounter Care Teams Dinkey Driver Relationship Specialty Start Date End Date Claudia Ferrara FNP [address] [place] [phone] PCP - General Family Medicine 11/20/21 documented as of this encounter
== END 2025-04-13 14:32 | disposition home or self-care (01) ==
LOC: HO.HWS 13:17
PROVIDERS: Visit Provider Obstetrics & Gynecology
DX: O07.4 Failed attempted termination of pregnancy without complication (principal)
CPT/HCPCS: 99213

== ENCOUNTER 2025-04-14 13:07 | Day surgery (SDC) | payer MEDICAID, SELFPAY ==
[2025-04-14] VITALS (11 sets, daily range): BP systolic 109–159; BP diastolic 64–96; PULSE 64–80; RESP 13–20; TEMP 36.4–36.6; O2SAT 97–100; BMI 29.8; BMI 31.7
--- OUTSIDE RECORDS SUMMARY | 2025-04-14 09:56 | XMS_ITS | Encounter Summary ---
Author Organization [employer] Address [address] [place] [address] [place] [address] Care Team Providers Care Cracking And Fanning Machine Operator Name Role Phone LevonOriana Claudia CARLA Primary Care Provide r Encounter Details Date Type Department Care Team ([facility] Contact Info) Description 04/05/2025 Results Follow-Up [facility] Walk-in [address] [phone] Alice Stevens NP [address] [place] [phone] CBC auto differential, Iron, TIBC And Ferritin [...] cycle documented in this encounter Care Teams Cracking And Fanning Machine Operator Relationship Specialty Start Date End Date Claudia Ferrara FNP [address] [place] [phone] PCP - General Family Medicine 11/20/21 documented as of this encounter
--- OUTSIDE RECORDS SUMMARY | 2025-04-14 09:56 | XMS_ITS | Clinical Summary ---
Author Organization [employer] Address [address] [facility] 7 [place] [address] Care Team Providers Care Checkerer Hand Name Role Phone Claudia Ferrara CARLA Primary [...] iron is needed - Call pt with bill of materials clerk to review lab results and next steps [...] Ferrous sulfate to be sent to [facility] Excuse note return to work on Thursday07-25-2024. ---Admission 07-03-2024 through Discharged 07-06-2024. For headache, neck pain and fever at [facility]. Admitting diagnosis Viral Meningitis and Iron [...] iron is needed - Call pt with bill of materials clerk to review lab results and next steps [...] For headache, neck pain and fever at [facility]. Admitting diagnosis Viral Meningitis and Iron Deficinecy Anemia. Also noted to have LUCERO with iron <7, Tbic 147, received 3 iron infusions and started on iron suplementation. Currently not taking ferrous sulfate, as reports was expensive at her pharmacy with a co-pay of $50. Advised can send to [facility] pharmacy and patient agreeable, as reports will be coming in for her blood work this Thursday. Counseled on importance of completing blood work ordered, that has not been completed. Lab work not completed from 07-12-24. Reports will be able to do labs on Thursday Agreeable for Ferrous sulfate to be sent to [facility] Excuse note return to work on [...] 06/06/2024 Overview (06/06/2024): Patient does not speak Omani as a primary language. Certified bill of materials clerk was used for the duration of this visit which requires at least twice the time to assess history, discuss assessment and plan. Those with primary language is other than O[place]i, require additional support and expertise in order [...] patient also had visit with primary care [facility] 06-02-2024. Patient reports doing overall well, [...] Advised on strategies to help with stress [facility] follow-up in 4 weeks PCP follow-up [...] Type Department Care Team Description 04/07/2025 Telephone [facility] Primary Care [address] [place] [phone] Claudia Ferrara FNP Letter for School/Work 04/05/2025 Results Follow-Up [address] [phone] Alice Stevens NP CBC auto differential, Iron, TIBC And Ferritin Panel, Folate, Serum, Additional followed-up results: 2 04/03/2025 4:00 PM EST Office Visit [address] [phone] Alice Stevens NP Menorrhagia with irregular cycle (Primary Dx); Encounter for screening for diabetes mellitus; Iron deficiency anemia, unspecified iron deficiency anemia type; Encounter for medication refill; Nonintractable headache, unspecified chronicity pattern, unspecified headache type; Migraine-cluster headache syndrome 03/24/2025 Results Follow-Up [facility] Care [address] [place] [phone] Zoya Matthews MD MR Brain w/o Contrast 03/22/2025 [facility] Walk-in Center [address] [place], [place] [phone] Frances Steve RN 03/22/2025 [place] [address] Claudia Ferrara FNP Nurse Triage 03/15/2025 3:40 [place] [address] Zoya Matthews MD Migraine-cluster headache syndrome (Primary Dx); Language barrier affecting health care 03/15/2025 [place] [address] Zoya Matthews MD 03/08/2025 3:40 [place] [address] Zoya Matthews MD Chronic nonintractable headache, unspecified headache type (Primary Dx); Language barrier affecting health care; Early loss 03/06/2025 [place] [phone] Jennifer Wright FNP Vaginitis Plus (VG+) With Cherelle (Six Species), NuSwab 03/02/2025 3:00 PM EDT Routine [address] [phone] Jennifer Wright FNP Worst headache of life (Primary Dx); Miscarriage; Oral contraception initial prescription; Iron deficiency anemia, unspecified iron deficiency anemia type 03/01/[address] [phone] Claudia Ferrara FNP Pt reporting whe went to the ER 02/25; Hospital Follow-up 02/17/[address] [phone] Claudia Ferrara FNP Appointment Confirmation 02/17/[address] [phone] Diana Moses MD 02/02/2025 Orders Only [address] [phone] Claudia Ferrara FNP Other headache [...] unspecified headache type VAGINITIS PLUS (VG+) WITH CHERLELE (SIX SPECIES), NUSWAB Routine 03/02/2025 12:00 AM [...] Subunit,Qnt,Se rum 13.2(H) 0.0 - 5.0 mIU/mL [facility] Comment: Test Interpretation: Negative: <5 Gestation Age: 0.2-1 w 5- 50 1-2 w 50- 500 2-3 w 100- 5000 3-4 w 500- 10,000 4-5 w 1,000- 50,000 5-6 w 10,000- 100,000 6-8 w 15,000- 200,000 2-3 mo 10,000- 100,000 Blood Venous blood specimen / Unknown 04/03/2025 5:32 PM EST 04/03/2025 Narrative Resulting Agency Comment Performed at: - [address] [id number] Programming Intern: Parris Rome MD, Phone: [phone] us Alice Stevens NP LAB BLOOD ORDERABLES Final R esult [facility] [address] [address] * (ABNORMAL) Iron, TIBC And Ferritin Panel (04/03/2025 5:32 PM EST) [facility] Iron Binding Capacity 176(L) 250 - 450 ug/dL [facility] UIBC 151 131 - 425 ug/dL [facility] Iron, Total 25(L) 27 - 159 ug/dL [facility] % Saturation 14(L) 15 - 55 % [facility] Ferritin 659(H) 15 - 150 ng/mL [facility] Blood Venous blood specimen / Unknown 04/03/2025 5:32 PM EST 04/03/2025 Narrative Resulting Agency Comment Performed at: - [address] [id number] Programming Intern: Digna Olson MD, Phone: [phone] us Alice Stevens NP LAB BLOOD ORDERABLES Final R esult [facility] 1 [facility] [address] [place] [address] * (ABNORMAL) CBC auto differential (04/03/2025 5:32 PM EST) [facility] White Blood Cell Count 7.3 3.9 - 11.0 x10(3)/mcL [facility] Red Blood Cell Count 3.59(L) 3.70 - 5.10 million/mc L [facility] Hemoglobin 9.3(L) 11.5 - 12.5 g/dL [facility] Hematocrit 30.3(L) 34.0 - 44.0 % [facility] MCV 84 80 - 100 fL [facility] MCH 26(L) 27 - 33 pg [facility] MCHC 31 31 - 36 g/dL [facility] RDW [facility] Comment:RDW-SD 51 N Platelet Count 173 150 - 450 x10(3)/mcL [facility] Comment:MPV 12.6 fL 7.0-11.0 H Neutrophils 58 42 - 76 % [facility] Lymphocytes 31 27 - 47 % [facility] Monocytes 8 4 - 13 % [facility] Eosinophils 2 0 - 7 % [facility] Basophils 0 0 - 3 % [facility] Absolute Neutrophils 4.2 1.8 - 7.0 x10(3)/mcL [facility] Absolute Lymphocytes 2.3 1.1 - 5.9 x10(3)/mcL [facility] Absolute Monocytes 0.6 0.1 - 0.8 x10(3)/[facility] Absolute Eosinophils 0.16 0.00 - 0.40 x10(3)/[facility] Absolute Basophils 0.03 0.00 - 0.20 x10(3)/[facility] Immature Granulocytes 0 % [facility] Gays Immature Grans (Abs) 0 10(3)/uL [facility] Gays NRBC 0 % [facility] Comment:NRBC Auto Abs 0.00 x10(3)/mcL N Blood Venous blood specimen / Unknown 04/03/2025 5:32 PM EST 04/03/2025 Narrative Resulting Agency Comment Performed at: [address] [id number] Programming Intern: Parris Rome MD, Phone: [phone] us Alice Stevens NP LAB BLOOD ORDERABLES Final R esult [facility] [address] [address] * Hemoglobin A1c (Diabetes screening) (04/03/2025 5:32 PM EST) Pathologist [facility] Hemoglobin A1c 5.4 4.8 - 5.9 % [facility] Comment: Diabetic Adult: <7.0% Healthy Adult: 4.8-5.9% est Av Glu(eAG) 108 mg/dL N Blood Venous blood specimen / Unknown 04/03/2025 5:32 PM EST 04/03/2025 Narrative Resulting Agency Comment Performed at: 01 - [address] [id number] Programming Intern: Parris Rome MD, Phone: [phone] Alice Lopezsma COMMERCIAL LEASE ADMINISTRATOR LAB BLOOD ORDERABLES Final R esult Performing Organization Address [facility] Co de Phone Number [facility] [address] [phone] * Folate, Serum (04/03/2025 5:32 PM EST) Folate, Serum 16.2 >3.0 ng/mL [facility] Comment: A serum folate concentration of less than 3.1 ng/mL is considered to represent clinical deficiency. Blood Venous blood specimen / Unknown 04/03/2025 5:32 PM EST 04/03/2025 Narrative Resulting Agency Comment Performed at: - [address] [id number] Programming Intern: Digna Olson MD, Phone: [phone] Alice Stevens NP LAB BLOOD ORDERABLES Final R esult Performing Organization Address [facility] Co de Phone Number [facility] 1 [facility] [address] [place] [address] * MR Brain w/o Contrast (03/16/2025) Anatomical Region Laterality Modality Brain Magnetic Resonan ce Zoya Matthews MD IMG MRI PROCEDURES Edited Result - Final * (ABNORMAL) Vaginitis Plus (VG+) With Cherelle (Six Species), NuSwab (03/02/2025 12:00 AM EDT) Pathologist [facility] Atopobium vaginae High - 2(A) Score [facility] BVAB 2 High - 2(A) Score [facility] Megasphaera 1 High - 2(A) Score Lab [...] BV. Cherelle albicans, LINDY Negative Negative [facility] Cherelle glabrata, LINDY Negative Negative [facility] C parapsilosis/trop icalis Negative Negative [facility] Comment:This assay does not differentiate C. tropicalis and C. parapsilosis. Cherelle lusitaniae, LINDY Negative Negative [facility] Cherelle krusei, LINDY Negative Negative [facility] Trich vag by LINDY Negative Negative [facility] Chlamydia trachomatis, LINDY Negative Negative [facility] Neisseria gonorrhoeae, LINDY Negative Negative [facility] Swab (Vaginal Swab) 03/02/2025 03/02/2025 Comment:Vaginal Swab Delay r e Narrative [facility] 1 - 03/04/2025 8:05 PM EDT Test(s) 513321- Atopobium vaginae; 243385- BVAB 2; 968846- Megasphaera 1 was developed and its performance characteristics determined by [facility]. It has not been cleared or approved by the Food and Drug Administration. Test(s) 125326-Ezstaqy albicans, LINDY; 482245-Cjiesid glabrata, LINDY; 986317-Z parapsilosis/tropicalis; 247672-Aofwahk lusitaniae, LINDY; 641203-Rsxcvoj krusei, LINDY was developed and its performance characteristics determined by [facility]. It has not been cleared or approved by the Food and Drug Administration. Resulting Agency Comment Performed at: 01 - [address] [id number] Programming Intern: Digna Olson MD, Phone: [phone] Jennifer Wright [facility] LAB CYTOLOGY ORDERA BLES Final Result [facility] 1 [facility] [address] [place] [address] * Referral to Hematology (02/03/2025) Claudia Ferrara BABY FORMULA MIXER OUTPATIENT REFERRAL O RDERABLES Final Result * Routine Pap, Age 30+ (01/27/2024 2:12 PM EDT) Diagnosis [facility] 1 Comment: NEGATIVE FOR INTRAEPITHELIAL LESION OR MALIGNANCY. THE CYTOLOGY PROCESSING WAS PERFORMED AT THE [facility] LOCATED AT [address] [place] [phone]. Adequacy: [facility] 1 Comment: Satisfactory for evaluation. [...] 10:05 PM EDT Performed at: 01 - [facility] Histo Cyto [address] [id number] Programming Intern: Conner Rome MD, Phone: [phone] Performed at: 02 - [address] [id number] Programming Intern: Digna Olson MD, Phone: [phone] Performed at: 03 - [address] [id number] Programming Intern: Digna Olson MD, Phone: [phone] Specimen Comment: [id number] Specimen Comment: No. of containers..01 ThinPrep Vial Em Guillen [facility] LAB CYTOLOGY ORDERABLES Dennise l Result [facility] 3 [facility] * HIV 1/2 Antigen and Antibody (07/09/2023) HIV Ag/Ab Nonreactive Historical Provider HEALTH MAINTENANCE Final Result * Hepatitis C Antibody (10/06/2022) Hepatitis C Antibody Nonreactive Blood Historical Provider HEALTH MAINTENANCE Final Result from Last 3 Months or Most Recently Relevant to Health Maintenance [place] [address] [place] [address] C3 Care Teams Checkerer Hand Relationship Specialty Start Date End Date Claudia Ferrara FNP [address] [place] [phone] PCP - General Family Medicine 11/20/21
--- OUTSIDE RECORDS SUMMARY | 2025-04-14 09:56 | XMS_ITS | Clinical Summary ---
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 3 Active acetaminophen (TYLENOL) 325 mg tablet Take 2 tablets (650 mg total) by mouth every 4 hours as needed for pain. 28 tablet 3 Active ibuprofen (MOTRIN) 600 mg tablet Take 1 tablet (600 mg total) by mouth every 6 hours as needed for pain. 28 tablet 3 Active Additional Information Patient not taking.Reported on 03/07/2025 ascorbic acid 500 mg tablet SMARTSI Tablet(s) By Mouth Daily 5 Active ferrous sulfate 325 mg (65 mg iron) EC tablet Take 325 mg by mouth daily. 5 12/21/19 26 Active senna (SENOKOT) 8.6 mg tabletIndication s:Iron deficiency anemia, unspecified iron deficiency anemia type,Other constipation Take 1 tablet (8.6 mg total) by mouth once a day. 30 tablet 5 Active Active Problems Problem Noted Date Diagnosed Date LUCERO (iron deficiency anemia) 02/03/2025 Anemia 02/03/2025 care following vaginal delivery 05/18 /2023 Thrombocytopenia 10/09/2022 Overview (10/09/2022): Patient was thrombocytopenic [...] Encounters Date Type Department Care Team Description 04/11/2025 Community Orders [facility] EpicCare Link [address] [place] [address] Alice Stevens NP Menorrhagia with irregular cycle (Primary Dx) 03/07/2025 11:00 AM EDT Infusion [facility] [address] [place] [address] 03/07/2025 9:40 AM EDT Follow-Up [facility] [address] [place] [address] Tamela Adrian, BONIFACIO Iron deficiency anemia, unspecified iron deficiency anemia type (Primary Dx); Other constipation; Hx of viral meningitis; Bad headache 03/07/2025 8:40 AM EDT Lab [facility] ACC Draw Site Fifth Floor [address] [place] [address] Iron deficiency anemia, unspecified iron deficiency anemia type 03/02/2025 4:57 PM EDT - 03/02/2025 9:51 PM EDT Emergency [facility] Emergency Department [address] [place] [address] Discharge Disposition: Left Without Being Seen (07) 02/20/2025 8:15 AM EDT Infusion [facility] Building Infusion Clinic [address] [place] [address] Radha Landeros RN Iron deficiency anemia, unspecified iron deficiency anemia type (Primary Dx) 02/09/2025 Results Follow-Up [facility] Building [facility] 5th Floor [address] [place] [address] Tamela Adrian NP 02/07/2025 Patient Outreach [facility] Cancer [facility] 5th Floor [address] [place] [address] Jada Hsu RN 02/07/2025 Telephone [facility] Neurology Clinic [address] [place] [address] Telephone Intake, Staff 02/03/2025 Orders Only [facility] [address] [place] [address] Melany Baxter NP Iron deficiency anemia, unspecified iron deficiency anemia type (Primary Dx) 02/02/2025 1:00 PM EDT Office Visit [facility] BMT [address] [address] Melany Baxter NP Anemia, unspecified type (Primary [...] Info) Description 06/07/2025 8:30 AM EST Lab [facility] ACC Draw Site Fifth Floor [address] [place] [address] 06/07/2025 9:30 AM EST Follow-Up [facility] [address] [place] [address] Melany Baxter NP [address] [place] [address] 10/30/2025 1:45 PM EDT Office Visit [facility] ACC Building Neurology Clinic [address] [place] [address] Erin Slater MD [address] [facility] [place] [address] Health Maintenance Due Date Last Done Comments HPV and Pap Smear 1987 Varicella Vaccines (1 of 2 - 13+ 2-dose series) 12/26/2000 Hepatitis B Vaccines (1 of 3 - 19+ 3-dose series) 12/26/2006 DTaP,Tdap,and Td Vaccines (1 - Tdap) 12/26/2009 Alcohol/Substance Use Screening 05/25/2024 Depression Screening and Follow-Up 05/25/2024 Social Drivers of Health Annual Screening 05/25/2024 Influenza Vaccine (#1) 2024 COVID-19 Vaccine ( season) 2025 09/24/2022, 06/17/2022, 05/20/2022, Additional history exists Cervical Cancer Screening 01/26/2027 Pap Smear 01/26/2027 01/27/2024 Diabetes Screening 03/02/2028 03/02/2025, 0 02/02/2025, 10/10/2022, Additional history exists HIV Screening Completed 10/09/2022 Hepatitis C Screening Completed 10/09/2022 Pneumococcal Vaccine: Pediatric (0-5 Years) and At-Risk Patients (6-50 Years) Aged Out No longer eligible based on patient's age to complete this topic Procedures * Due to [place] state law, this organization might not be [...] to Health Maintenance Results * Due to [place] state law, this organization might not be sharing negative HIV tests. * (ABNORMAL) Smear Review (03/07/2025 8:59 AM EDT) Platelet Estimate Adequate Adequate 03/07/2025 9:48 AM EDT [facility] RBC Morphology Present(A) Normal, No clinically significant RBC morphology present (ICSH guidelines, 2015). 03/07/2025 9:48 AM EDT [facility] Anisocytosis 2+(A) Not Present 03/07/2025 9:48 AM EDT [facility] Blood Structure of peripheral vein / Unknown Venipuncture / Unknown 03/07/2025 8:59 AM EDT 03/07/2025 9:10 AM EDT us Melany Baxter NP LAB BLOOD ORDERABLES Final Result [facility] [address] [place] [address], * (ABNORMAL) Iron Saturation (03/07/2025 8:59 AM EDT) Only the most recent of2 resultswithin the time period is included. Iron Saturation 19(L) 20 - 50 % 9:56 AM EDT [facility] Iron 36 30 - 160 ug/dL 03/07/2025 9:56 AM EDT [facility] Transferrin 153(L) 200 - 360 mg/dL 03/07/2025 9:56 AM EDT [facility] Total Iron Binding Capacity 191(L) 255 - 450 ug/dL 03/07/2025 9:56 AM EDT [facility] Blood Structure of peripheral vein / Unknown Venipuncture / Unknown 03/07/2025 8:59 AM EDT 03/07/2025 9:13 AM EDT us Melany Baxter NP LAB BLOOD ORDERABLES Final Result [email or web address] CL[facility] PATH[facility] LABORATORY [address] [place] [address], * (ABNORMAL) CBC Auto Differential (Once) (03/07/2025 8:59 AM EDT) Only the most recent of3 resultswithin the time period is included. WBC 8.6 3.8 - 10.8 10*3/uL 03/07/2025 9:48 AM EDT [facility] RBC 4.12 3.80 - 5.10 10*6/uL 03/07/2025 9:48 AM EDT [facility] Hemoglobin 10.7(L) 11.7 - 15.5 g/dL 03/07/2025 9:48 AM EDT [facility] Hematocrit 33.5(L) 35.0 - 45.0 % 03/07/2025 9:48 AM EDT [facility] MCV 81.3 80.0 - 100.0 fL 03/07/2025 9:48 AM EDT [facility] MCH 26.0(L) 27.0 - 33.0 pg 03/07/2025 9:48 AM EDT [facility] MCHC 31.9(L) 32.0 - 36.0 g/dL 03/07/2025 9:48 AM EDT [facility] RDW 16.7(H) 11.0 - 15.0 % 03/07/2025 9:48 AM EDT [facility] Platelets 259 140 - 400 10*3/uL 03/07/2025 9:48 AM EDT [facility] MPV 10.7 7.5 - 12.5 fL 03/07/2025 9:48 AM EDT [facility] Neutrophil % 68.6 % 03/07/2025 9:48 AM EDT [facility] Immature Grans % 0.2 0.0 - 0.9 % 03/07/2025 9:48 AM EDT [facility] Lymphocyte % 20.4 % 03/07/2025 9:48 AM EDT [facility] Monocyte % 9.3 % 03/07/2025 9:48 AM EDT [facility] Eosinophil % 1.2 % 03/07/2025 9:48 AM EDT [facility] Basophil % 0.3 % 03/07/2025 9:48 AM EDT [facility] Neutrophil # 5.91 1.50 - 7.80 10*3/uL 03/07/2025 9:48 AM EDT [facility] Immature Grans # <0.03 <=0.03 10*3/uL 03/07/2025 9:48 AM EDT [facility] Lymphocyte # 1.80 0.85 - 3.90 10*3/uL 03/07/2025 9:48 AM EDT [facility] Monocyte # 0.80 0.20 - 0.95 10*3/uL 03/07/2025 9:48 AM EDT [facility] Eosinophil # 0.10 0.02 - 0.50 10*3/uL 03/07/2025 9:48 AM EDT [facility] Basophil # <0.03 0.00 - 0.20 10*3/uL 03/07/2025 9:48 AM EDT [facility] PATH[facility] LAB[facility] nRBC % 0.0 /100 WBCs 03/07/2025 9:48 AM EDT [facility] nRBC # <0.01 <0.01 10*3/uL 03/07/2025 9:48 AM EDT [facility] Total Neutrophil #, Preliminary 5.91 1.50 - 7.80 10*3/uL 03/07/2025 9:48 AM EDT [facility] Comment:This ANC is prelimin fatoumata and may change. It is based on a white cell differential from an automated cell counter, and has not been reviewed microscopically for the presence of abnormal cells. Blood Structure of peripheral vein / Unknown Venipuncture / Unknown 03/07/2025 8:59 AM EDT 03/07/2025 9:10 AM EDT Melany Baxter VENEER CUTTER LAB BLOOD ORDERABLES Final Result Performing Organization Address City/Va Hospital/ZIP Co de Phone Number [facility] [address] [place] [address], * (ABNORMAL) Ferritin (03/07/2025 8:59 AM EDT) Only the most recent of2 resultswithin the time period is included. Ferritin 1,557.0(H) 11.0 - 306.0 ng/mL 03/07/2025 9:56 AM EDT [facility] Blood Structure of peripheral vein / Unknown Venipuncture / Unknown 03/07/2025 8:59 AM EDT 03/07/2025 9:13 AM EDT Melany Baxter LAB BLOOD ORDERABLES Final Result Performing Organization Address City/Va Hospital/ZIP Co de Phone Number [facility] [address] [place] [address], * Blood Bank Hold Tube (03/02/2025 5:20 PM EDT) Pathologist [facility] Extra Tube Hold for add-ons. [facility] 03/02/2025 10:05 PM EDT [facility] Comment:Auto resulted. Blood Structure of peripheral vein / Unknown Venipuncture / Unknown 03/02/2025 5:20 PM EDT 03/02/2025 5:28 PM EDT Protocol [facility] LAB BLOOD BANK TEST OR DERABLES Final Result Performing Organization Address City/Va Hospital/ZIP Co de Phone Number [facility] [address] [place] [address], * (ABNORMAL) hCG, Quantitative, (03/02/2025 5:20 PM EDT) [facility] HCG Quantitative 2,854.0(H ) <=4.9 mIU/mL 03/02/2025 6:16 PM EDT [facility] PATHOLOGY LABOR[facility] Comment: hCG >= 5.0 mIU/mL is generally indicative of . Post menopausal ref range < 8.2 mIU/mL Boat Dock Operator hCG ranges during normal . Approximate Gestational age Approximate hCG range (Post conception weeks) mIU/mL 3 5.4-72 4 10.2-708 5 217-8,245 6 152-32,177 7 4,059-153,767 8 31,366-149,094 9 59,109-135,901 10 44,186-170,409 12 27,107-201,615 Blood Structure of peripheral vein / Unknown Venipuncture / Unknown 03/02/2025 5:20 PM EDT 03/02/2025 5:26 PM EDT Protocol [facility] LAB BLOOD ORDERABLES F inal Result Performing Organization Address City/Va Hospital/ZIP Co de Phone Number [facility] CL[facility]ICAL PATHOLOGY LABORATORY [address] [place] [address], * (ABNORMAL) Basic Metabolic Panel (03/02/2025 5:20 PM EDT) Pathologist [facility] NA 135 135 - 145 mmol/L 03/02/2025 6:16 PM T [facility] PATH[facility]Y LAB[facility] K 4.0 3.5 - 5.3 mmol/L 03/02/2025 6:16 PM [facility] PATHOLOG[facility] LAB[facility] Cl 103 97 - 110 mmol/L 03/02/2025 6:16 PM [facility] PATH[facility] CO2 21(L) 22 - 32 mmol/L 03/02/2025 6:16 PM EDT [facility] PATHOLOGY LAB[facility] BUN 10 7 - 23 mg/dL 03/02/2025 6:16 PM [facility] Creatinine 0.51 0.50 - 1.20 mg/dL 03/02/2025 6:16 PM [facility] PATH[facility] LAB[facility] Glucose 116(H) 65 - 99 mg/dL 03/02/2025 6:16 PM [facility] PATH[facility] Calcium 8.8 8.6 - 10.5 mg/dL 03/02/2025 6:16 PM [facility] PATH[facility] LAB[facility] Anion Gap 11 5 - 15 03/02/2025 6:16 PM [facility] eGFR >90 >=60 mL/min/1. 73m2 03/02/2025 6:16 PM [facility] PATH[facility] LAB[facility] Comment:The estimated glomer ular filtration rate (eGFR) is calculated using a new formula developed by the NKF-ASN task force to eliminate race-based correction factors. The new formula uses serum/plasma creatinine, age, and gender to determine eGFR. A value below 60mls/min might indicate kidney disease and will be flagged. For additional information, see Paz et al, Am J Kidney Dis. 2021;79(2):268- 288, A Unifying Approach for GFR estimation: Recommendations of the NKF-ASN Task Force on Reassessing the Inclusion of Race in Diagnosing Kidney Disease . Blood Structure of peripheral vein / Unknown Venipuncture / Unknown 03/02/2025 5:20 PM EDT 03/02/2025 5:26 PM EDT us Protocol Mem Treatment MD LAB BLOOD ORDERABLES F inal Result [facility] PATH[facility] LAB[facility] [address] [place] [address], [place] * (ABNORMAL) Celiac Diagnostic Panel w/Gliadin, All Ages (Includes: IgA, tTG IgA/IgG and Giadin IgA/IgG) (02/02/2025 1:35 PM EDT) Tissue Transglutaminase Ab, IgG <1.0 U/mL 02/09/2025 4:30 PM EDT [facility] Comment: Value Interpretation ----- <15.0 Antibody not detected > or = 15.0 Antibody detected Tissue Transglutaminase Ab, IgA <1.0 U/mL 02/09/2025 4:30 PM EDT [facility] Comment: Value Interpretation ----- <15.0 Antibody not detected > or = 15.0 Antibody detected Gliadin Ab IgA <1.0 U/mL 02/09/2025 4:30 PM EDT [facility] Comment: Value Interpretation ----- <15.0 Antibody not detected > or = 15.0 Antibody detected Gliadin Ab IgG <1.0 U/mL 02/09/2025 4:30 PM EDT [facility] Comment: Value Interpretation ----- <15.0 Antibody not detected > or = 15.0 Antibody detected Immunoglobulin A 534(H) 47 - 310 mg/dL 02/09/2025 4:30 PM [employer] [facility] Blood Structure of peripheral vein / Unknown Venipuncture / Unknown 02/02/2025 1:35 PM EDT 02/02/2025 2:03 PM EDT [facility] 02/09/2025 4:30 PM EDT [facility] Received Date: us Melany Baxter NP LAB BLOOD ORDERABLES Final Result [facility] [address] [facility] [address]rd [address], [place] [address], [place] [phone] [facility] [address] [facility] [address]rd [address], [place] [address], [place] [phone] * (ABNORMAL) Protein Electrophoresis w/Reflex to Immunofixation, Serum (02/02/2025 1:35 PM EDT) Protein, Total 7.8 6.1 - 8.1 g/dL 02/03/2025 9:28 PM EDT [facility] Albumin 3.0(L) 3.8 - 4.8 g/dL 02/03/2025 9:28 PM EDT [facility] Alpha 1 Globulin 0.4(H) 0.2 - 0.3 g/dL 02/03/2025 9:28 PM EDT [facility] Alpha 2 Globulin 1.0(H) 0.5 - 0.9 g/dL 02/03/2025 9:28 PM EDT [facility] Beta 1 Globulin 0.4 0.4 - 0.6 g/dL 02/03/2025 9:28 PM EDT [facility] Beta 2 Globulin 0.7(H) 0.2 - 0.5 g/dL 02/03/2025 9:28 PM EDT [facility] Gamma Globulin 2.4(H) 0.8 - 1.7 g/dL 02/03/2025 9:28 PM EDT [facility] Interpretation See Comments 02/03/2025 9:28 PM EDT [facility] Comment: Consistent with a chronic inflammatory pattern Blood Structure of peripheral vein / Unknown Venipuncture / Unknown 02/02/2025 1:35 PM EDT 02/02/2025 2:04 PM EDT Narrative [facility] - 02/03/2025 9:28 PM EDT [facility] Received Date: us Melany Baxter NP LAB BLOOD ORDERABLES Final Result [facility] [address], [place] [address], [place] [phone] [facility] [address] Floor, [address] [facility] [place] [address], [place] [phone] * (ABNORMAL) Hemoglobin Electrophoresis (02/02/2025 1:35 PM EDT) [facility] Red Blood Cell Count 3.34(L) 3.80 - [...] clinically indicated, Thalassemia and Hemoglobinopathy [place] ([place] [address]) should be considered. Blood Structure of peripheral vein / Unknown Venipuncture / Unknown 02/02/2025 1:35 PM EDT 02/02/2025 1:56 PM EDT Narrative [facility]UDI [facility]IRA) - 02/05/2025 4:55 AM EDT [facility] Received Date:[id number] Melany Baxter VENE[employer] CUTTER LAB BLOOD ORDERABLES Final Result Performing Organization Address City/Va Hospital/ZIP Co de Phone Number [facility] MAY) [address] [place], [place] , [place] * (ABNORMAL) Sedimentation Rate (02/02/2025 1:35 PM EDT) Sed Rate 86(H) <20 mm/Hr mm/Hr 02/02/2025 2:10 PM EDT [facility] Blood Structure of peripheral vein / Unknown Venipuncture / Unknown 02/02/2025 1:35 PM EDT 02/02/2025 1:56 PM EDT Melany Baxter VENEER CUTTER LAB BLOOD ORDERABLES Final Result [facility] [address] [place] [address], [place] * Reticulocytes (02/02/2025 1:35 PM EDT) Retic % 1.5 0.5 - 1.6 % 02/02/2025 2:11 PM EDT [facility] Retic # 0.05 0.02 - 0.08 10*6/uL 02/02/2025 2:11 PM EDT [facility] LAB[facility] Blood Structure of peripheral vein / Unknown Venipuncture / Unknown 02/02/2025 1:35 PM EDT 02/02/2025 1:56 PM EDT Melany Baxter VENEER CUTTER LAB BLOOD ORDERABLES Final Result [facility] [address] [place] [address], [place] * Direct Antiglobulin Test (02/02/2025 1:35 PM EDT) Direct Antiglobulin Test Negative 02/02/2025 2:50 PM EDT [facility] Blood Structure of peripheral vein / Unknown Venipuncture / Unknown 02/02/2025 1:35 PM EDT 02/02/2025 2:31 PM EDT Melany Baxter VENEER CUTTER LAB BLOOD BANK TEST ORDERAB LES Final Result Performing Organization Address [facility]/Va Hospital/ZIP Co de Phone Number [facility] [address] [place] [address], * (ABNORMAL) C-Reactive Protein (02/02/2025 1:35 PM EDT) C Reactive Protein 39.6(H) <=9.9 mg/L 02/02/2025 2:49 PM EDT [facility] Blood Structure of peripheral vein / Unknown Venipuncture / Unknown 02/02/2025 1:35 PM EDT 02/02/2025 2:04 PM EDT Melany Baxter VENEER CUTTER LAB BLOOD ORDERABLES Final Result Performing Organization Address City/Va Hospital/ZIP Co de Phone Number [facility] [address] [place] [address], [place] * DONIS Specific Antibody w/Reflex to [place] (02/02/2025 1:35 PM EDT) Pathologist [facility] DONIS Screen, Immunoassay NEGATIVE NEGATIVE 02/03/2025 3:36 PM EDT [facility] Comment: A negative DONIS Multiplex indicates the absence of detectable antibodies to component analytes consisting of double stranded DNA (dsDNA), chromatin, ribonucleoprotein (MAIL HANDLER), Francois/MAIL HANDLER (Sm/MAIL HANDLER), Francois (Sm), SS-A, SS-B, Linda-1, centromere B, Scl-70 and ribosomal P. A negative result should be interpreted in the context of the clinical and laboratory findings and does not rule out autoimmune disease characterized by other autoantibody specificities such as rheumatoid arthritis, autoimmune hepatitis, primary biliary cirrhosis, autoimmune thyroiditis, Milam's disease, pernicious anemia, autoimmune neuropathies, vasculitis, celiac disease, and bullous disease. For additional information, please refer to http://education.Therio/faq/PUL174 (This link is being provided for informational/ educational purposes only.) Blood Structure of peripheral vein / Unknown Venipuncture / Unknown 02/02/2025 1:35 PM EDT 02/02/2025 2:04 PM EDT [facility] - 02/03/2025 3:36 PM EDT [facility] Received Date: Melany Baxter NP LAB BLOOD ORDERABLES Final Result [facility] [address] [facility] 3rd Floor, [place] [address], [place] [phone] [facility] [address] [facility] [address], [place] [address], [place] [phone] * (ABNORMAL) Haptoglobin (02/02/2025 1:35 PM EDT) [facility] Haptoglobin 287(H) 43 - 212 mg/dL 02/02/2025 8:23 PM EDT [facility] Blood Structure of peripheral vein / Unknown Venipuncture / Unknown 02/02/2025 1:35 PM EDT 02/02/2025 2:04 PM EDT Narrative [facility] - 02/02/2025 8:23 PM EDT [facility] Received Date:[id number] Melany Baxter VENEER CUTTER LAB BLOOD ORDERABLES Final Result [facility] [address] [facility] [address], [place] [address], [place] [phone] [facility] [address] [facility] [address], [place] [address], [place] [phone] * Folate (02/02/2025 1:35 PM EDT) Folate 20.6 4.8 - 24.2 ng/mL 02/02/2025 3:21 PM EDT [facility] Blood Structure of peripheral vein / Unknown Venipuncture / Unknown 02/02/2025 1:35 PM EDT 02/02/2025 2:04 PM EDT Melany Baxter VENEER CUTTER LAB BLOOD ORDERABLES Final Result Performing Organization Address City/Va Hospital/ZIP Co de Phone Number [facility] [address] [place] [address], [place] * Vitamin B12 (02/02/2025 1:35 PM EDT) Vitamin B12 755 232 - 1,245 pg/mL 02/02/2025 2:53 PM EDT [facility] Blood Structure of peripheral vein / Unknown Venipuncture / Unknown 02/02/2025 1:35 PM EDT 02/02/2025 2:04 PM EDT Melany Baxter VENEER CUTTER LAB BLOOD ORDERABLES Final Result [facility] [address] [place] [address], [place] * (ABNORMAL) Comprehensive Metabolic Panel (Once) (02/02/2025 1:35 PM EDT) NA 133(L) 135 - 145 mmol/L 02/02/2025 2:49 PM EDT [facility] K 3.8 3.5 - 5.3 mmol/L 02/02/2025 2:49 PM EDT [facility] Cl 102 98 - 107 mmol/L 02/02/2025 2:49 PM EDT [facility] CO2 20(L) 22 - 32 mmol/L 02/02/2025 2:49 PM EDT [facility] Anion Gap 11 5 - 15 02/02/2025 2:49 PM EDT [facility] Glucose 92 65 - 99 mg/dL 02/02/2025 2:49 PM EDT [facility] Creatinine 0.53 0.50 - 1.20 mg/dL 02/02/2025 2:49 PM EDT [facility] Calcium 9.0 8.6 - 10.5 mg/dL 02/02/2025 2:49 PM EDT [facility] Total Protein 8.5(H) 6.0 - 8.0 g/dL 02/02/2025 2:49 PM EDT [facility] Albumin 3.3(L) 3.5 - 5.2 g/dL 02/02/2025 2:49 PM EDT [facility] Bilirubin, Total 0.5 0.2 - 1.2 mg/dL 02/02/2025 2:49 PM EDT [facility] Alkaline Phosphatase 123 35 - 129 U/L 02/02/2025 2:49 PM EDT [facility] AST 16 10 - 40 U/L 02/02/2025 2:49 PM EDT [facility] ALT 20 10 - 40 U/L 02/02/2025 2:49 PM EDT [facility] BUN 9 7 - 23 mg/dL 02/02/2025 2:49 PM EDT [facility] LAB[facility] eGFR >90 >=60 mL/min/1. 73m2 02/02/2025 2:49 PM EDT [facility] Comment:The estimated glomer ular [...] - 4.2 g/dL 02/02/2025 2:49 PM EDT [facility] A/G Ratio 0.6(L) 1.5 - 3.0 02/02/2025 2:49 PM EDT [facility] Blood Structure of peripheral vein / Unknown Venipuncture / Unknown 02/02/2025 1:35 PM EDT 02/02/2025 2:04 PM EDT Melany Baxter NP LAB BLOOD ORDERABLES Final Result [facility] [address] [place] [address], * LAB - SCANNED (01/17/2025) us Onbase Scan [facility] LAB HISTORICAL RESULTS Final Result * Hepatitis C Antibody w/Reflex to HCV RNA, Quantitative PCR (10/09/2022 8:00 AM EDT) Hepatitis C Antibody NON-REACT POWER NON-REACT POWER 10/10/2022 12:13 AM EDT [facility] Signal To Cut-Off 0.05 <1.00 10/10/2022 12:13 AM EDT [facility] Comment: HCV antibody was non-reactive. There is no laboratory evidence of HCV infection. In most cases, no further action is required. However, if recent HCV exposure is suspected, a test for HCV RNA (test code 30907) is suggested. For additional information please refer to http://education.Spongecell/faq/MPN88j4 (This link is being provided for informational/ educational purposes only.) Blood Structure of peripheral vein / Unknown Venipuncture / Unknown 10/09/2022 8:00 AM EDT 10/09/2022 8:04 AM EDT [facility] KAPIL MCGHEE - 10/10/2022 12:13 AM EDT [facility] Received Date:[id number] Joni Tate DO LAB BLOOD ORDERABLES Final R esult KAPIL MCGHEE [address] [facility] [address], [place] [address], [facility] [address] [facility] [address] Floor, [place] [address], from Last 3 Months or Most Recently Relevant to Health Maintenance Insurance [facility] Advance Directives * Full Code (Latest Code Status on File) Date Activated Date Inactivated Comments 10/09/2022 9:07 AM 10/12/2022 5:50 PM Care Teams Textile Machine Maintenance Mechanic Relationship Specialty Start Date End Date Diana Moses MD PCP - General Family Medicine 10/12/22
--- OUTSIDE RECORDS SUMMARY | 2025-04-14 09:56 | XMS_ITS | Encounter Summary ---
Author Organization [facility] Address [address] [place] [address] Care Team Providers Care Freelance Copywriter Name Role Phone Diana Moses MD Primary Care Provider +1- [phone] Encounter Details Date Type Department Care Team (Late Contact Info) Description 02/09/2025 Results Follow-Up [facility] 5th Floor [address] [place] [address] Tamela Adrian, BONIFACIO [address] [place], [place] [id number] Social History Tobacco Use Types Packs/Day Years [...] Info) Description 06/07/2025 8:30 AM EST Lab [facility] ACC Draw Site Fifth Floor [address] [place] [address] 06/07/2025 9:30 AM EST Follow-Up [facility] B[facility] Clinic [address] [place] [address] Melany Baxter NP [address] [place] [address] 10/30/2025 1:45 PM EDT Office Visit [facility] [address] [place] [address] Erin Slater MD [address] [place] [phone] documented as of this encounter Visit Diagnoses Not on filedocumented in this encounter Care Teams Freelance Copywriter Relationship Specialty Start Date End Date Diana Moses MD PCP - General Family Medicine 10/12/22 documented as of this encounter
--- OUTSIDE RECORDS SUMMARY | 2025-04-14 09:56 | XMS_ITS | Encounter Summary ---
Author Organization [employer] Address [address] [place] [address] 7 [place] [address] Care Team Providers Care Medical Reviewer Name Role Phone Claudia Ferrara CARLA Primary Care Provide r Encounter Details Date Type Department Care Team ([facility] Contact Info) Description 03/24/2025 Results Follow-Up [facility] Primary Care [address] [place] [phone] Zoya Matthews MD [address] [place] [phone] MR Brain w/o Contrast Social History [...] on filedocumented in this encounter Care Teams Medical Reviewer Relationship Specialty Start Date End Date Claudia Ferrara FNP [address] [place] [phone] PCP - General Family Medicine 11/20/21 documented as of this encounter
--- OUTSIDE RECORDS SUMMARY | 2025-04-14 09:56 | XMS_ITS | Encounter Summary ---
Author Organization [facility] Address [address] [place] [address] Care Team Providers Care General Practitioner Name Role Phone Diana Moses MD Primary Care Provider +1- [phone] Reason for Referral * Consultation (Urgent) - Pending Review Specialty Diagnoses / Procedures Referred By Aparna liu Referred To Contact Oncology Diagnoses Iron deficiency anemia, unspecified iron deficiency anemia type Claudia Ferrara NP [address] [place] [phone] Phone: tel: fax: [facility] 5th [address] [place] [address] Phone: tel: fax: Referral ID Status Reason Start Date Expiration Date Visits Requested Visits Authorized [id number] Pending Review Specialty Services Required 12/23/2024 01/23/2026 6 6 Encounter Details Date Type Department Care Team (Late st Contact Info) Description 12/23/2024 Community Orders [facility] EpicCare Link [address] [place] [address] Claudia Ferrara NP [address] [place] [phone] Iron deficiency anemia, unspecified iron deficiency [...] Info) Description 06/07/2025 8:30 AM EST Lab [facility] Draw Site Fifth Floor [address] [place] [address] 06/07/2025 9:30 AM EST Follow-Up [facility] Clinic [address] [place] [address] Melany Baxter NP [address] [place] [address] 10/30/2025 1:45 PM EDT Office Visit [facility] [address] [place] [phone] Erin Slater MD [address] [place] [address] [place] [address] Scheduled Referrals Name Type Priority Associated Diagnoses Orde r Schedule Ambulatory referral to Hematology / Oncology Outpatient Referral Routine Iron deficiency anemia, unspecified iron deficiency anemia type Expected: 12/23/2024, Expires: 01/23/2026 documented as of this encounter Visit Diagnoses Diagnosis Iron deficiency anemia, unspecified iron deficiency anemia type- Primary documented in this encounter Care Teams General Practitioner Relationship Specialty Start Date End Date Diana Moses MD PCP - General Family Medicine 10/12/22 documented as of this encounter
--- OUTSIDE RECORDS SUMMARY | 2025-04-14 09:56 | XMS_ITS | Encounter Summary ---
Author Organization [facility] Address [address] [place] [address] Care Team Providers Care Court Security Officer Name Role Phone Diana Moses MD Primary Care Provider +1- [phone] Reason for Referral * Diagnostic Imaging (Emergency) - Authorized Specialty Diagnoses / Procedures Referred By Contac t Referred To Contact Diagnoses Menorrhagia with irregular cycle Procedures US Pelvis Non OB Transabdominal And Transvaginal Complete Alice Stevens NP [address] [place] [address] Phone: tel: fax: Referral ID Status Reason Start Date Expiration Date V isits Requested Visits Authorized [id number] Authorized 04/11/2025 10/11/2026 1 1 Encounter Details Date Type Department Care Team (Late st Contact Info) Description 04/11/2025 Community Orders [facility] EpicCare Link [address] [place] [address] Alice Stevens NP [address] [place] [address] Menorrhagia with irregular cycle (Primary Dx) Social History Tobacco Use Types [...] Info) Description 06/07/2025 8:30 AM EST Lab [facility] ACC Draw Site Fifth Floor [address] [place] [address] 06/07/2025 9:30 AM EST Follow-Up [facility] BMT Clinic [address] [place] [address] Melany Baxter NP [address] [place] [address] 10/30/2025 1:45 PM EDT Office Visit [facility] Building Neurology Clinic [address] [place] [address] Erin Slater MD [address] [place] [address] Scheduled Orders Name Type Priority Associated Diagnoses Orde r Schedule US Pelvis Non OB Transabdominal And Transvaginal Complete Imaging STAT Menorrhagia with irregular cycle 1 Occurrences starting 04/11/2025 until 06/11/2026 documented as of this encounter Visit Diagnoses Diagnosis Menorrhagia with irregular cycle- Primary documented in this encounter Care Teams Court Security Officer Relationship Specialty Start Date End Date Diana Moses MD PCP - General Family Medicine 10/12/22 documented as of this encounter
--- NOTE | 2025-04-14 13:45 | MHC.SHP ---
Pre-Procedural Eval Section A - 24 Hr Update-Section A only Date of Service: 04/14/25 The patient is an INPATIENT: No Changes since office visit: No Cold of Flu in the past 2 weeks, No New Medical Problems, No Changes in Medication and No Patient answered all questions The patient has been examined within 24 hours of the surgical procedure. The History & Physical has been completed within 30 days and I have reviewed it.: Yes Section B - Complete if H&P > 30 days Chief Complaint: Failed attempted termination of without Allergies: Allergies Allergy/AdvReac Type Severity Reaction Status Date / Time No Known Allergies Allergy Verified 04/13/25 13:50 Plan Diagnosis/Plan: Unchanged I have reviewed the history and physical and performed a pertinent physical examination on my patient. No changes have occurred unless specified. Time Spent With Patient Time: Total time managing care of this patient today ____ minutes.
[2025-04-14] MEDS: Lactated Ringers 1,000 ML 50 ML IVCONT (14:08)
--- NOTE | 2025-04-14 14:40 | PC.NURSE ---
patient aware retained product of conception will be sent to lab agreeable commercial sewing instructor at bedside with patient.. patient had a medical termination with dr dawn
--- NOTE | 2025-04-14 15:10 | P.BOP_ITS ---
Brief Operative Note Date of Service: 04/14/25 Pre-op diagnosis: Retained products of conception Post-op diagnosis: same Procedure: Suction D&C Surgeon: Bakari Meza MD Anesthesia: GLMA Was an It Infrastructure Specialist used for this Procedure?: No Estimated blood loss (mL): 100 Pathology: other (Retained Products of conception) Condition: stable Disposition: PACU
--- NOTE | 2025-04-14 15:10 | W.PM.OPN ---
Operative Note Operative Note Date of Service: 04/14/25 Narrative: Preop diagnosis: Retained products of conception Operation: suction D and C Postop diagnosis: The same EBL: Minimal Anesthesia: GLMA Channel Sales Director: None Pathology: Retained Products of conception Procedure: The patient was put in a dorsal distal mid position was scrubbed and draped in the usual sterile fashion. A sterile speculum was inserted inside the patient's vagina the anterior lip of the cervix was grasped with single-tooth tenaculum the cervix was dilated up to 7 mm. Under ultrasonographic guidance flexible 7. Suction tip was introduced inside the patient ran cavity till the fundus was hit then turning the suction 360 degrees around products of conception was sucked out toward the uterine cavity. The suction tip was taken out of the patient uterine cavity sharp curettings was followed in 4 quadrants of the uterus till a gritty feeling was felt. The suction tip was reintroduced under ultrasonographic guidance and intrauterine blood was sucked. The suction tip was taken out. Single-tooth tenaculum was removed hemostasis assured using pressure. The patient tolerated the procedure well and was transferred to the PACU in a stable condition.
== END 2025-04-14 17:55 | disposition home or self-care (01) ==
PROVIDERS: Visit Provider Obstetrics & Gynecology
PROC: (CPT 59840; principal; 2025-04-14 16:20)
DX: O07.4 Failed attempted termination of pregnancy without complication (principal); O07.1 Delayed or excessive hemorrhage following failed attempted termination of pregnancy; G43.909 Migraine, unspecified, not intractable, without status migrainosus; Z56.0 Unemployment, unspecified
CPT/HCPCS: 59840; 76998; 86850; 86900; 86901; 88305; J1171; J2003; J2250; J2371; J2405; J2590; J2704; J3010

== ENCOUNTER → 2025-04-14 13:07 | Outpatient (BNV) | payer MEDICAID, SELFPAY | PROVIDERS: Visit Provider Obstetrics & Gynecology | DX: O07.4 Failed attempted termination of pregnancy without complication (principal) | CPT/HCPCS: 59812 ==

== ENCOUNTER 2025-05-01 10:40 | Outpatient (REF) | payer MEDICAID, SELFPAY ==
[2025-05-01 11:43] LABS: Hematocrit 30.4 % (37.0-47.0); Hemoglobin 9.7 g/dl (12.0-16.0); Mean Corpuscular HGB Conc 31.9 g/dl (31.0-35.0); Mean Corpuscular Hemoglobin 26.2 pg (27.0-33.0); Mean Corpuscular Volume 82.2 fL (80.0-98.0); NRBC Abs Auto 0.000 X10*3/uL (0.0-0.012); NRBC Pct Auto 0.0 /100WBC (0.0-0.2); PLT CLUMP 1; Red Blood Count 3.70 X10*6/uL (4.20-5.50)
[2025-05-01 12:30] LABS: Platelet Count 224 X10*3/uL (160-400); White Blood Count 7.5 X10*3/uL (4.8-10.8)
== END 2025-05-01 10:41 | disposition home or self-care (01) ==
LOC: HO.LAB 10:40
PROVIDERS: Visit Provider Obstetrics & Gynecology
DX: O07.4 Failed attempted termination of pregnancy without complication (principal)
CPT/HCPCS: 36415; 85027

== ENCOUNTER 2025-05-01 10:40 | Outpatient (AMB) | payer MEDICAID, SELFPAY ==
--- NOTE | 2025-05-01 10:51 | MHC.OFFVIS ---
Intake Visit Reasons: post op Retirement Assistant Required: Yes Retirement Assistant Language: Cable Tv Installer Services: Retirement Assistant Present (in person) Retirement Assistant Name: RADHA Llanos Information Interpreted: non-clinical & clinical Supervisor Fabrication Department: Supervisor Fabrication Department Present (RADHA Llanos) Accompanied by: Self / Same As Patient Allergies No Known Allergies Allergy (Verified 04/13/25 13:50) HPI Comments Details: Presenting 2 weeks post suction D&C for retained products of conception, doing well with no complaints no vaginal bleeding or pelvic cramps. Pathology showed the following: Products of conception, curettage: -Immature chorionic villi with necrosis and fibrin. -Decidua with trophoblastic cells with hemorrhage, necrosis and inflammation. -Chronic endometritis with inactive glands. -Blood clot Last H&H on 04/13/2025 was 9.4/29.2 the patient has been on iron sulfate 325 mg p.o. t.i.d. HCG quant was 12, on 04/11/25 [facility] Medical History Migraine Surgical History No pertinent past surgical history Social History Household Members: Children Housing: Apartment Alcohol intake: never Patient Tobacco Use Status: Never used Tobacco service: No Current occupational status: unemployed Sexual orientation: Straight/Heterosexual Gender identity: Female Review of Systems Const All systems reviewed & are unremarkable except as noted in HPI and below Reports as per HPI and Reports no additional complaints GI Reports no additional complaints Reports no additional complaints Assessment & Plan Assessment & Plan (1) Retained products of conception after induced termination of : Comment: Status post suction D&C Code(s): O07.4 - Failed attempted termination of without complication Category: Medical Plan: Discussed with the patient the results of the pathology and intraoperative finding. Recommended repeat CBC in 2 months and hCG quant today and to continue iron sulfate 325 mg p.o. t.i.d. for 8 more weeks and repeat CBC afterwards. The patient is still interested in Mirena IUD insertion will call back for IUD insertion meanwhile is on norethindrone 0.35 mg p.o. q.d. taking it at the same time. All questions answered, the patient verbalized understanding Orders: Orders Complete Blood Count no Diff Today O07.4 - Failed attempted termination of without complication Coding Level of Care Code Est Pt Level 3 (63282) Diagnoses Retained products of conception after induced termination of O07.4
--- OUTSIDE RECORDS SUMMARY | 2025-05-01 18:04 | XMS_ITS | Encounter Summary ---
Author Organization [employer] Address [address] [place] [address] 7 [place] [address] Care Team Providers Care Turkey Pinner Name Role Phone Claudia Ferrara CARLA Primary Care Provide r Encounter Details Date Type Department Care Team ([facility] Contact Info) Description 03/24/2025 Results Follow-Up [facility] Primary Care [address] [place] [phone] Zoya Matthews MD [address] [place] [phone] MR Brain w/o Contrast Social History [...] Care Team (Late st Contact Info) Description 08/14/2025 4:20 PM EDT Office Visit [facility] Primary Care [address] [place] [phone] Claudia Ferrara FNP [address] [place] [phone] documented as of this encounter Visit Diagnoses Not on filedocumented in this encounter Care Teams Turkey Pinner Relationship Specialty Start Date End Date Claudia Ferrara FNP [address] [place] [phone] PCP - General Family Medicine 11/20/21 documented as of this encounter
--- OUTSIDE RECORDS SUMMARY | 2025-05-01 18:04 | XMS_ITS | Clinical Summary ---
Author Organization [facility] Address [address] [place] [address] Care Team Providers Care Numerical Control Drill Press Operator Name Role Phone Diana Moses MD Primary Care Provider [phone] Allergies No known active allergies Medications Vitamin [...] Department Care Team Description 04/11/2025 Community Orders [facility] EpicCare Link [address] [place] [address] Alice Stevens NP Menorrhagia with irregular cycle (Primary Dx) 03/07/2025 11:00 AM EDT Infusion [facility] Clinic [address] [place] [address] 03/07/2025 9:40 AM EDT Follow-Up [facility] [address] [place] [address] Tamela Adrian, BONIFACIO Iron deficiency anemia, unspecified iron deficiency anemia type (Primary Dx); Other constipation; Hx of viral meningitis; Bad headache 03/07/2025 8:40 AM EDT Lab [facility] ACC Draw Site Fifth Floor [address] [place] [address] Iron deficiency anemia, unspecified iron deficiency anemia type 03/02/2025 4:57 PM EDT - 03/02/2025 9:51 PM EDT Emergency [facility] Emergency Department [address] [place] [address] Discharge Disposition: Left Without Being Seen (07) 02/20/2025 8:15 AM EDT Infusion [facility] Building Infusion Clinic [address] [place] [address] Radha Landeros RN Iron deficiency anemia, unspecified iron deficiency anemia type (Primary Dx) 02/09/2025 Results Follow-Up [facility] Building [facility] 5th Floor [address] [place] [address] Tamela Adrian NP 02/07/2025 Patient Outreach [facility] Cancer [facility] 5th Floor [address] [place] [address] Jada Hsu RN 02/07/2025 Telephone [facility] Neurology Clinic [address] [place] [address] Telephone Intake, Staff 02/03/2025 Orders Only [facility] [address] [place] [address] Melany Baxter NP Iron deficiency anemia, unspecified iron deficiency anemia type (Primary Dx) 02/02/2025 1:00 PM EDT Office Visit [facility] BMT [address] [address] Melany Baxter NP Anemia, unspecified type (Primary [...] Info) Description 06/07/2025 8:30 AM EST Lab [facility] ACC Draw Site Fifth Floor [address] [place] [address] 06/07/2025 9:30 AM EST Follow-Up [facility] [address] [place] [address] Melany Baxter NP [address] [place] [address] 10/30/2025 1:45 PM EDT Office Visit [facility] ACC Building Neurology Clinic [address] [place] [address] Erin Slater MD [address] [facility] [place] [address] Health Maintenance Due Date Last Done Comments [...] complete this topic Procedures * Due to [place] state law, this organization might not be [...] 02/02/2025 1:35 PM EDT Anemia, unspecified type HEPATITIS C ANTIBODY W/REFLEX TO HCV RNA, QUANTITATIVE PCR STAT 10/09/2022 8:00 AM EDT from Last 3 Months or Most Recently Relevant to Health Maintenance Results * Due to [place] state law, this organization might not be sharing negative HIV tests. * (ABNORMAL) Smear Review (03/07/2025 8:59 AM EDT) Platelet Estimate Adequate Adequate 03/07/2025 9:48 AM EDT [facility] RBC Morphology Present(A) Normal, No clinically significant RBC morphology present (ICSH guidelines, 2015). 03/07/2025 9:48 AM EDT [facility] Anisocytosis 2+(A) Not Present 03/07/2025 9:48 AM EDT [facility] [employer] Blood Structure of peripheral vein / Unknown Venipuncture / Unknown 03/07/2025 8:59 AM EDT 03/07/2025 9:10 AM EDT us Melany Baxter NP LAB BLOOD ORDERABLES Final Result [facility] [address] [place] [address], * (ABNORMAL) Iron Saturation (03/07/2025 8:59 AM EDT) Only the most recent of2 resultswithin the time period is included. Iron Saturation 19(L) 20 - 50 % 9:56 AM EDT [facility] Iron 36 30 - 160 ug/dL 03/07/2025 9:56 AM EDT [facility] Transferrin 153(L) 200 - 360 mg/dL 03/07/2025 9:56 AM EDT [facility] Total Iron Binding Capacity 191(L) 255 - 450 ug/dL 03/07/2025 9:56 AM EDT [facility] Blood Structure of peripheral vein / Unknown Venipuncture / Unknown 03/07/2025 8:59 AM EDT 03/07/2025 9:13 AM EDT us Melany Baxter DIRECTOR OF SCOUT WORK LAB BLOOD ORDERABLES Final Result [facility] CL[facility] PATHOLOG[facility] LABORATORY [address] [place] [address], * (ABNORMAL) CBC Auto Differential (Once) (03/07/2025 8:59 AM EDT) Only the most recent of3 resultswithin the time period is included. WBC 8.6 3.8 - 10.8 10*3/uL 03/07/2025 9:48 AM EDT [facility] RBC 4.12 3.80 - 5.10 10*6/uL 03/07/2025 9:48 AM EDT [employer] Hemoglobin 10.7(L) 11.7 - 15.5 g/dL 03/07/2025 9:48 AM EDT [facility] Hematocrit 33.5(L) 35.0 - 45.0 % 03/07/2025 9:48 AM EDT [facility] MCV 81.3 80.0 - 100.0 fL 03/07/2025 9:48 AM EDT [employer] MCH 26.0(L) 27.0 - 33.0 pg 03/07/2025 9:48 AM EDT [facility] MCHC 31.9(L) 32.0 - 36.0 g/dL 03/07/2025 9:48 AM EDT [facility] RDW 16.7(H) 11.0 - 15.0 % 03/07/2025 9:48 AM EDT [facility] Platelets 259 140 - 400 10*3/uL 03/07/2025 9:48 AM EDT [facility] MPV 10.7 7.5 - 12.5 fL 03/07/2025 9:48 AM EDT [facility] Neutrophil % 68.6 % 03/07/2025 9:48 AM EDT [facility] Immature Grans % 0.2 0.0 - 0.9 % 03/07/2025 9:48 AM EDT [facility] Lymphocyte % 20.4 % 03/07/2025 9:48 AM EDT [facility] Monocyte % 9.3 % 03/07/2025 9:48 AM EDT [facility] Eosinophil % 1.2 % 03/07/2025 9:48 AM EDT [facility] Basophil % 0.3 % 03/07/2025 9:48 AM EDT [facility] Neutrophil # 5.91 1.50 - 7.80 10*3/uL 03/07/2025 9:48 AM EDT [facility] Immature Grans # <0.03 <=0.03 10*3/uL 03/07/2025 9:48 AM EDT [facility] Lymphocyte # 1.80 0.85 - 3.90 10*3/uL 03/07/2025 9:48 AM EDT [facility] Monocyte # 0.80 0.20 - 0.95 10*3/uL 03/07/2025 9:48 AM EDT [facility] Eosinophil # 0.10 0.02 - 0.50 10*3/uL 03/07/2025 9:48 AM EDT [facility] Basophil # <0.03 0.00 - 0.20 10*3/uL 03/07/2025 9:48 AM EDT [facility] CL[facility]ICAL PATHOLOG[facility] LABOR[facility] nRBC % 0.0 /100 WBCs 03/07/2025 9:48 AM EDT [facility] LAB[facility] nRBC # <0.01 <0.01 10*3/uL 03/07/2025 9:48 AM EDT [facility] Total Neutrophil #, Preliminary 5.91 1.50 - 7.80 10*3/uL 03/07/2025 9:48 AM EDT [facility] LAB[facility] Comment:This ANC is [...] BLOOD ORDERABLES Final Result Performing Organization Address City/[facility]/ZIP Co de Phone Number [facility] CL[facility]ICAL PATHOLOG[facility] LABORATORY [address] [place] [address], [place] * (ABNORMAL) Ferritin (03/07/2025 8:59 AM EDT) Only the most recent of2 resultswithin the time period is included. Ferritin 1,557.0(H) 11.0 - 306.0 ng/mL 03/07/2025 9:56 AM EDT [facility] PATH[facility] LAB[facility] Blood Structure of peripheral vein / Unknown Venipuncture / Unknown 03/07/2025 8:59 AM EDT 03/07/2025 9:13 AM EDT Melany Baxter DIRECTOR OF SCOUT WORK LAB BLOOD ORDERABLES Final Result [facility] PATHOLOG[facility] LAB[facility]ORY [address] [place] [address], [place] * Blood Bank Hold Tube (03/02/2025 5:20 PM EDT) Pathologist [facility] Extra Tube Hold for add-ons. [place] MANUAL 03/02/2025 10:[address] [facility] Comment:Auto resulted. Blood Structure of peripheral vein / Unknown Venipuncture / Unknown 03/02/2025 5:20 PM EDT 03/02/2025 5:28 PM EDT Protocol [facility] LAB BLOOD BANK TEST OR DERABLES Final Result Performing Organization Address [facility]/ZIP Co de Phone Number [facility] B[facility]OD [facility] [address] [place] [address], * (ABNORMAL) hCG, Quantitative, (03/02/2025 5:20 PM EDT) Pathologist [facility] HCG Quantitative 2,854.0(H ) <=4.9 mIU/mL 03/02/2025 6:16 PM EDT [facility] CLINICAL PATHOLOGY LABORATORY Comment: hCG >= 5.0 mIU/mL is generally indicative of . Post menopausal ref range < 8.2 mIU/mL Cellophane Press Operator hCG ranges during normal . Approximate Gestational age Approximate hCG range (Post conception weeks) mIU/mL 3 5.4-72 4 10.2-708 5 217-8,245 6 152-32,177 7 4,059-153,767 8 31,366-149,094 9 59,109-135,901 10 44,186-170,409 12 27,107-201,615 Blood Structure of peripheral vein / Unknown Venipuncture / Unknown 03/02/2025 5:20 PM EDT 03/02/2025 5:26 PM EDT Protocol [facility] LAB BLOOD ORDERABLES F inal Result Performing Organization Address [facility]/ZIP Co de Phone Number [facility] CLINICAL PATHOLOGY LABORATORY [address] [place] [address], * (ABNORMAL) Basic Metabolic Panel (03/02/2025 5:20 PM EDT) Pathologist [facility] NA 135 135 - 145 mmol/L 03/02/2025 6:16 PM EDT [facility] PATHOLOG[facility] LAB[facility] K 4.0 3.5 - 5.3 mmol/L 03/02/2025 6:16 PM EDT [facility] PATHOLOG[facility] LAB[facility] Cl 103 97 - 110 mmol/L 03/02/2025 6:16 PM EDT [facility] PATHOLOG[facility] LAB[facility] CO2 21(L) 22 - 32 mmol/L 03/02/2025 6:16 PM EDT [facility] PATHOLOGY LABOR[facility] BUN 10 7 - 23 mg/dL 03/02/2025 6:16 PM EDT [facility] PATHOLOG[facility] LABOR[facility] Creatinine 0.51 0.50 - 1.20 mg/dL 03/02/2025 6:16 PM EDT [facility] PATHOLOGY LAB[facility] Glucose 116(H) 65 - 99 mg/dL 03/02/2025 6:16 PM EDT [facility] CL[facility] PATHOLOGY LABORATORY Calcium 8.8 8.6 - 10.5 mg/dL 03/02/2025 6:16 PM EDT [facility] CL[facility]ICAL PATHOLOGY LABORAT[facility] Anion Gap 11 5 - 15 03/02/2025 6:16 PM EDT [facility] PATHOLOGY LAB[facility] eGFR >90 >=60 mL/min/1. 73m2 03/02/2025 6:16 PM T [facility] CLINICAL PATHOLOGY LABORATORY Comment:The estimated glomer [...] MD LAB BLOOD ORDERABLES F inal Result [facility] [address] [place] [address], [place] * (ABNORMAL) Celiac Diagnostic Panel w/Gliadin, All Ages (Includes: IgA, tTG IgA/IgG and Giadin IgA/IgG) (02/02/2025 1:35 PM EDT) Tissue Transglutaminase Ab, IgG <1.0 U/mL 02/09/2025 4:30 PM EDT [facility] Comment: Value Interpretation ----- <15.0 Antibody not detected > or = 15.0 Antibody detected Tissue Transglutaminase Ab, IgA <1.0 U/mL 02/09/2025 4:30 PM EDT [facility] Comment: Value Interpretation ----- <15.0 Antibody not detected > or = 15.0 Antibody detected Gliadin Ab IgA <1.0 U/mL 02/09/2025 4:30 PM EDT [facility] Comment: Value Interpretation ----- <15.0 Antibody not detected > or = 15.0 Antibody detected Gliadin Ab IgG <1.0 U/mL 02/09/2025 4:30 PM EDT [facility] Comment: Value Interpretation ----- <15.0 Antibody not detected > or = 15.0 Antibody detected Immunoglobulin A 534(H) 47 - 310 mg/dL 02/09/2025 4:30 PM EDT [facility] Blood Structure of peripheral vein / Unknown Venipuncture / Unknown 02/02/2025 1:35 PM EDT 02/02/2025 2:03 PM EDT [facility] - 02/09/2025 4:30 PM EDT [facility] Received Date: Melany Baxter NP LAB BLOOD ORDERABLES Final Result [facility] M[facility] [address] [facility] 3rd Floor, [place] [address], [place] [phone] [facility] [address] [facility] 3rd Floor, [place] [address], [place] [phone] * (ABNORMAL) Protein Electrophoresis w/Reflex to Immunofixation, Serum (02/02/2025 1:35 PM EDT) Pathologist [facility] Protein, Total 7.8 6.1 - 8.1 g/dL 02/03/2025 9:28 PM EDT [facility] Albumin 3.0(L) 3.8 - 4.8 g/dL 02/03/2025 9:28 PM EDT [facility] Alpha 1 Globulin 0.4(H) 0.2 - 0.3 g/dL 02/03/2025 9:28 PM EDT [facility] Alpha 2 Globulin 1.0(H) 0.5 - 0.9 g/dL 02/03/2025 9:28 PM EDT [facility] Beta 1 Globulin 0.4 0.4 - 0.6 g/dL 02/03/2025 9:28 PM EDT [facility] Beta 2 Globulin 0.7(H) 0.2 - 0.5 g/dL 02/03/2025 9:28 PM EDT [facility] Gamma Globulin 2.4(H) 0.8 - 1.7 g/dL 02/03/2025 9:28 PM EDT [facility] Interpretation See Comments 02/03/2025 9:28 PM EDT [facility] Comment: Consistent with a chronic inflammatory pattern Blood Structure of peripheral vein / Unknown Venipuncture / Unknown 02/02/2025 1:35 PM EDT 02/02/2025 2:04 PM EDT Narrative [facility] MCGHEE - 02/03/2025 9:28 PM EDT [facility] Received Date: Melany Baxter DIRECTOR OF SCOUT WORK LAB BLOOD ORDERABLES Final Result [facility] [address], [place] [address], [place] [phone] [facility] [address], [place] [address], [place] [phone] * (ABNORMAL) Hemoglobin Electrophoresis (02/02/2025 1:35 PM EDT) [facility] Red Blood Cell Count 3.34(L) [...] clinically indicated, Thalassemia and Hemoglobinopathy [place] ([place] [address]) should be considered. Blood Structure of peripheral vein / Unknown Venipuncture / Unknown 02/02/2025 1:35 PM EDT 02/02/2025 1:56 PM EDT Narrative KAPIL LITTLEJUDI (SAY) - 02/05/2025 4:55 AM EDT [facility] Received Date:[id number] Melany Baxter DIRECTOR OF SCOUT WORK LAB BLOOD ORDERABLES Final Result Performing Organization Address [facility]/ZIP Co de Phone Number [facility] FLOWERS (DEAL) [address] [place], [place] , [place] * (ABNORMAL) Sedimentation Rate (02/02/2025 1:35 PM EDT) Sed Rate 86(H) <20 mm/Hr mm/Hr 02/02/2025 2:10 PM EDT [facility] Blood Structure of peripheral vein / Unknown Venipuncture / Unknown 02/02/2025 1:35 PM EDT 02/02/2025 1:56 PM EDT Melany Baxter DIRECTOR OF SCOUT WORK LAB BLOOD ORDERABLES Final Result [facility] [address] [place] [address], [place] * Reticulocytes (02/02/2025 1:35 PM EDT) Retic % 1.5 0.5 - 1.6 % 02/02/2025 2:11 PM EDT [facility] CL[facility] PATHOLOG[facility] LAB[facility] Retic # 0.05 0.02 - 0.08 10*6/uL 02/02/2025 2:11 PM EDT [facility] Blood Structure of peripheral vein / Unknown Venipuncture / Unknown 02/02/2025 1:35 PM EDT 02/02/2025 1:56 PM EDT Melany Baxter NP LAB BLOOD ORDERABLES Final Result [facility] LAB[facility] [address] [place] [address], [place] * Direct Antiglobulin Test (02/02/2025 1:35 PM EDT) Direct Antiglobulin Test Negative 02/02/2025 2:50 PM EDT [facility] Blood Structure of peripheral vein / Unknown Venipuncture / Unknown 02/02/2025 1:35 PM EDT 02/02/2025 2:31 PM EDT Melany Baxter NP LAB BLOOD BANK TEST ORDERAB LES Final Result Performing Organization Address City/[facility]/ZIP Co de Phone Number [facility]ANK [facility] [address] [place] [address], * (ABNORMAL) C-Reactive Protein (02/02/2025 1:35 PM EDT) C Reactive Protein 39.6(H) <=9.9 mg/L 02/02/2025 2:49 PM EDT [facility] Blood Structure of peripheral vein / Unknown Venipuncture / Unknown 02/02/2025 1:35 PM EDT 02/02/2025 2:04 PM EDT Melany Baxter NP LAB BLOOD ORDERABLES Final Result [facility] [address] [place] [address], [place] * DONIS Specific Antibody w/Reflex to [place] (02/02/2025 1:35 PM EDT) Pathologist [facility] DONIS Screen, Immunoassay NEGATIVE NEGATIVE 02/03/2025 3:36 PM EDT [facility] Comment: A negative DONIS Multiplex indicates the absence of detectable antibodies to component analytes consisting of double stranded DNA (dsDNA), chromatin, ribonucleoprotein (FPGA DESIGN ENGINEER), Francois/FPGA DESIGN ENGINEER (Sm/FPGA DESIGN ENGINEER), Francois (Sm), SS-A, SS-B, Linda-1, centromere B, Scl-70 and ribosomal P. A negative result should be interpreted in the context of the clinical and laboratory findings and does not rule out autoimmune disease characterized by other autoantibody specificities such as rheumatoid arthritis, autoimmune hepatitis, primary biliary cirrhosis, autoimmune thyroiditis, Moultrie's disease, pernicious anemia, autoimmune neuropathies, vasculitis, celiac disease, and bullous disease. For additional information, please refer to http://education.[employer]Z Mobile/faq/VER309 (This link is being provided for informational/ educational purposes only.) Blood Structure of peripheral vein / Unknown Venipuncture / Unknown 02/02/2025 1:35 PM EDT 02/02/2025 2:[address] [place] - 02/03/2025 3:36 PM EDT [facility] Received Date: Melany Baxter NP LAB BLOOD ORDERABLES Final Result [facility] [address] [facility] [address]rd [address], [place] [address], [facility] [address] [facility] [address]rd [address], [place] [address], [place] [phone] * (ABNORMAL) Haptoglobin (02/02/2025 1:35 PM EDT) [facility] Haptoglobin 287(H) 43 - 212 mg/dL 02/02/2025 8:23 PM EDT [facility] Blood Structure of peripheral vein / Unknown Venipuncture / Unknown 02/02/2025 1:35 PM EDT 02/02/2025 2:04 PM EDT [employer] - 02/02/2025 8:23 PM EDT [facility] Received Date:[id number] Melany Baxter DIRECTOR OF SCOUT WORK LAB BLOOD ORDERABLES Final Result [facility] [address] [facility] [address], [place] [address], [place] [phone] [facility] [address] [facility] [address]rd [address], [place] [address], [place] [phone] * Folate (02/02/2025 1:35 PM EDT) Folate 20.6 4.8 - 24.2 ng/mL 02/02/2025 3:21 PM EDT [facility] Blood Structure of peripheral vein / Unknown Venipuncture / Unknown 02/02/2025 1:35 PM EDT 02/02/2025 2:04 PM EDT Melany Baxter DIRECTOR OF SCOUT WORK LAB BLOOD ORDERABLES Final Result Performing Organization Address City/[facility]/ZIP Co de Phone Number [facility] [address] [place] [address], [place] * Vitamin B12 (02/02/2025 1:35 PM EDT) Vitamin B12 755 232 - 1,245 pg/mL 02/02/2025 2:53 PM EDT [facility] Blood Structure of peripheral vein / Unknown Venipuncture / Unknown 02/02/2025 1:35 PM EDT 02/02/2025 2:04 PM EDT Melany Baxter DIRECTOR OF SCOUT WORK LAB BLOOD ORDERABLES Final Result [facility] [address] [place] [address], [place] * (ABNORMAL) Comprehensive Metabolic Panel (Once) (02/02/2025 1:35 PM EDT) NA 133(L) 135 - 145 mmol/L 02/02/2025 2:49 PM EDT [facility] K 3.8 3.5 - 5.3 mmol/L 02/02/2025 2:49 PM EDT [facility] Cl 102 98 - 107 mmol/L 02/02/2025 2:49 PM EDT [facility] CO2 20(L) 22 - 32 mmol/L 02/02/2025 2:49 PM EDT [facility] Anion Gap 11 5 - 15 02/02/2025 2:49 PM EDT [facility] Glucose 92 65 - 99 mg/dL 02/02/2025 2:49 PM EDT [facility] Creatinine 0.53 0.50 - 1.20 mg/dL 02/02/2025 2:49 PM EDT [facility] Calcium 9.0 8.6 - 10.5 mg/dL 02/02/2025 2:49 PM EDT [facility] Total Protein 8.5(H) 6.0 - 8.0 g/dL 02/02/2025 2:49 PM EDT [facility] Albumin 3.3(L) 3.5 - 5.2 g/dL 02/02/2025 2:49 PM EDT [facility] Bilirubin, Total 0.5 0.2 - 1.2 mg/dL 02/02/2025 2:49 PM EDT [facility] Alkaline Phosphatase 123 35 - 129 U/L 02/02/2025 2:49 PM EDT [facility] AST 16 10 - 40 U/L 02/02/2025 2:49 PM EDT [facility] ALT 20 10 - 40 U/L 02/02/2025 2:49 PM EDT [facility] BUN 9 7 - 23 mg/dL 02/02/2025 2:49 PM EDT [facility] CL[facility] PATHOLOG[facility] LABOR[facility] eGFR >90 >=60 mL/min/1. 73m2 02/02/2025 2:49 PM EDT [facility] Comment:The estimated glomer [...] - 4.2 g/dL 02/02/2025 2:49 PM EDT [facility] PATH[facility] A/G Ratio 0.6(L) 1.5 - 3.0 02/02/2025 2:49 PM EDT [facility] Blood Structure of peripheral vein / Unknown Venipuncture / Unknown 02/02/2025 1:35 PM EDT 02/02/2025 2:04 PM EDT Melany Baxter NP LAB BLOOD ORDERABLES Final Result [facility] PATHOLOG[facility] LABOR[facility]ORY [address] [place] [address], * Hepatitis C Antibody w/Reflex to HCV RNA, Quantitative PCR (10/09/2022 8:00 AM EDT) Hepatitis C Antibody NON-REACT POWER NON-REACT POWER 10/10/2022 12:13 AM EDT [facility] Signal To Cut-Off 0.05 <1.00 10/10/2022 12:13 AM EDT [facility] Comment: HCV antibody was non-reactive. There is no laboratory evidence of HCV infection. In most cases, no further action is required. However, if recent HCV exposure is suspected, a test for HCV RNA (test code 08207) is suggested. For additional information please refer to http://education.TV[employer] Entertainment/faq/OHU97t6 (This link is being provided for informational/ educational purposes only.) Blood Structure of peripheral vein / Unknown Venipuncture / Unknown 10/09/2022 8:00 AM EDT 10/09/2022 8:04 AM EDT Narrative [facility] - 10/10/2022 12:13 AM EDT [facility] Received Date:[id number] Joni Tate DO LAB BLOOD ORDERABLES Final R esult [facility] [address] [facility] [address] [facility], [place] [address], [facility] [address] [place] [address], from Last 3 Months or Most Recently Relevant to Health Maintenance [place] [address] [place] [address] Advance Directives * Full Code (Latest Code Status on File) Date Activated Date Inactivated Comments 10/09/2022 9:07 AM 10/12/2022 5:50 PM Care Teams Numerical Control Drill Press Operator Relationship Specialty Start Date End Date Diana Moses MD PCP - General Family Medicine 10/12/22
--- OUTSIDE RECORDS SUMMARY | 2025-05-01 18:04 | XMS_ITS | Encounter Summary ---
Author Organization [facility] Address [address] [place] [address] Care Team Providers Care Appliance Painter And Refinisher Name Role Phone Diana Moses MD Primary Care Provider [phone]- [phone] Reason for Referral * Diagnostic Imaging (Emergency) - Authorized Specialty Diagnoses / Procedures Referred By Contlopez t Referred To Contact Diagnoses Menorrhagia with irregular cycle Procedures US Pelvis Non OB Transabdominal And Transvaginal Complete Alice Stevens NP [address] [place] [address] Phone: tel: fax: Referral ID Status Reason Start Date Expiration Date V isits Requested Visits Authorized [id number] Authorized 04/11/2025 10/11/2026 1 1 Encounter Details Date Type Department Care Team (Late st Contact Info) Description 04/11/2025 Community Orders [facility] EpicCare Link [address] [place] [address] Alice Stevens NP [address] [place] [phone] Menorrhagia with irregular cycle (Primary Dx) Social [...] Info) Description 06/07/2025 8:30 AM EST Lab [facility] ACC Draw Site Fifth Floor [address] [place] [address] 06/07/2025 9:30 AM EST Follow-Up [facility] BMT Clinic [address] [place] [address] Melany Baxter NP [address] [place] [address] 10/30/2025 1:45 PM EDT Office Visit [facility] Neurology Clinic [address] [place] [address] Erin Slater MD [address] [place] [address] Scheduled Orders Name Type Priority Associated Diagnoses Orde r Schedule US Pelvis Non OB Transabdominal And Transvaginal Complete Imaging STAT Menorrhagia with irregular cycle 1 Occurrences starting 04/11/2025 until 06/11/2026 documented as of this encounter Visit Diagnoses Diagnosis Menorrhagia with irregular cycle- Primary documented in this encounter Care Teams Appliance Painter And Refinisher Relationship Specialty Start Date End Date Diana Moses MD PCP - General Family Medicine 10/12/22 documented as of this encounter
--- OUTSIDE RECORDS SUMMARY | 2025-05-01 18:04 | XMS_ITS | Encounter Summary ---
Author Organization [facility] Address [address] [place] [address] Care Team Providers Care Veneer Jointer Operator Name Role Phone Diana Moses MD Primary Care Provider [phone]- [phone] Reason for Referral * Consultation (Urgent) - Pending Review Specialty Diagnoses / Procedures Referred By Aparna liu Referred To Contact Oncology Diagnoses Iron deficiency anemia, unspecified iron deficiency anemia type Claudia Ferrara NP [address] [place] [phone] Phone: tel: fax: [facility] 5th [address] [place] [address] Phone: tel: fax: Referral ID Status Reason Start Date Expiration Date Visits Requested Visits Authorized [id number] Pending Review Specialty Services Required 12/23/2024 01/23/2026 6 6 Encounter Details Date Type Department Care Team (Late st Contact Info) Description 12/23/2024 Community Orders [facility] EpicCare Link [address] [place] [address] Claudia Ferrara NP [address] [place] [phone] Iron deficiency anemia, unspecified iron deficiency [...] Info) Description 06/07/2025 8:30 AM EST Lab [facility] Draw Site Fifth Floor [address] [place] [address] 06/07/2025 9:30 AM EST Follow-Up [facility] Clinic [address] [place] [address] Melany Baxter NP [address] [place] [address] 10/30/2025 1:45 PM EDT Office Visit [facility] Neurology [facility] [address] [place] [address] Erin Slater MD [address] [place] [address] [place] [address] Scheduled Referrals Name Type Priority Associated Diagnoses Orde r Schedule Ambulatory referral to Hematology / Oncology Outpatient Referral Routine Iron deficiency anemia, unspecified iron deficiency anemia type Expected: 12/23/2024, Expires: 01/23/2026 documented as of this encounter Visit Diagnoses Diagnosis Iron deficiency anemia, unspecified iron deficiency anemia type- Primary documented in this encounter Care Teams Veneer Jointer Operator Relationship Specialty Start Date End Date Diana Moses MD PCP - General Family Medicine 10/12/22 documented as of this encounter
--- OUTSIDE RECORDS SUMMARY | 2025-05-01 18:05 | XMS_ITS | Encounter Summary ---
Author Organization [employer] Address [address] [place] [address] [place] [address] Care Team Providers Care Information Technology Advisor Name Role Phone LevonOriana Claudia FNP Primary Care Provide r Encounter Details Date Type Department Care Team ([facility] Contact Info) Description 04/05/2025 Results Follow-Up [facility] Walk-in [address] [phone] Alice Stevens NP [address] [place] [phone] CBC auto differential, Iron, TIBC And Ferritin [...] Description 08/14/2025 4:20 PM EDT Office Visit [facility] Primary Care [address] [place] [phone] Claudia Ferrara FNP [address] [place] [phone] documented as of this encounter Visit Diagnoses Diagnosis Irregular menstrual bleeding- Primary Irregular menstrual cycle documented in this encounter Care Teams Information Technology Advisor Relationship Specialty Start Date End Date Claudia Ferrara FNP [address] [place] [phone] PCP - General Family Medicine 11/20/21 documented as of this encounter
--- OUTSIDE RECORDS SUMMARY | 2025-05-01 18:05 | XMS_ITS | Clinical Summary ---
Author Organization [facility] Address [address] [facility] 7 [place] [address] Care Team Providers Care Cloth Handler Name Role Phone Claudia Ferrara CARLA Primary [...] doses per day). 30 tablet 04/03/20 Active ferrous sulfate 325 (65 Fe) MG [...] eorder (will not trigger notification to Pharmacy)) estrogens, conjugated, (Premarin) 0.3 MG tabletIndications :Irregular menstrual bleeding Take 1 tablet (0.3 mg) by mouth Once per day. Take daily for 21 days then do not take for 7 days. 21 tablet 04/05/20 25 2024 Discontinued Active Problems Problem Noted Date Diagnosed Date Abnormal uterine bleeding 04/25/2025 Overview (04/25/2025): She had a miscarriage on 02/25/25, then she was seen at [facility] on 03/02 the HCG was >50% decreased which was consistent with miscarriage. Prescribed Sylnd and continued to experience bleeding. She was then started on 3wks of 0.3mg of estrogen on 04/05/25. 04/25/25: Patient reports that she has been taking Slynd control around the same time daily. She is unsure if she ever took the estrogen, but confirms that she takes the Slynd daily. Pharmacy record does show she picked up the estrogen. Patient notes that she went to [employer] on 04/13/25 and missed her scheduled [facility] at [facility]. [facility] records are not available in her chart. She states she also had a surgery/procedure which helped the bleeding, though she is not sure what the procedure was. Her bleeding slowly decreased over time since this procedure and fully stopped 04/21/25. She has a follow up with the office who completed the procedure on 05/01/25. Assessment & Plan (04/25/2025 12:18 PM EST): Bleeding has resolved, record request filled out and sent to [facility]. control counseling 04/25/2025 Overview (04/25/2025): Counseled regarding control options including OCPs, patch, ring, IUDs, and implant. Discussed risks and benefits of each. Patient was previously interested in an IUD but wants to get her period monthly. Discussed that not getting period monthly is not dangerous but if she prefers to get a monthly period the hormonal IUD is not a good option. Unlikely to be good candidate for copper IUD given history of AUB. Would like to continue with Slynd at this time. Other headache syndrome 08/01/2024 Overview (03/24/2025): 02-02-25 [...] iron is needed - Call pt with language interpreter to review lab results and next steps [...] History of viral meningitis 07/20/2024 Overview (07/20/2024): 2-26-25 visit today patient speaking in clear sentences, [...] for Ferrous sulfate to be sent to [facility] Excuse note return to work on Thursday07-25-2024. ---Admission 07-03-2024 through Discharged 07-06-2024. For headache, neck pain and fever at [facility]. Admitting diagnosis Viral Meningitis and Iron [...] iron is needed - Call pt with language interpreter to review lab results and next steps [...] For headache, neck pain and fever at [facility]. Admitting diagnosis Viral Meningitis and Iron Deficinecy Anemia. Also noted to have LUCERO with iron <7, Tbic 147, received 3 iron infusions and started on iron suplementation. Currently not taking ferrous sulfate, as reports was expensive at her pharmacy with a co-pay of $50. Advised can send to [facility] pharmacy and patient agreeable, as reports will be coming in for her blood work this Thursday. Counseled on importance of completing blood work ordered, that has not been completed. Lab work not completed from 07-12-24. Reports will be able to do labs on Thursday Agreeable for Ferrous sulfate to be sent to [facility] Excuse note return to work on Thursday07-25-2024. Advised for any worsening of symptoms or new symptoms to contact us sooner and patient agreeable. Assessment & Plan (04/25/2025 12:19 PM EST): Continues to follow with heme. Reminded of next appointment. Assessment & Plan (12/21/2024 9:46 AM EDT): [...] 06/06/2024 Overview (06/06/2024): Patient does not speak Gambian as a primary language. Certified language interpreter was used for the duration of this visit which requires at least twice the time to assess history, discuss assessment and plan. Those with primary language is other than Gambian, require additional support and expertise in order to access health care to combat these social determinants of health. This additional expertise, support, attention, and effort required to deliver quality health care must be recognized by our system. Situational stress 03/28/2024 Overview (06/06/2024): 06-06-24 patient also had visit with primary care [facility] 06-02-2024. Patient reports doing overall well, and [...] Encounters Date Type Department Care Team Description 04/25/2025 9:40 AM EST Office Visit [address] [phone] Lazara Galindo NP Abnormal uterine bleeding (Primary Dx); Iron deficiency anemia due to chronic blood loss; control counseling 04/07/[address] [phone] Claudia Ferrara FNP Letter for School/Work 04/05/2025 Results Follow-Up [address] [phone] Alice Stevens NP CBC auto differential, Iron, TIBC And Ferritin Panel, Folate, Serum, Additional followed-up results: 2 04/03/2025 4:00 PM EST Office Visit [address] [phone] Alice Stevens NP Menorrhagia with irregular cycle (Primary Dx); Encounter for screening for diabetes mellitus; Iron deficiency anemia, unspecified iron deficiency anemia type; Encounter for medication refill; Nonintractable headache, unspecified chronicity pattern, unspecified headache type; Migraine-cluster headache syndrome 03/24/2025 Results Follow-Up [address] [phone] Zoya Matthews MD MR Brain w/o Contrast 03/22/[address] [phone] Frances Steve, GOMEZ 03/22/[address] [phone] Claudia Ferrara FNP Nurse Triage 03/15/2025 3:40 PM EDT Telemedicine [address] [phone] Zoya Matthews MD Migraine-cluster headache syndrome (Primary Dx); Language barrier affecting health care 03/15/[address] [phone] Zoya Matthews MD 03/08/2025 3:40 PM EDT Telemedicine [address] [phone] Zoya Matthews MD Chronic nonintractable headache, unspecified headache type (Primary Dx); Language barrier affecting health care; Early loss 03/06/2025 Results Follow-Up [address] [phone] Jennifer Wright FNP Vaginitis Plus (VG+) With Cherelle (Six Species), NuSwab 03/02/2025 3:00 PM EDT Routine [address] [phone] Jennifer Wright FNP Worst headache of life (Primary Dx); Miscarriage; Oral contraception initial prescription; Iron deficiency anemia, unspecified iron deficiency anemia type 03/01/[address] [phone] Claudia Ferrara FNP Pt reporting whe went to the ER 02/25; Hospital Follow-up 02/17/[address] [phone] Claudia Ferrara FNP Appointment Confirmation 02/17/[address] [phone] Diana Moses MD 02/02/2025 Orders Only [address] [phone] Claudia Ferrara CAMERA REPAIRER Other headache syndrome (Primary Dx); History of [...] Sign Reading Time Taken Comments Blood Pressure 104/72 04/25/2025 9:25 AM EST Pulse 77 04/25/2025 9:25 AM EST Temperature 36.7 C (98 F) 04/25/2025 9:25 AM EST Respiratory Rate 18 04/03/2025 4:33 PM EST Oxygen Saturation 98% 04/25/2025 9:25 AM EST Inhaled Oxygen Concentration - - Weight 72.3 kg (159 lb 6.3 oz) 04/25/2025 9:25 A M EST Height 159.5 cm (5' 2.8 ) 12/20/2024 1:12 PM EDT Body Mass Index 28.42 12/20/2024 1:12 PM EDT Plan of Treatment Upcoming Encounters Date Type Department Care Team (Late st Contact Info) Description 08/14/2025 4:20 PM EDT Office Visit [facility] Primary Care [address] [place] [phone] Claudia Ferrara FNP [address] [place] [phone] Health Maintenance Due Date Last Done [...] Subunit,Qnt,Se rum 13.2(H) 0.0 - 5.0 mIU/mL [facility] Comment: Test Interpretation: Negative: <5 Gestation Age: 0.2-1 w 5- 50 1-2 w 50- 500 2-3 w 100- 5000 3-4 w 500- 10,000 4-5 w 1,000- 50,000 5-6 w 10,000- 100,000 6-8 w 15,000- 200,000 2-3 mo 10,000- 100,000 Blood Venous blood specimen / Unknown 04/03/2025 5:32 PM EST 04/03/2025 Narrative Resulting Agency Comment Performed at: 01 - [address] [id number] Fitness Worker: Parris Rome MD, Phone: [phone] us Alice Stevens NP LAB BLOOD ORDERABLES Final R esult [facility] [address] [address] * (ABNORMAL) Iron, TIBC And Ferritin Panel (04/03/2025 5:32 PM EST) [facility] Iron Binding Capacity 176(L) 250 - 450 ug/dL [facility] UIBC 151 131 - 425 ug/dL [facility] Iron, Total 25(L) 27 - 159 ug/dL [facility] % Saturation 14(L) 15 - 55 % [facility] Ferritin 659(H) 15 - 150 ng/mL [facility] Blood Venous blood specimen / Unknown 04/03/2025 5:32 PM EST 04/03/2025 Narrative Resulting Agency Comment Performed at: - [facility] [address] [place], [place] [id number] Fitness Worker: Digna Olson MD, Phone: [phone] us Alice Stevens BOX CAR LOADER LAB BLOOD ORDERABLES Final R esult [facility] 1 [facility] [address] [place] [address] * (ABNORMAL) CBC auto differential (04/03/2025 5:32 PM EST) [facility] White Blood Cell Count 7.3 3.9 - 11.0 x10(3)/[facility] Red Blood Cell Count 3.59(L) 3.70 - 5.10 million/mc L [facility] Hemoglobin 9.3(L) 11.5 - 12.5 g/dL [facility] Hematocrit 30.3(L) 34.0 - 44.0 % [facility] MCV 84 80 - 100 fL [facility] MCH 26(L) 27 - 33 pg [facility] MCHC 31 31 - 36 g/dL [facility] RDW [facility] Comment:RDW-SD 51 N Platelet Count 173 150 - 450 x10(3)/mcL [facility] Comment:MPV 12.6 fL 7.0-11.0 H Neutrophils 58 42 - 76 % [facility] Lymphocytes 31 27 - 47 % [facility] Monocytes 8 4 - 13 % [facility] Eosinophils 2 0 - 7 % [facility] Basophils 0 0 - 3 % [facility] Kurt Absolute Neutrophils 4.2 1.8 - 7.0 x10(3)/[facility] [place] Absolute Lymphocytes 2.3 1.1 - 5.9 x10(3)/[facility] [place] Absolute Monocytes 0.6 0.1 - 0.8 x10(3)/[facility] [place] Absolute Eosinophils 0.16 0.00 - 0.40 x10(3)/[facility] [place] Absolute Basophils 0.03 0.00 - 0.20 x10(3)/[facility] [place] Immature Granulocytes 0 % [facility] Immature Grans (Abs) 0 10(3)/uL [facility] [place] NRBC 0 % [facility] Comment:NRBC Auto Abs 0.00 x 10(3)/mcL N Blood Venous blood specimen / Unknown 04/03/2025 5:32 PM EST 04/03/2025 Narrative Resulting Agency Comment Performed at: [address] [id number] Fitness Worker: Parris Rome MD, Phone: [phone] Alice Stevens NP LAB BLOOD ORDERABLES Final R esult [facility] [address] [address] * Hemoglobin A1c (Diabetes screening) (04/03/2025 5:32 PM EST) Pathologist [facility] Hemoglobin A1c 5.4 4.8 - 5.9 % [facility] Comment: Diabetic Adult: <7.0% Healthy Adult: 4.8-5.9% est Av Glu(eAG) 108 mg/dL N Blood Venous blood specimen / Unknown 04/03/2025 5:32 PM EST 04/03/2025 Narrative Resulting Agency Comment Performed at: [address] [id number] Fitness Worker: Parris Rome MD, Phone: [phone] Alice Stevens BOX CAR LOADER LAB BLOOD ORDERABLES Final R esult [facility] [address] [address] * Folate, Serum (04/03/2025 5:32 PM EST) Pathologist [facility] Folate, Serum 16.2 >3.0 ng/mL [facility] Comment: A serum folate concentration of less than 3.1 ng/mL is considered to represent clinical deficiency. Blood Venous blood specimen / Unknown 04/03/2025 5:32 PM EST 04/03/2025 Narrative Resulting Agency Comment Performed at: [address] [id number] Fitness Worker: Digna Olson MD, Phone: [phone] Alice Stevens NP LAB BLOOD ORDERABLES Final R esult Performing Organization Address City/[facility]/ZIP Co de Phone Number [facility] [address] [phone] * MR Brain w/o Contrast (03/16/2025) Anatomical Region Laterality Modality Brain Magnetic Resonan ce Zoya Matthews MD IMG MRI PROCEDURES Edited Result - Final * (ABNORMAL) Vaginitis Plus (VG+) With Cherelle (Six Species), NuSwab (03/02/2025 12:00 AM EDT) Pathologist [facility] Atopobium vaginae High - 2(A) Score [facility] BVAB 2 High - 2(A) Score [facility] Megasphaera 1 High - 2(A) Score [facility] Comment: Calculate total score by adding the 3 individual bacterial vaginosis (BV) marker scores together. Total score is interpreted as follows: Total score 0-1: Indicates the absence of BV. Total score 2: Indeterminate for BV. Additional clinical data should be evaluated to establish a diagnosis. Total score 3-6: Indicates the presence of BV. Cherelle albicans, LINDY Negative Negative [facility] Cherelle glabrata, LINDY Negative Negative [facility] C parapsilosis/trop icalis Negative Negative [facility] Comment:This assay does not differentiate C. tropicalis and C. parapsilosis. Cherelle lusitaniae, LINDY Negative Negative [facility] Cherelle krusei, LINDY Negative Negative [facility] Trich vag by LINDY Negative Negative [facility] Chlamydia trachomatis, LINDY Negative Negative [facility] Neisseria gonorrhoeae, LINDY Negative Negative [facility] Swab (Vaginal Swab) 03/02/2025 03/02/2025 Comment:Vaginal Swab Delay r e Narrative [facility] 1 - 03/04/2025 8:05 PM EDT Test(s) 859784- Atopobium vaginae; 205388- BVAB 2; 778838- Megasphaera 1 was developed and its performance characteristics determined by [facility]. It has not been cleared or approved by the Food and Drug Administration. Test(s) 219930-Uewykce albicans, LINDY; 338208-Shchbbo glabrata, LINDY; 930840-R parapsilosis/tropicalis; 257576-Khaluhv lusitaniae, LINDY; 991509-Uhehhfc krusei, LINDY was developed and its performance characteristics determined by [facility]. It has not been cleared or approved by the Food and Drug Administration. Resulting Agency Comment Performed at: 01 - [address] [id number] Fitness Worker: Digna Olson MD, Phone: [phone] Jennifer Wright [facility] LAB CYTOLOGY ORDERA BLES Final Result [facility] [address] [address] * Referral to Hematology (02/03/2025) Claudia Ferrara [facility] OUTPATIENT REFERRAL O RDERABLES Final Result * Routine Pap, Age 30+ (01/27/2024 2:12 PM EDT) Diagnosis [facility] Comment: NEGATIVE FOR INTRAEPITHELIAL LESION OR MALIGNANCY. THE CYTOLOGY PROCESSING WAS PERFORMED AT THE [facility] FACILITY LOCATED AT [address] [place] [phone]. Adequacy: [facility] Comment: Satisfactory for evaluation. [...] 10:05 PM EDT Performed at: [facility] - [facility] [address] [id number] Fitness Worker: Conner Rome MD, Phone: [phone] Performed at: 02 - [address] [id number] Fitness Worker: Digna Olson MD, Phone: [phone] Performed at: 03 - [address] [id number] Fitness Worker: Digna Olson MD, Phone: [phone] Specimen Comment: [id number] Specimen Comment: No. of containers..01 ThinPrep Vial Em [facility] LAB CYTOLOGY ORDERABLES Dennise valencia Result [facility] 3 [facility] * HM HIV 1/2 Antigen and Antibody (07/09/2023) HIV Ag/Ab Nonreactive Historical Provider HEALTH MAINTENANCE Final Result * HM Hepatitis C Antibody (10/06/2022) Hepatitis C Antibody Nonreactive Blood Historical Provider HEALTH MAINTENANCE Final Result from Last 3 Months or Most Recently Relevant to Health Maintenance [place] [address] [address] C3 Care Teams Cloth Handler Relationship Specialty Start Date End Date Claudia Ferrara FNP [address] [place] [address] PCP - General Family Medicine 11/20/21
== END 2025-05-01 11:17 | disposition home or self-care (01) ==
LOC: HO.HWS 10:41
PROVIDERS: Visit Provider Obstetrics & Gynecology
DX: O07.4 Failed attempted termination of pregnancy without complication (principal)
CPT/HCPCS: 99213